=== PATIENT | female | born 1990 | race Caucasian/White ===

== ENCOUNTER 2024-01-31 10:44 | Emergency (ER) | payer MEDICAID, SELFPAY ==
[2024-01-31 10:53] VITALS: BP 141/108; PULSE 96; TEMP 37.1; O2SAT 97; BMI 25.8
[2024-01-31 11:21] LABS: Basophils Absolute Auto 0.1 10^3/uL (0.0-0.1); Basophils Percent Auto 0.5 % (0.2-2.0); Eosinophils Percent Auto 0.2 % (0.9-7.0); Hematocrit 46.1 % (36.0-48.0); Hemoglobin 16.2 g/dL (12.0-16.0); Immature Granulocytes Abs Auto 0.03 10^3/uL (0.00-0.03); Immature Granulocytes Pct Auto 0.3 % (0.0-0.5); Lymphocytes Absolute Auto 2.4 10^3/uL (1.2-3.8); Lymphocytes Percent Auto 23.1 % (20.5-60.0); Mean Corpuscular HGB Conc 35.1 g/dL (29.9-35.2); Mean Corpuscular Hemoglobin 29.9 pg (26.7-34.0); Mean Corpuscular Volume 85.2 fL (81.0-99.0); Mean Platelet Volume 10.2 fL (9.5-13.5); Monocytes Absolute Auto 0.6 10^3/uL (0.3-0.8); Monocytes Percent Auto 6.2 % (1.7-12.0); Neutrophils Absolute Auto 7.1 10^3/uL (1.4-6.5); Neutrophils Percent Auto 69.7 % (43.0-75.0); Platelet Count 297 10^3/uL (150-450); Red Blood Count 5.41 10^6/uL (4.20-5.40); Red Cell Distribution Width 11.9 % (11.0-15.0); White Blood Count 10.2 10^3/uL (4.0-11.0)
[2024-01-31] MEDS: ONDANSETRON PF 4 MG/2 ML VIAL IV (11:27)
[2024-01-31] MEDS: 0.9 % SODIUM CHLORIDE 1,000 ML 1000 ML IV (11:27)
[2024-01-31 11:53] LABS: Alanine Aminotransferase 19 U/L (14-59); Albumin Globulin Ratio 0.9; Alkaline Phosphatase 70 U/L (46-116); Aspartate Amino Transferase 17 U/L (15-37); BUN Creatinine Ratio 9.9; Bilirubin Total 0.8 mg/dL (0.2-1.0); Calcium 9.3 mg/dL (8.5-10.1); Carbon Dioxide 22.7 mmol/L (21.0-32.0); Chloride 102 mmol/L (98-107); Estimated GFR (African America >60 (>=60 mL/min/1.73m^2); Estimated GFR (Non-African Ame >60 (>=60 mL/min/1.73m^2); Globulin 4.3 g/dL; Glucose 98 mg/dL (74-106); Potassium 3.7 mmol/L (3.5-5.1); Sodium 140 mmol/L (136-145); Total Protein 8.3 g/dL (6.4-8.2)
[2024-01-31 12:19] LABS: HCG Quantitative 133465 mIU/mL
[2024-01-31 12:43] LABS: Bilirubin Urine NEGATIVE (NEGATIVE); Blood Urine NEGATIVE (NEGATIVE); Clarity Urine SL CLOUDY (CLEAR); Color Urine YELLOW (YELLOW); Glucose Urine UA NEGATIVE (NEGATIVE); Ketones Urine 15 mg/dL (NEGATIVE); Leukocyte Esterase Urine TRACE (NEGATIVE); Nitrite Urine POSITIVE (NEGATIVE); Protein Urine 30 mg/dL (NEG/TRACE); Urobilinogen Urine 0.2 EU/dL (0.2-1.0)
[2024-01-31 12:52] LABS: Urine Microscopic Indicated YES
[2024-01-31 12:53] LABS: Bacteria Urine MODERATE #/HPF (NONE SEEN); Mucus Urine MODERATE (NONE SEEN); RBC Urine NONE SEEN #/HPF (0-2)
[2024-01-31 12:54] LABS: Cast Seen? SEEN #/LPF (NONE SEEN); Crystals Seen? None Seen #/HPF (None Seen); Hyaline Casts Urine RARE; Squamous Epithelial Cell Urine FEW #/LPF (NONE/RARE); Transitional Epi Cells Urine RARE #/LPF (NONE SEEN)
[2024-01-31 12:55] LABS: Urine Culture Indicated YES
--- NOTE | 2024-01-31 18:11 | ED.NAVMDI1 ---
HPI - Nausea/Vomiting/Diarrhea General Chief complaint: Nausea/Vomiting/Diarrhea Stated complaint: NAUSEA Time Seen by Provider: 01/31/24 11:11 Source: patient Mode of arrival: walk-in History of Present Illness HPI Narrative: Patient has been before 2 times and this is the third time she is 7 weeks coming to us with nausea vomiting, no abdominal pain no spotting Patient have not followed up with her OB doctor yet Related Data Previous Rx's ?Medication ?Instructions ?Recorded amoxicillin 875 mg-potassium 1 tab PO Q12H #10 tabs 01/31/24 clavulanate 125 mg tablet ondansetron 4 mg disintegrating 4 mg PO Q8H PRN nausea and 01/31/24 tablet vomiting 3 days #14 tabs pyridoxine (vitamin B6) 25 mg 25 mg PO TID PRN nausea and 01/31/24 tablet vomiting #20 tabs Allergies Allergy/AdvReac Type Severity Reaction Status Date / Time No Known Drug Allergies Allergy Verified 01/31/24 12:24 Review of Systems ROS Status of ROS 10 or more systems reviewed and unremarkable except as noted in history and below PFSH PFSH Social History Little interest or pleasure in doing things: not at all Feeling down, depressed, or hopeless: not at all Exam Narrative Exam Narrative: Nurses notes and vital signs reviewed and patient is not hypoxic. General: Well-appearing and in no apparent distress. Skin: Warm, dry, no pallor noted. No rash. Head: Normocephalic, atraumatic. Neck: Supple, non-tender. Eye: Pupils are equal, round and EOMI. No scleral icterus. Ears, Nose, Mouth, and Throat: TM are clear, no nasal mucosal hypertrophy. Oral mucosa is moist, no posterior oropharynx erythema, uvula is mid-line Cardiovascular: Regular Rate and Rhythm without murmur, gallop or rub. Respiratory: No accessory muscle use or respiratory distress. Lungs are clear to auscultation, no wheezing, rales or rhonchi Chest Wall: no tenderness Back: No midline thoracic or lumbar vertebral tenderness. No CVA tenderness Musculoskeletal: normal ROM, no calf or popliteal tenderness, no lower extremity edema/swelling GI: Abdomen is soft, non-distended. Normal bowel sounds. No masses appreciated. No tenderness to palpation. No rebound, guarding, or rigidity noted. Neurological: A&O x4. No cranial nerve dysfunction observed. No truncal ataxia. Moves all extremities. Sensation intact. Psychiatric: Cooperative and interactive. Normal mood and affect. Constitutional Vital Signs, click to edit/add: Last Vital Signs Temp 98.8 F 01/31/24 10:53 Pulse 96 H 01/31/24 10:53 Resp 14 01/31/24 10:53 BP 141/108 H 01/31/24 10:53 Pulse Ox 97 01/31/24 10:53 O2 Del Method Room Air 01/31/24 10:53 Course Vital Signs Vital signs: Vital Signs Temperature 98.8 F 01/31/24 10:53 Pulse Rate 96 H 01/31/24 10:53 Respiratory Rate 14 01/31/24 10:53 Blood Pressure 141/108 H 01/31/24 10:53 Pulse Oximetry 97 01/31/24 10:53 Oxygen Delivery Method Room Air 01/31/24 10:53 Temperature 98.8 F 01/31/24 10:53 Pulse Rate 96 H 01/31/24 10:53 Respiratory Rate 14 01/31/24 10:53 Blood Pressure 141/108 H 01/31/24 10:53 Pulse Oximetry 97 01/31/24 10:53 Oxygen Delivery Method Room Air 01/31/24 10:53 MDM - Nausea/Vomiting/Diarrhea MDM Narrative Medical decision making narrative: CBC and chemistry showed no acute pathology and the patient urinalysis shows some bacteria with some ketones The patient was provided with IV fluid and Zofran after which she was feeling much better she was discharged home with supportive care and Augmentin due to the asymptomatic bacteriuria The patient is to follow up with primary care physician in next 2-3 days or to return to the emergency department should any of the signs or symptoms worsen or new symptoms develop. The patient agrees with the following Diagnosis and Treatment plan and the patient will be discharged home. Lab Data Labs: Lab Results 01/31/24 01/31/24 Range/Units 11:09 12:23 WBC 10.2 (4.0-11.0) 10^3/uL RBC 5.41 H (4.20-5.40) 10^6/uL Hgb 16.2 H (12.0-16.0) g/dL Hct 46.1 (36.0-48.0) % MCV 85.2 (81.0-99.0) fL MCH 29.9 (26.7-34.0) pg MCHC 35.1 (29.9-35.2) g/dL RDW 11.9 (11.0-15.0) % Plt Count 297 (150-450) 10^3/uL MPV 10.2 (9.5-13.5) fL Neut % (Auto) 69.7 (43.0-75.0) % Lymph % (Auto) 23.1 (20.5-60.0) % [place] % (Auto) 6.2 (1.7-12.0) % Eos % (Auto) 0.2 L (0.9-7.0) % Baso % (Auto) 0.5 (0.2-2.0) % Neut # (Auto) 7.1 H (1.4-6.5) 10^3/uL Lymph # (Auto) 2.4 (1.2-3.8) 10^3/uL [place] # (Auto) 0.6 (0.3-0.8) 10^3/uL Eos # (Auto) 0.0 (0.0-0.7) 10^3/uL Baso # (Auto) 0.1 (0.0-0.1) 10^3/uL Abs Immat Gran (auto) 0.03 (0.00-0.03) 10^3/uL Imm/Tot Granulo (auto) 0.3 (0.0-0.5) % Sodium 140 (136-145) mmol/L Potassium 3.7 (3.5-5.1) mmol/L Chloride 102 (98-107) mmol/L Carbon Dioxide 22.7 (21.0-32.0) mmol/L Anion Gap 19.0 BUN 8.0 (7.0-18.0) mg/dL Creatinine 0.81 (0.55-1.02) mg/dL Est GFR ( Amer) >60 (>=60 mL/min/1.73m^2) Est GFR (Non-Af Amer) >60 (>=60 mL/min/1.73m^2) BUN/Creatinine Ratio 9.9 Glucose 98 (74-106) mg/dL Calcium 9.3 (8.5-10.1) mg/dL Total Bilirubin 0.8 (0.2-1.0) mg/dL AST 17 (15-37) U/L ALT 19 (14-59) U/L Alkaline Phosphatase 70 (46-116) U/L Total Protein 8.3 H (6.4-8.2) g/dL Albumin 4.0 (3.4-5.0) g/dL Globulin 4.3 g/dL Albumin/Globulin Ratio 0.9 HCG, Quant 380087 mIU/mL Urine Color Yellow (YELLOW) Urine Clarity Sl cloudy (CLEAR) Urine pH 6.0 (5.0-9.0) Ur Specific [place] 1.020 (1.005-1.025) Urine Protein 30 A (NEG/TRACE) mg/dL Urine Glucose (UA) Negative (NEGATIVE) mg/dL Urine Ketones 15 A (NEGATIVE) mg/dL Urine Occult Blood Negative (NEGATIVE) Urine Nitrite Positive A (NEGATIVE) Urine Bilirubin Negative (NEGATIVE) Urine Urobilinogen 0.2 (0.2-1.0) EU/dL Ur Leukocyte Esterase Trace A (NEGATIVE) Urine RBC None seen (0-2) #/HPF Urine WBC 5-10 A (NONE SEEN) #/HPF Ur Squamous Epith Cells Few A (NONE/RARE) #/LPF Ur Transition Epith Cell Rare A (NONE SEEN) #/LPF Urine Crystals None seen (None Seen) #/HPF Urine Bacteria Moderate A (NONE SEEN) #/HPF Urine Casts Seen A (NONE SEEN) #/LPF Hyaline Casts Rare Urine Mucus Moderate A (NONE SEEN) Ur Culture Indicated? Yes Discharge Plan Discharge Chief Complaint: Nausea/Vomiting/Diarrhea Clinical Impression: Nausea and vomiting during Patient Disposition: Home, Self-Care Time of Disposition Decision: 12:48 Condition: Good Prescriptions / Home Meds: New pyridoxine (vitamin B6) 25 mg tablet 25 mg PO TID PRN (Reason: nausea and vomiting) Qty: 20 0RF ondansetron 4 mg tablet,disintegrating 4 mg PO Q8H PRN (Reason: nausea and vomiting) 3 Days Qty: 14 0RF amoxicillin-pot clavulanate 875-125 mg tablet 1 tab PO Q12H Qty: 10 0RF Print Language: Hebrew Instructions: Nausea and Vomiting in (ED) Referrals: Junior Jones DO [Physician] - 1 week Physician,Non-Staff, [Primary Care Provider] - 1 week Discharge Date/Time: 01/31/24 14:14
== END 2024-01-31 14:14 | disposition home or self-care (01) ==
PROVIDERS: Emergency Provider Emergency Medicine
DX: O26.891 Other specified pregnancy related conditions, first trimester (principal); R11.2 Nausea with vomiting, unspecified; Z3A.01 Less than 8 weeks gestation of pregnancy
CPT/HCPCS: 36415; 80053; 81001; 84702; 85025; 87086; 96361; 96374; 99284; J2405

== ENCOUNTER 2024-02-18 12:33 | Outpatient (OUT) | payer MEDICAID, SELFPAY ==
--- NOTE | 2024-02-18 12:34 | US_ITS ---
[address] [address] Patient Name: SANTIAGO SAAVEDRA MRN: [id number] date: 1990 Sex: F Assigned Patient Location: [facility] Current Patient Location: Accession/Order Number: [id number] Exam Date: 02/18/2024 12:35 Report Date: 02/19/2024 04:17 At the request of: BLANCA DENTON Procedure: US OB transvaginal EXAMINATION: US OB transvaginal HISTORY: MISSED MENSES COMPARISON: No relevant comparison available. FINDINGS: GESTATIONAL SAC: Present and normal appearing. YOLK SAC: Present and normal appearing. POLE: Present and normal appearing. CARDIAC: Present. UTERUS: Normal size and appearance. OVARIES: Right: Corpus lutein cyst. Left: Normal. CERVIX: 4.8 cm in length and closed. CUL-DE-SAC: Normal. OTHER: None. AGE BY LMP: 9 weeks 3 days HARITHA BY LMP: 09/19/2024 AGE BY US CRL: 9 weeks 4 days HARITHA BY US CRL: 09/18/2024 US/US OB transvaginal IMPRESSION: 1. Single live intrauterine . Electronically authenticated by: MAXIMINO BASHIR Date: 02/19/2024 04:17
--- OUTSIDE RECORDS SUMMARY | 2024-02-18 12:47 | XMS_ITS | CCD ---
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 caregiver may decide to recommend you to a headache specialist, depending upon your symptoms or other physical conditions. Having diabetes, allergies, etc., may require a more comprehensive and inclusive approach to your headache. The National Headache Foundation will provide, upon request, a list of NHF physician members in your state.Document Released: 06/12/2004 Document Revised: 06/14/2012 Document Reviewed: 11/20/2008ExitCare? Patient Information ?2015 [employer]. This information is not intended to replace advice given to you by your health care provider. Make sure you discuss any questions you have with your health care provider.MusculoskeletalTortico llis, AcuteYou have suddenly (acutely) developed a twisted neck (torticollis). This is usually a self-limited condition.CAUSESAcute torticollis may be caused by malposition, trauma or infection. Most commonly, acute torticollis is caused by sleeping in an awkward position. Torticollis may also be caused by the flexion, extension or twisting of the neck muscles beyond their normal position. Sometimes, the exact cause may not be known.SYMPTOMSUsually, there is pain and limited movement of the neck. Your neck may twist to one side.DIAGNOSISThe diagnosis is often made by physical examination. X-rays, CT scans or MRIs may be done if there is a history of trauma or concern of infection.TREATMENTFor a common, stiff neck that develops during sleep, treatment is focused on relaxing the contracted neck muscle. Medications (including shots) may be used to treat the problem. Most cases resolve in several days. Torticollis usually responds to conservative physical therapy. If left untreated, the shortened and spastic neck muscle can cause deformities in the face and neck. Rarely, surgery is required.HOME CARE INSTRUCTIONS? Use vhvm-usy-mjzrdlo and prescription medications as directed by your caregiver.? Do stretching exercises and massage the neck as directed by your caregiver.? Follow up with physical therapy if needed and as directed by your caregiver.SEEK IMMEDIATE MEDICAL CARE IF:? You develop difficulty breathing or noisy breathing (stridor).? You drool, develop trouble swallowing or have pain with swallowing.? You develop numbness or weakness in the hands or feet.? You have changes in speech or vision.? You have problems with urination or bowel movements.? You have difficulty walking.? You have a fever.? You have increased pain.MAKE SURE YOU:? Understand these instructions.? Will watch your condition.? Will get help right away if you are not doing well or get worse.Document Released: 03/20/2001 Document Revised: 06/14/2012 Document Reviewed: 05/01/2010ExitCare? Patient Information ?2015 [employer]. This information is not intended to replace advice given to you by your health care provider. Make sure you discuss any questions you have with your health care provider. Normal [facility] ED Patient Summaryon 017 ED Patient Summary [address] [address] Patient Discharge Instructions Person Information Name: GILSON MEDINA Age: 26 Years Date: 10/21/2016 5:37 PMDischarge Diagnosis: Headache; Right torticollis Primary Care Physician: Arslan Malin DO, FAAFP Provider InformationPrimary Provider: Sharon Pickett DO Wax Molder:Aquilino Sneed PA-C The exam and treatment you received in the Emergency Department were for an urgent problem and are not intended as complete care. It is important that you follow up with a doctor, nurse practitioner, or physician?s assistant service manager for ongoing care. If your symptoms become worse or you do not improve as expected and you are unable to reach your usual health care provider, you should return to the Emergency Department. We are available 24 hours a day. GILSON MEDINA has been given the following list of patient education materials, prescriptions and follow-up instructions: Follow-up Instructions:With: Address: When: Arslan Malin [address] [place] [address] [address] [place] [phone] Business (1) In 3 days 10/24/2016 In the event that this physician does not participate in your insurance network, please consult with your insurance company to find a nearby participating provider. Patient Education Materials:Headache, FAQs; Torticollis, Acute Medications Given:Medication Dose Route No medications found. Medication Information:New MedicationsPrinted Prescriptionscyclobenzaprine (cyclobenzaprine 10 mg Tab) 1 Tabs By Mouth 3 times a day as needed for spasm. Refills: 0.naproxen (naproxen 500 mg Tab) 1 Tabs By Mouth 2 times a day. with food. Refills: 0.Medications to Continue with No ChangesOther Medicationsaspirin (aspirin 81 mg oral tablet) azithromycin (azithromycin 250 mg Tab 5-day Dose Pack (Z-Filemon)) as directed on package labeling. Refills: 0.cephalexin (cephalexin 500 mg Cap) 1 Capsules By Mouth 3 times a day. Take one capsule by mouth three times a day. Refills: 0.ibuprofen (ibuprofen 400 mg Tab) 1 Tabs By Mouth every 6 hours as needed as needed for pain. with food or milk. Refills: 0.ondansetron (Zofran ODT 4 mg Tab) 4 Milligram By Mouth every 8 hours. Refills: 0.Comment: Pharmacy Information: Thank you for choosing [facility] Patient Education Materials: Headaches, Frequently Asked QuestionsMIGRAINE HEADACHESQ: What is migraine? What causes it? How can I treat it?A: Generally, migraine headaches begin as a dull ache. Then they develop into a constant, throbbing, and pulsating pain. You may experience pain at the temples. You may experience pain at the front or back of one or both sides of the head. The pain is usually accompanied by a combination of:? Nausea.? Vomiting.? Sensitivity to light and noise.Some people (about 15%) experience an aura (see below) before an attack. The cause of migraine is believed to be chemical reactions in the brain. Treatment for migraine may include obpx-lvk-oyxszuj or prescription medications. It may also include self-help techniques. These include relaxation training and biofeedback. Q: What is an aura?A: About 15% of people with migraine get an aura . This is a sign of neurological symptoms that occur before a migraine headache. You may see wavy or jagged lines, dots, or flashing lights. You might experience tunnel vision or blind spots in one or both eyes. The aura can include visual or auditory hallucinations (something imagined). It may include disruptions in smell (such as strange odors), taste or touch. Other symptoms include:? Numbness.? A pins and needles sensation.? Difficulty in recalling or speaking the correct word.These neurological events may last as long as 60 minutes. These symptoms will fade as the headache begins.Q: What is a trigger?A: Certain physical or environmental factors can lead to or trigger a migraine. These include:? Foods. ? Hormonal changes. ? Weather.? Stress.It is important to remember that triggers are different for everyone. To help prevent migraine attacks, you need to figure out which triggers affect you. Keep a headache diary. This is a good way to track triggers. The diary will help you talk to your healthcare professional about your condition.Q: Does weather affect migraines?A: Bright sunshine, hot, humid conditions, and drastic changes in barometric pressure may lead to, or trigger, a migraine attack in some people. But studies have shown that weather does not act as a trigger for everyone with migraines.Q: What is the link between migraine and hormones?A: Hormones start and regulate many of your body's functions. Hormones keep your body in balance within a constantly changing environment. The levels of hormones in your body are unbalanced at times. Examples are during menstruation, , or menopause. That can lead to a migraine attack. In fact, about three quarters of all women with migraine report that their attacks are related to the menstrual cycle. Q: Is there an increased risk of stroke for migraine sufferers?A: The likelihood of a migraine attack causing a stroke is very remote. That is not to say that migraine sufferers cannot have a stroke associated with their migraines. In persons under age 40, the most common associated factor for stroke is migraine headache. But over the course of a person's normal life span, the occurrence of migraine headache may actually be associated with a reduced risk of dying from cerebrovascular disease due to stroke. Q: What are acute medications for migraine?A: Acute medications are used to treat the pain of the headache after it has started. Examples jnqw-pkz-lpvztns medications, NSAIDs, ergots, and triptans. Q: What are the triptans?A: Triptans are the newest class of abortive medications. They are specifically targeted to treat migraine. Triptans are vasoconstrictors. They moderate some chemical reactions in the brain. The triptans work on receptors in your brain. Triptans help to restore the balance of a neurotransmitter called serotonin. Fluctuations in levels of serotonin are thought to be a main cause of migraine. Q: Are dulz-adw-vovdgbg medications for migraine effective?A: Rbcf-qpf-fwiulkl, or OTC, medications may be effective in relieving mild to moderate pain and associated symptoms of migraine. But you should see your caregiver before beginning any treatment regimen for migraine. Q: What are preventive medications for migraine?A: Preventive medications for migraine are sometimes referred to as prophylactic treatments. They are used to reduce the frequency, severity, and length of migraine attacks. Examples of preventive medications include antiepileptic medications, antidepressants, beta-blockers, calcium channel blockers, and NSAIDs (nonsteroidal anti-inflammatory drugs).Q: Why are anticonvulsants used to treat migraine?A: During the past few years, there has been an increased interest in antiepileptic drugs for the prevention of migraine. They are sometimes referred to as anticonvulsants . Both epilepsy and migraine may be caused by similar reactions in the brain. Q: Why are antidepressants used to treat migraine?A: Antidepressants are typically used to treat people with depression. They may reduce migraine frequency by regulating chemical levels, such as serotonin, in the brain. Q: What alternative therapies are used to treat migraine?A: The term alternative therapies is often used to describe treatments considered outside the scope of conventional Western medicine. Examples of alternative therapy include acupuncture, acupressure, and yoga. Another common alternative treatment is herbal therapy. Some herbs are believed to relieve headache pain. Always discuss alternative therapies with your caregiver before proceeding. Some herbal products contain arsenic and other toxins.TENSION HEADACHESQ: What is a tension-type headache? What causes it? How can I treat it?A: Tension-type headaches occur randomly. They are often the result of temporary stress, anxiety, fatigue, or anger. Symptoms include soreness in your temples, a tightening band-like sensation around your head (a vice-like ache). Symptoms can also include a pulling feeling, pressure sensations, and pk head and neck muscles. The headache begins in your forehead, temples, or the back of your head and neck. Treatment for tension-type headache may include plqm-esv-leumwdb or prescription medications. Treatment may also include self-help techniques such as relaxation training and biofeedback.CLUSTER HEADACHESQ: What is a cluster headache? What causes it? How can I treat it?A: Cluster headache gets its name because the attacks come in groups. The pain arrives with little, if any, warning. It is usually on one side of the head. A tearing or bloodshot eye and a runny nose on the same side of the headache may also accompany the pain. Cluster headaches are believed to be caused by chemical reactions in the brain. They have been described as the most severe and intense of any headache type. Treatment for cluster headache includes prescription medication and oxygen.SINUS HEADACHESQ: What is a sinus headache? What causes it? How can I treat it?A: When a cavity in the bones of the face and skull (a sinus) becomes inflamed, the inflammation will cause localized pain. This condition is usually the result of an allergic reaction, a tumor, or an infection. If your headache is caused by a sinus blockage, such as an infection, you will probably have a fever. An x-ray will confirm a sinus blockage. Your caregiver's treatment might include antibiotics for the infection, as well as antihistamines or decongestants. REBOUND HEADACHESQ: What is a rebound headache? What causes it? How can I treat it?A: A pattern of taking acute headache medications too often can lead to a condition known as rebound headache. A pattern of taking too much headache medication includes taking it more than 2 days per week or in excessive amounts. That means more than the label or a caregiver advises. With rebound headaches, your medications not only stop relieving pain, they actually begin to cause headaches. Doctors treat rebound headache by tapering the medication that is being overused. Sometimes your caregiver will gradually substitute a different type of treatment or medication. Stopping may be a challenge. Regularly overusing a medication increases the potential for serious side effects. Consult a caregiver if you regularly use headache medications more than 2 days per week or more than the label advises.ADDITIONAL QUESTIONS AND ANSWERSQ: What is biofeedback?A: Biofeedback is a self-help treatment. Biofeedback uses special equipment to monitor your body's involuntary physical responses. Biofeedback monitors:? Breathing. ? Pulse. ? Heart rate.? Temperature.? Muscle tension.? Brain activity.Biofeedback helps you refine and perfect your relaxation exercises. You learn to control the physical responses that are related to stress. Once the technique has been mastered, you do not need the equipment any more.Q: Are headaches hereditary?A: Four out of five (80%) of people that suffer report a family history of migraine. Scientists are not sure if this is genetic or a family predisposition. Despite the uncertainty, a child has a 50% chance of having migraine if one parent suffers. The child has a 75% chance if both parents suffer. Q: Can children get headaches?A: By the time they reach high school, most young people have experienced some type of headache. Many safe and effective approaches or medications can prevent a headache from occurring or stop it after it has begun. Q: What type of doctor should I see to diagnose and treat my headache?A: Start with your primary caregiver. Discuss his or her experience and approach to headaches. Discuss methods of classification, diagnosis, and treatment. Your caregiver may decide to recommend you to a headache specialist, depending upon your symptoms or other physical conditions. Having diabetes, allergies, etc., may require a more comprehensive and inclusive approach to your headache. The National Headache Foundation will provide, upon request, a list of NHF physician members in your state.Document Released: 06/12/2004 Document Revised: 06/14/2012 Document Reviewed: 11/20/2008ExitCare? Patient Information ?2015 [employer]. This information is not intended to replace advice given to you by your health care provider. Make sure you discuss any questions you have with your health care provider.Torticollis, AcuteYou have suddenly (acutely) developed a twisted neck (torticollis). This is usually a self-limited condition.CAUSESAcute torticollis may be caused by malposition, trauma or infection. Most commonly, acute torticollis is caused by sleeping in an awkward position. Torticollis may also be caused by the flexion, extension or twisting of the neck muscles beyond their normal position. Sometimes, the exact cause may not be known.SYMPTOMSUsually, there is pain and limited movement of the neck. Your neck may twist to one side.DIAGNOSISThe diagnosis is often made by physical examination. X-rays, CT scans or MRIs may be done if there is a history of trauma or concern of infection.TREATMENTFor a common, stiff neck that develops during sleep, treatment is focused on relaxing the contracted neck muscle. Medications (including shots) may be used to treat the problem. Most cases resolve in several days. Torticollis usually responds to conservative physical therapy. If left untreated, the shortened and spastic neck muscle can cause deformities in the face and neck. Rarely, surgery is required.HOME CARE INSTRUCTIONS? Use obra-gky-ddkaggz and prescription medications as directed by your caregiver.? Do stretching exercises and massage the neck as directed by your caregiver.? Follow up with physical therapy if needed and as directed by your caregiver.SEEK IMMEDIATE MEDICAL CARE IF:? You develop difficulty breathing or noisy breathing (stridor).? You drool, develop trouble swallowing or have pain with swallowing.? You develop numbness or weakness in the hands or feet.? You have changes in speech or vision.? You have problems with urination or bowel movements.? You have difficulty walking.? You have a fever.? You have increased pain.MAKE SURE YOU:? Understand these instructions.? Will watch your condition.? Will get help right away if you are not doing well or get worse.Document Released: 03/20/2001 Document Revised: 06/14/2012 Document Reviewed: 05/01/2010ExitCare? Patient Information ?2014 [employer]. This information is not intended to replace advice given to you by your health care provider. Make sure you discuss any questions you have with your health care provider.KERI Echeverria LYNSIE R , have received the following patient education materials/instructions and have verbalized understanding: Patient Education Materials: Headache, FAQs; Torticollis, Acute Follow-up Instructions: With: Address: When: Arslan Malin [address] [place] [address] [place] [address] Business (1) In 3 days 10/24/2016 Prescriptions: [cyclobenzaprine (cyclobenzaprine 10 mg Tab)] [naproxen (naproxen 500 mg Tab)] Patient Signature Date Clinician/Nurse Signature Date 10/21/16 19:20:21 Normal [facility] Vital Signs Date Time Vital Sign Value Performing Clinician Facility 02-08-2023 12:30-0500 Body height 175.26 cm Sangita Penn Other [facility] Other 02-08-2023 12:30-0500 Body mass index (BMI) [Ratio] 25.84 kg/m2 Sangita Penn Other [facility] Other 02-08-2023 12:30-0500 Body temperature 98.2 [degF] Sangita Penn Other [facility] Other 02-08-2023 12:30-0500 Body weight 79.38 kg Sangita Penn Other [facility] Other 02-08-2023 12:30-0500 Respiratory rate 16 /min Sangita Penn Other [facility] Other 02-08-2023 12:30-0500 SaO2% (BldA) [Mass fraction] 98 % Sangita Penn Other [facility] Other Encounters Encounter Date Encounter Type Care Provider Facility Start: 02-08-2023 End: 02-08-2023 ambulatory Sangita Penn Other [facility] Other Start: 02-08-2023 Office outpatient ne w 30 minutes Sangita Penn [facility] Start: 02-20-2022 End: 02-20-2022 Emergency department patient visit MARY OQUENDO Facility:[facility] Start: 10-21-2016 End: 10-21-2016 Emergency department patient visit Sharon [place]ett [place] [place] Payer Category Payer Medicaid [id number] 2016 Unknown [id number] Social History Date Type Detail Facility Unknown if ever smoked [facility] Other Sex Assigned At Sex Assigned At Bir th [facility] Other Evaluation note 02-08-2023 Note Date & Type Note Facility 02-08-2023 Evaluation note Encounter Date Diagnosis Assessment Notes Feb, Cough (ICD-10 - R05.9) Feb, Bronchiolitis (ICD-10 - J21.9) Advised patient that COVID/Influenza A/B/RSV PCR test was negative today in office. Discussed diagnosis with patient in detail. Will treat as viral today based on physical exam and duration of symptoms, antibiotics are not indicated for viral infections. Advised patient that viral syndromes last 7-10 days, cough may linger for 3 weeks. Take medications as prescribed, reviewed side effects of steroid, take with food and plenty of water. Supportive care as directed, push fluids and rest, may use Tylenol as needed for fever/discomfort , cool mist humidifier. May use [place] as needed for cough, do not take any other OTCs while using [place]. Patient to follow up with PCP in 2-3 days. Immediate eval if SOB, difficulty breathing, chest pain, dizziness, or other concerning symptoms. Patient verbalizes understanding and is agreeable to treatment plan [employer] Other Clinical Note 02-20-2022 Note Date & Type Note Facility 02-20-2022 Note COVID 19 RESULT: SARS-CoV-2 (Agent of COVID-19) Not Detected by RT-PCR or equivalent method. This test has been authorized by FDA under an Emergency Use Authorization (EUA). INFLUENZA A PCR: Negative for Influenza A by RT-PCR INFLUENZA B PCR: Negative for Influenza B by RT-PCR RSV PCR: Negative for Respiratory Syncytial Virus (RSV) by PCR [facility] Comment on above: Performed By: #### [id number] #### [facility] CLIA [id number] [address] [place] [address] OF [facility] History general Narrative - Reported Note Date & Type Note Facility History general Narrative - Reported Type Surgical History TONSILS Hospitalization History CHILD [employer] Other Summary Purpose Family History No Family History Records FoundNo Family History Records Found Advance Directives No Advanced Directives Records FoundNo Advanced Directives Records Found Additional Source Comments INFORMATION SOURCE (unrecogn ized section and content) DATE CREATED AUTHOR [facility]30/2017 [facility] DATE CREATED AUTHOR AUTHOR'S ORGANIZ ATION 02/23/2022 [facility] REASON FOR VISIT (unrecogniz ed section and content) COUGH, CONGESTION FOR RECORDS PERTAINING TO PATIENTS WHO ARE OR HAVE BEEN ENROLLED IN A CHEMICAL DEPENDENCY/SUBSTANCEABUSE PROGRAM, SOME INFORMATION MAY BE OMITTED. This clinical summary was aggregated from multiple sources. Caution should be exercised in using it in the provision of clinical care. This summary normalizes information from multiple sources, and as a consequence, information in this document may materially change the coding, format and clinical context of patient data. In addition, data may be omitted in some cases. CLINICAL DECISIONS SHOULD BE BASED ON THE PRIMARY CLINICAL RECORDS. [facility] [employer] [facility]. provides no warranty or guarantee of the accuracy or completeness of information in this document.
== END 2024-02-18 12:34 | disposition home or self-care (01) ==
LOC: NOMS 12:33
PROVIDERS: Visit Provider Obstetrics & Gynecology
DX: Z34.91 Encounter for supervision of normal pregnancy, unspecified, first trimester (principal); Z3A.09 9 weeks gestation of pregnancy; N92.6 Irregular menstruation, unspecified
CPT/HCPCS: 76817

== ENCOUNTER 2024-02-22 12:29 | Outpatient (OUT) | payer MEDICAID, SELFPAY ==
--- OUTSIDE RECORDS SUMMARY | 2024-02-22 12:54 | XMS_ITS | CCD ---
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 available 24 hours a day. GILSON MEDINA has been given the following list of patient education materials, prescriptions and follow-up instructions: Follow-up Instructions:With: Address: When: Arslan Malin [address] [place] [address] [place] [address] Business (1) In 3 days 10/24/2016 In [...] 0.Comment: Pharmacy Information: Thank you for choosing [facility] Patient Education Materials: Headaches, Frequently Asked QuestionsMIGRAINE [...] the brain. Treatment for migraine may include jjpo-jkv-wbczaln or prescription medications. It may also include [...] the headache after it has started. Examples fghp-ziy-iqyfhmk medications, NSAIDs, ergots, and triptans. Q: What [...] a main cause of migraine. Q: Are jmee-veu-cxosrdw medications for migraine effective?A: Moff-xpf-zpkyerm, or OTC, medications may be effective in [...] neck. Treatment for tension-type headache may include rydd-dht-fgzdiys or prescription medications. Treatment may also include [...] will provide, upon request, a list of [employer] physician members in your state.Document Released: 06/12/2004 Document Revised: 06/14/2012 Document Reviewed: 11/20/2008ExitCare? Patient Information ?2014 [employer]. This information is not intended to replace [...] Rarely, surgery is required.HOME CARE INSTRUCTIONS? Use fbqo-ycj-wesikhd and prescription medications as directed by your [...] 06/14/2012 Document Reviewed: 05/01/2010ExitCare? Patient Information ?2014 [employer]. This information is not intended to replace advice given to you by your health care provider. Make sure you discuss any questions you have with your health care provider.KERI Echeverria LYNSIE R , have received the following patient education materials/instructions and have verbalized understanding: Patient Education Materials: Headache, FAQs; Torticollis, Acute Follow-up Instructions: With: Address: When: Arslan You, [place] [address] [facility] (1) In 3 days 10/24/2016 Prescriptions: [cyclobenzaprine (cyclobenzaprine 10 mg Tab)] [naproxen (naproxen 500 mg Tab)] Patient Signature Date Clinician/Nurse Signature Date 10/21/16 19:20:21 Normal [facility] Vital Signs Date Time Vital Sign Value Performing Clinician Facility 02-08-2023 12:30-0500 Body height 175.26 cm Sangita Penn Other [facility] 02-08-2023 12:30-0500 Body mass index (BMI) [Ratio] 25.84 kg/m2 Sangita Penn Other [facility] Other 02-08-2023 12:30-0500 Body temperature 98.2 [degF] Sangita Stovalller Other [facility] Other 02-08-2023 12:30-0500 Body weight 79.38 kg Sangita Penn Other [facility] Other 02-08-2023 12:30-0500 Respiratory rate 16 /min Sangita Penn Other [facility] Other 02-08-2023 12:30-0500 SaO2% (BldA) [Mass fraction] 98 % Sangita Penn Other [facility] Other Encounters Encounter Date Encounter Type Care Provider Facility Start: 02-18-2024 End: 02-18-2024 ambulatory Not Available Start: 02-08-2023 End: 02-08-2023 ambulatory Sangita Penn Other [facility] Start: 02-08-2023 Office outpatient ne w 30 minutes Sangita Penn [facility] Start: 02-20-2022 End: 02-20-2022 Emergency department patient visit MARY OQUENDO Facility:[facility] Start: 10-21-2016 End: 10-21-2016 Emergency department patient visit Sharon Yates Piyush Facility:[facility] Payers Date Payer Category Payer Medicaid [id number] 2016 Unknown [id number] 1990 Unknown [id number] Social History Date Type Detail Facility Unknown if ever smoked [facility] Other Sex Assigned At Sex Assigned At Bir th [facility] Other Evaluation note 02-08-2023 Note Date & [...] fever/discomfort , cool mist humidifier. May use Dover as needed for cough, do not take any other OTCs while using Dover. Patient to follow up with PCP in 2-3 days. Immediate eval if SOB, difficulty breathing, chest pain, dizziness, or other concerning symptoms. Patient verbalizes understanding and is agreeable to treatment plan [facility] Other Clinical Note 02-20-2022 Note Date & [...] for Respiratory Syncytial Virus (RSV) by PCR [facility] Comment on above: Performed By: #### 9 [id number] #### [facility] CLIA [id number] [address] [place] [address] [place] History general Narrative - Reported Note Date & Type Note Facility History general Narrative - Reported Type Surgical History TONSILS Hospitalization History CHILD [facility] Other Summary Purpose Family History No Family History Records FoundNo Family History Records FoundNo Family History Records Found Advance Directives No Advanced Directives Records FoundNo Advanced Directives Records FoundNo Advanced Directives Records Found Additional Source Comments INFORMATION SOURCE (unrecogn ized section and content) DATE CREATED AUTHOR 09/30/2017 Yoni Pierson [facility] DATE CREATED AUTHOR AUTHOR'S ORGANIZ ATION 02/23/2022 [facility] DATE CREATED AUTHOR AUTHOR'S ORGANIZ ATION 02/21/2024 [facility] EPIC REASON FOR VISIT (unrecogniz ed section and [...] BE BASED ON THE PRIMARY CLINICAL RECORDS. [facility] [facility]. provides no warranty or guarantee of the accuracy or completeness of information in this document.
[2024-02-22 13:17] LABS: Amphetamine Screen Urine NEGATIVE (NEGATIVE); Barbiturates Screen Urine NEGATIVE (NEGATIVE); Benzodiazepines Screen Urine NEGATIVE (NEGATIVE); Buprenorphine Screen Urine NEGATIVE (NEGATIVE); Cannabinoid Screen Urine NEGATIVE (NEGATIVE); Cocaine Screen Urine NEGATIVE (NEGATIVE); Methadone Screen Urine NEGATIVE (NEGATIVE); Methamphetamines Screen Urine NEGATIVE (NEGATIVE); Opiate Screen Urine NEGATIVE (NEGATIVE); Oxycodone Screen Urine NEGATIVE (NEGATIVE); Phencyclidine Screen Urine NEGATIVE (NEGATIVE); Tricyclic Antidepressant Urine NEGATIVE (NEGATIVE)
[2024-02-22 13:18] LABS: Basophils Percent Auto 0.3 % (0.2-2.0); Eosinophils Absolute Auto 0.1 10^3/uL (0.0-0.7); Eosinophils Percent Auto 0.5 % (0.9-7.0); Hematocrit 41.8 % (36.0-48.0); Hemoglobin 14.5 g/dL (12.0-16.0); Immature Granulocytes Abs Auto 0.03 10^3/uL (0.00-0.03); Immature Granulocytes Pct Auto 0.3 % (0.0-0.5); Lymphocytes Absolute Auto 1.8 10^3/uL (1.2-3.8); Lymphocytes Percent Auto 18.8 % (20.5-60.0); Mean Corpuscular HGB Conc 34.7 g/dL (29.9-35.2); Mean Corpuscular Hemoglobin 29.8 pg (26.7-34.0); Mean Platelet Volume 10.9 fL (9.5-13.5); Monocytes Absolute Auto 0.5 10^3/uL (0.3-0.8); Monocytes Percent Auto 5.7 % (1.7-12.0); Neutrophils Absolute Auto 6.9 10^3/uL (1.4-6.5); Neutrophils Percent Auto 74.4 % (43.0-75.0); Platelet Count 255 10^3/uL (150-450); Red Blood Count 4.86 10^6/uL (4.20-5.40); Red Cell Distribution Width 11.9 % (11.0-15.0); White Blood Count 9.3 10^3/uL (4.0-11.0)
[2024-02-22 13:59] LABS: Estimated Average Glucose 94 mg/dL; Glycohemoglobin A1C 4.9 % (4.5-6.2)
[2024-02-22 14:30] LABS: BOX Test Reference Lab UNITY; BOX Test Sent Out UNITY
[2024-02-23 06:19] LABS: HBsAg Screen Negative (Negative); HCV Ab Non Reactive (Non Reactive); HIV Ab/p24 Ag Screen Non Reactive (Non Reactive)
[2024-02-23 07:08] LABS: Rubella Antibodies, IgG 1.01 index (Immune >0.99)
[2024-02-23 13:08] LABS: Rapid Plasma Reagin, Quant Non Reactive titer (NonRea<1:1)
== END 2024-02-22 12:30 | disposition home or self-care (01) ==
LOC: LAB 12:32
PROVIDERS: Visit Provider Obstetrics & Gynecology
DX: Z34.01 Encounter for supervision of normal first pregnancy, first trimester (principal); Z36.0 Encounter for antenatal screening for chromosomal anomalies; N92.6 Irregular menstruation, unspecified
CPT/HCPCS: 36415; 80307; 83036; 85025; 86592; 86762; 86803; 86850; 86900; 86901; 87086; 87340; 87389

== ENCOUNTER 2024-04-12 19:59 | Outpatient (REF) | payer MEDICAID, SELFPAY | END 2024-04-12 20:00 | disposition home or self-care (01) | LOC: LAB 19:59 | PROVIDERS: Visit Provider Physician Assistant | DX: Z01.419 Encounter for gynecological examination (general) (routine) without abnormal findings (principal) | CPT/HCPCS: 87624; 88175 ==

== ENCOUNTER 2024-06-06 11:59 | Outpatient (OUT) | payer MEDICAID, SELFPAY ==
--- OUTSIDE RECORDS SUMMARY | 2024-06-06 12:04 | XMS_ITS | CCD ---
[facility] Organization [facility] Care Team Providers Care It Data Architect Name Role Phone Sharon Pickett Unavailable Unavailable Sharon Pickett Unavailable Unavailable Arslan Malin Unavailable Unavailable MARY OQUENDO Attending Unavailable Sangita Penn Unavailable Unavailable Primary Care Provider UnavailBLANCA Nicole Attending Unavailable BLANCA JONES Attending Unavailable DESIREE CADET Attending Unavailable Medications Current Medications Medication Drug Class(es) Dates Sig (Normalized) Sig (Original) [id number] 200 actuat albuterol 0.09 mg/actuat metered dose inhaler (1 source) beta2-Adrenergic Agonist Start: 02-08-2023 take 2 puff(s) by inhalation every four to six hours as needed Albuterol Sulfate HFA 108 (90 Base) MCG/ACT 2 puffs as needed Inhalation every 4-6 hours for 14 days Feb, Active dextromethorphan hydrobromide 1.5 mg/ml / pyrilamine maleate 1.5 mg/ml oral solution (1 source) Uncompetitive P-hvcroe-Y-asparta te Receptor Antagonist, Sigma-1 Agonist Start: 02-08-2023 take 10 mL by mouth every eight hours [place] DM 7.5-7.5 MG/5ML 10 mL Orally every 8 hours for 5 days Feb, Active 12 hr guaiFENesin 600 mg extended release oral tablet (1 source) take 1 tablet by mouth every twelve hours Mucinex 600 MG 1 tablet as needed Orally every 12 hrs Active nitrofurantoin, macrocrystals 25 mg / nitrofurantoin, monohydrate 75 mg oral capsule (2 sources) Nitrofuran Antibacterial Start: 03-09-2024 End: 03-16-2024 take 1 capsule by mouth once in the morning nitrofurantoin, macrocrystal-monohy drate, (Macrobid) 100 MG capsule Indications: Second trimester , 12 weeks gestation of Take 1 capsule (100 mg) by mouth in the morning and 1 capsule (100 mg) before bedtime. Do all this for 7 days. 14 capsule 03/09/2024 03/16/2024 Active ondansetron 4 mg disintegrating oral tablet (2 sources) Serotonin-3 Receptor Antagonist Start: 02-01-2024 End: 03-02-2024 take 1 tablet by mouth every six hours for nausea ondansetron ODT (Zofran-ODT) 4 MG disintegrating tablet Indications: Nausea and vomiting, unspecified vomiting type Take 1 tablet (4 mg) by mouth every 6 (six) hours if needed for nausea or vomiting 30 tablet 2 02/01/2024 03/02/2024 Active predniSONE 20 mg oral tablet (1 source) Start: 02-08-2023 take 1 tablet by mouth every twelve hours prednisone 20 MG 1 tablet Orally BID for 5 Feb, Active pseudoephedrine hydrochloride 30 mg oral tablet (1 source) alpha-Adrenergic Agonist take 2 tablets by mouth every six hours as needed Sudafed 30 MG 2 tablets as needed Orally every 6 hrs Active Completed/Discontinued Medications Medication Drug Class(es) Dates Sig (Normalized) Sig (Original) promethazine hydrochloride 12.5 mg oral tablet (5 sources) Phenothiazine Start: 02-01-2024 End: 03-09-2024 take 1 tablet by mouth every six hours as needed for nausea and nausea, then take 1 tablet by mouth every six hours as needed for nausea and nausea promethazine (Phenergan) 12.5 MG tablet Indications: Nausea and vomiting, unspecified vomiting type Take 1 tablet (12.5 mg) by mouth every 6 (six) hours if needed for nausea or vomiting for up to 30 doses Take 1 tablet by mouth every 6 hours as needed for nausea. 30 tablet 2 02/01/2024 03/09/2024 Discontinued (Other) pyridoxine hydrochloride 25 mg oral tablet (5 sources) Start: 01-31-2024 End: 03-09-2024 take 1 tablet by mouth once daily pyridoxine (Vitamin B-6) 25 MG tablet Take 25 mg by mouth Daily 01/31/2024 03/09/2024 Discontinued (Other) Problems Active Problems Problem Classification Problem Date Documented Date Episodic/Chronic Abdominal pain (2 sources) Unspecified abdominal pain; Translations: [Lower abdominal pain, unspecified] Onset: 02-20-2022 Episodic Acute bronchitis (1 source) Acute bronchiolitis, unspecified Episodic Cardiac dysrhythmias (1 source) Tachycardia, unspecified; Translations: [Tachycardia] Onset: 02-20-2022 Episodic Contraceptive and procreative management (2 sources) Sterilization requested; Translations: [Encounter for sterilization] 03-09-2024 Episodic Immunizations and screening for infectious disease (2 sources) Exposure to sexually transmissible disorder; Translations: [Contact with and (suspected) exposure to infections with a predominantly sexual mode of transmission] 04-12-2024 Episodic Menstrual disorders (1 source) Missed period; Translations: [Irregular menstruation, unspecified] 02-18-2024 Chronic Other complications of (2 sources) History of pre-eclampsia; Translations: [Supervision of with other poor reproductive or obstetric history, unspecified trimester] 03-09-2024 Episodic Other and delivery including normal (8 sources) ; Translations: [Encounter for supervision of normal , unspecified, unspecified trimester] 02-18-2024 Episodic Other screening for suspected conditions (not mental disorders or infectious disease) (4 sources) Alpha-fetoprotein blood test status; Translations: [Encounter for screening for raised alphafetoprotein level] 04-12-2024 Episodic Residual codes; unclassified (2 sources) Gestation period, 12 weeks; Translations: [12 weeks gestation of ] 03-09-2024 Episodic Residual codes; unclassified (2 sources) Gestation period, 17 weeks; Translations: [17 weeks gestation of ] 04-12-2024 Episodic Residual codes; unclassified (2 sources) Gestation period, 21 weeks; Translations: [21 weeks gestation of ] 05-09-2024 Episodic Unclassified (12 sources) OB Reminders Onset: 02-18-2024 02-18-2024 Urinary tract infections (1 source) Tubulo-interstitial nephritis, not specified as acute or chronic; Translations: [Pyelonephritis] Onset: 02-20-2022 Episodic Past or Other Problems Problem Classification Problem Date Documented Da te Episodic/Chronic Unclassified (1 source) Cough R05.9 Results Test Name Value Interpretation Reference Range Facility US OB 14+ WEEKS ANATOMY SCAN on 05-09-2024 US OB 14+ WEEKS ANATOMY SCAN TITLE OF EXAM: OB Ultrasound: REASON FOR EXAM: Anatomy. COMPARISON: None TECHNIQUE: Grayscale and M-mode Doppler imaging is performed. FINDINGS: heart rate: 155 bpm BPD: 4.6 cm HC: 18.2 cm AC: 16.5 cm FL: 3.7 cm GA for sonogram: 20.8 wk (19.4-22.3) Cervix length: 5.0 cm HARITHA: 09/19/2024 Weight Estimate: Weight: 430 gm / 0 lbs, 15 oz (366-493 gm) [place] Normal: 399 gm (331-467 gm) [place] Wt%: 72% for 21.0 wks No LIZETH measured. Presentation: Cephalic Lie: Longitudinal Amniotic Fluid: Subjectively normal Placental Location: Posterior, low lying Distance from Placenta edge to Cervical os: 2.7 cm Cervical Length: 5.0 cm Closed Heart Rate: 155 bpm Anatomy Observed: Lateral Ventricles: Visualized Cerebellum: Visualized Posterior Fossa: Visualized Nose Lips: Visualized Orbits: Visualized 4 Chamber heart: Visualized RVOT/LVOT: Visualized Diaphragm: Visualized Stomach: Visualized Kidneys: Visualized Abd Cord Insert: Visualized Bladder: Visualized Umbilical Arteries: Visualized 3 Vessel Cord: Visualized Spine: Visualized Extremities: Visualized Gender: XX Placenta is low lying and resides within 1.5-2 cm of the internal os. Nose and lips are not well visualized due to lie. IMPRESSION: 1. Single live intrauterine gestation in cephalic position estimated at 20.8 weeks. This is concordant with the provided clinical dates. 2. Low-lying placenta. 3. Suboptimal visualization of nose and lips. 4. Visualized structures are otherwise unremarkable. A repeat ultrasound in 4-6 weeks could be useful to reassess the above structures. *This report is generated using voice recognition reporting (HomeStay). On occasion [employer] erroneously drops words from the report or replaces the spoken word with similar sounding words. Please call with any questions/concerns regarding this report.* Dictated and transcribed 05/10/24/dpd This report has been electronically signed and approved by the interpreting radiologist. Normal Not Available Comment on above: Order Comment: US OB ANATOMY SINGLE W US OB CERVICAL LENGTH Estimated Date of Delivery: 09/19/24 Gestational Age as of 04/12/2024: 17w1d IGP,APTIMA HPV,AGE GDLNon AGE GDLN ACOG TESTING Note . [facility] Comment on above: TESTS RESULT FLAG U NITS REF RANGE LAB Clinician Provided Cytology Information Source.............Cervix No. of containers..01 ThinPrep Vial Age Algo ACOG Maria... FLAG LEGEND: L-Low Normal,H-High Normal,LL-Alert Low,HH-Alert High <-Panic Low,>-Panic High,A-Abnormal,AA-Critical Abnormal Performed at: 01 =G [address] [place] [address] Haydee Kraus MD, HPV APTIMA Negative Negative [facility] Comment on above: This nucleic acid am plification test detects fourteen high- risk HPV types (16,18,31,33,35,39,45,51,52,56,58,59,66,68) without differentiation. Performed at: =[address] [id number] Manager [place]: Haydee Kraus MD, Phone: [phone] Performed at: [address] [id number] Manager [place]: Haydee Kraus MD, Phone: [phone] IGP, APTIMA HPV, RFX 16/18,45 Note . [facility] Comment on above: TESTS RESULT FLAG UN ITS REF RANGE LAB DIAGNOSIS: 02 NEGATIVE FOR INTRAEPITHELIAL LESION OR MALIGNANCY. THIS SPECIMEN WAS RESCREENED PART OF OUR FURNITURE REFINISHER PROGRAM. Specimen adequacy: 02 Satisfactory for evaluation. No endocervical component is identified. Performed by: 02 Sav Cervantes, Diesel Engine Ii Pipe Fitter (ASCP) QC reviewed by: 02 Marlena Colón [employer]el Engine Ii Pipe Fitter . 02 Note: Note 02 The Pap smear is a screening test designed to aid in the detection of premalignant and malignant conditions of the uterine cervix. It is not a diagnostic procedure and should not be used as the sole means of detecting cervical cancer. Both false-positive and false-negative reports do occur. Test Methodology: Note 02 This liquid based ThinPrep(R) pap test was screened with the use of an image guided system. HPV Genotype Reflex Note 02 Criteria not met, HPV Genotype not performed. FLAG LEGEND: L-Low Normal,H-High Normal,LL-Alert Low,HH-Alert High <-Panic Low,>-Panic High,A-Abnormal,AA-Critical Abnormal Performed at: [address] [place] [address] Haydee Kraus MD, SPATULA-ALONE CERVIX [facility] RECURRENT VAGINITIS (HTRX)on 04-13-2024 ATOPOBIUM VAGINAE 16.023 Abnormal [facility] ATOPOBIUM VAGINAE Detected Abnormal [facility] BVAB 2,3 (BACTERIAL VAGINOSIS ASSOCIATED BACTERIA 2, 3); MOBILUNCUS SPP 9.934 Abnormal [facility] BVAB 2,3 (BACTERIAL VAGINOSIS ASSOCIATED BACTERIA 2, 3); MOBILUNCUS SPP Detected Abnormal [facility] RADHA ALBICANS, PARAPSILOSIS, TROPICALIS 0 [facility] RADHA ALBICANS, PARAPSILOSIS, TROPICALIS Not detected [facility] RADHA GLABRATA 0 [facility] RADHA GLABRATA Not detected [facility] RADHA KRUSEI 0 [facility] RADHA KRUSEI Not detected [facility] CHLAMYDIA TRACHOMATIS 0 [facility] CHLAMYDIA TRACHOMATIS Not detected [facility] ERMB, C; MEFA 19.423 Abnormal [facility] ERMB, C; MEFA Detected Abnormal [facility] GARDNERELLA VAGINALIS 19.86 Abnormal [facility] GARDNERELLA VAGINALIS Detected Abnormal [facility] Interpretation and review of laboratory results Abnormal [facility] MEGASPHAERA (TYPES 1, 2) 21.115 Abnormal [facility] MEGASPHAERA (TYPES 1, 2) Detected Abnormal [facility] MYCOPLASMA GENITALIUM 0 [facility] MYCOPLASMA GENITALIUM Not detected [facility] NEISSERIA GONORRHOEAE 0 [facility] NEISSERIA GONORRHOEAE Not detected [facility] TET B, TET M 17.31 Abnormal [facility] TET B, TET M Detected Abnormal [facility] TRICHOMONAS VAGINALIS 0 [facility] TRICHOMONAS VAGINALIS Not detected [facility] Urinalysis macro (dipstick) panel (U)on 04-12-2024 Bilirubin, UA Negative Negative - 4(70) +++ mg/dL [facility] Blood, UA Negative Negative - 50 Jesus/mcL [facility] Clarity, UA Clear [facility] Color, UA Yellow [facility] Glucose, UA Negative Negative - 1999(110) ++++ mg/dL [facility] Interpretation and review of laboratory results Abnormal [facility] Ketones, UA Negative Negative - 160(16) ++++ mg/dL [facility] Leukocytes, UA Trace Negative - 500+++ Juanita/mcL [facility] Nitrite, UA Negative Negative - Positive [facility] pH, UA 5.5 5 - 9 [facility] Protein, UA Trace Negative - 1999(20) ++++ mg/dL [facility] Spec Grav, UA 1.03 1 - 1.03 [facility] Urobilinogen, UA 0.2 0.2 - 12 mg/dL [facility] Urinalysis macro (dipstick) panel (U)on 03-09-2024 Bilirubin, UA Negative Negative - 4(70) +++ mg/dL [facility] Blood, UA Negative Negative - 50 Jesus/mcL [facility] Clarity, UA Clear [facility] Color, UA Yellow [facility] Glucose, UA Negative Negative - 1999(110) ++++ mg/dL [facility] Interpretation and review of laboratory results Abnormal [facility] Ketones, UA Negative Negative - 160(16) ++++ mg/dL [facility] Leukocytes, UA Negative Negative - 500+++ Juanita/mcL [facility] Nitrite, UA Positive Negative - Positive [facility] pH, UA 6 5 - 9 [facility] Protein, UA Negative Negative - 1999(20) ++++ mg/dL [facility] Spec Grav, UA 1.025 1 - 1.03 [facility] Urobilinogen, UA 1.0 0.2 - 12 mg/dL [facility] ALL RUBELLA IGG ABon 024 RUBELLA ANTIBODIES, IGG 1.01 Immune >0.99 index [facility] Comment on above: Non-immune <0.90 Equivocal 0.90 - 0.99 Immune >0.99 Performed at: [facility] [address] [id number] Manager [place]: Celestino Goff PhD, Phone: [phone] HBSAG SCREENon 02-23-2024 HBSAG SCREEN Negative Negative [facility] Comment on above: Performed at: [facility] [address] [id number] Manager [place]: Celestino Goff PhD, Phone: [phone] HCV ANTIBODY RFX TO QUANT PC Kenan 02-23-2024 HCV AB Non-Reactive Non Reactive [facility] INTERPRETATION: Comment . [facility] Comment on above: Not infected with HC V unless early or acute infection is suspected (which may be delayed in an immunocompromised individual), or other evidence exists to indicate HCV infection. HIV AB/P24 AG WITH REFLEXon 02-23-2024 HIV AB/P24 AG SCREEN Non-Reactive Non Reactive [facility] Comment on above: HIV-1/HIV-2 antibodi es and HIV-1 p24 antigen were NOT detected. There is no laboratory evidence of HIV infection. HIV Negative Performed at: [address] [id number] Manager [place]: Celestino Goff PhD, Phone: [phone] No Panel Informationon 02-22 [facility] RAPID PLASMA REAGIN, QUANTon 02-23-2024 RAPID PLASMA REAGIN, QUANT Non-Reactive NonRea<1:1 titer [facility] Comment on above: Please Note: This te st does not meet current guidelines for screening and diagnosis of syphilis. This test is intended for following treatment response in patients being treated for syphilis infection. To screen for syphilis infection, a reflex cascade that includes both RPR and a treponema-specific assay should be utilized, such as Treponema pallidum (Syphilis) Screening Loraine ([id number]) or Rapid Plasma Reagin (RPR) Test With Reflex to Quantitative RPR and Confirmatory Treponema pallidum Antibodies (915074). Performed at: [address] [id number] Manager [place]: Celestino Goff PhD, Phone: [phone] ALL CBC WITH AUTO DIFFon BASOPHILS ABSOLUTE AUTO 0 [facility] Basophils/100 WBC (Bld) 0.3 % 0.2 - 2.0 % [facility] Eosinophils/100 WBC (Bld) 0.5 % Low 0.9 - 7.0 % [facility] Erythrocyte distribution width (RBC) [Ratio] 11.9 % 11.0 - 15.0 % [facility] Hematocrit (Bld) [Volume fraction] 41.8 % 36.0 - 48.0 % [facility] Hemoglobin (Bld) [Mass/Vol] 14.5 g/dL 12.0 - 16.0 g/dL [facility] IMMATURE GRANULOCYTES ABS AUTO 0.03 [facility] Immature granulocytes/100 WBC (Bld) 0.3 % 0.0 - 0.5 % [facility] Interpretation and review of laboratory results Abnormal [facility] LYMPHOCYTES ABSOLUTE AUTO 1.8 [facility] Lymphocytes/100 WBC (Bld) 18.8 % Low 20.5 - 60.0 % [facility] MCH (RBC) [Entitic mass] 29.8 pg 26.7 - 34.0 pg [facility] MCHC (RBC) [Mass/Vol] 34.7 g/dL 29.9 - 35.2 g/dL [facility] MCV (RBC) [Entitic vol] 86 fL 81.0 - 99.0 fL [facility] MONOCYTES ABSOLUTE AUTO 0.5 [facility] Monocytes/100 WBC (Bld) 5.7 % 1.7 - 12.0 % [facility] NEUTROPHILS ABSOLUTE AUTO 6.9 High [facility] Neutrophils/100 WBC (Bld) 74.4 % 43.0 - 75.0 % [facility] Platelet mean volume (Bld) [Entitic vol] 10.9 fL 9.5 - 13.5 fL [facility] EO # 0.1 [facility] PLT 255 [facility] RBC 4.86 [facility] WBC 9.3 [facility] S[facility] 2023 ABO and Rh group Nom (Bld) Blood group O Rh(D) negative [facility] 02-22-2024 BOX TEST SENT OUT [facility] BOX1 [facility] BOX2 02/22/24 [facility] MLR HEMOGLOBIN A1Con 024 Glucose [Mass/Vol] 94 mg/dL [facility] HbA1c (Bld) [Mass fraction] 4.9 % 4.5 - 6.2 % [facility] Comment on above: ADA RECOMMENDED LIMI T 4.0 - 6.0 ADA THERAPEUTIC TARGET < 7.0 ACTION SUGGESTED > 7.0 No [facility] 02-22-2024 AMPHETAMINE SCREEN URINE Negative NEGATIVE [facility] BARBITURATES SCREEN URINE Negative NEGATIVE [facility] BENZODIAZEPINES SCREEN URINE Negative NEGATIVE [facility] BUPRENORPHINE SCREEN URINE Negative NEGATIVE [facility] Comment on above: DRUG CLASS TEST SYST EM CUT-OFF CONCENTRATIONS ARE FOLLOWS: AMP (Amphetamine): 500 ng/mL BAR (Barbiturates): 200 ng/mL BZO (Benzodiazepines): 150 ng/mL BUP (Buprenorphine): 10 ng/mL IVA (Cocaine): 150 ng/mL mAMP (Methamphetamine): 500 ng/mL MTD (Methadone): 200 ng/mL OPI (Opiates): 100 ng/mL OXY (Oxycodone): 100 ng/mL PCP (Phencyclidine): 25 ng/mL THC (Cannabinoids): 50 ng/mL TCA (Trycyclic Antidepressants): 300 ng/mL CANNABINOID SCREEN URINE Negative NEGATIVE [facility] COCAINE SCREEN URINE Negative NEGATIVE [facility] METHADONE SCREEN URINE Negative NEGATIVE [facility] METHAMPHETAMINES SCREEN URINE Negative NEGATIVE [facility] OPIATE SCREEN URINE Negative NEGATIVE [facility] OXYCODONE SCREEN URINE Negative NEGATIVE [facility] PHENCYCLIDINE SCREEN URINE Negative NEGATIVE [facility] TRICYCLIC ANTIDEPRESSANT URINE Negative NEGATIVE [facility] HCG ( test) Ql (U)o n 02-18-2024 Interpretation and review of laboratory results Abnormal [facility] Preg Test, Ur Positive Negative [facility] Urinalysis macro (dipstick) panel (U)on 02-18-2024 Bilirubin, UA Negative Negative - 4(70) +++ mg/dL [facility] Blood, UA Negative Negative - 50 Jesus/mcL [facility] Clarity, UA Clear [facility] Color, UA Yellow [facility] Glucose, UA Negative Negative - 1999(110) ++++ mg/dL [facility] Interpretation and review of laboratory results Normal [facility] Ketones, UA Negative Negative - 160(16) ++++ mg/dL [facility] Leukocytes, UA Negative Negative - 500+++ Juanita/mcL [facility] Nitrite, UA Negative Negative - Positive [facility] pH, UA 5.5 5 - 9 [facility] Protein, UA Negative Negative - 1999(20) ++++ mg/dL [facility] Spec Grav, UA 1.02 1 - 1.03 [facility] Urobilinogen, UA 1.0 0.2 - 12 mg/dL [facility] COVID/FLU/RSV RT-PCRon 02-08 SARS-CoV-2 (COVID-19) RNA IRA+probe Ql (Unsp spec) Negative [facility] Other COVID/FLU/RSV RT-PCR Negative [facility] Other CBC W Auto Differential pane l (Bld)on 02-20-2022 Basophils (Bld) [#/Vol] 0.03 10*3/uL Normal <0.11 [facility] Comment on above: Order Comment: Speci men Type: BLOOD SPECIMEN Ordering Facility: [facility] Address: [address] [address] Performed By: #### 5 7021-8 #### [facility] CLIA [id number] [address] [place] [address] [place] Basophils/100 WBC (Bld) 0.3 % Normal [facility] Comment on above: Order Comment: Speci men Type: BLOOD SPECIMEN Ordering Facility: [facility] Address: [address] [place] [address] Performed By: #### 5 7021-8 #### [facility] CLIA [id number] [address] [place] [address] [place] Differential cell count method Nom (Bld) Auto Normal [facility] Comment on above: Order Comment: Speci men Type: BLOOD SPECIMEN Ordering Facility: [facility] Address: [address] [place] [address] Performed By: #### 5 7021-8 #### [facility] CLIA [id number] [address] [place] [address] [place] Eosinophils (Bld) [#/Vol] 10*3/uL Normal <0.46 [facility] Comment on above: Order Comment: Speci men Type: BLOOD SPECIMEN Ordering Facility: [facility] Address: [address] [place] [address] Performed By: #### 5 7021-8 #### [facility] CLIA [id number] [address] [place] [address] [place] Eosinophils/100 WBC (Bld) 0.2 % Normal [facility] Comment on above: Order Comment: Speci men Type: BLOOD SPECIMEN Ordering Facility: [facility] Address: [address] [place] [address] Performed By: #### 5 7021-8 #### [facility] CLIA [id number] [address] [place] [address] [place] Erythrocyte distribution width (RBC) [Ratio] 12.9 % Normal 11.5-15.0 [facility] Comment on above: Order Comment: Speci men Type: BLOOD SPECIMEN Ordering Facility: [facility] Address: [address] [address] Performed By: #### 5 7021-8 #### [facility] CLIA [id number] [address] [place] [address] [place] Hematocrit (Bld) [Volume fraction] 43.2 % Normal 36.0-46.0 [facility] Comment on above: Order Comment: Speci men Type: BLOOD SPECIMEN Ordering Facility: [facility] Address: [address] [place] [address] Performed By: #### 5 7021-8 #### [facility] CLIA [id number] [address] [place] [address] [place] Hemoglobin (Bld) [Mass/Vol] 14.8 g/dL Normal 11.5-15.5 [facility] Comment on above: Order Comment: Speci men Type: BLOOD SPECIMEN Ordering Facility: [facility] Address: [address] [place] [address] Performed By: #### 5 7021-8 #### [facility] CLIA [id number] [address] [place] [address] [place] Immature granulocytes (Bld) [#/Vol] 0.04 10*3/uL Normal <0.10 [facility] Comment on above: Order Comment: Speci men Type: BLOOD SPECIMEN Ordering Facility: [facility] Address: [address] [place] [address] Performed By: #### 5 7021-8 #### [facility] CLIA [id number] [address] [place] [address] [place] Immature granulocytes/100 WBC (Bld) 0.4 % Normal [facility] Comment on above: Order Comment: Speci men Type: BLOOD SPECIMEN Ordering Facility: [facility] Address: [address] [place] [address] Performed By: #### 5 7021-8 #### [facility] CLIA [id number] [address] [place] [address] [place] Lymphocytes (Bld) [#/Vol] 0.55 10*3/uL Low 1.00-4.00 [facility] Comment on above: Order Comment: Speci men Type: BLOOD SPECIMEN Ordering Facility: [facility] Address: [address] [place] [address] Performed By: #### 5 7021-8 #### [facility] CLIA [id number] [address] [place] [address] Lymphocytes/100 WBC (Bld) 5.3 % Normal [facility] Comment on above: Order Comment: Speci men Type: BLOOD SPECIMEN Ordering Facility: [facility] Address: [address] [address] Performed By: #### 5 7021-8 #### [facility] CLIA [id number] [address] [place] [address] MCH (RBC) [Entitic mass] 29.1 pg Normal 26.0-34.0 [facility] Comment on above: Order Comment: Speci men Type: BLOOD SPECIMEN Ordering Facility: [facility] Address: [address] [place] [address] Performed By: #### 5 7021-8 #### [facility] CLIA [id number] [address] [place] [address] MCHC (RBC) [Mass/Vol] 34.3 g/dL Normal 30.5-36.0 [facility] Comment on above: Order Comment: Speci men Type: BLOOD SPECIMEN Ordering Facility: [facility] Address: [address] [address] Performed By: #### 5 7021-8 #### [facility] CLIA [id number] [address] [place] [address] [place] MCV (RBC) [Entitic vol] 84.9 fL Normal 80.0-100.0 [facility] Comment on above: Order Comment: Speci men Type: BLOOD SPECIMEN Ordering Facility: [facility] Address: [address] [address] Performed By: #### 5 7021-8 #### [facility] CLIA [id number] [address] [place] [address] [place] Monocytes (Bld) [#/Vol] 0.19 10*3/uL Normal <0.87 [facility] Comment on above: Order Comment: Speci men Type: BLOOD SPECIMEN Ordering Facility: [facility] Address: [address] [place] [address] Performed By: #### 5 7021-8 #### [facility] CLIA [id number] [address] [place] [address] [place] Monocytes/100 WBC (Bld) 1.8 % Normal [facility] Comment on above: Order Comment: Speci men Type: BLOOD SPECIMEN Ordering Facility: [facility] Address: [address] [address] Performed By: #### 5 7021-8 #### [facility] CLIA [id number] [address] [place] [address] [place] Neutrophils (Bld) [#/Vol] 9.55 10*3/uL High 1.45-7.50 [facility] Comment on above: Order Comment: Speci men Type: BLOOD SPECIMEN Ordering Facility: [facility] Address: [address] [address] Performed By: #### 5 7021-8 #### [facility] CLIA [id number] [address] [place] [address] [place] Neutrophils/100 WBC (Bld) 92.0 % Normal [facility] Comment on above: Order Comment: Speci men Type: BLOOD SPECIMEN Ordering Facility: [facility] Address: [address] [address] Performed By: #### 5 7021-8 #### [facility] CLIA [id number] [address] [place] [address] [place] Nucleated RBC (Bld) [#/Vol] 10*3/uL Normal <0.01 [facility] Comment on above: Order Comment: Speci men Type: BLOOD SPECIMEN Ordering Facility: [facility] Address: [address] [place] [address] Performed By: #### 5 7021-8 #### [facility] CLIA [id number] [address] [place] [address] [place] Nucleated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 fetoprotein, maternal Alpha fetoprotein, maternal Lab Routine Need for maternal serum alpha-protein (MSAFP) screening Expected: 04/12/2024 (Approximate), Expires: 05/13/2024 [facility] Comment on above: Expected: 04/12/2024 (Approximate), Expires: 05/13/2024 Start: 04-12-2024 End: 04-12-2025 US for US OB 14+ weeks anatomy scan Imaging Routine Screening, , for anatomic survey Expected: 04/12/2024, Expires: 04/12/2025 [facility] Comment on above: Expected: 04/12/2024 , Expires: 04/12/2025 Start: 04-12-2024 End: 04-12-2024 Patient encounter procedure [facility] Comment on above: Arrived Start: 03-09-2024 End: 03-09-2024 Patient encounter procedure [facility] Comment on above: Arrived Start: 02-18-2024 End: 02-17-2025 ABO/Rh ABO/Rh Lab Routine Missed menses , unspecified gestational age Expected: 02/18/2024 (Approximate), Expires: 02/17/2025 [facility] Comment on above: Expected: 02/18/2024 (Approximate), Expires: 02/17/2025 Start: 02-18-2024 End: 02-17-2025 Blood type and Indirect antibody screen panel - Blood Type and screen Lab Routine Missed menses , unspecified gestational age Expected: 02/18/2024 (Approximate), Expires: 02/17/2025 [facility] Work Phone: Comment on above: Expected: 02/18/2024 (Approximate), Expires: 02/17/2025 Start: 02-18-2024 End: 02-17-2025 Drugs of abuse panel - Urine by Screen method Rapid drug screen, urine Lab Routine , unspecified gestational age Encounter for supervision of normal first in first trimester Expected: 02/18/2024 (Approximate), Expires: 02/17/2025 [facility] Comment on above: Expected: 02/18/2024 (Approximate), Expires: 02/17/2025 Start: 02-18-2024 End: 02-17-2025 US Pelvis transvaginal US OB transvaginal Imaging Routine Missed menses Expected: 02/18/2024 (Approximate), Expires: 02/17/2025 [facility] Comment on above: Expected: 02/18/2024 (Approximate), Expires: 02/17/2025 Bacteria identified in Urine by Culture Urine culture Microbiology Routine Missed menses Ordered: 02/18/2024 [facility] Comment on above: Ordered: 02/18/2024 CBC W Auto Different ial panel - Blood CBC and differential Lab Routine Missed menses , unspecified gestational age Ordered: 02/18/2024 [facility] Comment on above: Ordered: 02/18/2024 CHLAMYDIA TRACHOMATI S (GENITO/STI) CHLAMYDIA TRACHOMATIS (GENITO/STI) Lab Routine Exposure to STD Ordered: 04/12/2024 [facility] Comment on above: Ordered: 04/12/2024 Cytology Cervical or vaginal smear or scraping study Pap Smear Pathology and Cytology Routine Well woman exam with routine gynecological exam Ordered: 04/12/2024 [facility] Comment on above: Ordered: 04/12/2024 Hemoglobin A1c/Hemoglobin.total in Blood Hemoglobin A1c Lab Routine Missed menses , unspecified gestational age Ordered: 02/18/2024 [facility] Comment on above: Ordered: 02/18/2024 Hepatitis B virus surface Ag [Presence] in Serum or Plasma by Immunoassay Hepatitis B surface antigen Lab Routine Missed menses , unspecified gestational age Ordered: 02/18/2024 [facility] Comment on above: Ordered: 02/18/2024 Hepatitis C virus Ab [Presence] in Serum or Plasma by Immunoassay Hepatitis C antibody Lab Routine Missed menses , unspecified gestational age Ordered: 02/18/2024 [facility] Comment on above: Ordered: 02/18/2024 HIV-1/HIV-2 antigen/antibody combination immunoassay HIV-1 and HIV-2 antibodies Lab Routine Missed menses , unspecified gestational age Ordered: 02/18/2024 [facility] Comment on above: Ordered: 02/18/2024 Human papilloma viru s DNA [Presence] in Unspecified specimen by Probe with amplification HPV DNA probe, amplified Microbiology Routine Well woman exam with routine gynecological exam Ordered: 04/12/2024 [facility] Comment on above: Ordered: 04/12/2024 Neisseria gonorrhoea e DNA [Presence] in Unspecified specimen by IRA with probe detection Neisseria gonorrhea DNA probe, direct Lab Routine Exposure to STD Ordered: 04/12/2024 [facility] Comment on above: Ordered: 04/12/2024 Reagin Ab [Presence] in Serum by RPR RPR Lab Routine Missed menses , unspecified gestational age Ordered: 02/18/2024 [facility] Comment on above: Ordered: 02/18/2024 Rubella antibody, IgG Rubella an tibody, IgG Lab Routine Missed menses , unspecified gestational age Ordered: 02/18/2024 [facility] Comment on above: Ordered: 02/18/2024 SURESWAB(R) ADVANCED VAGINITIS PLUS, TMA SURESWAB(R) ADVANCED VAGINITIS PLUS, TMA Pathology and Cytology Routine Exposure to STD Ordered: 04/12/2024 [facility] Work Phone: Comment on above: Ordered: 04/12/2024 Payers Date Payer Category Payer Medicaid [id number] 2022 Medicaid [id number] 2016 Unknown [id number] 1992 Unknown [id number] [id number] [id number] 1992 Unknown [id number] [id number] [id number] 1992 Unknown [id number] 2.16.84 [id number] 1992 Unknown [id number] 2.16.84 [id number] 1992 Unknown [id number] [id number] [id number] Social History Date Type Detail Facility Unknown if ever smoked [facility] Other Sex Assigned At [facility] Other Tobacco smoking status NHIS Tobacco smoking consumption unknown [facility] Start: 12-28-2023 [facility] Start: 1990 Sex assigned at Not on file [facility] Goals Date Patient Goal Desired Activity /State Personal health goal Clinical Notes 02-20-2022 to 05-09-2024 Brigid Taylor, PACKAGING ASSOCIATE - 05/09/2024 2:10 PM MADINA Cook - 04/12/2024 1:30 PM Khadra Gamez, PACKAGING ASSOCIATE - 03/09/2024 1:50 PM Derrick Taylor, PACKAGING ASSOCIATE - 02/18/2024 1:00 PM EST Note Date & Type Note Facility 05-09-2024 History of Presen t illness Narrative Reason for Appointment: Patient ID: Gilson [place] is a 34 y.o. female who presents for Routine Visit Patient presents today for Return OB appointment. MEDICATIONS No current outpatient medications ALLERGIES No Known Allergies PROBLEMS Active Ambulatory Problems Diagnosis Date Noted No Active Ambulatory Problems Resolved Ambulatory Problems Diagnosis Date Noted No Resolved Ambulatory Problems No Additional Past Medical History HISTORY PAST MEDICAL HISTORY SOCIAL HISTORY History reviewed. No pertinent past medical history. Social History Tobacco Use Smoking status: Not on file Smokeless tobacco: Not on file Substance Use Topics Alcohol use: Not on file Drug use: Not on file FAMILY HISTORY No family history on file. SURGICAL HISTORY History reviewed. No pertinent surgical history. REVIEW OF SYSTEMS Review of Systems: Review of Systems OBJECTIVE Objective: OBGyn Exam Vitals: There is no height or weight on file to calculate BMI. BP: 120/70 Patient's last menstrual period was 12/14/2023. ASSESSMENT & PLAN ICD-10-CM 1. Second trimester Z34.92 2. 21 weeks gestation of Z3A.21 Return OB: Patient presents today for a routine obstetrics appointment. Patient is currently 21w0d . Patient states she is doing well but has complaints of being tired due to current . Patient has verbalizes frequent movement. No orders of the defined types were placed in this encounter. Follow Up: Patient is to return to office in 2 week for routine OB appointment. Documented by Brigid Taylor LPN on behalf of: Blanca Jones DO documented in this encounter [facility] 04-12-2024 History of Presen t illness Narrative Reason for Appointment: Patient ID: Gilson Medina is a 34 y.o. female who presents for Routine Visit Patient presents today for Annual Exam. and Return OB appointment. MEDICATIONS No current outpatient medications ALLERGIES No Known Allergies PROBLEMS Active Ambulatory Problems Diagnosis Date Noted No Active Ambulatory Problems Resolved Ambulatory Problems Diagnosis Date Noted No Resolved Ambulatory Problems No Additional Past Medical History HISTORY PAST MEDICAL HISTORY SOCIAL HISTORY No past medical history on file. Social History Tobacco Use Smoking status: Not on file Smokeless tobacco: Not on file Substance Use Topics Alcohol use: Not on file Drug use: Not on file FAMILY HISTORY No family history on file. SURGICAL HISTORY No past surgical history on file. REVIEW OF SYSTEMS Review of Systems: Review of Systems Constitutional: Negative. HENT: Negative. Eyes: Negative. Respiratory: Negative. Cardiovascular: Negative. Gastrointestinal: Negative. Genitourinary: Negative. Musculoskeletal: Negative. Skin: Negative. Neurological: Negative. All other systems reviewed and are negative. Hematological: Negative. Endocrine: Negative. Allergic/Immunologic: Negative. OBJECTIVE Objective: Physical Exam Constitutional: Appearance: Normal appearance. She is well-developed. Genitourinary: Vulva normal. Right Adnexa: not tender and no mass present. Left Adnexa: not tender and no mass present. No cervical discharge. Breasts: Breasts are soft. Right: Normal. Left: Normal. HENT: Head: Normocephalic. Nose: Nose normal. Mouth/Throat: Mouth: Mucous membranes are moist. Cardiovascular: Rate and Rhythm: Normal rate and regular rhythm. Pulmonary: Effort: Pulmonary effort is normal. Breath sounds: Normal breath sounds. Abdominal: General: Bowel sounds are normal. There is no distension. Palpations: Abdomen is soft. Tenderness: There is no abdominal tenderness. There is no guarding or rebound. Musculoskeletal: General: No swelling. Normal range of motion. Cervical back: Normal range of motion. Right lower leg: No edema. Left lower leg: No edema. Neurological: General: No focal deficit present. Mental Status: She is alert and oriented to person, place, and time. Skin: General: Skin is warm and dry. Psychiatric: Mood and Affect: Mood normal. Behavior: Behavior normal. Vitals and nursing note reviewed. Exam conducted with a tie mill operator present. Vitals: There is no height or weight on file to calculate BMI. BP: Patient's last menstrual period was 12/14/2023. ASSESSMENT & PLAN ICD-10-CM 1. Well woman exam with routine gynecological exam Z01.419 Pap Smear HPV DNA probe, amplified 2. Second trimester Z34.92 POCT urinalysis dipstick manually resulted 3. 17 weeks gestation of Z3A.17 4. Exposure to STD Z20.2 SURESWAB(R) ADVANCED VAGINITIS PLUS, TMA CHLAMYDIA TRACHOMATIS (GENITO/STI) Neisseria gonorrhea DNA probe, direct 5. Need for maternal serum alpha-protein (MSAFP) screening Z36.1 Alpha fetoprotein, maternal Alpha fetoprotein, maternal 6. Screening, , for anatomic survey Z36.89 US OB 14+ weeks anatomy scan Return OB/Annual Exam: Patient presents today for a annual exam/routine obstetrics appointment. Patient is currently 17w1d . Patient states she is doing well but has complaints of nausea in the morning. Pap and cultures was obtained without difficulty and patient was given orders for anatomy scan and msAFP to be obtained. Orders Placed This Encounter Procedures HPV DNA probe, amplified US OB 14+ weeks anatomy scan CHLAMYDIA TRACHOMATIS (GENITO/STI) Neisseria gonorrhea DNA probe, direct Alpha fetoprotein, maternal POCT urinalysis dipstick manually resulted Follow Up: Patient is to schedule annual exam for next year and return to office in 4 weeks for OB appointment. Documented by Delmy Barger MA on behalf of: MADINA Valdez documented in this encounter [facility] 03-09-2024 History of Presen t illness Narrative Reason for Appointment: Patient ID: Gilson Medina is a 33 y.o. female who presents for Routine Visit Patient presents today for Return OB appointment. MEDICATIONS Current Outpatient Medications Medication Instructions nitrofurantoin (macrocrystal-monohydrate) (MACROBID) 100 mg, Oral, 2 times daily ALLERGIES No Known Allergies PROBLEMS Active Ambulatory Problems Diagnosis Date Noted No Active Ambulatory Problems Resolved Ambulatory Problems Diagnosis Date Noted No Resolved Ambulatory Problems No Additional Past Medical History HISTORY PAST MEDICAL HISTORY SOCIAL HISTORY History reviewed. No pertinent past medical history. Social History Tobacco Use Smoking status: Not on file Smokeless tobacco: Not on file Substance Use Topics Alcohol use: Not on file Drug use: Not on file FAMILY HISTORY No family history on file. SURGICAL HISTORY History reviewed. No pertinent surgical history. REVIEW OF SYSTEMS Review of Systems: Review of Systems Constitutional: Negative. HENT: Negative. Eyes: Negative. Respiratory: Negative. Cardiovascular: Negative. Gastrointestinal: Negative. Genitourinary: Negative. Musculoskeletal: Negative. Skin: Negative. Neurological: Negative. All other systems reviewed and are negative. Hematological: Negative. Endocrine: Negative. Allergic/Immunologic: Negative. OBJECTIVE Objective: Physical Exam Constitutional: Appearance: Normal appearance. She is well-developed. Cardiovascular: Rate and Rhythm: Normal rate and regular rhythm. Pulmonary: Effort: Pulmonary effort is normal. Breath sounds: Normal breath sounds. Abdominal: General: Bowel sounds are normal. There is no distension. Palpations: Abdomen is soft. Tenderness: There is no abdominal tenderness. There is no guarding or rebound. Musculoskeletal: General: No swelling. Normal range of motion. Right lower leg: No edema. Left lower leg: No edema. Neurological: Mental Status: She is alert and oriented to person, place, and time. Skin: General: Skin is warm and dry. Psychiatric: Mood and Affect: Mood normal. Behavior: Behavior normal. Vitals and nursing note reviewed. Exam conducted with a tie mill operator present. Vitals: There is no height or weight on file to calculate BMI. BP: 122/80 Patient's last menstrual period was 12/14/2023. ASSESSMENT & PLAN ICD-10-CM 1. Second trimester Z34.92 nitrofurantoin, macrocrystal-monohydrate, (Macrobid) 100 MG capsule POCT urinalysis dipstick manually resulted 2. 12 weeks gestation of Z3A.12 nitrofurantoin, macrocrystal-monohydrate, (Macrobid) 100 MG capsule POCT urinalysis dipstick manually resulted New OB: Patient presents today for 1st time obstetrics appointment with provider. Patient is currently 12w2d . Patients history has been reviewed in great detail including any potential risks. Patient stated she currently has no complaints. Expectations throughout regarding labs, ultrasounds, and appointments have been discussed with the patient in detail. It was reiterated that the patient is to drink 6-8 glasses of water a day, eat 6 small meals a day, do not consume raw or undercooked meat, and stay away from [facility]. Patient has been consulted regarding any further do's and don'ts of . Patient voiced understanding and all questions and concerns were answered. Pt has UTI- rx for macrobid faxed to pharmacy. Pt to start baby aspirin daily. Orders Placed This Encounter Procedures POCT urinalysis dipstick manually resulted Follow Up: Patient is to return in 4 weeks for routine OB appointment. Documented by Elisa Gamez LPN on behalf of: Blanca Jones DO documented in this encounter [facility] 02-18-2024 History of Presen t illness Narrative Reason for Appointment: Patient ID: Gilson Medina is a 33 y.o. female who presents for Amenorrhea Patient presents today for a Nurse OB Intake appointment. Patient is 9w3d with a Estimated Date of Delivery: 09/19/24 OB History Para Term AB Living 1 SAB IAB Ectopic Multiple Live Births # Outcome Date GA Lbr [place]/2nd Weight Sex Type Anes PTL Lv 1 Current Current Medications: has a current medication list which includes the following prescription(s): pyridoxine, ondansetron odt, and promethazine. Medical History: Active Ambulatory Problems Diagnosis Date Noted No Active Ambulatory Problems Resolved Ambulatory Problems Diagnosis Date Noted No Resolved Ambulatory Problems No Additional Past Medical History No family history on file. Social History Tobacco Use Smoking status: Not on file Smokeless tobacco: Not on file Substance Use Topics Alcohol use: Not on file Drug use: Not on file No past surgical history on file. Not on File Vitals: There is no height or weight on file to calculate BMI. BP: Patient's last menstrual period was 12/14/2023. Assessment/Plan Diagnoses and all orders for this visit: Missed menses - Type and screen; Future - ABO/Rh; Future - CBC and differential - Hemoglobin A1c - RPR - Rubella antibody, IgG - Hepatitis B surface antigen - Hepatitis C antibody - HIV-1 and HIV-2 antibodies - Urine culture - US OB transvaginal; Future - POCT , urine manually resulted - POCT urinalysis dipstick manually resulted , unspecified gestational age - Type and screen; Future - ABO/Rh; Future - CBC and differential - Hemoglobin A1c - RPR - Rubella antibody, IgG - Hepatitis B surface antigen - Hepatitis C antibody - HIV-1 and HIV-2 antibodies - Rapid drug screen, urine; Future Encounter for supervision of normal first in first trimester - Rapid drug screen, urine; Future Nurse Note: OB Intake: Patient presents today for first OB visit. Patients history has been reviewed in great detail including any potential risks. Patient signed consent forms and patient desires testing in both trimesters. Patient currently has no complaints and has been advised to drink 6-8 glasses of water a day, eat no raw or undercooked meat, and stay away from [facility]. Patient has also been advised to not change litter boxes and eat 6 small meals a day. Patient has been consulted regarding the do's and don'ts of . Patient was given labs and all questions and concerns were answered. Follow Up: Patient is to return in 4 weeks for routine OB appointment. Follow Up: Patient is to have labs drawn at directed and return to office for initial OB appointment with provider. Patient may call office as needed with any concerns or questions. Nurse Visit Completed by: Brigid Taylor LPN documented in this encounter [facility] [place] 02-08-[facility] Evaluation note Encounter Date Diagnosis Assessment [...] fever/discomfort , cool mist humidifier. May use [place] as needed for cough, do not take any other OTCs while using [place]. Patient to follow up with PCP in 2-3 days. Immediate eval if SOB, difficulty breathing, chest pain, dizziness, or other concerning symptoms. Patient verbalizes understanding and is agreeable to treatment plan [facility] Other 11-17-2022 NoteCOVID 19 RESULT: SARS-CoV-2 (Agent of COVID-19) Not Detected by RT-PCR or equivalent method. This test has been authorized by FDA under an Emergency Use Authorization (EUA). INFLUENZA A PCR: Negative for Influenza A by RT-PCR INFLUENZA B PCR: Negative for Influenza B by RT-PCR RSV PCR: Negative for Respiratory Syncytial Virus (RSV) by PCRDanvers State HospitalComment on above:Performed By: #### [id number] #### [facility] CLIA [id number] [address] [place] [address] [place] AMER[place]AEvaluation note* Diagnosis Missed menses , unspecified gestational age Encounter for supervision of normal first in first trimester [facility] Diagnosis Second trimester state, incidental 12 weeks gestation of Request for sterilization H/O pre-eclampsia in prior , currently [facility] Diagnosis Well woman exam with routine gynecological exam Routine gynecological examination Second trimester state, incidental 17 weeks gestation of Exposure to STD Need for maternal serum alpha-protein (MSAFP) screening Screening, , for anatomic survey Encounter for anatomic survey [facility] Diagnosis Second trimester state, incidental 21 weeks gestation of [facility] N[facility]ative - Reported* Type Description Date Surgical History TONSILS Hospitalization History CHILD [facility] Other Summary Purpose Family History No Family History Records FoundNo Family History Records FoundNo Family History Records Found Advance Directives No Advanced Directives Records FoundNo Advanced Directives Records FoundNo Advanced Directives Records Found Additional Source Comments INFORMATION SOURCE (unrecogn ized section and content) DATE CREATED AUTHOR 09/30/2017 Yoni Pierson [facility] DATE CREATED AUTHOR AUTHOR'S ORGANIZ ATION 02/23/2022 [facility] DATE CREATED AUTHOR AUTHOR'S ORGANIZ ATION 05/10/[address] [facility] EPIC REASON FOR VISIT (unrecogniz ed section and content) Reason Comments Amenorrhea Reason Comments Routine Visit FOR RECORDS PERTAINING TO PATIENTS WHO ARE [...] BE BASED ON THE PRIMARY CLINICAL RECORDS. [facility]. provides no warranty or guarantee of the accuracy or completeness of information in this document.
[2024-06-06 13:12] LABS: Basophils Percent Auto 0.2 % (0.2-2.0); Eosinophils Absolute Auto 0.1 10^3/uL (0.0-0.7); Eosinophils Percent Auto 0.8 % (0.9-7.0); Hematocrit 37.1 % (36.0-48.0); Hemoglobin 12.7 g/dL (12.0-16.0); Immature Granulocytes Abs Auto 0.03 10^3/uL (0.00-0.03); Immature Granulocytes Pct Auto 0.4 % (0.0-0.5); Lymphocytes Absolute Auto 1.8 10^3/uL (1.2-3.8); Lymphocytes Percent Auto 22.3 % (20.5-60.0); Mean Corpuscular HGB Conc 34.2 g/dL (29.9-35.2); Mean Corpuscular Hemoglobin 29.3 pg (26.7-34.0); Mean Corpuscular Volume 85.5 fL (81.0-99.0); Mean Platelet Volume 10.5 fL (9.5-13.5); Monocytes Absolute Auto 0.6 10^3/uL (0.3-0.8); Monocytes Percent Auto 7.4 % (1.7-12.0); Neutrophils Absolute Auto 5.7 10^3/uL (1.4-6.5); Neutrophils Percent Auto 68.9 % (43.0-75.0); Platelet Count 251 10^3/uL (150-450); Red Blood Count 4.34 10^6/uL (4.20-5.40); Red Cell Distribution Width 12.3 % (11.0-15.0); White Blood Count 8.3 10^3/uL (4.0-11.0)
[2024-06-06 13:32] LABS: Glucose 1 Hour 82 mg/dL (<130)
== END 2024-06-06 12:00 | disposition home or self-care (01) ==
LOC: LAB 12:00
PROVIDERS: Visit Provider Physician Assistant
DX: Z13.1 Encounter for screening for diabetes mellitus (principal)
CPT/HCPCS: 36415; 82950; 85025

== ENCOUNTER 2024-06-06 13:07 | Outpatient (OUT) | payer MEDICAID, SELFPAY ==
--- NOTE | 2024-06-06 13:13 | US_ITS ---
The [address] [address] Patient Name: SANTIAGO SAAVEDRA MRN: [id number] date: 1990 Sex: F Assigned Patient Location: [place] Current Patient Location: Accession/Order Number: [id number] Exam Date: 06/06/2024 22:13 Report Date: 06/06/2024 22:21 At the request of: BLANCA DENTON DO Procedure: US OB cervical length CLINICAL DATA: Incomplete anatomy survey. Low-lying placenta ULTRASOUND OB INCOMPLETE ANATOMY COMPARISON: 02/19/2024 There is a single live intrauterine gestation in cephalic presentation. There are symmetric activity. The heart rate is 154 beats per minutes. The facial features including nose and lips are visualized on the current exam and no abnormalities are noted. The amniotic fluid volume is subjectively within normal limits. US/US OB incomplete anatomy IMPRESSION: VISUALIZATION OF THE FACIAL FEATURES, WITHOUT ABNORMALITY. ULTRASOUND OB CERVICAL LENGTH COMPARISON: 02/18/2024 There is a posterior placenta which is mildly heterogeneous. The placenta extends down close to (1.4 cm), however it does not cover the internal cervical os. The estimated cervical length is 4.5 cm. IMPRESSION: LOW-LYING PLACENTA. Impression dictated by: Elisa Boothe M.D.06/06/2024 10:21 PM Dictation Location: [facility] Electronically authenticated by: [id number] Y Date: 06/06/2024 22:21
--- OUTSIDE RECORDS SUMMARY | 2024-06-06 13:23 | XMS_ITS | CCD ---
Author Organization [facility] Care Team Providers Care Marble Polisher Name Role Phone Sharon Pickett Unavailable Unavailable Sharon Pickett Unavailable Unavailable Arslan Malin Unavailable Unavailable MARY OQUENDO Attending Unavailable Sangita Penn Unavailable Unavailable Primary Care Provider UnavailBLANCA Nicole Attending Unavailable BLANCA JONES Attending Unavailable DESIREE CADET Attending Unavailable Medications Current Medications Medication Drug Class(es) Dates Sig (Normalized) Sig (Original) [id number] 200 actuat albuterol 0.09 mg/actuat metered dose inhaler (1 source) beta2-Adrenergic Agonist Start: 02-08-2023 take 2 puff(s) by inhalation every four to six hours as needed Albuterol Sulfate HFA 108 (90 Base) MCG/ACT 2 puffs as needed Inhalation every 4-6 hours for 14 days Feb, Active dextromethorphan hydrobromide 1.5 mg/ml / pyrilamine maleate 1.5 mg/ml oral solution (1 source) Uncompetitive [place] te Receptor Antagonist, Sigma-1 Agonist Start: 02-08-2023 take 10 mL by mouth every eight hours Starr DM 7.5-7.5 MG/5ML 10 mL Orally every [...] report is generated using voice recognition reporting (Tutor Trove). On occasion [employer] erroneously drops words from the report or [...] GDLNon AGE GDLN ACOG TESTING Note . [facility] Comment on above: TESTS RESULT FLAG U NITS REF RANGE LAB Clinician Provided Cytology Information Source.............Cervix No. of containers..01 ThinPrep Vial Age Algo ACOG Maria... FLAG LEGEND: L-Low Normal,H-High Normal,LL-Alert Low,HH-Alert High <-Panic Low,>-Panic High,A-Abnormal,AA-Critical Abnormal Performed at: 01 =G [address] [place] [address] Haydee Kraus MD, HPV APTIMA Negative Negative [facility] Comment on above: This nucleic acid am plification test detects fourteen high- risk HPV types (16,18,31,33,35,39,45,51,52,56,58,59,66,68) without differentiation. Performed at: =[address] [id number] Licensed Occupational Therapist: Haydee Kraus MD, Phone: [phone] Performed at: [address] [id number] Licensed Occupational Therapist: Haydee Kraus MD, Phone: [phone] IGP, APTIMA HPV, RFX 16/18,45 Note . [facility] Comment on above: TESTS RESULT FLAG UN ITS REF RANGE LAB DIAGNOSIS: 02 NEGATIVE FOR INTRAEPITHELIAL LESION OR MALIGNANCY. THIS SPECIMEN WAS RESCREENED PART OF OUR TANK PROCESSOR PROGRAM. Specimen adequacy: 02 Satisfactory for evaluation. No endocervical component is identified. Performed by: 02 Sav Cervantes, Free Lance Model (ASCP) QC reviewed by: 02 Marlena Colón Free Lance Model . 02 Note: Note 02 The Pap [...] Low,>-Panic High,A-Abnormal,AA-Critical Abnormal Performed at: [address] [place] [address] Hyadee Kraus MD, SPATULA-ALONE CERVIX [facility] RECURRENT VAGINITIS (HTRX)on 04-13-2024 ATOPOBIUM VAGINAE 16.023 Abnormal [facility] ATOPOBIUM VAGINAE Detected Abnormal [facility] BVAB 2,3 (BACTERIAL VAGINOSIS ASSOCIATED BACTERIA 2, 3); MOBILUNCUS SPP 9.934 Abnormal [facility] BVAB 2,3 (BACTERIAL VAGINOSIS ASSOCIATED BACTERIA 2, 3); MOBILUNCUS SPP Detected Abnormal [facility] RADHA ALBICANS, PARAPSILOSIS, TROPICALIS 0 [facility] RADHA ALBICANS, PARAPSILOSIS, TROPICALIS Not detected [facility] RADHA GLABRATA 0 [facility] RADHA GLABRATA Not detected [facility] RADHA KRUSEI 0 [facility] RADHA KRUSEI Not detected [facility] CHLAMYDIA TRACHOMATIS 0 [facility] CHLAMYDIA TRACHOMATIS Not detected [facility] ERMB, C; MEFA 19.423 Abnormal [facility] ERMB, C; MEFA Detected Abnormal [facility] GARDNERELLA VAGINALIS 19.86 Abnormal [facility] GARDNERELLA VAGINALIS Detected Abnormal [facility] Interpretation and review of laboratory results Abnormal [facility] MEGASPHAERA (TYPES 1, 2) 21.115 Abnormal [facility] MEGASPHAERA (TYPES 1, 2) Detected Abnormal [facility] MYCOPLASMA GENITALIUM 0 [facility] MYCOPLASMA GENITALIUM Not detected [facility] NEISSERIA GONORRHOEAE 0 [facility] NEISSERIA GONORRHOEAE Not detected [facility] TET B, TET M 17.31 Abnormal [facility] TET B, TET M Detected Abnormal [facility] TRICHOMONAS VAGINALIS 0 [facility] TRICHOMONAS VAGINALIS Not detected [facility] Urinalysis macro (dipstick) panel (U)on 04-12-2024 Bilirubin, UA Negative Negative - 4(70) +++ mg/dL [facility] Blood, UA Negative Negative - 50 Jesus/mcL [facility] Clarity, UA Clear [facility] Color, UA Yellow [facility] Glucose, UA Negative Negative - 1999(110) ++++ mg/dL [facility] Interpretation and review of laboratory results Abnormal [facility] Ketones, UA Negative Negative - 160(16) ++++ mg/dL [facility] Leukocytes, UA Trace Negative - 500+++ Juanita/mcL [facility] Nitrite, UA Negative Negative - Positive [facility] pH, UA 5.5 5 - 9 [facility] Protein, UA Trace Negative - 1999(20) ++++ mg/dL [facility] Spec Grav, UA 1.03 1 - 1.03 [facility] Urobilinogen, UA 0.2 0.2 - 12 mg/dL [facility] Urinalysis macro (dipstick) panel (U)on 03-09-2024 Bilirubin, UA Negative Negative - 4(70) +++ mg/dL [facility] Blood, UA Negative Negative - 50 Jesus/mcL [facility] Clarity, UA Clear [facility] Color, UA Yellow [facility] Glucose, UA Negative Negative - 1999(110) ++++ mg/dL [facility] Interpretation and review of laboratory results Abnormal [facility] Ketones, UA Negative Negative - 160(16) ++++ mg/dL [facility] Leukocytes, UA Negative Negative - 500+++ Juanita/mcL [facility] Nitrite, UA Positive Negative - Positive [facility] pH, UA 6 5 - 9 [facility] Protein, UA Negative Negative - 1999(20) ++++ mg/dL [facility] Spec Grav, UA 1.025 1 - 1.03 [facility] Urobilinogen, UA 1.0 0.2 - 12 mg/dL [facility] ALL RUBELLA IGG ABon 024 RUBELLA ANTIBODIES, IGG 1.01 Immune >0.99 index [facility] Comment on above: Non-immune <0.90 Equivocal 0.90 - 0.99 Immune >0.99 Performed at: [facility] [address] [id number] Licensed Occupational Therapist: Celestino Goff PhD, Phone: [phone] HBSAG SCREENon 02-23-2024 HBSAG SCREEN Negative Negative [facility] Comment on above: Performed at: [facility] [address] [id number] Licensed Occupational Therapist: Celestino Goff PhD, Phone: [phone] HCV ANTIBODY RFX TO QUANT PC Kenan 02-23-2024 HCV AB Non-Reactive Non Reactive [facility] INTERPRETATION: Comment . [facility] Comment on above: Not infected with HC V unless early or acute infection is suspected (which may be delayed in an immunocompromised individual), or other evidence exists to indicate HCV infection. HIV AB/P24 AG WITH REFLEXon 02-23-2024 HIV AB/P24 AG SCREEN Non-Reactive Non Reactive [facility] Comment on above: HIV-1/HIV-2 antibodi es and HIV-1 p24 antigen were NOT detected. There is no laboratory evidence of HIV infection. HIV Negative Performed at: [address] [id number] Licensed Occupational Therapist: Celestino Goff PhD, Phone: [phone] No Panel Informationon 02-22 [facility] RAPID PLASMA REAGIN, QUANTon 02-23-2024 RAPID PLASMA REAGIN, QUANT Non-Reactive NonRea<1:1 titer [facility] Comment on above: Please Note: This te st does not meet current guidelines for screening and diagnosis of syphilis. This test is intended for following treatment response in patients being treated for syphilis infection. To screen for syphilis infection, a reflex cascade that includes both RPR and a treponema-specific assay should be utilized, such as Treponema pallidum (Syphilis) Screening Matthews (966705) or Rapid Plasma Reagin (RPR) Test With Reflex to Quantitative RPR and Confirmatory Treponema pallidum Antibodies (556800). Performed at: [address] [id number] Licensed Occupational Therapist: Celestino Goff PhD, Phone: [phone] ALL CBC WITH AUTO DIFFon BASOPHILS ABSOLUTE AUTO 0 [facility] Basophils/100 WBC (Bld) 0.3 % 0.2 - 2.0 % [facility] Eosinophils/100 WBC (Bld) 0.5 % Low 0.9 - 7.0 % [facility] Erythrocyte distribution width (RBC) [Ratio] 11.9 % 11.0 - 15.0 % [facility] Hematocrit (Bld) [Volume fraction] 41.8 % 36.0 - 48.0 % [facility] Hemoglobin (Bld) [Mass/Vol] 14.5 g/dL 12.0 - 16.0 g/dL [facility] IMMATURE GRANULOCYTES ABS AUTO 0.03 [facility] Immature granulocytes/100 WBC (Bld) 0.3 % 0.0 - 0.5 % [facility] Interpretation and review of laboratory results Abnormal [facility] LYMPHOCYTES ABSOLUTE AUTO 1.8 [facility] Lymphocytes/100 WBC (Bld) 18.8 % Low 20.5 - 60.0 % [facility] MCH (RBC) [Entitic mass] 29.8 pg 26.7 - 34.0 pg [facility] MCHC (RBC) [Mass/Vol] 34.7 g/dL 29.9 - 35.2 g/dL [facility] MCV (RBC) [Entitic vol] 86 fL 81.0 - 99.0 fL [facility] MONOCYTES ABSOLUTE AUTO 0.5 [facility] Monocytes/100 WBC (Bld) 5.7 % 1.7 - 12.0 % [facility] NEUTROPHILS ABSOLUTE AUTO 6.9 High [facility] Neutrophils/100 WBC (Bld) 74.4 % 43.0 - 75.0 % [facility] Platelet mean volume (Bld) [Entitic vol] 10.9 fL 9.5 - 13.5 fL [facility] EO # 0.1 [facility] PLT [address] [facility] RBC 4.86 [facility] WBC 9.3 [facility] AND SCREENon 2023 ABO and Rh group Nom (Bld) Blood group O Rh(D) negative [facility] B[facility] TESTon 02-22-2024 BOX TEST SENT OUT [facility] BOX1 [facility] BOX2 02/22/24 [facility] MLR HEMOGLOBIN A1Con 024 Glucose [Mass/Vol] 94 mg/dL [facility] HbA1c (Bld) [Mass fraction] 4.9 % 4.5 - 6.2 % [facility] Comment on above: ADA RECOMMENDED LIMI T 4.0 - 6.0 ADA THERAPEUTIC TARGET < 7.0 ACTION SUGGESTED > 7.0 No [facility] 02-22-2024 AMPHETAMINE SCREEN URINE Negative NEGATIVE [facility] BARBITURATES SCREEN URINE Negative NEGATIVE [facility] BENZODIAZEPINES SCREEN URINE Negative NEGATIVE [facility] BUPRENORPHINE SCREEN URINE Negative NEGATIVE [facility] Comment on above: DRUG CLASS TEST SYST [...] 300 ng/mL CANNABINOID SCREEN URINE Negative NEGATIVE [facility] COCAINE SCREEN URINE Negative NEGATIVE [facility] METHADONE SCREEN URINE Negative NEGATIVE [facility] METHAMPHETAMINES SCREEN URINE Negative NEGATIVE [facility] OPIATE SCREEN URINE Negative NEGATIVE [facility] OXYCODONE SCREEN URINE Negative NEGATIVE [facility] PHENCYCLIDINE SCREEN URINE Negative NEGATIVE [facility] TRICYCLIC ANTIDEPRESSANT URINE Negative NEGATIVE [facility] HCG ( test) Ql (U)o n 02-18-2024 Interpretation and review of laboratory results Abnormal [facility] Preg Test, Ur Positive Negative [facility] Urinalysis macro (dipstick) panel (U)on 02-18-2024 Bilirubin, UA Negative Negative - 4(70) +++ mg/dL [facility] Blood, UA Negative Negative - 50 Jesus/mcL [facility] Clarity, UA Clear [facility] Color, UA Yellow [facility] Glucose, UA Negative Negative - 1999(110) ++++ mg/dL [facility] Interpretation and review of laboratory results Normal [facility] Ketones, UA Negative Negative - 160(16) ++++ mg/dL [facility] Leukocytes, UA Negative Negative - 500+++ Juanita/mcL [facility] Nitrite, UA Negative Negative - Positive [facility] pH, UA 5.5 5 - 9 [facility] Protein, UA Negative Negative - 1999(20) ++++ mg/dL [facility] Spec Grav, UA 1.02 1 - 1.03 [facility] Urobilinogen, UA 1.0 0.2 - 12 mg/dL [facility] COVID/FLU/RSV RT-PCRon 02-08 SARS-CoV-2 (COVID-19) RNA IRA+probe Ql (Unsp spec) Negative [facility] Other COVID/FLU/RSV RT-PCR Negative [facility] Other CBC W Auto Differential pane l (Bld)on 02-20-2022 Basophils (Bld) [#/Vol] 0.03 10*3/uL Normal <0.11 [facility] Comment on above: Order Comment: Speci men Type: BLOOD SPECIMEN Ordering Facility: [facility] Address: [address] [address] Performed By: #### 5 7021-8 #### [facility] CLIA [id number] [address] [place] [address] [place] Basophils/100 WBC (Bld) 0.3 % Normal [facility] Comment on above: Order Comment: Speci men Type: BLOOD SPECIMEN Ordering Facility: [facility] Address: [address] [place] [address] Performed By: #### 5 7021-8 #### [facility] CLIA [id number] [address] [place] [address] [place] Differential cell count method Nom (Bld) Auto Normal [facility] Comment on above: Order Comment: Speci men Type: BLOOD SPECIMEN Ordering Facility: [facility] Address: [address] [place] [address] Performed By: #### 5 7021-8 #### [facility] CLIA [id number] [address] [place] [address] [place] Eosinophils (Bld) [#/Vol] 10*3/uL Normal <0.46 [facility] Comment on above: Order Comment: Speci men Type: BLOOD SPECIMEN Ordering Facility: [facility] Address: [address] [place] [address] Performed By: #### 5 7021-8 #### [facility] CLIA [id number] [address] [place] [address] [place] Eosinophils/100 WBC (Bld) 0.2 % Normal [facility] Comment on above: Order Comment: Speci men Type: BLOOD SPECIMEN Ordering Facility: [facility] Address: [address] [place] [address] Performed By: #### 5 7021-8 #### [facility] CLIA [id number] [address] [place] [address] [place] Erythrocyte distribution width (RBC) [Ratio] 12.9 % Normal 11.5-15.0 [facility] Comment on above: Order Comment: Speci men Type: BLOOD SPECIMEN Ordering Facility: [facility] Address: [address] [address] Performed By: #### 5 7021-8 #### [facility] CLIA [id number] [address] [place] [address] [place] Hematocrit (Bld) [Volume fraction] 43.2 % Normal 36.0-46.0 [facility] Comment on above: Order Comment: Speci men Type: BLOOD SPECIMEN Ordering Facility: [facility] Address: [address] [place] [address] Performed By: #### 5 7021-8 #### [facility] CLIA [id number] [address] [place] [address] [place] Hemoglobin (Bld) [Mass/Vol] 14.8 g/dL Normal 11.5-15.5 [facility] Comment on above: Order Comment: Speci men Type: BLOOD SPECIMEN Ordering Facility: [facility] Address: [address] [place] [address] Performed By: #### 5 7021-8 #### [facility] CLIA [id number] [address] [place] [address] [place] Immature granulocytes (Bld) [#/Vol] 0.04 10*3/uL Normal <0.10 [facility] Comment on above: Order Comment: Speci men Type: BLOOD SPECIMEN Ordering Facility: [facility] Address: [address] [place] [address] Performed By: #### 5 7021-8 #### [facility] CLIA [id number] [address] [place] [address] [place] Immature granulocytes/100 WBC (Bld) 0.4 % Normal [facility] Comment on above: Order Comment: Speci men Type: BLOOD SPECIMEN Ordering Facility: [facility] Address: [address] [place] [address] Performed By: #### 5 7021-8 #### [facility] CLIA [id number] [address] [place] [address] [place] Lymphocytes (Bld) [#/Vol] 0.55 10*3/uL Low 1.00-4.00 [facility] Comment on above: Order Comment: Speci men Type: BLOOD SPECIMEN Ordering Facility: [facility] Address: [address] [place] [address] Performed By: #### 5 7021-8 #### [facility] CLIA [id number] [address] [place] [address] Lymphocytes/100 WBC (Bld) 5.3 % Normal [facility] Comment on above: Order Comment: Speci men Type: BLOOD SPECIMEN Ordering Facility: [facility] Address: [address] [address] Performed By: #### 5 7021-8 #### [facility] CLIA [id number] [address] [place] [address] MCH (RBC) [Entitic mass] 29.1 pg Normal 26.0-34.0 [facility] Comment on above: Order Comment: Speci men Type: BLOOD SPECIMEN Ordering Facility: [facility] Address: [address] [place] [address] Performed By: #### 5 7021-8 #### [facility] CLIA [id number] [address] [place] [address] MCHC (RBC) [Mass/Vol] 34.3 g/dL Normal 30.5-36.0 [facility] Comment on above: Order Comment: Speci men Type: BLOOD SPECIMEN Ordering Facility: [facility] Address: [address] [address] Performed By: #### 5 7021-8 #### [facility] CLIA [id number] [address] [place] [address] [place] MCV (RBC) [Entitic vol] 84.9 fL Normal 80.0-100.0 [facility] Comment on above: Order Comment: Speci men Type: BLOOD SPECIMEN Ordering Facility: [facility] Address: [address] [address] Performed By: #### 5 7021-8 #### [facility] CLIA [id number] [address] [place] [address] [place] Monocytes (Bld) [#/Vol] 0.19 10*3/uL Normal <0.87 [facility] Comment on above: Order Comment: Speci men Type: BLOOD SPECIMEN Ordering Facility: [facility] Address: [address] [place] [address] Performed By: #### 5 7021-8 #### [facility] CLIA [id number] [address] [place] [address] [place] Monocytes/100 WBC (Bld) 1.8 % Normal [facility] Comment on above: Order Comment: Speci men Type: BLOOD SPECIMEN Ordering Facility: [facility] Address: [address] [address] Performed By: #### 5 7021-8 #### [facility] CLIA [id number] [address] [place] [address] [place] Neutrophils (Bld) [#/Vol] 9.55 10*3/uL High 1.45-7.50 [facility] Comment on above: Order Comment: Speci men Type: BLOOD SPECIMEN Ordering Facility: [facility] Address: [address] [address] Performed By: #### 5 7021-8 #### [facility] CLIA [id number] [address] [place] [address] [place] Neutrophils/100 WBC (Bld) 92.0 % Normal [facility] Comment on above: Order Comment: Speci men Type: BLOOD SPECIMEN Ordering Facility: [facility] Address: [address] [address] Performed By: #### 5 7021-8 #### [facility] CLIA [id number] [address] [place] [address] [place] Nucleated RBC (Bld) [#/Vol] 10*3/uL Normal <0.01 [facility] Comment on above: Order Comment: Speci men Type: BLOOD SPECIMEN Ordering Facility: [facility] Address: [address] [place] [address] Performed By: #### 5 7021-8 #### [facility] CLIA [id number] [address] [place] [address] [place] Nucleated RBC/100 WBC (Bld) [Ratio] 0.0 /100 WBC Normal [facility] Comment on above: Order Comment: Speci men Type: BLOOD SPECIMEN Ordering Facility: [facility] Address: [address] [place] [address] Performed By: #### 5 7021-8 #### [facility] CLIA [id number] [address] [place] [address] [place] Platelet mean volume (Bld) [Entitic vol] 10.9 fL Normal 9.0-12.7 [facility] Comment on above: Order Comment: Speci men Type: BLOOD SPECIMEN Ordering Facility: [facility] Address: [address] [place] [address] Performed By: #### 5 7021-8 #### [facility] CLIA [id number] [address] [place] [address] [place] Platelets (Bld) [#/Vol] 213 10*3/uL Normal 150-400 [facility] Comment on above: Order Comment: Speci men Type: BLOOD SPECIMEN Ordering Facility: [facility] Address: [address] [place] [address] Performed By: #### 5 7021-8 #### [facility] CLIA [id number] [address] [place] [address] [place] RBC (Bld) [#/Vol] 5.09 10*6/uL Normal 3.90-5.20 [facility] Comment on above: Order Comment: Speci men Type: BLOOD SPECIMEN Ordering Facility: [facility] Address: [address] [address] Performed By: #### 5 7021-8 #### [facility] CLIA [id number] [address] [place] [address] [place] WBC (Bld) [#/Vol] 10.38 10*3/uL Normal 3.70-11.00 [facility] Comment on above: Order Comment: Speci men Type: BLOOD SPECIMEN Ordering Facility: [facility] Address: [address] [place] [address] Performed By: #### 5 7021-8 #### [facility] CLIA [id number] [place] [address] [place] Comprehensive metabolic 2000 panelon 02-20-2022 Albumin [Mass/Vol] 4.6 g/dL Normal 3.9-4.9 [facility] Comment on above: Order Comment: Speci men Type: BLOOD SPECIMEN Ordering Facility: [facility] Address: [address] [address] Performed By: #### 2 4323-8 #### [facility] CLIA [id number] [place] [address] [place] ALP [Catalytic activity/Vol] 78 U/L Normal 34-123 [facility] Comment on above: Order Comment: Speci men Type: BLOOD SPECIMEN Ordering Facility: [facility] Address: [address] [place] [address] Performed By: #### 2 4323-8 #### [facility] CLIA [id number] [address] [place] [address] [place] ALT [Catalytic activity/Vol] 27 U/L Normal 7-38 [facility] Comment on above: Order Comment: Speci men Type: BLOOD SPECIMEN Ordering Facility: [facility] Address: [address] [place] [address] Performed By: #### 2 4323-8 #### [facility] CLIA [id number] [address] [place] [address] [place] Anion gap [Moles/Vol] 12 mmol/L Normal 9-18 [facility] Comment on above: Order Comment: Speci men Type: BLOOD SPECIMEN Ordering Facility: [facility] Address: [address] [address] Performed By: #### 2 4323-8 #### [facility] CLIA [id number] [place] [address] [place] AST [Catalytic activity/Vol] 16 U/L Normal 13-35 [facility] Comment on above: Order Comment: Speci men Type: BLOOD SPECIMEN Ordering Facility: [facility] Address: [address] [address] Performed By: #### 2 4323-8 #### [facility] CLIA [id number] [address] [place] [address] [place] Bilirubin [Mass/Vol] 0.9 mg/dL Normal 0.2-1.3 [facility] Comment on above: Order Comment: Speci men Type: BLOOD SPECIMEN Ordering Facility: [facility] Address: [address] [address] Performed By: #### 2 4323-8 #### [facility] CLIA [id number] [address] [place] [address] [place] Calcium [Mass/Vol] 9.6 mg/dL Normal 8.5-10.2 [facility] Comment on above: Order Comment: Speci men Type: BLOOD SPECIMEN Ordering Facility: [facility] Address: [address] [place] [address] Performed By: #### 2 4323-8 #### [facility] CLIA [id number] [address] [place] [address] [place] Chloride [Moles/Vol] 100 mmol/L Normal 97-105 [facility] Comment on above: Order Comment: Speci men Type: BLOOD SPECIMEN Ordering Facility: [facility] Address: [address] [place] [address] Performed By: #### 2 4323-8 #### [facility] CLIA [id number] [address] [place] [address] [place] CO2 [Moles/Vol] 26 mmol/L Normal 22-30 [facility] Comment on above: Order Comment: Speci men Type: BLOOD SPECIMEN Ordering Facility: [facility] Address: [address] [address] Performed By: #### 2 4323-8 #### [facility] CLIA [id number] [address] [place] [address] [place] Creatinine [Mass/Vol] 0.76 mg/dL Normal 0.58-0.96 [facility] Comment on above: Order Comment: Speci men Type: BLOOD SPECIMEN Ordering Facility: [facility] Address: [address] [address] Performed By: #### 2 4323-8 #### [facility] CLIA [id number] [address] [place] [address] [place] ESTIMATED GLOMERULAR FILTRATION RATE 109 mL/min/1.73m??? Normal >=60 [facility] Comment on above: Order Comment: Norman coelho Type: BLOOD SPECIMEN Ordering Facility: [facility] Address: [address] [address] Result Comment: Marce mated Glomerular Filtration Rate [...] GFR. Performed By: #### 2 4323-8 #### [facility] CLIA [id number] [place] [address] [place] Glucose [Mass/Vol] 98 mg/dL Normal 74-99 [facility] Comment on above: Order Comment: Norman coelho Type: BLOOD SPECIMEN Ordering Facility: [facility] Address: [address] [address] Result Comment: The [place] Diabetes Association (ADA) provides guidance for cutoff [...] Standards of Medical Care in Diabetes 2016, [place] [employer] Association. Diabetes Care. 2016.39(Suppl 1). Performed By: #### 2 4323-8 #### [facility] CLIA [id number] [address] [place] [address] [place] Potassium [Moles/Vol] 3.5 mmol/L Low 3.7-5.1 [facility] Comment on above: Order Comment: Speci men Type: BLOOD SPECIMEN Ordering Facility: [facility] Address: [address] [address] Performed By: #### 2 4323-8 #### [facility] CLIA [id number] [address] [place] [address] [place] Protein [Mass/Vol] 7.4 g/dL Normal 6.3-8.0 [facility] Comment on above: Order Comment: Speci men Type: BLOOD SPECIMEN Ordering Facility: [facility] Address: [address] [place] [address] Performed By: #### 2 432-8 #### [facility] CLIA [id number] [address] [place] [address] [place] Sodium [Moles/Vol] 138 mmol/L Normal 136-144 [facility] Comment on above: Order Comment: Speci men Type: BLOOD SPECIMEN Ordering Facility: [facility] Address: [address] [address] Performed By: #### 2 4323-8 #### [facility] CLIA [id number] [address] [place] [address] [place] Urea nitrogen [Mass/Vol] 5 mg/dL Low 7-21 [facility] Comment on above: Order Comment: Speci men Type: BLOOD SPECIMEN Ordering Facility: [facility] Address: [address] [address] Performed By: #### 2 4323-8 #### [facility] CLIA [id number] [address] [place] [address] [place] ED NOTEon 02-20-2022 ED NOTE HNO ID: [id number] Author: Amelia Henson PA-C Service: ? Author Type: Physician Derrick Man Type: ED Notes Filed: 02/22/2022 9:58 AM [...] reasons to return to the ED. Normal [facility] ED NOTE HNO ID: [id number] Author: Scott Kang RN Service: ? Author Type: Registered Nurse Type: ED Notes Filed: 02/20/2022 4:25 PM Note Text: Pt given discharge, follow up and medication instructions. Pt verbalized understanding, is AANDOx3, stable and ambulates with a steady gait at this time. Normal [facility] ED PROV NOTEon 02-20-2022 ED PROV NOTE HNO ID: [id number] Author: Amelia Henson PA-C Service: Emergency Medicine Author Type: Physician Derrick Man Type: ED Provider Notes Filed: 02/20/2022 4:34 [...] Bilirubin, Urine 1+(!) Ketones, Urine Negative Specific [place], Ur 1.013 Hemoglobin/Blood,Ur 2+(!) pH, Urine 6.5 [...] History provided by: Medical records and patient university partnership rep used: No No past medical history on [...] She is (more content not included)... Normal [facility] HCG QUAL BLDon 02-20-2022 HCG, QUALITATIVE Negative Normal Negative [facility] Comment on above: Order Comment: Speci men Type: BLOOD SPECIMEN Ordering Facility: [facility] Address: [address] [place] [id number] Performed By: #### H #### [facility] CLIA [id number] [place]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
--- NOTE | 2024-06-06 13:49 | US_ITS ---
The [address] [address] Patient Name: SANTIAGO SAAVEDRA MRN: [id number] date: 1990 Sex: F Assigned Patient Location: Current Patient Location: Accession/Order Number: [id number] Exam Date: 06/06/2024 22:13 Report Date: 06/06/2024 22:21 At the request of: BLANCA DENTON DO Procedure: US OB cervical length CLINICAL DATA: Incomplete anatomy survey. Low-lying placenta ULTRASOUND OB INCOMPLETE ANATOMY COMPARISON: 02/19/2024 There is a single live intrauterine gestation in cephalic presentation. There are symmetric activity. The heart rate is 154 beats per minutes. The facial features including nose and lips are visualized on the current exam and no abnormalities are noted. The amniotic fluid volume is subjectively within normal limits. US/US OB cervical length IMPRESSION: VISUALIZATION OF THE FACIAL FEATURES, WITHOUT ABNORMALITY. ULTRASOUND OB CERVICAL LENGTH COMPARISON: 02/18/2024 There is a posterior placenta which is mildly heterogeneous. The placenta extends down close to (1.4 cm), however it does not cover the internal cervical os. The estimated cervical length is 4.5 cm. IMPRESSION: LOW-LYING PLACENTA. Impression dictated by: Elisa Boothe M.D.06/06/2024 10:21 PM Dictation Location: [employer] Electronically authenticated by: [id number] Y Date: 06/06/2024 22:21
== END 2024-06-06 13:08 | disposition home or self-care (01) ==
LOC: US 13:07
PROVIDERS: Visit Provider Obstetrics & Gynecology
DX: O44.42 Low lying placenta NOS or without hemorrhage, second trimester (principal); Z36.2 Encounter for other antenatal screening follow-up; Z13.1 Encounter for screening for diabetes mellitus; Z3A.00 Weeks of gestation of pregnancy not specified
CPT/HCPCS: 36415; 76815; 76817; 82950; 85025

== ENCOUNTER 2024-06-25 08:18 | Outpatient (OUT) | payer MEDICAID, SELFPAY ==
--- OUTSIDE RECORDS SUMMARY | 2024-06-25 08:20 | XMS_ITS | CCD ---
Author Organization [facility] Care Team Providers Care Casino Floor Walker Name Role Phone Sharon Pickett Unavailable Unavailable Sharon Pickett Unavailable Unavailable Arslan Malin Unavailable Unavailable MARY OQUENDO Attending Unavailable Sangita Penn Unavailable Unavailable Primary Care Provider UnavailBLANCA Nicole Attending Unavailable DESIREE CADET Attending Unavailable BLANCA JONES Attending Unavailable DESIREE CADET Attending Unavailable Medications Current Medications Medication Drug Class(es) Dates Sig (Normalized) Sig (Original) [id number] 200 actuat albuterol 0.09 mg/actuat metered dose inhaler (1 source) beta2-Adrenergic Agonist Start: 02-08-2023 take 2 puff(s) by inhalation every four to six hours as needed Albuterol Sulfate HFA 108 (90 Base) MCG/ACT 2 puffs as needed Inhalation every 4-6 hours for 14 days Feb, Active azithromycin 250 mg oral tablet (3 sources) Macrolide Antimicrobial Start: 05-27-2024 End: 06-06-2024 azithromycin (Zithromax Z-Filemon) 250 MG tablet Indications: URI, acute As directed 6 tablet 05/27/2024 06/06/2024 Discontinued (Other) dextromethorphan hydrobromide 1.5 mg/ml / pyrilamine maleate 1.5 mg/ml oral solution (1 source) Uncompetitive X-ksantn-Z-asparta te Receptor Antagonist, Sigma-1 Agonist Start: 02-08-2023 take 10 mL by mouth every eight hours [place] DM 7.5-7.5 MG/5ML 10 mL Orally every [...] 03-09-2024 Episodic Other and delivery including normal (10 sources) ; Translations: [Encounter for supervision of normal , unspecified, unspecified trimester] 02-18-2024 Episodic Other screening for suspected conditions (not mental disorders or infectious disease) (6 sources) Alpha-fetoprotein blood test status; Translations: [Encounter [...] [21 weeks gestation of ] 05-09-2024 Episodic Residual codes; unclassified (2 sources) Gestation period, 25 weeks; Translations: [25 weeks gestation of ] 06-06-2024 Episodic Unclassified (18 sources) OB Reminders Onset: 02-18-2024 02-18-2024 Urinary tract infections (1 source) Tubulo-interstitial nephritis, not specified as acute or chronic; Translations: [Pyelonephritis] Onset: 02-20-2022 Episodic Past or Other Problems Problem Classification Problem Date Documented Da te Episodic/Chronic Unclassified (1 source) Cough R05.9 Results Test Name Value Interpretation Reference Range Facility ALL CBC WITH AUTO DIFFon BASOPHILS ABSOLUTE AUTO 0 [facility] Basophils/100 WBC (Bld) 0.2 % 0.2 - 2.0 % [facility] Eosinophils/100 WBC (Bld) 0.8 % Low 0.9 - 7.0 % [facility] Erythrocyte distribution width (RBC) [Ratio] 12.3 % 11.0 - 15.0 % [facility] Hematocrit (Bld) [Volume fraction] 37.1 % 36.0 - 48.0 % [facility] Hemoglobin (Bld) [Mass/Vol] 12.7 g/dL 12.0 - 16.0 g/dL [facility] IMMATURE GRANULOCYTES ABS AUTO 0.03 [facility] Immature granulocytes/100 WBC (Bld) 0.4 % 0.0 - 0.5 % [facility] Interpretation and review of laboratory results Abnormal [facility] LYMPHOCYTES ABSOLUTE AUTO 1.8 [facility] Lymphocytes/100 WBC (Bld) 22.3 % 20.5 - 60.0 % [facility] MCH (RBC) [Entitic mass] 29.3 pg 26.7 - 34.0 pg [facility] MCHC (RBC) [Mass/Vol] 34.2 g/dL 29.9 - 35.2 g/dL [facility] MCV (RBC) [Entitic vol] 85.5 fL 81.0 - 99.0 fL [facility] MONOCYTES ABSOLUTE AUTO 0.6 [facility] Monocytes/100 WBC (Bld) 7.4 % 1.7 - 12.0 % [facility] NEUTROPHILS ABSOLUTE AUTO 5.7 [facility] Neutrophils/100 WBC (Bld) 68.9 % 43.0 - 75.0 % [facility] Platelet mean volume (Bld) [Entitic vol] 10.5 fL 9.5 - 13.5 fL [facility] TB EO # 0.1 [facility] PLT 251 [facility] RBC 4.34 [facility] WBC 8.3 [facility] No Panel InformationOrdered By: Radiologist Radiology on 06-06-2024 [facility] Work Phone: No Panel Informationon 06-06 Radiology Study observation (narrative) [facility] US [place] [address] Ultrasound Report Signed Patient: GILSON MEDINA MR#: [id number] : 1990 Acct:[id number] Age/Sex: 34 / F ADM Date: 06/06/24 Loc: US Attending Dr: Blanca Jones D.O. Ordering Physician: Blanca Jones D.O. Date of Service: 06/06/24 Procedure(s): US OB cervical length Accession Number(s): [id number] cc: Blanca Jones D.O.; Physician,Non-Staff M.D. [place] [id number] Patient Name: GILSON MEDINA MRN: [facility]:[id number] date: 1990 Sex: F Assigned Patient Location: US Current Patient Location: US Accession/Order Number: [id number] Exam Date: 06/06/2024 22:13 Report Date: 06/06/2024 22:21 At the request of: BLANCA JONES DO Procedure: US OB cervical length CLINICAL DATA: Incomplete anatomy survey. Low-lying placenta ULTRASOUND OB INCOMPLETE ANATOMY COMPARISON: 02/19/2024 There is a single live intrauterine gestation in cephalic presentation. There are symmetric activity. The heart rate is 154 beats per minutes. The facial features including nose and lips are visualized on the current exam and no abnormalities are noted. The amniotic fluid volume is subjectively within normal limits. US/US OB cervical length IMPRESSION: VISUALIZATION OF THE FACIAL FEATURES, WITHOUT ABNORMALITY. ULTRASOUND OB CERVICAL LENGTH COMPARISON: 02/18/2024 There is a posterior placenta which is mildly heterogeneous. The placenta extends down close to (1.4 cm), however it does not cover the internal cervical os. The estimated cervical length is 4.5 cm. IMPRESSION: LOW-LYING PLACENTA. Impression dictated by: Elisa Boothe M.D.06/06/2024 10:21 PM Dictation Location: [place] [address] Electronically authenticated by: [id number] Y Date: 06/06/2024 22:21 Dictated By: Elisa Boothe M.D. Signed By: 06/06/242223 DD/ 20 TD/TT: Footwear Factory Worker: [facility] Radiology, Radiologi MD jessica - 06/06/2024 [place] [address] Ultrasound Report Signed Patient: GILSON MEDINA MR#: [id number] : 1990 Acct:[id number] Age/Sex: 34 / F ADM Date: 06/06/24 Loc: US Attending Dr: Blanca Jones D.O. Ordering Physician: Blanca Jones D.O. Date of Service: 06/06/24 Procedure(s): US OB cervical length Accession Number(s): [id number] cc: Blanca Jones D.O.; Physician,Non-Staff [place] [id number] Patient Name: GILSON MEDINA MRN: [facility]:[id number] date: 1990 Sex: F Assigned Patient Location: US Current Patient Location: US Accession/Order Number: [id number] Exam Date: 06/06/2024 22:13 Report Date: 06/06/2024 22:21 At the request of: BLANCA JONES DO Procedure: US OB cervical length CLINICAL DATA: Incomplete anatomy survey. Low-lying placenta ULTRASOUND OB INCOMPLETE ANATOMY COMPARISON: 02/19/2024 There is a single live intrauterine gestation in cephalic presentation. There are symmetric activity. The heart rate is 154 beats per minutes. The facial features including nose and lips are visualized on the current exam and no abnormalities are noted. The amniotic fluid volume is subjectively within normal limits. US/US OB cervical length IMPRESSION: VISUALIZATION OF THE FACIAL FEATURES, WITHOUT ABNORMALITY. ULTRASOUND OB CERVICAL LENGTH COMPARISON: 02/18/2024 There is a posterior placenta which is mildly heterogeneous. The placenta extends down close to (1.4 cm), however it does not cover the internal cervical os. The estimated cervical length is 4.5 cm. IMPRESSION: LOW-LYING PLACENTA. Impression dictated by: Elisa Boothe M.D.06/06/2024 10:21 PM Dictation Location: [place] [address] Electronically authenticated by: [id number] Y Date: 06/06/2024 22:21 Dictated By: Elisa Boothe M.D. Signed By: 06/06/242223 DD/ 20 TD/TT: Footwear Factory Worker: [facility] OB INCOMPLETE ANATOMYon 0 06-06-2024 [place] [address] Ultrasound Report Signed Patient: GILSON MEDINA MR#: [id number] : 1990 Acct:[id number] Age/Sex: 34 / F ADM Date: 06/06/24 Loc: US Attending Dr: Blanca Jones D.O. Ordering Physician: Blanca Jones D.O. Date of Service: 06/06/24 Procedure(s): US OB incomplete anatomy Accession Number(s): [id number] cc: Blanca Jones D.O.; Physician,Non-Staff [place] [address] [address] Patient Name: GILSON MEDINA MRN: [id number] date: 1990 Sex: F Assigned Patient Location: US Current Patient Location: US Accession/Order Number: [id number] Exam Date: 06/06/2024 22:13 Report Date: 06/06/2024 22:21 At the request of: BLANCA JONES DO Procedure: US OB cervical length CLINICAL DATA: Incomplete anatomy survey. Low-lying placenta ULTRASOUND OB INCOMPLETE ANATOMY COMPARISON: 02/19/2024 There is a single live intrauterine gestation in cephalic presentation. There are symmetric activity. The heart rate is 154 beats per minutes. The facial features including nose and lips are visualized on the current exam and no abnormalities are noted. The amniotic fluid volume is subjectively within normal limits. US/US OB incomplete anatomy IMPRESSION: VISUALIZATION OF THE FACIAL FEATURES, WITHOUT ABNORMALITY. ULTRASOUND OB CERVICAL LENGTH COMPARISON: 02/18/2024 There is a posterior placenta which is mildly heterogeneous. The placenta extends down close to (1.4 cm), however it does not cover the internal cervical os. The estimated cervical length is 4.5 cm. IMPRESSION: LOW-LYING PLACENTA. Impression dictated by: Elisa Boothe M.D.06/06/2024 10:21 PM Dictation Location: [place] [address] Electronically authenticated by: [id number] Y Date: 06/06/2024 22:21 Dictated By: Elisa Boothe M.D. Signed By: 06/06/242223 DD/ 20 TD/TT: Footwear Factory Worker: [facility] Radiology, Radiologi MD jessica - 06/06/2024 [place] [address] Ultrasound Report Signed Patient: GILSON MEDINA MR#: [id number] : 1990 Acct:[id number] Age/Sex: 34 / F ADM Date: 06/06/24 Loc: US Attending Dr: Blanca Jones D.O. Ordering Physician: Blanca Jones D.O. Date of Service: 06/06/24 Procedure(s): US OB incomplete anatomy Accession Number(s): [id number] cc: Blanca Jones D.O.; Physician,Non-Staff [place] [address] Patient Name: GILSON MEDINA MRN: [facility]:[id number] date: 1990 Sex: F Assigned Patient Location: US Current Patient Location: US Accession/Order Number: [id number] Exam Date: 06/06/2024 22:13 Report Date: 06/06/2024 22:21 At the request of: BLANCA JONES DO Procedure: US OB cervical length CLINICAL DATA: Incomplete anatomy survey. Low-lying placenta ULTRASOUND OB INCOMPLETE ANATOMY COMPARISON: 02/19/2024 There is a single live intrauterine gestation in cephalic presentation. There are symmetric activity. The heart rate is 154 beats per minutes. The facial features including nose and lips are visualized on the current exam and no abnormalities are noted. The amniotic fluid volume is subjectively within normal limits. US/US OB incomplete anatomy IMPRESSION: VISUALIZATION OF THE FACIAL FEATURES, WITHOUT ABNORMALITY. ULTRASOUND OB CERVICAL LENGTH COMPARISON: 02/18/2024 There is a posterior placenta which is mildly heterogeneous. The placenta extends down close to (1.4 cm), however it does not cover the internal cervical os. The estimated cervical length is 4.5 cm. IMPRESSION: LOW-LYING PLACENTA. Impression dictated by: Elisa Boothe M.D.06/06/2024 10:21 PM Dictation Location: [place] [address] Electronically authenticated by: [id number] Y Date: 06/06/2024 22:21 Dictated By: Elisa Boothe M.D. Signed By: 06/06/242223 DD/ 20 TD/TT: Footwear Factory Worker: [facility] Urinalysis macro (dipstick) panel (U)on 06-06-2024 Bilirubin, UA Negative Negative - 4(70) +++ mg/dL [facility] Blood, UA Negative Negative - 50 Jesus/mcL [facility] Clarity, UA Clear [facility] Color, UA Yellow [facility] Glucose, UA Negative Negative - 1999(110) ++++ mg/dL [facility] Interpretation and review of laboratory results Abnormal [facility] Ketones, UA Negative Negative - 160(16) ++++ mg/dL [facility] Leukocytes, UA Trace Negative - 500+++ Juanita/mcL [facility] Nitrite, UA Negative Negative - Positive [facility] pH, UA 6 5 - 9 [facility] Protein, UA Negative Negative - 2000(20) ++++ mg/dL [facility] Spec Grav, UA 1.025 1 - 1.03 [facility] Urobilinogen, UA 0.2 0.2 - 12 mg/dL [facility] US OB 14+ WEEKS ANATOMY SCAN on 02-03-2025 US OB 14+ WEEKS ANATOMY SCAN TITLE [...] report is generated using voice recognition reporting (Pops). On occasion [employer] Device Corporationcribe erroneously drops words from the report or [...] AGE GDLN ACOG TESTING Note . [facility] Comment on above: TESTS RESULT FLAG UN ITS REF RANGE LAB Clinician Provided Cytology Information Source.............Cervix No. of containers..01 ThinPrep Vial Age Algo ACOG Maria... FLAG LEGEND: L-Low Normal,H-High Normal,LL-Alert Low,HH-Alert High <-Panic Low,>-Panic High,A-Abnormal,AA-Critical Abnormal Performed at: 01 =G [address] [address] Haydee Kraus MD, HPV APTIMA Negative Negative [facility] Comment on above: This nucleic acid am plification test detects fourteen high- risk HPV types (16,18,31,33,35,39,45,51,52,56,58,59,66,68) without differentiation. Performed at: =[address] [id number] Real Estate Administrator: Haydee Kraus MD, Phone: [phone] Performed at: [address] [id number] Real Estate Administrator: Haydee Kraus MD, Phone: [phone] IGP, APTIMA HPV, RFX 16/18,45 Note . [facility] Comment on above: TESTS RESULT FLAG UN ITS REF RANGE LAB DIAGNOSIS: 02 NEGATIVE FOR INTRAEPITHELIAL LESION OR MALIGNANCY. THIS SPECIMEN WAS RESCREENED PART OF OUR [employer] PROFESSOR PROGRAM. Specimen adequacy: 02 Satisfactory for evaluation. No endocervical component is identified. Performed by: 02 Sav Cervantes, Compliance Review Specialist (ASCP) QC reviewed by: 02 Marlena Colón, Compliance Review Specialist . 02 Note: Note 02 The Pap [...] <-Panic Low,>-Panic High,A-Abnormal,AA-Critical Abnormal Performed at: [address] [address] Haydee Kraus MD, SPATULA-ALONE CERVIX [facility] RECURRENT VAGINITIS (HTRX)on 04-13-2024 ATOPOBIUM VAGINAE 16.023 Abnormal [facility] ATOPOBIUM VAGINAE Detected Abnormal [facility] BVAB 2,3 (BACTERIAL VAGINOSIS ASSOCIATED BACTERIA 2, 3); MOBILUNCUS SPP 9.934 Abnormal [facility] BVAB 2,3 (BACTERIAL VAGINOSIS ASSOCIATED BACTERIA 2, 3); MOBILUNCUS SPP Detected Abnormal [facility] RADHA ALBICANS, PARAPSILOSIS, TROPICALIS 0 [facility] RADHA ALBICANS, PARAPSILOSIS, TROPICALIS Not detected [facility] RADHA GLABRATA 0 [facility] RADHA GLABRATA Not detected [facility] RADHA KRUSEI 0 [facility] RADHA KRUSEI Not detected [facility] CHLAMYDIA TRACHOMATIS 0 [facility] CHLAMYDIA TRACHOMATIS Not detected [facility] ERMB, C; MEFA 19.423 Abnormal [facility] ERMB, C; MEFA Detected Abnormal [facility] GARDNERELLA VAGINALIS 19.86 Abnormal [facility] GARDNERELLA VAGINALIS Detected Abnormal [facility] Interpretation and review of laboratory results Abnormal [facility] MEGASPHAERA (TYPES 1, 2) 21.115 Abnormal [facility] MEGASPHAERA (TYPES 1, 2) Detected Abnormal [facility] MYCOPLASMA GENITALIUM 0 [facility] MYCOPLASMA GENITALIUM Not detected [facility] NEISSERIA GONORRHOEAE 0 [facility] NEISSERIA GONORRHOEAE Not detected [facility] TET B, TET M 17.31 Abnormal [facility] TET B, TET M Detected Abnormal [facility] TRICHOMONAS VAGINALIS 0 [facility] TRICHOMONAS VAGINALIS Not detected [facility] Urinalysis macro (dipstick) panel (U)on 04-12-2024 Bilirubin, UA Negative Negative - 4(70) +++ mg/dL [facility] Blood, UA Negative Negative - 50 Jesus/mcL [facility] Clarity, UA Clear [facility] Color, UA Yellow [facility] Glucose, UA Negative Negative - 1999(110) ++++ mg/dL [facility] Interpretation and review of laboratory results Abnormal [facility] Ketones, UA Negative Negative - 160(16) ++++ mg/dL [facility] Leukocytes, UA Trace Negative - 500+++ Juanita/mcL [facility] Nitrite, UA Negative Negative - Positive [facility] pH, UA 5.5 5 - 9 [facility] Protein, UA Trace Negative - 1999(20) ++++ mg/dL [facility] Spec Grav, UA 1.03 1 - 1.03 [facility] Urobilinogen, UA 0.2 0.2 - 12 mg/dL [facility] Urinalysis macro (dipstick) panel (U)on 03-09-2024 Bilirubin, UA Negative Negative - 4(70) +++ mg/dL [facility] Blood, UA Negative Negative - 50 Jesus/mcL [facility] Clarity, UA Clear [facility] Color, UA Yellow [facility] Glucose, UA Negative Negative - 1999(110) ++++ mg/dL [facility] Interpretation and review of laboratory results Abnormal [facility] Ketones, UA Negative Negative - 160(16) ++++ mg/dL [facility] Leukocytes, UA Negative Negative - 500+++ Juanita/mcL [facility] Nitrite, UA Positive Negative - Positive [facility] pH, UA 6 5 - 9 [facility] Protein, UA Negative Negative - 1999(20) ++++ mg/dL [facility] Spec Grav, UA 1.025 1 - 1.03 [facility] Urobilinogen, UA 1.0 0.2 - 12 mg/dL [facility] ALL RUBELLA IGG ABon 024 RUBELLA ANTIBODIES, IGG 1.01 Immune >0.99 index [facility] Comment on above: Non-immune <0.90 Equivocal 0.90 - 0.99 Immune >0.99 Performed at: [facility] [address] [id number] Real Estate Administrator: Celestino Goff PhD, Phone: [phone] HBSAG SCREENon 02-23-2024 HBSAG SCREEN Negative Negative [facility] Comment on above: Performed at: [employer] [facility] [address] [id number] Real Estate Administrator: Celestino Goff PhD, Phone: [phone] HCV ANTIBODY RFX TO QUANT PC Kenan 02-23-2024 HCV AB Non-Reactive Non Reactive [facility] INTERPRETATION: Comment . [facility] Comment on above: Not infected with HC V unless early or acute infection is suspected (which may be delayed in an immunocompromised individual), or other evidence exists to indicate HCV infection. HIV AB/P24 AG WITH REFLEXon 02-23-2024 HIV AB/P24 AG SCREEN Non-Reactive Non Reactive [facility] Comment on above: HIV-1/HIV-2 antibodi es and HIV-1 p24 antigen were NOT detected. There is no laboratory evidence of HIV infection. HIV Negative Performed at: [address] [id number] Real Estate Administrator: Celestino Goff PhD, Phone: [phone] No Panel Informationon 02-22 [facility] RAPID PLASMA REAGIN, QUANTon 02-23-2024 RAPID PLASMA REAGIN, QUANT Non-Reactive NonRea<1:1 titer [facility] Comment on above: Please Note: This te st does not meet current guidelines for screening and diagnosis of syphilis. This test is intended for following treatment response in patients being treated for syphilis infection. To screen for syphilis infection, a reflex cascade that includes both RPR and a treponema-specific assay should be utilized, such as Treponema pallidum (Syphilis) Screening [place] (907826) or Rapid Plasma Reagin (RPR) Test With Reflex to Quantitative RPR and Confirmatory Treponema pallidum Antibodies ([id number]). Performed at: [address] [id number] Real Estate Administrator: Celestino Goff PhD, Phone: [phone] ALL CBC WITH AUTO DIFFon BASOPHILS ABSOLUTE AUTO 0 [facility] Basophils/100 WBC (Bld) 0.3 % 0.2 - 2.0 % [facility] Eosinophils/100 WBC (Bld) 0.5 % Low 0.9 - 7.0 % [facility] Erythrocyte distribution width (RBC) [Ratio] 11.9 % 11.0 - 15.0 % [facility] Hematocrit (Bld) [Volume fraction] 41.8 % 36.0 - 48.0 % [facility] Hemoglobin (Bld) [Mass/Vol] 14.5 g/dL 12.0 - 16.0 g/dL [facility] IMMATURE GRANULOCYTES ABS AUTO 0.03 [facility] Immature granulocytes/100 WBC (Bld) 0.3 % 0.0 - 0.5 % [facility] Interpretation and review of laboratory results Abnormal [facility] LYMPHOCYTES ABSOLUTE AUTO 1.8 [facility] Lymphocytes/100 WBC (Bld) 18.8 % Low 20.5 - 60.0 % [facility] MCH (RBC) [Entitic mass] 29.8 pg 26.7 - 34.0 pg [facility] MCHC (RBC) [Mass/Vol] 34.7 g/dL 29.9 - 35.2 g/dL [facility] MCV (RBC) [Entitic vol] 86 fL 81.0 - 99.0 fL [facility] MONOCYTES ABSOLUTE AUTO 0.5 [facility] Monocytes/100 WBC (Bld) 5.7 % 1.7 - 12.0 % [facility] NEUTROPHILS ABSOLUTE AUTO 6.9 High [facility] Neutrophils/100 WBC (Bld) 74.4 % 43.0 - 75.0 % [facility] Platelet mean volume (Bld) [Entitic vol] 10.9 fL 9.5 - 13.5 fL [facility] EO # 0.1 [facility] PLT 255 [facility] RBC 4.86 [facility] WBC 9.3 [facility] ALL TYPE AND SCREENon 2023 ABO and Rh group Nom (Bld) Blood group O Rh(D) negative [facility]24 BOX TEST SENT OUT [facility] BOX1 [facility] BOX2 02/22/24 [facility] MLR HEMOGLOBIN A1Con 024 Glucose [Mass/Vol] 94 mg/dL [facility] HbA1c (Bld) [Mass fraction] 4.9 % 4.5 - 6.2 % [facility] Comment on above: ADA RECOMMENDED LIMI T 4.0 - 6.0 ADA THERAPEUTIC TARGET < 7.0 ACTION SUGGESTED > 7.0 No Panel Informationon 02-21 [facility] DRUG SCREEN RAPID (URINE )on 02-22-2024 AMPHETAMINE SCREEN URINE Negative NEGATIVE [facility] BARBITURATES SCREEN URINE Negative NEGATIVE [facility] BENZODIAZEPINES SCREEN URINE Negative NEGATIVE [facility] BUPRENORPHINE SCREEN URINE Negative NEGATIVE [facility] Comment on above: DRUG CLASS TEST [...] ng/mL CANNABINOID SCREEN URINE Negative NEGATIVE [facility] COCAINE SCREEN URINE Negative NEGATIVE [facility] METHADONE SCREEN URINE Negative NEGATIVE [facility] METHAMPHETAMINES SCREEN URINE Negative NEGATIVE [facility] OPIATE SCREEN URINE Negative NEGATIVE [facility] OXYCODONE SCREEN URINE Negative NEGATIVE [facility] PHENCYCLIDINE SCREEN URINE Negative NEGATIVE [facility] TRICYCLIC ANTIDEPRESSANT URINE Negative NEGATIVE [facility] HCG ( test) Ql (U)o n 02-18-2024 Interpretation and review of laboratory results Abnormal [facility] Preg Test, Ur Positive Negative [facility] Urinalysis macro (dipstick) panel (U)on 02-18-2024 Bilirubin, UA Negative Negative - 4(70) +++ mg/dL [facility] Blood, UA Negative Negative - 50 Jesus/mcL [facility] Clarity, UA Clear [facility] Color, UA Yellow [facility] Glucose, UA Negative Negative - 1999(110) ++++ mg/dL [facility] Interpretation and review of laboratory results Normal [facility] Ketones, UA Negative Negative - 160(16) ++++ mg/dL [facility] Leukocytes, UA Negative Negative - 500+++ Juanita/mcL [facility] Nitrite, UA Negative Negative - Positive [facility] pH, UA 5.5 5 - 9 [facility] Protein, UA Negative Negative - 1999(20) ++++ mg/dL [facility] Spec Grav, UA 1.02 1 - 1.03 [facility] Urobilinogen, UA 1.0 0.2 - 12 mg/dL [facility] COVID/FLU/RSV RT-PCRon 02-08 SARS-CoV-2 (COVID-19) RNA IRA+probe Ql (Unsp spec) Negative [facility] Other COVID/FLU/RSV RT-PCR Negative [facility] Other CBC W Auto Differential pane l (Bld)on 02-20-2022 Basophils (Bld) [#/Vol] 0.03 10*3/uL Normal <0.11 [facility] Comment on above: Order Comment: Speci men Type: BLOOD SPECIMEN Ordering Facility: [facility] [facility] Address: [address] [place] [address] Performed By: #### 5 7021-8 #### [facility] CLIA [id number] [address] [place] [address] [place] Basophils/100 WBC (Bld) 0.3 % Normal [facility] Comment on above: Order Comment: Speci men Type: BLOOD SPECIMEN Ordering Facility: [facility] Address: [address] [place] [address] Performed By: #### 5 7021-8 #### [facility] CLIA [id number] [address] [place] [address] [place] Differential cell count method Nom (Bld) Auto Normal [facility] Comment on above: Order Comment: Speci men Type: BLOOD SPECIMEN Ordering Facility: [facility] Address: [address] [place] [address] Performed By: #### 5 7021-8 #### [facility] CLIA [id number] [address] [place] [address] [place] Eosinophils (Bld) [#/Vol] 10*3/uL Normal <0.46 [facility] Comment on above: Order Comment: Speci men Type: BLOOD SPECIMEN Ordering Facility: [facility] Address: [address] [place] [address] Performed By: #### 5 7021-8 #### [facility] CLIA [id number] [address] [place] [address] [place] Eosinophils/100 WBC (Bld) 0.2 % Normal [facility] Comment on above: Order Comment: Speci men Type: BLOOD SPECIMEN Ordering Facility: [facility] Address: [address] [place] [address] Performed By: #### 5 7021-8 #### [facility] CLIA [id number] [address] [place] [address] [place] Erythrocyte distribution width (RBC) [Ratio] 12.9 % Normal 11.5-15.0 [facility] Comment on above: Order Comment: Speci men Type: BLOOD SPECIMEN Ordering Facility: [facility] Address: [address] [address] Performed By: #### 5 7021-8 #### [facility] CLIA [id number] [address] [place] [address] [place] Hematocrit (Bld) [Volume fraction] 43.2 % Normal 36.0-46.0 [facility] Comment on above: Order Comment: Speci men Type: BLOOD SPECIMEN Ordering Facility: [facility] Address: [address] [address] Performed By: #### 5 7021-8 #### [facility] CLIA [id number] [address] [place] [address] [place] Hemoglobin (Bld) [Mass/Vol] 14.8 g/dL Normal 11.5-15.5 [facility] Comment on above: Order Comment: Speci men Type: BLOOD SPECIMEN Ordering Facility: [facility] Address: [address] [place] [address] Performed By: #### 5 7021-8 #### [facility] CLIA [id number] [address] [place] [address] [place] Immature granulocytes (Bld) [#/Vol] 0.04 10*3/uL Normal <0.10 [facility] Comment on above: Order Comment: Speci men Type: BLOOD SPECIMEN Ordering Facility: [facility] Address: [address] [place] [address] Performed By: #### 5 7021-8 #### [facility] CLIA [id number] [address] [place]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 Desiree PAINTER Work Phone: [facility] Unsolicited Start: 04-12-2024 End: 04-12-2024 Patient encounter procedure Desiree PAINTER Work Phone: [facility] Start: 04-12-2024 End: 04-12-2024 Periodic preventive med est patient 18-39 yrs Desiree Cadet PA Work Phone: [facility] Comment on above: Well woman exam with routine gynecological exam; Second trimester ; 17 weeks gestation of ; Exposure to STD; Need for maternal serum alpha-protein (MSAFP) screening; Screening, , for anatomic survey Start: 04-12-2024 End: 04-12-2024 ambulatory DESIREE CADET Not Available Start: 03-09-2024 End: 03-09-2024 Bamboo flowsheet Blanca Karen DO Work Phone: [facility] Start: 03-09-2024 End: 03-09-2024 Bamboo flowsheet Blanca Karen DO Work Phone: [facility] Start: 03-09-2024 End: 03-09-2024 Office outpatient visit 15 minutes Blanca Karen DO Work Phone: [facility] Comment on above: Second trimester pre gnancy; 12 weeks gestation of ; Request for sterilization; H/O pre-eclampsia in prior , currently Start: 03-09-2024 End: 03-09-2024 ambulatory BLANCA KAREN Not Available Start: 02-22-2024 End: 02-22-2024 Clinisync Result Encounter Blanca Karen DO Work Phone: [facility] External Department Unsolicited Start: 02-22-2024 End: 02-22-2024 Clinisync Result Encounter Blanca Karen DO Work Phone: [facility] External Department Unsolicited Start: 02-18-2024 End: 02-18-2024 ambulatory BLANCA KAREN Not Available Start: 02-18-2024 End: 02-18-2024 Office outpatient visit 5 minutes [facility] Karen Nurse [facility] Comment on above: GA: 9w3d Start: 02-08-2023 End: 02-08-2023 ambulatory Sangita Penn Other [facility] Other Start: 02-08-2023 Office outpatient ne w 30 minutes Sangita Penn [facility] Start: 02-20-2022 End: 02-20-2022 Emergency department patient visit MARYTania OQUENDO Facility:[facility] Start: 10-21-2016 End: 10-21-2016 Emergency department patient visit Sharon Pickett Facility:[facility] Procedures Date Procedure Procedure Detail Performing Clinician Start: 06-06-2024 US OB CERVICAL LENGTH C orey Karen DO Work Phone: Start: 06-06-2024 US OB INCOMPLETE ANATOMY Blanca Karen DO Work Phone: Start: 06-06-2024 ALL CBC WITH AUTO DIFF Desiree PAINTER Work Phone: Start: 06-06-2024 Urnls dip stick/tabl et rgnt non-auto w/o micrscp Desiree PAINTER Work Phone: Start: 04-12-2024 RECURRENT VAGINITIS (HTRX) Desiree PAINTER Work Phone: Start: 04-12-2024 Urnls dip stick/tabl et rgnt non-auto w/o micrscp Desiree PAINTER Work Phone: Start: 04-12-2024 IGP,APTIMA HPV,AGE GDLN Desiree PAINTER Work Phone: Start: 04-12-2024 Microscopic observat ion [Identifier] in Cervix by Cyto stain Desiree PAINTER Work Phone: Start: 03-09-2024 Urnls [...] Work Phone: Start: 02-22-2024 HBSAG SCREEN Blanca Fashanita o DO Work Phone: Start: 02-22-2024 HCV ANTIBODY RFX TO QUANT PCR Blanca Rizvio DO Work Phone: Start: 02-22-2024 HIV AB/P24 AG WITH REFLEX Blanca Rizvio DO Work Phone: Start: 02-22-2024 MLR HEMOGLOBIN A1C Janine y Karen DO Work Phone: Start: 02-22-2024 RAPID PLASMA REAGIN, QUANT Blanca Rizvio DO Work Phone: Start: 02-22-2024 [facility] DRUG SCREEN RAPI D (URINE) Blanca Jones DO Work Phone: Start: 02-18-2024 Urnls dip stick/tabl et rgnt non-auto w/o micrscp Blanca Rizvio DO Work Phone: Plan of Treatment Date Care Activity Detail Author Start: 04-12-2027 Screening for malign ant neoplasm of cervix [facility] Start: 06-27-2024 End: 06-27-2024 Patient encounter procedure 06/27/2024 11:10 AM EDT Routine [facility] [address] [address] Blanca Jones, DO [address] [place] [address] [facility] Start: 06-06-2024 End: 06-06-2025 CBC panel - Blood by Automated count CBC Lab Routine Diabetes mellitus screening Expected: 06/06/2024 (Approximate), Expires: 06/06/2025 [facility] Work Phone: Comment on above: Expected: 06/06/2024 (Approximate), Expires: 06/06/2025 Start: 06-06-2024 End: 06-06-2025 Measurement of glucose 1 hour after glucose challenge for glucose tolerance test Glucose tolerance, 1 hour Lab Routine Diabetes mellitus screening Expected: 06/06/2024 (Approximate), Expires: 06/06/2025 [facility] Comment on above: Expected: 06/06/2024 (Approximate), Expires: 06/06/2025 Start: 06-06-2024 End: 06-06-2024 Patient encounter procedure [facility] Comment on above: Arrived Start: 05-09-2024 End: 05-09-2024 Patient encounter procedure 05/09/2024 2:10 PM EST Routine [facility] [address] [place] [id number] Blanca Jones, DO [address] [place] [address] [facility] Start: 05-09-2024 End: 05-09-2024 Professional / ancillary services management 05/09/2024 1:00 PM EST Ancillary Procedure [facility] [address] [place] [id number] [facility] Start: 04-12-2024 End: 05-13-2024 Alpha fetoprotein, maternal Alpha fetoprotein, maternal Lab Routine Need for maternal serum alpha-protein (MSAFP) screening Expected: 04/12/2024 (Approximate), Expires: 05/13/2024 [facility] Comment on above: Expected: 04/12/2024 (Approximate), Expires: 05/13/2024 Start: 04-12-2024 End: 04-12-2025 US for US OB 14+ weeks anatomy scan Imaging Routine Screening, , for anatomic survey Expected: 04/12/2024, Expires: 04/12/2025 [facility] Comment on above: Expected: 04/12/2024 , Expires: 04/12/2025 Start: 04-12-2024 End: 04-12-2024 Patient encounter procedure [facility] Comment on above: Arrived Start: 03-09-2024 End: 03-09-2024 Patient encounter procedure [facility] Comment on above: Arrived Start: 02-18-2024 End: 02-17-2025 ABO/Rh ABO/Rh Lab Routine Missed menses , unspecified gestational age Expected: 02/18/2024 (Approximate), Expires: 02/17/2025 [facility] Comment on above: Expected: 02/18/2024 (Approximate), Expires: 02/17/2025 Start: 02-18-2024 End: 02-17-2025 Blood type and Indirect antibody screen panel - Blood Type and screen Lab Routine Missed menses , unspecified gestational age Expected: 02/18/2024 (Approximate), Expires: 02/17/2025 [facility] Work Phone: Comment on above: Expected: 02/18/2024 (Approximate), Expires: 02/17/2025 Start: 02-18-2024 End: 02-17-2025 Drugs of abuse panel - Urine by Screen method Rapid drug screen, urine Lab Routine , unspecified gestational age Encounter for supervision of normal first in first trimester Expected: 02/18/2024 (Approximate), Expires: 02/17/2025 [facility] Comment on above: Expected: 02/18/2024 (Approximate), Expires: 02/17/2025 Start: 02-18-2024 End: 02-17-2025 US Pelvis transvaginal US OB transvaginal Imaging Routine Missed menses Expected: 02/18/2024 (Approximate), Expires: 02/17/2025 [facility] Comment on above: Expected: 02/18/2024 (Approximate), Expires: 02/17/2025 Start: 12-06-2023 Influenza vaccination Influenza Vacc ine (#1) [facility] Start: 2022 Screening for malign ant neoplasm of cervix [facility] B[facility] identified in Urine by Culture Urine culture Microbiology Routine Missed menses Ordered: 02/18/2024 [facility] Comment on above: Ordered: 02/18/2024 CBC W Auto Different ial panel - Blood CBC and differential Lab Routine Missed menses , unspecified gestational age Ordered: 02/18/2024 [facility] Comment on above: Ordered: 02/18/2024 CHLAMYDIA TRACHOMATI S (GENITO/STI) CHLAMYDIA TRACHOMATIS (GENITO/STI) Lab Routine Exposure to STD Ordered: 04/12/2024 [facility] Comment on above: Ordered: 04/12/2024 Cytology Cervical or vaginal smear or scraping study Pap Smear Pathology and Cytology Routine Well woman exam with routine gynecological exam Ordered: 04/12/2024 [facility] Comment on above: Ordered: 04/12/2024 Hemoglobin A1c/Hemoglobin.total in Blood Hemoglobin A1c Lab Routine Missed menses , unspecified gestational age Ordered: 02/18/2024 [facility] Comment on above: Ordered: 02/18/2024 Hepatitis B virus surface Ag [Presence] in Serum or Plasma by Immunoassay Hepatitis B surface antigen Lab Routine Missed menses , unspecified gestational age Ordered: 02/18/2024 [facility] Comment on above: Ordered: 02/18/2024 Hepatitis C virus Ab [Presence] in Serum or Plasma by Immunoassay Hepatitis C antibody Lab Routine Missed menses , unspecified gestational age Ordered: 02/18/2024 [facility] Comment on above: Ordered: 02/18/2024 HIV-1/HIV-2 antigen/antibody combination immunoassay HIV-1 and HIV-2 antibodies Lab Routine Missed menses , unspecified gestational age Ordered: 02/18/2024 [facility] Comment on above: Ordered: 02/18/2024 Human papilloma viru s DNA [Presence] in Unspecified specimen by Probe with amplification HPV DNA probe, amplified Microbiology Routine Well woman exam with routine gynecological exam Ordered: 04/12/2024 [facility] Comment on above: Ordered: 04/12/2024 Neisseria gonorrhoea e DNA [Presence] in Unspecified specimen by IRA with probe detection Neisseria gonorrhea DNA probe, direct Lab Routine Exposure to STD Ordered: 04/12/2024 [facility] Comment on above: Ordered: 04/12/2024 Reagin Ab [Presence] in Serum by RPR RPR Lab Routine Missed menses , unspecified gestational age Ordered: 02/18/2024 [facility] Comment on above: Ordered: 02/18/2024 Rubella antibody, IgG Rubella an tibody, IgG Lab Routine Missed menses , unspecified gestational age Ordered: 02/18/2024 [facility] Comment on above: Ordered: 02/18/2024 SURESWAB(R) ADVANCED VAGINITIS PLUS, TMA SURESWAB(R) ADVANCED VAGINITIS PLUS, TMA Pathology and Cytology Routine Exposure to STD Ordered: 04/12/2024 [facility] Work Phone: Comment on above: Ordered: 04/12/2024 Payers Date Payer Category Payer Medicaid [id number] 2022 Medicaid [id number] 2016 Unknown [id number] 1990 Unknown [id number] 2.16.84 [id number] 1992 Unknown [id number] 2.16.84 [id number] 1992 Unknown [id number] 2.16.84 [id number] 1992 Unknown [id number] 2.16.84 [id number] 1992 Unknown [id number] 2.16.84 [id number] 1992 Unknown [id number] 2.16.84 [id number] Social History Date Type Detail Facility Unknown if ever smoked [facility] Other Sex Assigned At [facility] Other Tobacco smoking status VAIS Tobacco smoking consumption unknown [facility] Start: 12-28-2023 [facility] Start: 1990 Sex assigned at Not on file [facility] Goals Date Patient Goal Desired Activity /State Personal health goal Clinical Notes 02-20-2022 to 06-06-2024 MADINA Valdez - 06/06/2024 11:00 AM Derrick Taylor LPN - 05/09/2024 2:10 PM MADINA Cook - 04/12/2024 1:30 PM Khadra Gamez LPN - 03/09/2024 1:50 PM EST Note Date & Type Note Facility 06-06-2024 History of Presen t illness Narrative Reason [...] Exam Constitutional: Appearance: Normal appearance. She is normal weight. HENT: Head: Normocephalic. Cardiovascular: Rate and Rhythm: Normal rate. Pulses: Normal pulses. Pulmonary: Effort: Pulmonary effort is normal. Breath sounds: Normal breath sounds. Abdominal: Palpations: Abdomen is soft. Musculoskeletal: General: Normal range of motion. Neurological: General: No focal deficit present. Mental Status: She is alert and oriented to person, place, and time. Psychiatric: Mood and Affect: Mood normal. Behavior: Behavior normal. Thought Content: Thought content normal. Judgment: Judgment normal. Vitals and nursing note reviewed. Vitals: There is no height or weight on file to calculate BMI. BP: 120/84 Patient's last menstrual period was 12/14/2023. ASSESSMENT & PLAN ICD-10-CM 1. Diabetes mellitus screening Z13.1 CBC Glucose tolerance, 1 hour CBC Glucose tolerance, 1 hour 2. Second trimester Z34.92 POCT urinalysis dipstick manually resulted 3. 25 weeks gestation of Z3A.25 Return OB: Patient presents today for a routine obstetrics appointment. Patient is currently 25w0d . Patient states she is doing well but has complaints of being tired due to current . Patient has verbalizes frequent movement. Orders Placed This Encounter Procedures CBC Glucose tolerance, 1 hour POCT urinalysis dipstick manually resulted Follow Up: Patient is to return to office in 3 week for routine OB appointment. Documented by MADINA Valdez on behalf of: MADINA Valdez documented in this encounter [facility] 05-09-2024 History of Presen t illness Narrative [...] Jones DO documented in this encounter [facility] 04-12-2024 History of Presen t illness [...] nursing note reviewed. Exam conducted with a client project coordinator present. Vitals: There is no height or [...] MADINA Valdez documented in this encounter [facility] 03-09-2024 History of Presen t illness [...] nursing note reviewed. Exam conducted with a client project coordinator present. Vitals: There is no height or [...] or undercooked meat, and stay away from [facility]. Patient has been consulted regarding any [...] Jones DO documented in this encounter [facility] 02-18-2024 History of Presen t illness [...] or undercooked meat, and stay away from [facility]. Patient has also been advised to [...] Taylor LPN documented in this encounter [facility] 02-08-2023 Evaluation note Encounter Date Diagnosis [...] fever/discomfort , cool mist humidifier. May use [place] as needed for cough, do not take any other OTCs while using [place]. Patient to follow up with PCP in 2-3 days. Immediate eval if SOB, difficulty breathing, chest pain, dizziness, or other concerning symptoms. Patient verbalizes understanding and is agreeable to treatment plan [facility] Other 11-17-2022 NoteCOVID 19 RESULT: SARS-CoV-2 (Agent of COVID-19) Not Detected by RT-PCR or equivalent method. This test has been authorized by FDA under an Emergency Use Authorization (EUA). INFLUENZA A PCR: Negative for Influenza A by RT-PCR INFLUENZA B PCR: Negative for Influenza B by RT-PCR RSV PCR: Negative for Respiratory Syncytial Virus (RSV) by PCRBoston Hospital For WomenComment on above:Performed By: #### [id number] #### [facility] CLIA [id number] [place] [address] [place] AMERICAEvaluation note* Diagnosis Missed menses , unspecified gestational age Encounter for supervision of normal first in first trimester documented in this encounter [facility] HealthcareEvaluation note* Diagnosis Second trimester state, incidental 12 weeks gestation of Request for sterilization H/O pre-eclampsia in prior , currently documented in this encounter [facility] HealthcareEvaluation note* Diagnosis Well woman exam with routine gynecological exam Routine gynecological examination Second trimester state, incidental 17 weeks gestation of Exposure to STD Need for maternal serum alpha-protein (MSAFP) screening Screening, , for anatomic survey Encounter for anatomic survey documented in this encounter [facility] HealthcareEvaluation note* Diagnosis Second trimester state, incidental 21 weeks gestation of documented in this encounter [facility] note* Diagnosis Diabetes mellitus screening Screening for diabetes mellitus Second trimester state, incidental 25 weeks gestation of documented in this encounter [facility] Narrative - Reported* Type Description Date Surgical History TONSILS Hospitalization History CHILD [facility] Other Summary Purpose Family History No Family History Records FoundNo Family History Records FoundNo Family History Records Found Advance Directives No Advanced Directives Records FoundNo Advanced Directives Records FoundNo Advanced Directives Records Found Additional Source Comments INFORMATION SOURCE (unrecogn ized section and content) DATE CREATED AUTHOR 09/30/2017 [facility] DATE CREATED AUTHOR AUTHOR'S ORGANIZ ATION 02/23/2022 [facility] DATE CREATED AUTHOR AUTHOR'S ORGANIZ ATION 06/07/2024 [facility] EPIC REASON FOR VISIT [...] BE BASED ON THE PRIMARY CLINICAL RECORDS. [facility] [employer] [facility]. provides no warranty or guarantee of the accuracy or completeness of information in this document.
== END 2024-06-25 08:19 | disposition home or self-care (01) ==
LOC: LAB 08:18
PROVIDERS: Visit Provider Obstetrics & Gynecology
DX: Z67.91 Unspecified blood type, Rh negative (principal)
CPT/HCPCS: 36415; 86850; 86900; 86901

== ENCOUNTER 2024-06-27 07:31 | Outpatient (RCR) | payer MEDICAID, SELFPAY ==
[2024-06-27 09:11] VITALS: BP 117/79; PULSE 89; TEMP 37.3; O2SAT 99
[2024-06-27] MEDS: RHO(D) IMMUNE GLOBULIN 1,500 UNIT SYRINGE 1500 UNIT IM (09:18)
== END 2024-06-27 13:37 | disposition home or self-care (01) ==
LOC: INF 07:31
PROVIDERS: Visit Provider Obstetrics & Gynecology
DX: O26.893 Other specified pregnancy related conditions, third trimester (principal); Z67.91 Unspecified blood type, Rh negative; Z3A.00 Weeks of gestation of pregnancy not specified
CPT/HCPCS: 96372; J2791

== ENCOUNTER 2024-07-28 10:37 | Outpatient (OUT) | payer MEDICAID, SELFPAY ==
[2024-07-28 10:57] VITALS: BP 128/86; PULSE 88
--- NOTE | 2024-07-28 11:25 | US_ITS ---
[address] [address] Patient Name: SANTIAGO SAAVEDRA MRN: [facility]:[id number] date: 1990 Sex: F Assigned Patient Location: [facility] Current Patient Location: Accession/Order Number: [id number] Exam Date: 07/28/2024 13:53 Report Date: 07/28/2024 13:55 At the request of: BLANCA DENTON DO Procedure: US OB BPP w non-stress Biophysical profile. Reason for exam: Low amniotic fluid volume. COMPARISON: None. TECHNIQUE: Transabdominal imaging of the gravid uterus was obtained. FINDINGS: Flask Fitter reports the BPP is 8 out of 8. LIZETH measures 8.5 cm. heart rate 1 44 bpm. US/US OB BPP w non-stress IMPRESSION: BPP 8 out of 8. Impression dictated by: David Qureshi Jr., DPatriciaOPatricia07/28/2024 1:55 PM Dictation Location: [facility] Electronically authenticated by: [id number] Y Date: 07/28/2024 13:55
== END 2024-07-28 12:43 | disposition home or self-care (01) ==
LOC: FBCO 10:40 → FBC 10:52
PROVIDERS: Visit Provider Obstetrics & Gynecology
DX: O41.03X0 Oligohydramnios, third trimester, not applicable or unspecified (principal); Z3A.32 32 weeks gestation of pregnancy
CPT/HCPCS: 76818; 76820

== ENCOUNTER 2024-08-01 09:54 | Outpatient (OUT) | payer MEDICAID, SELFPAY ==
[2024-08-01 10:01] VITALS: BP 130/85; PULSE 77
== END 2024-08-01 10:27 | disposition home or self-care (01) ==
LOC: FBCO 09:54 → FBC 09:57
PROVIDERS: Visit Provider Obstetrics & Gynecology
DX: O41.03X0 Oligohydramnios, third trimester, not applicable or unspecified (principal); Z3A.33 33 weeks gestation of pregnancy
CPT/HCPCS: 59025

== ENCOUNTER 2024-08-04 10:57 | Outpatient (OUT) | payer MEDICAID, SELFPAY ==
--- NOTE | 2024-08-04 | US_ITS ---
[address] [address] Patient Name: SANTIAGO SAAVEDRA MRN: [id number] date: 1990 Sex: F Assigned Patient Location: [place] Current Patient Location: Accession/Order Number: [id number] Exam Date: 08/04/2024 13:07 Report Date: 08/04/2024 13:08 At the request of: BLANCA DENTON DO Procedure: US OB BPP w non-stress Biophysical profile. Reason for exam: Low amniotic fluid volume. COMPARISON: 07/28/2024 TECHNIQUE: Transabdominal imaging of the gravid uterus was obtained. FINDINGS: Operations Research Scientist reports the BPP is 8 out of 8. LIZETH measures 9 cm. heart rate 131 bpm. US/US OB BPP w non-stress IMPRESSION: BPP 8 out of 8. Impression dictated by: David Qureshi Jr., DPatriciaOPatricia 08/04/2024 1:08 PM Dictation Location: [employer] Electronically authenticated by: [id number] Y Date: 08/04/2024 13:08
[2024-08-04 11:04] VITALS: BP 123/76; PULSE 85
== END 2024-08-04 11:45 | disposition home or self-care (01) ==
LOC: US 10:57 → FBC 10:59
PROVIDERS: Visit Provider Obstetrics & Gynecology
DX: O41.03X0 Oligohydramnios, third trimester, not applicable or unspecified (principal)
CPT/HCPCS: 76818

== ENCOUNTER 2024-08-08 11:17 | Outpatient (OUT) | payer MEDICAID, SELFPAY ==
[2024-08-08 11:23] VITALS: BP 123/79; PULSE 87
== END 2024-08-08 11:49 | disposition home or self-care (01) ==
LOC: FBCO 11:17 → FBC 11:18
PROVIDERS: Visit Provider Obstetrics & Gynecology
DX: O41.00X0 Oligohydramnios, unspecified trimester, not applicable or unspecified (principal)
CPT/HCPCS: 59025

== ENCOUNTER 2024-08-11 10:58 | Outpatient (OUT) | payer MEDICAID, SELFPAY ==
--- NOTE | 2024-08-11 11:02 | US_ITS ---
[address] [address] Patient Name: SANTIAGO SAAVEDRA MRN: [id number] date: 1990 Sex: F Assigned Patient Location: [facility] Current Patient Location: [facility] Accession/Order Number: [id number] Exam Date: 08/11/2024 11:38 Report Date: 08/11/2024 11:39 At the request of: BLANCA DENTON DO Procedure: US OB BPP w non-stress Biophysical profile. Reason for exam: Low amniotic fluid volume. COMPARISON: 08/04/2024 TECHNIQUE: Transabdominal imaging of the gravid uterus was obtained. FINDINGS: Outpatient Coordinator reports the BPP is 8 out of 8. LIZETH measures 12 cm. heart rate 147 bpm. US/US OB BPP w non-stress IMPRESSION: BPP 8 out of 8. Impression dictated by: David Qureshi Jr., D.O. 08/11/2024 11:39 AM Dictation Location: [email or web address] [employer] Electronically authenticated by: [id number] Y Date: 08/11/2024 11:39
[2024-08-11 11:21] VITALS: BP 120/75; PULSE 95
== END 2024-08-11 11:51 | disposition home or self-care (01) ==
LOC: US 10:58 → FBC 11:01
PROVIDERS: Visit Provider Obstetrics & Gynecology
DX: O26.893 Other specified pregnancy related conditions, third trimester (principal)
CPT/HCPCS: 76818

== ENCOUNTER 2024-08-15 10:56 | Outpatient (OUT) | payer MEDICAID, SELFPAY ==
[2024-08-15 11:02] VITALS: BP 121/75; PULSE 82
== END 2024-08-15 11:35 | disposition home or self-care (01) ==
LOC: FBCO 10:57 → FBC 10:59
PROVIDERS: Visit Provider Obstetrics & Gynecology
DX: O41.00X0 Oligohydramnios, unspecified trimester, not applicable or unspecified (principal); Z3A.35 35 weeks gestation of pregnancy
CPT/HCPCS: 59025

== ENCOUNTER 2024-08-18 11:01 | Outpatient (OUT) | payer MEDICAID, SELFPAY ==
--- NOTE | 2024-08-18 | US_ITS ---
The [address] [address] Patient Name: SANTIAGO SAAVEDRA MRN: [facility]:[id number] date: 1990 Sex: F Assigned Patient Location: [facility] Current Patient Location: [facility] Accession/Order Number: [id number] Exam Date: 08/18/2024 11:59 Report Date: 08/18/2024 12:00 At the request of: BLANCA DENTON DO Procedure: US OB BPP w non-stress BIOPHYSICAL PROFILE: CLINICAL INFORMATION: LOW AMINOTIC FLUID O41.00X0 COMPARISON: 08/11/2024 There is a single live intrauterine gestation in cephalic presentation. The reported gestational age is 35 weeks 3 days. The heart rate beats per minute. FINDINGS: TONE: 1 or more episodes of activity extension and flexion of extremity or opening and closing of the hand [Y] 2/2 GROSS BODY MOVEMENTS: 3 or more discrete body or limb movements [Y] 2/2 BREATHING MOVEMENTS: 1 or more episodes of breathing lasting at least 30 seconds [Y] 2/2 LIZETH: A single deepest vertical pocket of amniotic fluid greater than 2 cm [Y] 2/2 LIZETH: 14.7 cm . This is in normal range. Total score: 11/11 US/US OB BPP w non-stress IMPRESSION: NORMAL BIOPHYSICAL PROFILE. Impression dictated by: Elisa Boothe M.D. 08/18/2024 12:00 PM Dictation Location: [place] [address] Electronically authenticated by: [id number] Y Date: 08/18/2024 12:00
[2024-08-18 11:06] VITALS: BP 122/84; PULSE 90
--- OUTSIDE RECORDS SUMMARY | 2024-08-18 11:19 | XMS_ITS | CCD ---
Author Organization [facility] Care Team Providers Care Pharmaceutical Engineer Name Role Phone Sharon Pickett Unavailable Unavailable Sharon Pickett Unavailable Unavailable Arslan Malin Unavailable Unavailable MARY OQUENDO Attending Unavailable Sangita Penn Unavailable Unavailable Primary Care Provider UnavailBLANCA Nicole Attending Unavailable DESIREE CADET Attending Unavailable BLANCA JONES Attending Unavailable BLANCA JONES Attending Unavailable BLANCA JONES Attending Unavailable DESIREE CADET Attending Unavailable TERESA MORENO Referring Unavailable BLANCA JONES Attending Unavailable DESIREE CADET Attending Unavailable Medications Current Medications Medication Drug Class(es) Dates Sig (Normalized) Sig (Original) [id number] 200 actuat albuterol 0.09 mg/actuat metered dose [...] 1.5 mg/ml oral solution (1 source) Uncompetitive J-bnmuqq-I-asparta te Receptor Antagonist, Sigma-1 Agonist Start: 02-08-2023 take 10 mL by mouth every eight hours [place] DM 7.5-7.5 MG/5ML 10 mL Orally every [...] 7 days. 14 capsule 03/09/2024 03/16/2024 Active omeprazole 20 mg delayed release oral capsule (10 sources) Proton Pump Inhibitor take 1 capsule by mouth before mealtime omeprazole (PriLOSEC) [address] capsule Take 20 mg by mouth in the morning. Take before meals. Do not crush or chew.. Active ondansetron 4 mg disintegrating oral tablet [...] obstetric history, unspecified trimester] 03-09-2024 Episodic Other complications of (2 sources) size does not accord with dates; Translations: [Uterine size-date discrepancy, unspecified trimester] 07-11-2024 Episodic Other and delivery including normal (18 sources) ; Translations: [Encounter for supervision of normal , unspecified, unspecified trimester] 02-18-2024 Episodic Other screening for suspected conditions (not mental disorders or infectious disease) (6 sources) Alpha-fetoprotein blood test status; Translations: [Encounter for screening for raised alphafetoprotein level] 04-12-2024 Episodic Polyhydramnios and other problems of amniotic cavity (2 sources) Oligohydramnios, unspecified trimester, not applicable or unspecified; Translations: [Oligohydramnios, unspecified as to episode of care or not applicable] 07-28-2024 Episodic Residual codes; unclassified (2 sources) Gestation [...] [25 weeks gestation of ] 06-06-2024 Episodic Residual codes; unclassified (2 sources) Gestation period, 30 weeks; Translations: [30 weeks gestation of ] 07-11-2024 Episodic Residual codes; unclassified (2 sources) Gestation period, 32 weeks; Translations: [32 weeks gestation of ] 07-28-2024 Episodic Residual codes; unclassified (2 sources) Gestation period, 34 weeks; Translations: [34 weeks gestation of ] 08-11-2024 Episodic Unclassified (20 sources) OB Reminders Onset: 02-18-2024 02-18-2024 Unclassified (2 sources) Low amniotic fluid volume 07-28-2024 Urinary tract infections (1 source) Tubulo-interstitial nephritis, not specified as acute or chronic; Translations: [Pyelonephritis] Onset: 02-20-2022 Episodic Past or Other Problems Problem Classification Problem Date Documented Da te Episodic/Chronic Unclassified (1 source) Cough R05.9 Results Test Name Value Interpretation Reference Range Facility US OB BPP W NON-STRESS on 08-11-[address] [address] Ultrasound Report Signed Patient: GILSON MEDINA MR#: [id number] : 1990 Acct:[id number] Age/Sex: 34 / F ADM Date: 08/11/24 Loc: [facility] 250-[address]: Blanca Jones D.O. Ordering Physician: Blanca Jones D.O. Date of Service: 08/11/24 Procedure(s): US OB BPP w non-stress Accession Number(s): [id number] cc: Blanca Jones D.O.; Physician,Non-Staff Vasquez The [address] [address] Patient Name: GILSON MEDINA MRN: [facility]:[id number] date: 1990 Sex: F Assigned Patient Location: [facility] Current Patient Location: [facility] Accession/Order Number: [id number] Exam Date: 08/11/2024 11:38 Report Date: 08/11/2024 11:39 At the request of: BLANCA JONES DO Procedure: US OB BPP w non-stress Biophysical profile. Reason for exam: Low amniotic fluid volume. COMPARISON: 08/04/2024 TECHNIQUE: Transabdominal imaging of the gravid uterus was obtained. FINDINGS: Vet Assistant reports the BPP is 8 out of 8. LIZETH measures 12 cm. heart rate 147 bpm. US/US OB BPP w non-stress IMPRESSION: BPP 8 out of 8. Impression dictated by: David Qureshi Jr., D.O. 08/11/2024 11:39 AM Dictation Location: [place] [address] Electronically authenticated by: [id number] Y Date: 08/11/2024 11:39 Dictated By: David Qureshi M.D. Signed By: 08/11/24 1141 DD/ 1139 TD/TT: Teletypesetter: [facility] Radiology, Radiologi MD jessica - 08/11/2024 The [place] [id number] Ultrasound Report Signed Patient: GILSON MEDINA MR#: [id number] : 1990 Acct:[id number] Age/Sex: 34 / F ADM Date: 08/11/24 Loc: [facility] 250-[address]: Blanca Jones D.O. Ordering Physician: Blanca Jones D.O. Date of Service: 08/11/24 Procedure(s): US OB BPP w non-stress Accession Number(s): [id number] cc: Blanca Jones D.O.; Physician,Non-Staff Vasquez [address] [address] Patient Name: GILSON MEDINA MRN: [facility]:[id number] date: 1990 Sex: F Assigned Patient Location: [facility] Current Patient Location: [facility] Accession/Order Number: [id number] Exam Date: 08/11/2024 11:38 Report Date: 08/11/2024 11:39 At the request of: BLANCA JONES DO Procedure: US OB BPP w non-stress Biophysical profile. Reason for exam: Low amniotic fluid volume. COMPARISON: 08/04/2024 TECHNIQUE: Transabdominal imaging of the gravid uterus was obtained. FINDINGS: Vet Assistant reports the BPP is 8 out of 8. LIZETH measures 12 cm. heart rate 147 bpm. US/US OB BPP w non-stress IMPRESSION: BPP 8 out of 8. Impression dictated by: David Qureshi Jr., D.O. 08/11/2024 11:39 AM Dictation Location: [place] [address] Electronically authenticated by: [id number] Y Date: 08/11/2024 11:39 Dictated By: David Qureshi M.D. Signed By: 08/11/24 1141 DD/ 1139 TD/TT: Teletypesetter: [facility] Radiology Study observation (narrative) [facility] US OB BPP W NON-STRESS Ordered By: Radiologist Radiology on 08-11-2024 [facility] Work Phone: Urinalysis macro (dipstick) panel (U)on 08-11-2024 Bilirubin, UA Negative Negative - 4(70) +++ mg/dL [facility] Blood, UA Negative Negative - 50 Jesus/mcL [facility] Clarity, UA Clear [facility] Color, UA Yellow [facility] Glucose, UA Negative Negative - 2000(110) ++++ mg/dL [facility] Interpretation and review of laboratory results Normal [facility] Ketones, UA Negative Negative - 160(16) ++++ mg/dL [facility] Leukocytes, UA Negative Negative - 500+++ Juanita/mcL [facility] Nitrite, UA Negative Negative - Positive [facility] pH, UA 5.5 5 - 9 [facility] Protein, UA Negative Negative - 2000(20) ++++ mg/dL [facility] Spec Grav, UA 1.02 1 - 1.03 [facility] Urobilinogen, UA 1.0 0.2 - 12 mg/dL [facility] US OB BPP W NON-STRESS on 08-04-2024 [place] [address] Ultrasound Report Signed Patient: GILSON MEDINA MR#: [id number] : 1990 Acct:[id number] Age/Sex: 34 / F ADM Date: 08/04/24 Loc: US Attending Dr: Blanca Jones D.O. Ordering Physician: Blanca Jones D.O. Date of Service: 08/04/24 Procedure(s): US OB BPP w non-stress Accession Number(s): [id number] cc: Blanca Jones D.O.; Physician,Non-Staff M[employer] The [address] [address] Patient Name: GILSON MEDINA MRN: [id number]:[id number] date: 1990 Sex: F Assigned Patient Location: US Current Patient Location: Accession/Order Number: [id number] Exam Date: 08/04/2024 13:07 Report Date: 08/04/2024 13:08 At the request of: BLANCA JONES DO Procedure: US OB BPP w non-stress Biophysical profile. Reason for exam: Low amniotic fluid volume. COMPARISON: 07/28/2024 TECHNIQUE: Transabdominal imaging of the gravid uterus was obtained. FINDINGS: Vet Assistant reports the BPP is 8 out of 8. LIZETH measures 9 cm. heart rate 131 bpm. US/US OB BPP w non-stress IMPRESSION: BPP 8 out of 8. Impression dictated by: David Qureshi Jr., D.O. 08/04/2024 1:08 PM Dictation Location: [facility]- Electronically authenticated by: [id number] Y Date: 08/04/2024 13:08 Dictated By: David Qureshi M.D. Signed By: 08/04/24 1311 DD/ 1308 TD/TT: Teletypesetter: [facility] Radiology, Radiologi MD jessica - 08/04/2024 [place] [address] Ultrasound Report Signed Patient: GILSON MEDINA MR#: [id number] : 1990 Acct:[id number] Age/Sex: 34 / F ADM Date: 08/04/24 Loc: US Attending Dr: Blanca Jones D.O. Ordering Physician: Blanca Jones D.O. Date of Service: 08/04/24 Procedure(s): US OB BPP w non-stress Accession Number(s): [id number] cc: Blanca Jones D.O.; Physician,Non-Staff Vasquez The [address] [address] Patient Name: GILSON MEDINA MRN: [facility]:[id number] date: 1990 Sex: F Assigned Patient Location: US Current Patient Location: Accession/Order Number: [id number] Exam Date: 08/04/2024 13:07 Report Date: 08/04/2024 13:08 At the request of: BLANCA JONES DO Procedure: US OB BPP w non-stress Biophysical profile. Reason for exam: Low amniotic fluid volume. COMPARISON: 07/28/2024 TECHNIQUE: Transabdominal imaging of the gravid uterus was obtained. FINDINGS: Vet Assistant reports the BPP is 8 out of 8. LIZETH measures 9 cm. heart rate 131 bpm. US/US OB BPP w non-stress IMPRESSION: BPP 8 out of 8. Impression dictated by: David Qureshi Jr., D.O. 08/04/2024 1:08 PM Dictation Location: [facility] Electronically authenticated by: [id number] Y Date: 08/04/2024 13:08 Dictated By: David Qureshi M.D. Signed By: 08/04/24 1311 DD/ 1308 TD/TT: Teletypesetter: [facility] Radiology Study observation (narrative) [facility] US OB BPP W NON-STRESS Ordered By: Radiologist Radiology on 08-04-2024 [facility] Work Phone: US OB BPP W NON-STRESS on 07-28-2024 [place] [address] Ultrasound Report Signed Patient: GILSON MEDINA MR#: [id number] : 1990 Acct:[id number] Age/Sex: 34 / F ADM Date: 07/28/24 Loc: [facility] Attending Dr: Blanca Jones D.O. Ordering Physician: Blanca Jones D.O. Date of Service: 07/28/24 Procedure(s): US OB BPP w non-stress Accession Number(s): [id number] cc: Blanca Jones D.O.; Physician,Non-Staff MMynor The [address] [address] Patient Name: GILSON MEDINA MRN: [facility]:[id number] date: 1990 Sex: F Assigned Patient Location: [facility] Current Patient Location: Accession/Order Number: [id number] Exam Date: 07/28/2024 13:53 Report Date: 07/28/2024 13:55 At the request of: BLANCA JONES DO Procedure: US OB BPP w non-stress Biophysical profile. Reason for exam: Low amniotic fluid volume. COMPARISON: None. TECHNIQUE: Transabdominal imaging of the gravid uterus was obtained. FINDINGS: Vet Assistant reports the BPP is 8 out of 8. LIZETH measures 8.5 cm. heart rate 1 44 bpm. US/US OB BPP w non-stress IMPRESSION: BPP 8 out of 8. Impression dictated by: David Qureshi Jr., D.O.07/28/2024 1:55 PM Dictation Location: [place] [address] Electronically authenticated by: [id number] Y Date: 07/28/2024 13:55 Dictated By: David Qureshi M.D. Signed By: 07/28/24 1357 DD/ 1355 TD/TT: Teletypesetter: [facility] Radiology, Radiologdomingo lopez MD - 07/28/2024 [place] [address] Ultrasound Report Signed Patient: GILSON MEDINA MR#: [id number] : 1990 Acct:[id number] Age/Sex: 34 / F ADM Date: 07/28/24 [place] [facility] [place] Dr: Blanca Jones D.O. Ordering Physician: Blanca Jones D.O. Date of Service: 07/28/24 Procedure(s): US OB BPP w non-stress Accession Number(s): [id number] cc: Blanca Jones D.O.; Physician,Non-Staff Vasquez The [place] [address] Patient Name: GILSON MEDINA MRN: [facility]:[id number] date: 1990 Sex: F Assigned Patient Location: [facility] Current Patient Location: Accession/Order Number: [id number] Exam Date: 07/28/2024 13:53 Report Date: 07/28/2024 13:55 At the request of: BLANCA JONES DO Procedure: US OB BPP w non-stress Biophysical profile. Reason for exam: Low amniotic fluid volume. COMPARISON: None. TECHNIQUE: Transabdominal imaging of the gravid uterus was obtained. FINDINGS: Vet Assistant reports the BPP is 8 out of 8. LIZETH measures 8.5 cm. heart rate 1 44 bpm. US/US OB BPP w non-stress IMPRESSION: BPP 8 out of 8. Impression dictated by: David Qureshi Jr., D.O.07/28/2024 1:55 PM Dictation Location: [facility] Electronically authenticated by: [id number] Y Date: 07/28/2024 13:55 Dictated By: David Qureshi M.D. Signed By: 07/28/24 1357 DD/ 54 TD/TT: Teletypesetter: [facility] Radiology Study observation (narrative) [facility] US OB BPP W NON-STRESS Ordered By: Radiologist Radiology on 07-28-2024 [facility] [employer] Work Phone: US OB FOLLOW UP TRANSABDOMIN AL APPROACHon 07-28-2024 US OB FOLLOW UP TRANSABDOMINAL APPROACH EXAM: US OB FOLLOW UP TRANSABDOMINAL APPROACH HISTORY: Inconsistent growth. HARITHA 09/19/2024. . COMPARISON: U/S OB 07/11/2024, 05/09/2024 TECHNIQUE: Two-dimensional transabdominal grayscale ultrasound imaging of the pelvis was performed. FINDINGS: Gestation: Single Presentation: Cephalic Cardiac Activity: 149 beats per minute Placental Location: Posterior with no sonographic abnormalities identified. Distance from Placental Tip to Cervix: Not visualized Cervical Length: Obscured by overlying fetus Amniotic Fluid Index: 8.8 cm with the largest pocket measuring 2.9 cm (8.6 cm -24.2cm) MEASUREMENTS: BPD: 8.2 cm EGA: 33 weeks 0 days HC: 29.7 cm EGA: 32 weeks 6 days AC: 29.2 cm EGA: 33 weeks 1 days FL: 6.5 cm EGA: 33 weeks 5 days HC/AC Ratio: 1.02 (0.96-1.11) Gestational age by today's ultrasound is 33 weeks 1 days (+/- 16 days gestation). Estimated Weight: 2160 grams, +/- 324 grams ( 4 lb 12 oz). Weight Percentile for gestational age: 68% IMPRESSION: 1. Single, live intrauterine gestation 32 weeks, 3 days by LMP. Today's ultrasound measurements correlate with a gestational age of 33 weeks 1 days. Interpreted by: Electronically signed by ARTURO MORENO II, MD, PHD at 28-Jul-2024 11:20:55 PM [facility] Normal Not Available Comment on above: Order Comment: US OB SCAN FOR GROWTH Estimated Date of Delivery: 09/19/24 Gestational Age as of 07/11/2024: 30w0d Urinalysis macro (dipstick) panel (U)on 07-28-2024 Bilirubin, UA Negative Negative - 4(70) +++ mg/dL [facility] Blood, UA Negative Negative - 50 Jesus/mcL [facility] Clarity, UA Clear [facility] Color, UA Yellow [facility] Glucose, UA Negative Negative - 1999(110) ++++ mg/dL [facility] Interpretation and review of laboratory results Normal [facility] Ketones, UA Negative Negative - 160(16) ++++ mg/dL [facility] Leukocytes, UA Negative Negative - 500+++ Juanita/mcL [facility] Nitrite, UA Negative Negative - Positive [facility] pH, UA 6 5 - 9 [facility] Protein, UA Negative Negative - 1999(20) ++++ mg/dL [facility] Spec Grav, UA 1.025 1 - 1.03 [facility] Urobilinogen, UA 0.2 0.2 - 12 mg/dL [facility] US OB LIMITED 1+ FETUSESon 0 07-11-2024 US OB LIMITED 1+ FETUSES EXAM: US OB LIMITED 1+ FETUSES HISTORY: Low-lying placenta. COMPARISON: OB ultrasound 05/09/2024. TECHNIQUE: Two-dimensional transabdominal grayscale ultrasound imaging of the pelvis was performed. FINDINGS: Gestation: Single Presentation: Cephalic Cardiac Activity: 162 beats per minute Placental Location: Posterior with no sonographic abnormalities identified. Distance from Placental Tip to Cervix: 3.1 cm Cervical Length: 4 cm Amniotic Fluid: Appears adequate IMPRESSION: 1. Single, live intrauterine gestation 30 weeks, 0 days by LMP. HARITHA is 09/19/2024. 2. Unremarkable placenta tip to cervix. Low-lying placenta has resolved. Interpreted by: Electronically signed by ARTURO MORENO II, MD, PHD at 12-Jul-2024 11:25:12 PM [facility] Normal Not Available Comment on above: Order Comment: US OB PLACENTA W US OB TRANSVAGINAL Estimated Date of Delivery: 09/19/24 Gestational Age as of 06/07/2024: 25w1d Urinalysis macro (dipstick) panel (U)on 07-11-2024 Bilirubin, UA Negative Negative - 4(70) +++ mg/dL [facility] Blood, UA Positive Negative - 50 Jesus/mcL [facility] Comment on above: trace-intact Clarity, UA Clear [facility] Color, UA Yellow [facility] Glucose, UA Negative Negative - 1999(110) ++++ mg/dL [facility] Interpretation and review of laboratory results Abnormal [facility] Ketones, UA Negative Negative - 160(16) ++++ mg/dL [facility] Leukocytes, UA Negative Negative - 500+++ Juanita/mcL [facility] Nitrite, UA Negative Negative - Positive [facility] pH, UA 6.5 5 - 9 [facility] Protein, UA Negative Negative - 2000(20) ++++ mg/dL [facility] Spec Grav, UA 1.02 1 - 1.03 [facility] Urobilinogen, UA 0.2 0.2 - 12 mg/dL [facility] ALL CBC WITH AUTO DIFFon BASOPHILS ABSOLUTE AUTO 0 [facility] Basophils/100 WBC (Bld) 0.2 % 0.2 - 2.0 % [facility] Eosinophils/100 WBC (Bld) 0.8 % Low 0.9 - 7.0 % [facility] Erythrocyte distribution width (RBC) [Ratio] 12.3 % 11.0 - 15.0 % [facility] Hematocrit (Bld) [Volume fraction] 37.1 % 36.0 - 48.0 % [facility] Hemoglobin (Bld) [Mass/Vol] 12.7 g/dL 12.0 - 16.0 g/dL [facility] IMMATURE GRANULOCYTES ABS AUTO 0.03 [facility] Immature granulocytes/100 WBC (Bld) 0.4 % 0.0 - 0.5 % [facility] Interpretation and review of laboratory results Abnormal [facility] LYMPHOCYTES ABSOLUTE AUTO 1.8 [facility] Lymphocytes/100 WBC (Bld) 22.3 % 20.5 - 60.0 % [facility] MCH (RBC) [Entitic mass] 29.3 pg 26.7 - 34.[address] [facility] MCHC (RBC) [Mass/Vol] 34.2 g/dL 29.9 - 35.2 g/dL [facility] MCV (RBC) [Entitic vol] 85.5 fL 81.0 - 99.[address] [facility] MONOCYTES ABSOLUTE AUTO 0.6 [facility] Monocytes/100 WBC (Bld) 7.4 % 1.7 - 12.0 % [facility] NEUTROPHILS ABSOLUTE AUTO 5.7 [facility] Neutrophils/100 WBC (Bld) 68.9 % 43.0 - 75.0 % [facility] Platelet mean volume (Bld) [Entitic vol] 10.5 fL 9.5 - 13.[address] [facility] TBH EO # 0.1 [facility] TBH PLT 251 [facility] RBC 4.34 [facility] WBC 8.3 [facility] CLINISY[facility] No Panel InformationOrdered By: Radiologist Radiology on 06-06-2024 [facility] Work Phone: No Panel Informationon 06-06 Radiology Study observation (narrative) [facility] [place] [address] Ultrasound Report Signed Patient: GILSON MEDINA MR#: [id number] : 1990 Acct:[id number] Age/Sex: 34 / F ADM Date: 06/06/24 Loc: US Attending Dr: Blanca Jones D.O. Ordering Physician: Blanca Jones D.O. Date of Service: 06/06/24 Procedure(s): US OB cervical length Accession Number(s): [id number] cc: Blanca Jones D.O.; Physician,Non-Staff M.D. The [place] [id number] Patient Name: GILSON MEDINA MRN: [id number] date: 1990 Sex: F Assigned Patient Location: US Current Patient Location: US Accession/Order Number: [id number] Exam Date: 06/06/2024 22:13 Report Date: 06/06/2024 [...] Elisa Boothe M.D.06/06/2024 10:21 PM Dictation Location: [place] [address] Electronically authenticated by: [id number] Y Date: 06/06/2024 22:21 Dictated By: Elisa Boothe M.D. Signed By: 06/06/242223 DD/ 20 TD/TT: Teletypesetter: [facility] Radiology, Radiologi MD jessica - 06/06/2024 [place] [address] Ultrasound Report Signed Patient: GILSON MEDINA MR#: [id number] : 1990 Acct:[id number] Age/Sex: 34 / F ADM Date: 06/06/24 Loc: US Attending Dr: Blanca Jones D.O. Ordering Physician: Blanca Jones D.O. Date of Service: 06/06/24 Procedure(s): US OB cervical length Accession Number(s): [id number] cc: Blanca Jones D.O.; Physician,Non-Staff Vas[place] The [address] [address] Patient Name: GILSON MEDINA MRN: [facility]:[id number] date: 1990 Sex: F Assigned Patient Location: US Current Patient Location: US Accession/Order Number: [id number] Exam Date: 06/06/2024 22:13 Report Date: 06/06/2024 [...] Elisa Boothe M.D.06/06/2024 10:21 PM Dictation Location: [facility] Electronically authenticated by: [id number] Y Date: 06/06/2024 22:21 Dictated By: Elisa Boothe M.D. Signed By: 06/06/242223 DD/ 20 TD/TT: Teletypesetter: [facility] OB INCOMPLETE ANATOMYon 0 06-06-2024 [place] [address] Ultrasound Report Signed Patient: GILSON MEDINA MR#: [id number] : 1990 Acct:[id number] Age/Sex: 34 / F ADM Date: 06/06/24 Loc: US Attending Dr: Blanca Jones D.O. Ordering Physician: Blanca Jones D.O. Date of Service: 06/06/24 Procedure(s): US OB incomplete anatomy Accession Number(s): [id number] cc: Blanca Jones D.O.; Physician,Non-Staff Vasquez The [address] [address] Patient Name: GILSON MEDINA MRN: [facility]:[id number] date: 1990 Sex: F Assigned Patient Location: US Current Patient Location: US Accession/Order Number: [id number] Exam Date: 06/06/2024 22:13 Report Date: 06/06/2024 [...] Elisa Boothe M.D.06/06/2024 10:21 PM Dictation Location: [place] [address] Electronically authenticated by: [id number] Y Date: 06/06/2024 22:21 Dictated By: Elisa Boothe M.D. Signed By: 06/06/242223 DD/ 20 TD/TT: Teletypesetter: [facility] Radiology, Radiologi MD jessica - 06/06/2024 [place] [address] Ultrasound Report Signed Patient: GILSON MEDINA MR#: [id number] : 1990 Acct:[id number] Age/Sex: 34 / F ADM Date: 06/06/24 Loc: US Attending Dr: Blanca Jones D.O. Ordering Physician: Blanca Jones D.O. Date of Service: 06/06/24 Procedure(s): US OB incomplete anatomy Accession Number(s): [id number] cc: Blanca Jones D.O.; Physician,Non-Staff Vasquez The [place] [address] Patient Name: GILSON MEDINA MRN: [id number] date: 1990 Sex: F Assigned Patient Location: US Current Patient Location: US Accession/Order Number: [id number] Exam Date: 06/06/2024 22:13 Report Date: 06/06/2024 [...] Elisa Boothe M.D.06/06/2024 10:21 PM Dictation Location: [place] [address] Electronically authenticated by: [id number] Y Date: 06/06/2024 22:21 Dictated By: Elisa Boothe M.D. Signed By: 06/06/242223 DD/ 20 TD/TT: Teletypesetter: [facility] Urinalysis macro (dipstick) panel (U)on 06-06-2024 Bilirubin, UA Negative Negative - 4(70) +++ mg/dL [facility] Blood, UA Negative Negative - 50 Jesus/mcL [facility] Clarity, UA Clear [facility] Color, UA Yellow [facility] Glucose, UA Negative Negative - 2000(110) ++++ mg/dL [facility] Interpretation and review of laboratory results Abnormal [facility] Ketones, UA Negative Negative - 160(16) ++++ mg/dL [facility] Leukocytes, UA Trace Negative - 500+++ Juanita/mcL [facility] Nitrite, UA Negative Negative - Positive [facility] pH, UA 6 5 - 9 [facility] Protein, UA Negative Negative - 2000(20) ++++ mg/dL [facility] Spec Grav, UA 1.025 1 - 1.03 [facility] Urobilinogen, UA 0.2 0.2 - 12 mg/dL [facility] US OB 14+ WEEKS ANATOMY SCAN on [...] report is generated using voice recognition reporting (BriefMe). On occasion [employer] erroneously drops words from the report or [...] GDLNon AGE GDLN ACOG TESTING Note . [facility] Comment on above: TESTS RESULT FLAG UN ITS REF RANGE LAB Clinician Provided Cytology Information Source.............Cervix No. of containers..01 ThinPrep Vial Age Algo ACOG Maria... 30-65 01 FLAG LEGEND: L-Low Normal,H-High Normal,LL-Alert Low,HH-Alert High <-Panic Low,>-Panic High,A-Abnormal,AA-Critical Abnormal Performed at: 01 =G [address] [address] Haydee Kraus MD, HPV APTIMA Negative Negative [facility] Comment on above: This nucleic acid am plification test detects fourteen high- risk HPV types (16,18,31,33,35,39,45,51,52,56,58,59,66,68) without differentiation. Performed at: =G - [facility] [id number] Supervisor Microwave: Haydee Kraus MD, Phone: [phone] Performed at: WB - [facility], [place] [id number] Supervisor Microwave: Haydee Kraus MD, Phone: [phone] IGP, APTIMA HPV, RFX 16/18,[address] [facility] Comment on above: TESTS RESULT FLAG UN ITS REF RANGE LAB DIAGNOSIS: 02 NEGATIVE FOR INTRAEPITHELIAL LESION OR MALIGNANCY. THIS SPECIMEN WAS RESCREENED PART OF OUR ASSISTANT PROFESSOR NURSE EDUCATION PROGRAM. Specimen adequacy: 02 Satisfactory for evaluation. No endocervical component is identified. Performed by: Jose Cervantes, Cop Breaker (ASCP) QC reviewed by: Jose Colón, Cop Breaker . 02 Note: Note 02 The Pap [...] <-Panic Low,>-Panic High,A-Abnormal,AA-Critical Abnormal Performed at: [address] [address] Haydee Kraus MD, SPATULA-ALONE CERVIX CLINISYNC [facility] RECURRENT VAGINITIS (HTRX)on 04-13-2024 ATOPOBIUM VAGINAE 16.[address] [facility] ATOPOBIUM VAGINAE Detected Abnormal [facility] BVAB 2,3 (BACTERIAL VAGINOSIS ASSOCIATED BACTERIA 2, 3); MOBILUNCUS SPP 9.[address] [facility] BVAB 2,3 (BACTERIAL VAGINOSIS ASSOCIATED BACTERIA 2, 3); MOBILUNCUS SPP Detected Abnormal [facility] RADHA ALBICANS, PARAPSILOSIS, TROPICALIS 0 [facility] RADHA ALBICANS, PARAPSILOSIS, TROPICALIS Not detected [facility] RADHA GLABRATA [address] [facility] RADHA GLABRATA Not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 [facility] and return to office for initial OB appointment with provider. Patient may call office as needed with any concerns or questions. Nurse Visit Completed by: Brigid Taylor LPN documented in this encounter [facility] 02-08-2023 Evaluation note Encounter Date Diagnosis [...] fever/discomfort , cool mist humidifier. May use [place] as needed for cough, do not take any other OTCs while using [place]. Patient to follow up with PCP in 2-3 days. Immediate eval if SOB, difficulty breathing, chest pain, dizziness, or other concerning symptoms. Patient verbalizes understanding and is agreeable to treatment plan [facility] Other 11-17-2022 NoteCOVID 19 RESULT: SARS-CoV-2 (Agent of COVID-19) Not Detected by RT-PCR or equivalent method. This test has been authorized by FDA under an Emergency Use Authorization (EUA). INFLUENZA A PCR: Negative for Influenza A by RT-PCR INFLUENZA B PCR: Negative for Influenza B by RT-PCR RSV PCR: Negative for Respiratory Syncytial Virus (RSV) by [facility]Eve[facility] HospitalComment on above:Performed By: #### [id number] #### [facility] CLIA [id number] [place] [address] [place] note* Diagnosis Missed [...] gestation of [facility] Diagnosis Diabetes mellitus screening Screening for diabetes mellitus Second trimester state, incidental 25 weeks gestation of [facility]* Diagnosis size inconsistent with dates- Primary 30 weeks gestation of Third trimester state, incidental [facility] Diagnosis Third trimester state, incidental 32 weeks gestation of Low amniotic fluid volume [facility] Diagnosis Third trimester state, incidental 34 weeks gestation of [facility] Narrative - Reported* Type Description Date Surgical History TONSILS Hospitalization History CHILD [facility] Other Summary Purpose Family History No Family History Records FoundNo Family History Records FoundNo Family History Records Found Advance Directives No Advanced Directives Records FoundNo Advanced Directives Records FoundNo Advanced Directives Records Found Additional Source Comments INFORMATION SOURCE (unrecogn ized section and content) DATE CREATED AUTHOR 09/30/2017 [employer] [facility] DATE CREATED AUTHOR AUTHOR'S ORGANIZ ATION 02/23/2022 [facility] DATE CREATED AUTHOR AUTHOR'S ORGANIZ ATION 08/13/2024 [facility] EPIC REASON FOR VISIT (unrecogniz ed section and content) Reason Comments Amenorrhea Reason Comments Routine Visit Reason Comments Routine Visit FOR RECORDS PERTAINING [...] BE BASED ON THE PRIMARY CLINICAL RECORDS. [facility] [employer] [facility]. provides no warranty or guarantee of the accuracy or completeness of information in this document.
== END 2024-08-18 11:55 | disposition home or self-care (01) ==
LOC: US 11:01 → FBC 11:03
PROVIDERS: Visit Provider Obstetrics & Gynecology
DX: O41.03X0 Oligohydramnios, third trimester, not applicable or unspecified (principal); Z3A.35 35 weeks gestation of pregnancy
CPT/HCPCS: 76818

== ENCOUNTER 2024-08-22 20:29 | Outpatient (REF) | payer MEDICAID, SELFPAY ==
--- OUTSIDE RECORDS SUMMARY | 2024-08-22 20:33 | XMS_ITS | CCD ---
Author Organization [facility] Care Team Providers Care Manager Mining Name Role Phone Sharon Pickett Unavailable Unavailable Sharon Pickett Unavailable Unavailable Arslan Malin Unavailable Unavailable MARY OQUENDO Attending Unavailable Sangita Penn Unavailable Unavailable Primary Care Provider UnavailBLANCA Nicole Attending Unavailable DESIREE CADET Attending Unavailable BLANCA JONES Attending Unavailable BLANCA JONES Attending Unavailable BLANCA JONES Attending Unavailable DESIERE CADET Attending Unavailable TERESA MORENO Referring Unavailable BLANCA JONES Attending Unavailable DESIREE CADET Attending Unavailable TERESA MORENO Attending Unavailable Medications Current Medications Medication Drug Class(es) Dates Sig (Normalized) Sig (Original) [id number] 200 actuat albuterol 0.09 mg/actuat metered dose [...] 1.5 mg/ml oral solution (1 source) Uncompetitive K-jydckf-Z-asparta te Receptor Antagonist, Sigma-1 Agonist Start: 02-08-2023 take 10 mL by mouth every eight hours Heth DM 7.5-7.5 MG/5ML 10 mL Orally every [...] omeprazole 20 mg delayed release oral capsule (14 sources) Proton Pump Inhibitor take 1 capsule [...] 07-11-2024 Episodic Other and delivery including normal (20 sources) ; Translations: [Encounter for supervision of [...] [34 weeks gestation of ] 08-11-2024 Episodic Residual codes; unclassified (2 sources) Gestation period, 36 weeks; Translations: [36 weeks gestation of ] 08-22-2024 Episodic Unclassified (20 sources) OB Reminders Onset: 02-18-2024 02-18-2024 Unclassified (2 sources) Low amniotic fluid volume 07-28-2024 Urinary tract infections (1 source) Tubulo-interstitial nephritis, not specified as acute or chronic; Translations: [Pyelonephritis] Onset: 02-20-2022 Episodic Past or Other Problems Problem Classification Problem Date Documented Da te Episodic/Chronic Unclassified (1 source) Cough R05.9 Results Test Name Value Interpretation Reference Range Facility Urinalysis macro (dipstick) panel (U)on 08-22-2024 Bilirubin, UA Negative Negative - 4(70) +++ mg/dL [facility] Blood, UA Negative Negative - 50 Jesus/mcL [facility] Clarity, UA Clear [facility] Color, UA Yellow [facility] Glucose, UA Negative Negative - 1999(110) ++++ mg/dL [facility] Interpretation and review of laboratory results Normal [facility] Ketones, UA Negative Negative - 160(16) ++++ mg/dL [facility] Leukocytes, UA Negative Negative - 500+++ Juanita/mcL [facility] Nitrite, UA Negative Negative - Positive [facility] pH, UA 7 5 - 9 [facility] Protein, UA Negative Negative - 1999(20) ++++ mg/dL [facility] Spec Grav, UA 1.015 1 - 1.03 [facility] Urobilinogen, UA 0.2 0.2 - 12 mg/dL [facility] US OB BPP W NON-STRESS on 08-18-2024 [place] [address] Ultrasound Report Signed Patient: GILSON MEDINA MR#: [id number] : 1990 Acct:[id number] Age/Sex: 34 / F ADM Date: 08/18/24 Loc: [facility] [address]: Blanca Jones D.O. Ordering Physician: Blanca Jones D.O. Date of Service: 08/18/24 Procedure(s): US OB BPP w non-stress Accession Number(s): [id number] cc: Blanca oJnes D.O.; Physician,Non-Staff M[employer] The [address] [address] Patient Name: GILSON MEDINA MRN: [facility]:[id number] date: 1990 Sex: F Assigned Patient Location: [facility] Current Patient Location: [facility] Accession/Order Number: [id number] Exam Date: 08/18/2024 11:59 Report Date: 08/18/2024 12:00 At the request of: BLANCA JONES DO Procedure: US OB BPP w non-stress BIOPHYSICAL PROFILE: CLINICAL INFORMATION: LOW AMINOTIC FLUID O41.00X0 COMPARISON: 08/11/2024 There is a single live intrauterine gestation in cephalic presentation. The reported gestational age is 35 weeks 3 days. The heart rate isfyglbb055 beats per minute. FINDINGS: TONE: 1 or more episodes of activity extension and flexion of extremity or opening and closing of the hand [Y] 2/2 GROSS BODY MOVEMENTS: 3 or more discrete body or limb movements [Y] 2/2 BREATHING MOVEMENTS: 1 or more episodes of breathing lasting at least 30 seconds [Y] 2/2 LIZETH: A single deepest vertical pocket of amniotic fluid greater than 2 cm [Y] 2/2 LIZETH: 14.7 cm . This is in normal range. Total score: 8/8 US/US OB BPP w non-stress IMPRESSION: NORMAL BIOPHYSICAL PROFILE. Impression dictated by: Elisa Boothe M.D. 08/18/2024 12:00 PM Dictation Location: [place] [address] Electronically authenticated by: [id number] Y Date: 08/18/2024 12:00 Dictated By: Elisa Boothe M.D. Signed By: 08/18/24 1203 DD/ 1200 TD/TT: Reverse Logistics Analyst: [facility] Radiology, Radiologi MD jessica - 08/18/2024 [place] [address] Ultrasound Report Signed Patient: GILSON MEDINA MR#: [id number] : 1990 Acct:[id number] Age/Sex: 34 / F ADM Date: 08/18/24 Loc: [facility] 250-[address]: Blanca Jones D.O. Ordering Physician: Blanca Jones D.O. Date of Service: 08/18/24 Procedure(s): US OB BPP w non-stress Accession Number(s): [id number] cc: Blanca Jones D.O.; Physician,Non-Staff Vas[place] The [address] [address] Patient Name: GILSON MEDINA MRN: [facility]:[id number] date: 1990 Sex: F Assigned Patient Location: [facility] Current Patient Location: [facility] Accession/Order Number: [id number] Exam Date: 08/18/2024 11:59 Report Date: 08/18/2024 12:00 At the request of: BLANCA JONES DO Procedure: US OB BPP w non-stress BIOPHYSICAL PROFILE: CLINICAL INFORMATION: LOW AMINOTIC FLUID O41.00X0 COMPARISON: 08/11/2024 There is a single live intrauterine gestation in cephalic presentation. The reported gestational age is 35 weeks 3 days. The heart rate [id number] beats per minute. FINDINGS: TONE: 1 or more episodes of activity extension and flexion of extremity or opening and closing of the hand [Y] 2/2 GROSS BODY MOVEMENTS: 3 or more discrete body or limb movements [Y] 2/2 BREATHING MOVEMENTS: 1 or more episodes of breathing lasting at least 30 seconds [Y] 2/2 LIZETH: A single deepest vertical pocket of amniotic fluid greater than 2 cm [Y] 2/2 LIZETH: 14.7 cm . This is in normal range. Total score: 11/11 US/US OB BPP w non-stress IMPRESSION: NORMAL BIOPHYSICAL PROFILE. Impression dictated by: Elisa Boothe M.D. 08/18/2024 12:00 PM Dictation Location: [place] [address] Electronically authenticated by: [id number] Y Date: 08/18/2024 12:00 Dictated By: Elisa Boothe M.D. Signed By: 08/18/24 1209 DD/ 1200 TD/TT: Reverse Logistics Analyst: [facility] Radiology Study observation (narrative) [facility] US OB BPP W NON-STRESS Ordered By: Radiologist Radiology on 08-18-2024 [facility] Work Phone: US OB BPP W NON-STRESS on 08-11-2024 [place] [address] Ultrasound Report Signed Patient: GILSON MEDINA MR#: [id number] : 1990 Acct:[id number] Age/Sex: 34 / F ADM Date: 08/11/24 Loc: [facility] 250-[address]: Blanca Jones D.O. Ordering Physician: Karen,Blanca D.O. Date of Service: 08/11/24 Procedure(s): US OB BPP w non-stress Accession Number(s): [id number] cc: Blanca Jones D.O.; Physician,Non-Staff Vas[place] The [address] [address] Patient Name: GILSON MEDINA MRN: [facility]:[id number] date: 1990 Sex: F Assigned Patient Location: [facility] Current Patient Location: [facility] Accession/Order Number: [id number] Exam Date: 08/11/2024 11:38 Report Date: 08/11/2024 11:39 At the request of: BLANCA JONES DO Procedure: US OB BPP w non-stress Biophysical profile. Reason for exam: Low amniotic fluid volume. COMPARISON: 08/04/2024 TECHNIQUE: Transabdominal imaging of the gravid uterus was obtained. FINDINGS: Van Owner Operator reports the BPP is 8 out of 8. LIZETH measures 12 cm. heart rate 147 bpm. US/US OB BPP w non-stress IMPRESSION: BPP 8 out of 8. Impression dictated by: David Qureshi Jr., D.O. 08/11/2024 11:39 AM Dictation Location: [place] [address] Electronically authenticated by: [id number] Y Date: 08/11/2024 11:39 Dictated By: David Qureshi M.D. Signed By: 08/11/24 1141 DD/ 1139 TD/TT: Reverse Logistics Analyst: [facility] Radiology Radiologdomingo lopez MD - 08/11/[address] [address] Ultrasound Report Signed Patient: GILSON MEDINA MR#: [id number] : 1990 Acct:[id number] Age/Sex: 34 / F ADM Date: 08/11/24 Loc: [facility] 250-[address]: Blanca Jones D.O. Ordering Physician: Blanca Jones D.O. Date of Service: 08/11/24 Procedure(s): US OB BPP w non-stress Accession Number(s): [id number] cc: Blanca Jones D.O.; Physician,Non-Staff [place] [id number] Patient Name: GILSON MEDINA MRN: [facility]:[id number] date: 1990 Sex: F Assigned Patient Location: [facility] Current Patient Location: [facility] Accession/Order Number: [id number] Exam Date: 08/11/2024 11:38 Report Date: 08/11/2024 11:39 At the request of: BLANCA JONES DO Procedure: US OB BPP w non-stress Biophysical profile. Reason for exam: Low amniotic fluid volume. COMPARISON: 08/04/2024 TECHNIQUE: Transabdominal imaging of the gravid uterus was obtained. FINDINGS: Van Owner Operator reports the BPP is 8 out of 8. LIZETH measures 12 cm. heart rate 147 bpm. US/US OB BPP w non-stress IMPRESSION: BPP 8 out of 8. Impression dictated by: David Qureshi Jr., D.O. 08/11/2024 11:39 AM Dictation Location: [place] [address] Electronically authenticated by: [id number] Y Date: 08/11/2024 11:39 Dictated By: David Qureshi M.D. Signed By: 08/11/24 1141 DD/ 1139 TD/TT: Reverse Logistics Analyst: [facility] Radiology Study observation (narrative) [facility] US OB BPP W NON-STRESS Ordered By: Radiologist Radiology on 08-11-2024 [facility] Work Phone: Urinalysis macro (dipstick) panel (U)on 08-11-2024 Bilirubin, UA Negative Negative - 4(70) +++ mg/dL [facility] Blood, UA Negative Negative - 50 Jesus/mcL [facility] Clarity, UA Clear [facility] Color, UA Yellow [facility] Glucose, UA Negative Negative - 2000(110) ++++ mg/dL [facility] Interpretation and review of laboratory results Normal [facility] Ketones, UA Negative Negative - 160(16) ++++ mg/dL [facility] Leukocytes, UA Negative Negative - 500+++ Juanita/mcL [facility] Nitrite, UA Negative Negative - Positive [facility] pH, UA 5.5 5 - 9 [facility] Protein, UA Negative Negative - 2000(20) ++++ mg/dL [facility] Spec Grav, UA 1.02 1 - 1.03 [facility] Urobilinogen, UA 1.0 0.2 - 12 mg/dL [facility] US OB BPP W NON-STRESS on 08-04-2024 [place] [address] Ultrasound Report Signed Patient: GILSON MEDINA MR#: [id number] : 1990 Acct:[id number] Age/Sex: 34 / F ADM Date: 08/04/24 Loc: US Attending Dr: Blanca Jones D.O. Ordering Physician: Blanca Jones D.O. Date of Service: 08/04/24 Procedure(s): US OB BPP w non-stress Accession Number(s): [id number] cc: Blanca Jones D.O.; Physician,Non-Staff MMynor [place] [id number] Patient Name: GILSON MEDINA MRN: [facility]:[id number] date: 1990 Sex: F Assigned Patient Location: Current Patient Location: Accession/Order Number: [id number] Exam Date: 08/04/2024 13:07 Report Date: 08/04/2024 13:08 At the request of: BLANCA JONES DO Procedure: US OB BPP w non-stress Biophysical profile. Reason for exam: Low amniotic fluid volume. COMPARISON: 07/28/2024 TECHNIQUE: Transabdominal imaging of the gravid uterus was obtained. FINDINGS: Van Owner Operator reports the BPP is 8 out of 8. LIZETH measures 9 cm. heart rate 131 bpm. US/US OB BPP w non-stress IMPRESSION: BPP 8 out of 8. Impression dictated by: David Qursehi Jr., D.O. 08/04/2024 1:08 PM Dictation Location: [facility]- Electronically authenticated by: [id number] Y Date: 08/04/2024 13:08 Dictated By: David Qureshi M.D. Signed By: 08/04/24 1311 DD/ 1308 TD/TT: Reverse Logistics Analyst: [facility] Radiology, Radiologdomingo lopez MD - 08/04/2024 [place] [address] Ultrasound Report Signed Patient: GILSON MEDINA MR#: [id number] : 1990 Acct:[id number] Age/Sex: 34 / F ADM Date: 08/04/24 Loc: US Attending Dr: Blanca Jones D.O. Ordering Physician: Blanca Jones D.O. Date of Service: 08/04/24 Procedure(s): US OB BPP w non-stress Accession Number(s): [id number] cc: Blanca Jones D.O.; Physician,Non-Staff Vas[place] [facility] [place] [id number] Patient Name: GILSON MEDINA MRN: [facility]:[id number] date: 1990 Sex: F Assigned Patient Location: Current Patient Location: Accession/Order Number: [id number] Exam Date: 08/04/2024 13:07 Report Date: 08/04/2024 13:08 At the request of: BLANCA JONES DO Procedure: US OB BPP w non-stress Biophysical profile. Reason for exam: Low amniotic fluid volume. COMPARISON: 07/28/2024 TECHNIQUE: Transabdominal imaging of the gravid uterus was obtained. FINDINGS: Van Owner Operator reports the BPP is 8 out of 8. LIZETH measures 9 cm. heart rate 131 bpm. US/US OB BPP w non-stress IMPRESSION: BPP 8 out of 8. Impression dictated by: David Qureshi Jr., D.O. 08/04/2024 1:08 PM Dictation Location: [place] [address] Electronically authenticated by: [id number] Y Date: 08/04/2024 13:08 Dictated By: David Qureshi M.D. Signed By: 08/04/24 1311 DD/ 1308 TD/TT: Reverse Logistics Analyst: [facility] Radiology Study observation (narrative) [facility] US OB BPP W NON-STRESS Ordered By: Radiologist Radiology on 08-04-2024 [facility] Work Phone: US OB BPP W NON-STRESS on 07-28-2024 [place] [address] Ultrasound Report Signed Patient: GILSON MEDINA MR#: [id number] : 1990 Acct:[id number] Age/Sex: 34 / F ADM Date: 07/28/24 Loc: [facility] Attending Dr: Blanca Jones D.O. Ordering Physician: Blanca Jones D.O. Date of Service: 07/28/24 Procedure(s): US OB BPP w non-stress Accession Number(s): [id number] cc: Blanca Jones D.O.; Physician,Non-Staff Vas[place] [address] Patient Name: GILSON MEDINA MRN: [facility]:[id number] date: 1990 Sex: F Assigned Patient Location: [facility] Current Patient Location: Accession/Order Number: [id number] Exam Date: 07/28/2024 13:53 Report Date: 07/28/2024 13:55 At the request of: BLANCA JONES DO Procedure: US OB BPP w non-stress Biophysical profile. Reason for exam: Low amniotic fluid volume. COMPARISON: None. TECHNIQUE: Transabdominal imaging of the gravid uterus was obtained. FINDINGS: Van Owner Operator reports the BPP is 8 out of 8. LIZETH measures 8.5 cm. heart rate 1 44 bpm. US/US OB BPP w non-stress IMPRESSION: BPP 8 out of 8. Impression dictated by: David Qureshi Jr., D.O.07/28/2024 1:55 PM Dictation Location: [place] [address] Electronically authenticated by: [id number] Y Date: 07/28/2024 13:55 Dictated By: David Qureshi M.D. Signed By: 07/28/24 1357 DD/ 1355 TD/TT: Reverse Logistics Analyst: [facility] Radiology, Radiologi MD jessica - 07/28/2024 [place] [address] Ultrasound Report Signed Patient: GILSON MEDINA MR#: [id number] : 1990 Acct:[id number] Age/Sex: 34 / F ADM Date: 07/28/24 Loc: [facility] Attending Dr: Blanca Jones D.O. Ordering Physician: Blanca Jones D.O. Date of Service: 07/28/24 Procedure(s): US OB BPP w non-stress Accession Number(s): [id number] cc: Blanca Jones D.O.; Physician,Non-Staff Vas[place] [facility] [place] [id number] Patient Name: GILSON MEDINA MRN: [facility]:[id number] date: 1990 Sex: F Assigned Patient Location: [facility] Current Patient Location: Accession/Order Number: [id number] Exam Date: 07/28/2024 13:53 Report Date: 07/28/2024 13:55 At the request of: BLANCA JONES DO Procedure: US OB BPP w non-stress Biophysical profile. Reason for exam: Low amniotic fluid volume. COMPARISON: None. TECHNIQUE: Transabdominal imaging of the gravid uterus was obtained. FINDINGS: Van Owner Operator reports the BPP is 8 out of 8. LIZETH measures 8.5 cm. heart rate 1 44 bpm. US/US OB BPP w non-stress IMPRESSION: BPP 8 out of 8. Impression dictated by: David Qureshi Jr., D.O.07/28/2024 1:55 PM Dictation Location: [place] [address] Electronically authenticated by: [id number] Y Date: 07/28/2024 13:55 Dictated By: David Qureshi M.D. Signed By: 07/28/24 1357 DD/ 54 TD/TT: Reverse Logistics Analyst: [facility] Radiology Study observation (narrative) [facility] US OB BPP W NON-STRESS Ordered By: Radiologist Radiology on 07-28-2024 [facility] Work Phone: US OB FOLLOW UP TRANSABDOMIN [...] II, MD, PHD at 28-Jul-2024 11:20:55 PM [facility] Normal Not Available Comment on above: Order Comment: US OB SCAN FOR GROWTH Estimated Date of Delivery: 09/19/24 Gestational Age as of 07/11/2024: 30w0d Urinalysis macro (dipstick) panel (U)on 07-28-2024 Bilirubin, UA Negative Negative - 4(70) +++ mg/dL [facility] Blood, UA Negative Negative - 50 Jesus/mcL [facility] Clarity, UA Clear [facility] Color, UA Yellow [facility] Glucose, UA Negative Negative - 2000(110) ++++ mg/dL [facility] Interpretation and review of laboratory results Normal [facility] Ketones, UA Negative Negative - 160(16) ++++ mg/dL [facility] Leukocytes, UA Negative Negative - 500+++ Juanita/mcL [facility] Nitrite, UA Negative Negative - Positive [facility] pH, UA 6 5 - 9 [facility] Protein, UA Negative Negative - 2000(20) ++++ mg/dL [facility] Spec Grav, UA 1.025 1 - 1.03 [facility] Urobilinogen, UA 0.2 0.2 - 12 mg/dL [facility] US OB LIMITED 1+ FETUSESon 0 07-11-2024 [...] II, MD, PHD at 12-Jul-2024 11:25:12 PM [facility] Normal Not Available Comment on above: Order Comment: US OB PLACENTA W US OB TRANSVAGINAL Estimated Date of Delivery: 09/19/24 Gestational Age as of 06/07/2024: 25w1d Urinalysis macro (dipstick) panel (U)on 07-11-2024 Bilirubin, UA Negative Negative - 4(70) +++ mg/dL [facility] Blood, UA Positive Negative - 50 Jesus/mcL [facility] Comment on above: trace-intact Clarity, UA Clear [facility] Color, UA Yellow [facility] Glucose, UA Negative Negative - 1999(110) ++++ mg/dL [facility] Interpretation and review of laboratory results Abnormal [facility] Ketones, UA Negative Negative - 160(16) ++++ mg/dL [facility] Leukocytes, UA Negative Negative - 500+++ Juanita/mcL [facility] Nitrite, UA Negative Negative - Positive [facility] pH, UA 6.5 5 - 9 [facility] Protein, UA Negative Negative - 1999(20) ++++ mg/dL [facility] Spec Grav, UA 1.02 1 - 1.03 [facility] Urobilinogen, UA 0.2 0.2 - 12 mg/dL [facility] ALL CBC WITH AUTO DIFFon BASOPHILS ABSOLUTE AUTO 0 [facility] Basophils/100 WBC (Bld) 0.2 % 0.2 - 2.0 % [facility] Eosinophils/100 WBC (Bld) 0.8 % Low 0.9 - 7.0 % [facility] Erythrocyte distribution width (RBC) [Ratio] 12.3 % 11.0 - 15.0 % [facility] Hematocrit (Bld) [Volume fraction] 37.1 % 36.0 - 48.0 % [facility] Hemoglobin (Bld) [Mass/Vol] 12.7 g/dL 12.0 - 16.0 g/dL [facility] IMMATURE GRANULOCYTES ABS AUTO 0.03 [facility] Immature granulocytes/100 WBC (Bld) 0.4 % 0.0 - 0.5 % [facility] Interpretation and review of laboratory results Abnormal [facility] LYMPHOCYTES ABSOLUTE AUTO 1.8 [facility] Lymphocytes/100 WBC (Bld) 22.3 % 20.5 - 60.0 % [facility] MCH (RBC) [Entitic mass] 29.3 pg 26.7 - 34.0 pg [facility] MCHC (RBC) [Mass/Vol] 34.2 g/dL 29.9 - 35.2 g/dL [facility] MCV (RBC) [Entitic vol] 85.5 fL 81.0 - 99.0 fL [facility] MONOCYTES ABSOLUTE AUTO 0.6 [facility] Monocytes/100 WBC (Bld) 7.4 % 1.7 - 12.0 % [facility] NEUTROPHILS ABSOLUTE AUTO 5.7 [facility] Neutrophils/100 WBC (Bld) 68.9 % 43.0 - 75.0 % [facility] Platelet mean volume (Bld) [Entitic vol] 10.5 fL 9.5 - 13.5 fL [facility] TBH EO # 0.1 [facility] TB PLT 251 [facility] TB RBC 4.34 [facility] WBC 8.3 [facility] No Panel InformationOrdered By: Radiologist Radiology on 06-06-2024 [facility] Work Phone: No Panel Informationon 06-06 Radiology Study observation (narrative) [facility] [place] [address] Ultrasound Report Signed Patient: GILSON MEDINA MR#: [id number] : 1990 Acct:[id number] Age/Sex: 34 / F ADM Date: 06/06/24 Loc: US Attending Dr: Blanca Jones D.O. Ordering Physician: Blanca Jones D.O. Date of Service: 06/06/24 Procedure(s): US OB cervical length Accession Number(s): [id number] cc: Blanca Jones D.O.; Physician,Non-Staff M.D. The [place] [id number] Patient Name: GILSON MEDINA MRN: [facility]:[id number] date: 1990 Sex: F Assigned Patient Location: US Current Patient Location: US Accession/Order Number: [id number] Exam Date: 06/06/2024 22:13 Report Date: 06/06/2024 [...] Elisa Boothe M.D.06/06/2024 10:21 PM Dictation Location: [place] [address] Electronically authenticated by: [id number] Y Date: 06/06/2024 22:21 Dictated By: Elisa Boothe M.D. Signed By: 06/06/242223 DD/ 20 TD/TT: Reverse Logistics Analyst: [facility] Radiology, Radiologi MD jessica - 06/06/2024 [place] [address] Ultrasound Report Signed Patient: GILSON MEDINA MR#: [id number] : 1990 Acct:[id number] Age/Sex: 34 / F ADM Date: 06/06/24 Loc: US Attending Dr: Blanca Jones D.O. Ordering Physician: Blanca Jones D.O. Date of Service: 06/06/24 Procedure(s): US OB cervical length Accession Number(s): [id number] cc: Blanca Jones D.O.; Physician,Non-Staff [place] The [address] [address] Patient Name: GILSON MEDINA MRN: [facility]:[id number] date: 1990 Sex: F Assigned Patient Location: US Current Patient Location: US Accession/Order Number: [id number] Exam Date: 06/06/2024 22:13 Report Date: 06/06/2024 [...] Elisa Boothe M.D.06/06/2024 10:21 PM Dictation Location: [facility] Electronically authenticated by: [id number] Y Date: 06/06/2024 22:21 Dictated By: Elisa Boothe M.D. Signed By: 06/06/242223 DD/ 20 TD/TT: Reverse Logistics Analyst: [facility] OB INCOMPLETE ANATOMYon 0 06-06-2024 [place] [address] Ultrasound Report Signed Patient: GILSON MEDINA MR#: [id number] : 1990 Acct:[id number] Age/Sex: 34 / F ADM Date: 06/06/24 Loc: US Attending Dr: Blanca Jones D.O. Ordering Physician: Blanca Jones D.O. Date of Service: 06/06/24 Procedure(s): US OB incomplete anatomy Accession Number(s): [id number] cc: Blanca Jones D.O.; Physician,Non-Staff Vas[place] The [address] [address] Patient Name: GILSON EMDINA MRN: [id number]:[id number] date: 1990 Sex: F Assigned Patient Location: US Current Patient Location: US Accession/Order Number: [id number] Exam Date: 06/06/2024 22:13 Report Date: 06/06/2024 [...] Elisa Boothe M.D.06/06/2024 10:21 PM Dictation Location: [place] [address] Electronically authenticated by: [id number] Y Date: 06/06/2024 22:21 Dictated By: Elisa Boothe M.D. Signed By: 06/06/242223 DD/ 20 TD/TT: Reverse Logistics Analyst: [facility] Radiology, Radiologi MD jessica - 06/06/2024 [place] [address] Ultrasound Report Signed Patient: GILSON MEDINA MR#: [id number] : 1990 Acct:[id number] Age/Sex: 34 / F ADM Date: 06/06/24 Loc: US Attending Dr: Blanca Jones D.O. Ordering Physician: Blanca Jones D.O. Date of Service: 06/06/24 Procedure(s): US OB incomplete anatomy Accession Number(s): [id number] cc: Blanca Jones D.O.; Physician,Non-Staff [facility] [id number] Patient Name: GILSON MEDINA MRN: [id number] date: 1990 Sex: F Assigned Patient Location: [place] Current Patient Location: [place] Accession/Order Number: [id number] Exam Date: 06/06/2024 22:13 Report Date: 06/06/2024 [...] Elisa Boothe M.D.06/06/2024 10:21 PM Dictation Location: [place] [address] Electronically authenticated by: [id number] Y Date: 06/06/2024 22:21 Dictated By: Elisa Boothe M.D. Signed By: 06/06/242223 DD/ 20 TD/TT: Reverse Logistics Analyst: [facility] Urinalysis macro (dipstick) panel (U)on 06-06-2024 Bilirubin, UA Negative Negative - 4(70) +++ mg/dL [facility] Blood, UA Negative Negative - 50 Jesus/mcL [facility] Clarity, UA Clear [facility] Color, UA Yellow [facility] Glucose, UA Negative Negative - 2000(110) ++++ mg/dL [facility] Interpretation and review of laboratory results Abnormal [facility] Ketones, UA Negative Negative - 160(16) ++++ mg/dL [facility] Leukocytes, UA Trace Negative - 500+++ Juanita/mcL [facility] Nitrite, UA Negative Negative - Positive [facility] pH, UA 6 5 - 9 [facility] Protein, UA Negative Negative - 2000(20) ++++ mg/dL [facility] Spec Grav, UA 1.025 1 - 1.03 [facility] Urobilinogen, UA 0.2 0.2 - 12 mg/dL [facility] US OB 14+ WEEKS ANATOMY SCAN on [...] report is generated using voice recognition reporting ([employer]). On occasion [employer] [place] erroneously drops words from the report or [...] GDLNon AGE GDLN ACOG TESTING Note . [facility] Comment on above: TESTS RESULT FLAG UN ITS REF RANGE LAB Clinician Provided Cytology Information Source.............Cervix No. of containers..01 ThinPrep Vial Age Algo ACOG Maria... 30-65 01 FLAG LEGEND: L-Low Normal,H-High Normal,LL-Alert Low,HH-Alert High <-Panic Low,>-Panic High,A-Abnormal,AA-Critical Abnormal Performed at: 01 =[facility] [place] [address] Haydee Kraus MD, HPV APTIMA Negative Negative [facility] Comment on above: This nucleic acid am plification test detects fourteen high- risk HPV types (16,18,31,33,35,39,45,51,52,56,58,59,66,68) without differentiation. Performed at: =[facility] [address], [place] [id number] Salon Supervisor: Haydee Kraus MD, Phone: [phone] Performed at: - [facility] [address], [place] [id number] Salon Supervisor: Haydee Kraus MD, Phone: [phone] IGP, APTIMA HPV, RFX 16/18,45 Note . [facility] Comment on above: TESTS RESULT FLAG UN ITS REF RANGE LAB DIAGNOSIS: 02 NEGATIVE FOR INTRAEPITHELIAL LESION OR MALIGNANCY. 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 Specimen adequacy: 02 Satisfactory for evaluation. No endocervical component is identified. Performed by: Jose Cervantes, Cena ([facility]) QC reviewed by: Jose Colón, Cena . 02 Note: Note 02 The Pap [...] <-Panic Low,>-Panic High,A-Abnormal,AA-Critical Abnormal Performed at: 02 [facility] [address] [place] [address] Haydee Kraus MD, SPATULA-ALONE CERVIX [facility] RECURRENT VAGINITIS (HTRX)on 04-13-2024 ATOPOBIUM VAGINAE 16.023 Abnormal [facility] ATOPOBIUM VAGINAE Detected Abnormal [facility] BVAB 2,3 (BACTERIAL VAGINOSIS ASSOCIATED BACTERIA 2, 3); MOBILUNCUS SPP 9.934 Abnormal [facility] BVAB 2,3 (BACTERIAL VAGINOSIS ASSOCIATED BACTERIA 2, 3); MOBILUNCUS SPP Detected Abnormal [facility] RADHA ALBICANS, PARAPSILOSIS, TROPICALIS 0 [facility] RADHA ALBICANS, PARAPSILOSIS, TROPICALIS Not detected [facility] RADHA GLABRATA 0 [facility] RADHA GLABRATA Not detected [facility] RADHA KRUSEI 0 [facility] RADHA KRUSEI Not detected [facility] CHLAMYDIA TRACHOMATIS 0 [facility] CHLAMYDIA TRACHOMATIS Not detected [facility] ERMB, C; MEFA 19.423 Abnormal [facility] ERMB, C; MEFA Detected Abnormal [facility] GARDNERELLA VAGINALIS 19.86 Abnormal [facility] GARDNERELLA VAGINALIS Detected Abnormal [facility] Interpretation and review of laboratory results Abnormal [facility] MEGASPHAERA (TYPES 1, 2) 21.115 Abnormal [facility] MEGASPHAERA (TYPES 1, 2) Detected Abnormal [facility] MYCOPLASMA GENITALIUM 0 [facility] MYCOPLASMA GENITALIUM Not detected [facility] NEISSERIA GONORRHOEAE 0 [facility] NEISSERIA GONORRHOEAE Not detected [facility] TET B, TET M 17.31 Abnormal [facility] TET B, TET M Detected Abnormal [facility] TRICHOMONAS VAGINALIS 0 [facility] TRICHOMONAS VAGINALIS Not detected [facility] Urinalysis macro (dipstick) panel (U)on 04-12-2024 Bilirubin, UA Negative Negative - 4(70) +++ mg/dL [facility] Blood, UA Negative Negative - 50 Jesus/mcL [facility] Clarity, UA Clear [facility] Color, UA Yellow [facility] Glucose, UA Negative Negative - 2000(110) ++++ mg/dL [facility] Interpretation and review of laboratory results Abnormal [facility] Ketones, UA Negative Negative - 160(16) ++++ mg/dL [facility] Leukocytes, UA Trace Negative - 500+++ Juanita/mcL [facility] Nitrite, UA Negative Negative - Positive [facility] pH, UA 5.5 5 - 9 [facility] Protein, UA Trace Negative - 1999(20) ++++ mg/dL [facility] Spec Grav, UA 1.03 1 - 1.03 [facility] Urobilinogen, UA 0.2 0.2 - 12 mg/dL [facility] Urinalysis macro (dipstick) panel (U)on 03-09-2024 Bilirubin, UA Negative Negative - 4(70) +++ mg/dL [facility] Blood, UA Negative Negative - 50 Jesus/mcL [facility] Clarity, UA Clear [facility] Color, UA Yellow [facility] Glucose, UA Negative Negative - 1999(110) ++++ mg/dL [facility] Interpretation and review of laboratory results Abnormal [facility] Ketones, UA Negative Negative - 160(16) ++++ mg/dL [facility] Leukocytes, UA Negative Negative - 500+++ Juanita/mcL [facility] Nitrite, UA Positive Negative - Positive [facility] pH, UA 6 5 - 9 [facility] Protein, UA Negative Negative - 1999(20) ++++ mg/dL [facility] Spec Grav, UA 1.025 1 - 1.03 [facility] Urobilinogen, UA 1.0 0.2 - 12 mg/dL [facility] ALL RUBELLA IGG ABon 024 RUBELLA ANTIBODIES, IGG 1.01 Immune >0.99 index [facility] Comment on above: Non-immune <0.90 Equivocal 0.90 - 0.99 Immune >0.99 Performed at: - [facility] [address] [id number] Salon Supervisor: Celestino Goff PhD, Phone: [phone] HBSAG SCREENon 02-23-2024 HBSAG SCREEN Negative Negative [facility] Comment on above: Performed at: CB [facility] [place] [id number] Salon Supervisor: Celestino Goff PhD, Phone: [phone] HCV ANTIBODY RFX TO QUANT PC Ken[place] 02-23-2024 HCV AB Non-Reactive Non Reactive [facility] INTERPRETATION: Comment . [facility] Comment on above: Not infected with HC V unless early or acute infection is suspected (which may be delayed in an immunocompromised individual), or other evidence exists to indicate HCV infection. HIV AB/P24 AG WITH REFLEXon 02-23-2024 HIV AB/P24 AG SCREEN Non-Reactive Non Reactive [facility] Comment on above: HIV-1/HIV-2 antibodi es and HIV-1 p24 antigen were NOT detected. There is no laboratory evidence of HIV infection. HIV Negative Performed at: [address] [id number] Salon Supervisor: Celestino Goff PhD, Phone: [phone] No Panel Informationon 02-22 [facility] RAPID PLASMA REAGIN, QUANTon 02-23-2024 RAPID PLASMA REAGIN, QUANT Non-Reactive NonRea<1:1 titer [facility] Comment on above: Please Note: This te st does not meet current guidelines for screening and diagnosis of syphilis. This test is intended for following treatment response in patients being treated for syphilis infection. To screen for syphilis infection, a reflex cascade that includes both RPR and a treponema-specific assay should be utilized, such as Treponema pallidum (Syphilis) Screening [place] (649939) or Rapid Plasma Reagin (RPR) Test With Reflex to Quantitative RPR and Confirmatory Treponema pallidum Antibodies (600661). Performed at: [address] [id number] Salon Supervisor: Celestino Goff PhD, Phone: [phone] ALL CBC WITH AUTO DIFFon BASOPHILS ABSOLUTE AUTO 0 [facility] Basophils/100 WBC (Bld) 0.3 % 0.2 - 2.0 % [facility] Eosinophils/100 WBC (Bld) 0.5 % Low 0.9 - 7.0 % [facility] Erythrocyte distribution width (RBC) [Ratio] 11.9 % 11.0 - 15.0 % [facility] Hematocrit (Bld) [Volume fraction] 41.8 % 36.0 - 48.0 % [facility] Hemoglobin (Bld) [Mass/Vol] 14.5 g/dL 12.0 - 16.0 g/dL [facility] IMMATURE GRANULOCYTES ABS AUTO 0.03 [facility] Immature granulocytes/100 WBC (Bld) 0.3 % 0.0 - 0.5 % [facility] Interpretation and review of laboratory results Abnormal [facility] LYMPHOCYTES ABSOLUTE AUTO 1.8 [facility] Lymphocytes/100 WBC (Bld) 18.8 % Low 20.5 - 60.0 % [facility] MCH (RBC) [Entitic mass] 29.8 pg 26.7 - 34.0 pg [facility] MCHC (RBC) [Mass/Vol] 34.7 g/dL 29.9 - 35.2 g/dL [facility] MCV (RBC) [Entitic vol] 86 fL 81.0 - 99.0 fL [facility] MONOCYTES ABSOLUTE AUTO 0.5 [facility] Monocytes/100 WBC (Bld) 5.7 % 1.7 - 12.0 % [facility] NEUTROPHILS ABSOLUTE AUTO 6.9 High [facility] Neutrophils/100 WBC (Bld) 74.4 % 43.0 - 75.0 % [facility] Platelet mean volume (Bld) [Entitic vol] 10.9 fL 9.5 - 13.5 fL [facility] EO # 0.1 [facility] PLT 255 [facility] RBC 4.86 [facility] WBC 9.3 [facility] TYPE AND SCREENon 2023 ABO and Rh group Nom (Bld) Blood group O Rh(D) negative [facility] BOX TESTon 02-22-2024 BOX TEST SENT OUT [facility] BOX1 [facility] BOX2 02/22/24 [facility] MLR HEMOGLOBIN A1Con 024 Glucose [Mass/Vol] 94 mg/dL [facility] HbA1c (Bld) [Mass fraction] 4.9 % 4.5 - 6.2 % [facility] Comment on above: ADA RECOMMENDED LIMI T 4.0 - 6.0 ADA THERAPEUTIC TARGET < 7.0 ACTION SUGGESTED > 7.0 No [facility]INE )[facility] 02-22-2024 AMPHETAMINE SCREEN URINE Negative NEGATIVE [facility] BARBITURATES SCREEN URINE Negative NEGATIVE [facility] BENZODIAZEPINES SCREEN URINE Negative NEGATIVE [facility] BUPRENORPHINE SCREEN URINE Negative NEGATIVE [facility] Comment on above: DRUG CLASS TEST SYST [...] 300 ng/mL CANNABINOID SCREEN URINE Negative NEGATIVE [facility] COCAINE SCREEN URINE Negative NEGATIVE [facility] METHADONE SCREEN URINE Negative NEGATIVE [facility] METHAMPHETAMINES SCREEN URINE Negative NEGATIVE [facility] OPIATE SCREEN URINE Negative NEGATIVE [facility] OXYCODONE SCREEN URINE Negative NEGATIVE [facility] PHENCYCLIDINE SCREEN URINE Negative NEGATIVE [facility] TRICYCLIC ANTIDEPRESSANT URINE Negative NEGATIVE [facility] HCG ( test) Ql (U)o n 02-18-2024 Interpretation and review of laboratory results Abnormal [facility] Preg Test, Ur Positive Negative [facility] Urinalysis macro (dipstick) panel (U)on 02-18-2024 Bilirubin, UA Negative Negative - 4(70) +++ mg/dL [facility] Blood, UA Negative Negative - 50 Jesus/mcL [facility] Clarity, UA Clear [facility] Color, UA Yellow [facility] Glucose, UA Negative Negative - 2000(110) ++++ mg/dL [facility] Interpretation and review of laboratory results Normal [facility] Ketones, UA Negative Negative - 160(16) ++++ mg/dL [facility] Leukocytes, UA Negative Negative - 500+++ Juanita/mcL [facility] Nitrite, UA Negative Negative - Positive [facility] pH, UA 5.5 5 - 9 [facility] Protein, UA Negative Negative - 1999(20) ++++ mg/dL [facility] Spec Grav, UA 1.02 1 - 1.03 [facility] Urobilinogen, UA 1.0 0.2 - 12 mg/dL [facility] COVID/FLU/RSV RT-PCRon 02-08 SARS-CoV-2 (COVID-19) RNA IRA+probe Ql (Unsp spec) Negative [facility] [employer] Other COVID/FLU/RSV RT-PCR Negative [facility] [facility] [employer] Other CBC W Auto Differential pane l (Bld)on 02-20-2022 Basophils (Bld) [#/Vol] 0.03 10*3/uL Normal <0.11 [facility] Comment on above: Order Comment: Speci men Type: BLOOD SPECIMEN Ordering Facility: [facility] Address: [address] [place] [place] [address] Performed By: #### 5 7021-8 #### [facility] CLIA [id number] [address] [place] [address] [place] Basophils/100 WBC (Bld) 0.3 % Normal [facility] Comment on above: Order Comment: Speci men Type: BLOOD SPECIMEN Ordering Facility: [facility] Address: [address] [place] [place] [address] Performed By: #### 5 7021-8 #### [facility] CLIA [id number] [address] [place] [address] [place] Differential cell count method Nom (Bld) Auto Normal [facility] Comment on above: Order Comment: Speci men Type: BLOOD SPECIMEN Ordering Facility: [facility] Address: [address] [place] [place] [address] Performed By: #### 5 7021-8 #### [facility] CLIA [id number] [address] [place] [address] [place] Eosinophils (Bld) [#/Vol] 10*3/uL Normal <0.46 [facility] Comment on above: Order Comment: Speci men Type: BLOOD SPECIMEN Ordering Facility: [facility] Address: [address] [place] [place] [address] Performed By: #### 5 7021-8 #### [facility] CLIA [id number] [address] [place] [address] [place] Eosinophils/100 WBC (Bld) 0.2 % Normal [facility] Comment on above: Order Comment: Speci men Type: BLOOD SPECIMEN Ordering Facility: [facility] Address: [address] [place] [address] Performed By: #### 5 7021-8 #### [facility] CLIA [id number] [address] [place] [address] [place] Erythrocyte distribution width (RBC) [Ratio] 12.9 % Normal 11.5-15.0 [facility] Comment on above: Order Comment: Speci men Type: BLOOD SPECIMEN Ordering Facility: [facility] Address: [address] [place] [address] Performed By: #### 5 7021-8 #### [facility] CLIA [id number] [address] [place] [address] [place] Hematocrit (Bld) [Volume fraction] 43.2 % Normal 36.0-46.0 [facility] Comment on above: Order Comment: Speci men Type: BLOOD SPECIMEN Ordering Facility: [facility] Address: [address] [place] [address] Performed By: #### 5 7021-8 #### [facility] CLIA [id number] [address] [place] [address] [place] Hemoglobin (Bld) [Mass/Vol] 14.8 g/dL Normal 11.5-15.5 [facility] Comment on above: Order Comment: Speci men Type: BLOOD SPECIMEN Ordering Facility: [facility] Address: [address] [place] [address] Performed By: #### 5 7021-8 #### [facility] CLIA [id number] [address] [place] [address] [place] Immature granulocytes (Bld) [#/Vol] 0.04 10*3/uL Normal <0.10 [facility] Comment on above: Order Comment: Speci men Type: BLOOD SPECIMEN Ordering Facility: [facility] Address: [address] [place] [address] Performed By: #### 5 7021-8 #### [facility] CLIA [id number] [address] [place] [address] [place] Immature granulocytes/100 WBC (Bld) 0.4 % Normal [facility] Comment on above: Order Comment: Speci men Type: BLOOD SPECIMEN Ordering Facility: [facility] Address: [address] [place] [address] Performed By: #### 5 7021-8 #### [facility] CLIA [id number] [address] [place] [address] [place] Lymphocytes (Bld) [#/Vol] 0.55 10*3/uL Low 1.00-4.00 [facility] Comment on above: Order Comment: Speci men Type: BLOOD SPECIMEN Ordering Facility: [facility] Address: [address] [address] Performed By: #### 5 7021-8 #### [facility] CLIA [id number] [address] [place] [address] Lymphocytes/100 WBC (Bld) 5.3 % Normal [facility] Comment on above: Order Comment: Speci men Type: BLOOD SPECIMEN Ordering Facility: [facility] Address: [address] [address] Performed By: #### 5 7021-8 #### [facility] CLIA [id number] [address] [place] [address] [place] MCH (RBC) [Entitic mass] 29.1 pg Normal 26.0-34.0 [facility] Comment on above: Order Comment: Speci men Type: BLOOD SPECIMEN Ordering Facility: [facility] Address: [address] [place] [address] Performed By: #### 5 7021-8 #### [facility] CLIA [id number] [address] [place] [address] [place] MCHC (RBC) [Mass/Vol] 34.3 g/dL Normal 30.5-36.0 [facility] Comment on above: Order Comment: Speci men Type: BLOOD SPECIMEN Ordering Facility: [facility] Address: [address] [place] [address] Performed By: #### 5 7021-8 #### [facility] CLIA [id number] [address] [place] [address] [place] MCV (RBC) [Entitic vol] 84.9 fL Normal 80.0-100.0 [facility] Comment on above: Order Comment: Speci men Type: BLOOD SPECIMEN Ordering Facility: [facility] Address: [address] [place] [address] Performed By: #### 5 7021-8 #### [facility] CLIA [id number] [address] [place] [address] [place] Monocytes (Bld) [#/Vol] 0.19 10*3/uL Normal <0.87 [facility] Comment on above: Order Comment: Speci men Type: BLOOD SPECIMEN Ordering Facility: [facility] Address: [address] [place] [address] Performed By: #### 5 7021-8 #### [facility] CLIA [id number] [address] [place] [address] [place] Monocytes/100 WBC (Bld) 1.8 % Normal [facility] Comment on above: Order Comment: Speci men Type: BLOOD SPECIMEN Ordering Facility: [facility] Address: [address] [address] Performed By: #### 5 7021-8 #### [facility] CLIA [id number] [address] [place] [address] [place] Neutrophils (Bld) [#/Vol] 9.55 10*3/uL High 1.45-7.50 [facility] Comment on above: Order Comment: Speci men Type: BLOOD SPECIMEN Ordering Facility: [facility] Address: [address] [address] Performed By: #### 5 7021-8 #### [facility] CLIA [id number] [address] [place] [address] [place] Neutrophils/100 WBC (Bld) 92.0 % Normal [facility] Comment on above: Order Comment: Speci men Type: BLOOD SPECIMEN Ordering Facility: [facility] Address: [address] [place] [place] [address] Performed By: #### 5 7021-8 #### [facility] CLIA [id number] [address] [place] [address] [place] Nucleated RBC (Bld) [#/Vol] 10*3/uL Normal <0.01 [facility] Comment on above: Order Comment: Speci men Type: BLOOD SPECIMEN Ordering Facility: [facility] Address: [address] [address] Performed By: #### 5 7021-8 #### [facility] CLIA [id number] [address] [place] [address] [place] Nucleated RBC/100 WBC (Bld) [Ratio] 0.0 /100 WBC Normal [facility] Comment on above: Order Comment: Speci men Type: BLOOD SPECIMEN Ordering Facility: [facility] Address: [address] [address] Performed By: #### 5 7021-8 #### [facility] CLIA [id number] [address] [place] [address] [place] Platelet mean volume (Bld) [Entitic vol] 10.9 fL Normal 9.0-12.7 [facility] Comment on above: Order Comment: Speci men Type: BLOOD SPECIMEN Ordering Facility: [facility] Address: [address] [address] Performed By: #### 5 7021-8 #### [facility] CLIA [id number] [address] [place] [address] [place] Platelets (Bld) [#/Vol] 213 10*3/uL Normal 150-400 [facility] Comment on above: Order Comment: Speci men Type: BLOOD SPECIMEN Ordering Facility: [facility] Address: [address] [address] Performed By: #### 5 7021-8 #### [facility] CLIA [id number] [address] [place] [address] [place] RBC (Bld) [#/Vol] 5.09 10*6/uL Normal 3.90-5.20 [facility] Comment on above: Order Comment: Speci men Type: BLOOD SPECIMEN Ordering Facility: [facility] Address: [address] [address] Performed By: #### 5 7021-8 #### [facility] CLIA [id number] [address] [place] [address] [place] WBC (Bld) [#/Vol] 10.38 10*3/uL Normal 3.70-11.00 [facility] Comment on above: Order Comment: Speci men Type: BLOOD SPECIMEN Ordering Facility: [facility] Address: [address] [address] Performed By: #### 5 7021-8 #### [facility] CLIA [id number] [address] [place] [address] [place] Comprehensive metabolic 2000 panelon 02-20-2022 Albumin [Mass/Vol] 4.6 g/dL Normal 3.9-4.9 [facility] Comment on above: Order Comment: Speci men Type: BLOOD SPECIMEN Ordering Facility: [facility] Address: [address] [place] [address] Performed By: #### 2 4323-8 #### [facility] CLIA [id number] [address] [place] [address] [place] ALP [Catalytic activity/Vol] 78 U/L Normal 34-123 [facility] Comment on above: Order Comment: Speci men Type: BLOOD SPECIMEN Ordering Facility: [facility] Address: [address] [place] [place] [address] Performed By: #### 2 4323-8 #### [facility] CLIA [id number] [address] [place] [address] OF NATE ALT [Catalytic activity/Vol] 27 U/L Normal 7-38 [facility] Comment on above: Order Comment: Speci men Type: BLOOD SPECIMEN Ordering Facility: [facility] Address: [address] [address] Performed By: #### 2 4323-8 #### [facility] CLIA [id number] [address] [place] [address] [place] Anion gap [Moles/Vol] 12 mmol/L Normal 9-18 [facility] Comment on above: Order Comment: Speci men Type: BLOOD SPECIMEN Ordering Facility: [facility] Address: [address] [address] Performed By: #### 2 4323-8 #### [facility] CLIA [id number] [address] [place] [address] [place] AST [Catalytic activity/Vol] 16 U/L Normal 13-35 [facility] Comment on above: Order Comment: Speci men Type: BLOOD SPECIMEN Ordering Facility: [facility] Address: [address] [address] Performed By: #### 2 4323-8 #### [facility] CLIA [id number] [address] [place] [address] [place] Bilirubin [Mass/Vol] 0.9 mg/dL Normal 0.2-1.3 [facility] Comment on above: Order Comment: Speci men Type: BLOOD SPECIMEN Ordering Facility: [facility] Address: [address] [address] Performed By: #### 2 4323-8 #### [facility] CLIA [id number] [address] [place] [address] [place] Calcium [Mass/Vol] 9.6 mg/dL Normal 8.5-10.2 [facility] Comment on above: Order Comment: Speci men Type: BLOOD SPECIMEN Ordering Facility: [facility] Address: [address] [place] [place] [address] Performed By: #### 2 4323-8 #### [facility] CLIA [id number] [address] [place] [address] [place] Chloride [Moles/Vol] 100 mmol/L Normal 97-105 [facility] Comment on above: Order Comment: Speci men Type: BLOOD SPECIMEN Ordering Facility: [facility] Address: [address] [address] Performed By: #### 2 4323-8 #### [facility] CLIA [id number] [address] [place] [address] [place] CO2 [Moles/Vol] 26 mmol/L Normal 22-30 [facility] Comment on above: Order Comment: Speci men Type: BLOOD SPECIMEN Ordering Facility: [facility] Address: [address] [address] Performed By: #### 2 4323-8 #### [facility] CLIA [id number] [address] [place] [address] [place] Creatinine [Mass/Vol] 0.76 mg/dL Normal 0.58-0.96 [facility] Comment on above: Order Comment: Norman coelho Type: BLOOD SPECIMEN Ordering Facility: [facility] Address: [address] [address] Performed By: #### 2 4323-8 #### [facility] CLIA [id number] [address] [place] [address] [place] ESTIMATED GLOMERULAR FILTRATION RATE 109 mL/min/1.73m??? Normal >=60 [facility] Comment on above: Order Comment: Norman coelho Type: BLOOD SPECIMEN Ordering Facility: [facility] Address: [address] [place] [address] Result Comment: Marce mated Glomerular Filtration Rate [...] GFR. Performed By: #### 2 4323-8 #### [facility] CLIA [id number] [place] [address] [place] Glucose [Mass/Vol] 98 mg/dL Normal 74-99 [facility] Comment on above: Order Comment: Norman coelho Type: BLOOD SPECIMEN Ordering Facility: [facility] Address: [address] [address] Result Comment: The [place] Diabetes Association (ADA) provides guidance for cutoff [...] Standards of Medical Care in Diabetes 2016, [place] Diabetes Association. Diabetes Care. 2016.39(Suppl 1). Performed By: #### 2 4323-8 #### [facility] CLIA [id number] [place] [address] [place] Potassium [Moles/Vol] 3.5 mmol/L Low 3.7-5.1 [facility] Comment on above: Order Comment: Speci men Type: BLOOD SPECIMEN Ordering Facility: [facility] Address: [address] [place] [place] [address] Performed By: #### 2 4323-8 #### [facility] CLIA [id number] [address] [place] [address] [place] Protein [Mass/Vol] 7.4 g/dL Normal 6.3-8.0 [facility] Comment on above: Order Comment: Speci men Type: BLOOD SPECIMEN Ordering Facility: [facility] Address: [address] [address] Performed By: #### 2 4323-8 #### [facility] CLIA [id number] [address] [place] [address] [place] Sodium [Moles/Vol] 138 mmol/L Normal 136-144 [facility] Comment on above: Order Comment: Speci men Type: BLOOD SPECIMEN Ordering Facility: [facility] Address: [address] [address] Performed By: #### 2 4323-8 #### [facility] CLIA [id number] [address] [place] [address] [place] Urea nitrogen [Mass/Vol] 5 mg/dL Low 7-21 [facility] Comment on above: Order Comment: Speci men Type: BLOOD SPECIMEN Ordering Facility: [facility] Address: [address] [address] Performed By: #### 2 4323-8 #### [facility] CLIA [id number] [address] [place] [address] [place] ED NOTEon 11-17-2022 ED NOTE HNO ID: [id number] Author: Amelia Henson PA-C Service: ? Author Type: Physician Death Clearance Coordinator Type: ED Notes Filed: 02/22/2022 9:58 AM [...] reasons to return to the ED. Normal [facility] ED NOTE HNO ID: [id number] Author: Scott Kang RN Service: ? Author Type: Registered Nurse Type: ED Notes Filed: 02/20/2022 4:25 PM Note Text: Pt given discharge, follow up and medication instructions. Pt verbalized understanding, is AANDOx3, stable and ambulates with a steady gait at this time. Normal [facility] ED PROV NOTEon 02-20-2022 ED PROV NOTE HNO ID: [id number] Author: Amelia Henson PA-C Service: Emergency Medicine Author Type: Physician Death Clearance Coordinator Type: ED Provider Notes Filed: 02/20/2022 4:34 [...] Bilirubin, Urine 1+(!) Ketones, Urine Negative Specific [place], Ur 1.013 Hemoglobin/Blood,Ur 2+(!) pH, Urine 6.5 [...] History provided by: Medical records and patient asl interpreter used: No No past medical history [...] She is (more content not included)... Normal [facility] HCG QUAL BLDon 02-20-2022 HCG, QUALITATIVE Negative Normal Negative [facility] Comment on above: Order Comment: Speci men Type: BLOOD SPECIMEN Ordering Facility: [facility] Address: [address] [address] Performed By: #### H CG #### [facility] CLIA [id number] [address] [place] [address] [place] SEPSIS LACTATEon 02-20-2022 Lactate [Moles/Vol] 1.1 mmol/L Normal 0.0-2.0 [facility] Comment on above: Order Comment: Speci men Type: BLOOD SPECIMEN Ordering Facility: [facility] Address: [address] [address] Performed By: #### S LACT #### [facility] CLIA [id number] [address] [place] [address] [place] Urinalysis complete pnl Uron [...] CULTURE, URINE: No growth (<1,000 CFU/ml) Abnormal [facility] Comment on above: Order Comment: Speci men Type: URINE SPECIMEN Ordering Facility: [facility] Address: [address] [address] Performed By: #### 2 4356-8 #### [facility] CLIA [id number] [address] [place] [address] [place] [facility] CLIA [id number] [address] [facility] [id number] [place] ED Note-Physicianon 10-24-19 [...] q8hr, # 12 tab(s), Refills(s) 0, Pharmacy: [facility] [address]romycin 250 mg Tab 5-day Dose [...] Medical/ Family/ Social History Medical history: ResolvedPregnancy ([id number]): Onset on 10/04/2014 at 24 years. Resolved on 09/04/2015 at 25 years. ([id number]): Resolved in 2013 at 22 years.. Surgical history: Extraction of wisdom tooth ([id number]) in 2016 at 25 Years.Tonsillectomy and adenoidectomy ([id number]).. Family history: Primary malignant neoplasm of skinFatherHypertensionMother , Reviewed as documented in chart. Social history: Social & Psychosocial SdtekrMwsuvbr39/06/2015 Risk Assessment: Denies Alcohol UseEmployment/Whnnns42/16/20 Status: Unemployed Highest education: High school Hazardous equipment operation: No06/20/2015 Risk Assessment: Not employed or in souvoxBflalwcf85/16/2016 Risk Assessment: Does not exerciseHome/Rgcvbujjrxi64/1 6/2016 Lives with: Children Living situation: Home/Independent Alcohol abuse in household: No Substance abuse in household: No Smoker in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 driller and threader present. Vitals: There is no height or [...] of: MADINA Valdez documented in this encounter [facility] 03-09-2024 History of Presen t illness Narrative [...] nursing note reviewed. Exam conducted with a smoking pipe driller and threader present. Vitals: There is no height or [...] or undercooked meat, and stay away from [facility]. Patient has been consulted regarding any [...] Blanca Jones DO documented in this encounter [facility] 02-18-2024 History of Presen t illness Narrative [...] or undercooked meat, and stay away from [facility]. Patient has also been advised to [...] Brigid Taylor LPN documented in this encounter [facility] 02-08-2023 Evaluation note Encounter Date Diagnosis Assessment [...] fever/discomfort , cool mist humidifier. May use Heth as needed for cough, do not take any other OTCs while using Heth. Patient to follow up with PCP in 2-3 days. Immediate eval if SOB, difficulty breathing, chest pain, dizziness, or other concerning symptoms. Patient verbalizes understanding and is agreeable to treatment plan SCREEMO Other 11-17-2022 NoteCOVID 19 RESULT: SARS-CoV-2 (Agent of COVID-19) Not Detected by RT-PCR or equivalent method. This test has been authorized by FDA under an Emergency Use Authorization (EUA). INFLUENZA A PCR: Negative for Influenza A by RT-PCR INFLUENZA B PCR: Negative for Influenza B by RT-PCR RSV PCR: Negative for Respiratory Syncytial Virus (RSV) by PCRClover Hill HospitalComment on above:Performed By: #### [id number] #### [facility] CLIA [id number] [place] [address] [place] AMERICAEvaluation note* Diagnosis Missed menses , unspecified gestational age Encounter for supervision of normal first in first trimester [facility] Diagnosis Second trimester state, incidental 12 [...] HealthcareEvaluation note* Diagnosis Third trimester state, incidental 36 weeks gestation of documented in this encounter [facility] N[facility]ative - Reported* Type Description Date Surgical History TONSILS Hospitalization History CHILD SCREEMO Other Summary Purpose Family History No Family History Records FoundNo Family History Records FoundNo Family History Records Found Advance Directives No Advanced Directives Records FoundNo Advanced Directives Records FoundNo Advanced Directives Records Found Additional Source Comments INFORMATION SOURCE (unrecogn ized section and content) DATE CREATED AUTHOR 09/30/2017 [facility] DATE CREATED AUTHOR AUTHOR'S ORGANIZ ATION 02/23/2022 [facility] DATE CREATED AUTHOR AUTHOR'S ORGANIZ ATION 08/22/2024 [facility] EPIC REASON FOR VISIT [...] BE BASED ON THE PRIMARY CLINICAL RECORDS. [employer] [facility]. provides no warranty or guarantee of the accuracy or completeness of information in this document.
== END 2024-08-22 20:30 | disposition home or self-care (01) ==
LOC: LAB 20:29
PROVIDERS: Visit Provider Nurse Practitioner Family
DX: Z34.93 Encounter for supervision of normal pregnancy, unspecified, third trimester (principal); Z3A.36 36 weeks gestation of pregnancy
CPT/HCPCS: 87081

== ENCOUNTER 2024-08-25 11:04 | Outpatient (OUT) | payer MEDICAID, SELFPAY ==
--- OUTSIDE RECORDS SUMMARY | 2024-08-11 09:30 | XMS_ITS | Encounter Summary ---
Author Organization [facility] Address [address] [place] [address] Care Team Providers Care Welt Trimming Machine Operator Name Role Phone Unavailable Primary Care Provider Unavailabl e Reason for Visit * Reason Comments Routine Visit Encounter Details Date Type Department Care Team (Late st Contact Info) Description 08/11/2024 9:30 AM EDT Routine [facility] [address] [place] [id number] Desiree Verma PA [address] [place], [facility]11 Third trimester ; 34 weeks gestation of Social History Tobacco Use Types Packs/Day Years Used Date Smoking Tobacco: Never Assessed Estimated Date of Delivery Comme nts Yes 09/19/2024 Based on last me nstrual period of 12/14/2023 Sex and Gender Information Value Date Recorded Sex Assigned at Not on file Legal Sex Female 9:19 AM EDT Gender Identity Not on file Sexual Orientation Not on file documented as of this encounter Last Filed Vital Signs Vital Sign Reading Time Taken Comments Blood Pressure 120/80 08/11/2024 9:58 AM EDT Pulse - - Temperature - - Respiratory Rate - - Oxygen Saturation - - Inhaled Oxygen Concentration - - Weight 100 kg (221 lb) 08/11/2024 9:58 AM EDT Height - - Body Mass Index - - documented in this encounter Progress Notes * MADINA Valdez - 08/11/2024 9:30 AM EDT Reason for Appointment: Patient ID: Gilson [place] is a 34 y.o. female who presents for Routine Visit Patient presents today for Return OB appointment. MEDICATIONS Current Outpatient Medications Medication Instructions omeprazole (PRILOSEC) 20 mg, Oral, Daily before breakfast, Do not crush or chew. ALLERGIES No Known Allergies PROBLEMS Active Ambulatory [...] SYSTEMS Review of Systems: Review of Systems All other systems reviewed and are negative. OBJECTIVE Objective: Physical Exam Constitutional: Appearance: Normal [...] nursing note reviewed. Exam conducted with a ophthalmic pathologist present. Vitals: There is no height or weight on file to calculate BMI. BP: 120/80 Patient's last menstrual period was 12/14/2023. ASSESSMENT & PLAN ICD-10-CM 1. Third trimester Z34.93 Urine dip 2. 34 weeks gestation of Z3A.34 Urine dip Patient presents today for a routine obstetrics appointment. Patient is currently 34w3d with a Estimated Date of Delivery: 09/19/24. Patient to return to clinic in 2 week for routine OB appointment. Documented by Anna Carrasco LPN on behalf of: MADINA Valdez documented in this encounter Plan of Treatment Upcoming Encounters Date Type Department Care Team (Late st Contact Info) Description 08/30/2024 1:00 PM EDT Routine [facility] [address] [place] [address] Junior Jones, [address] [place] [address] documented as of this encounter Goals Goal Patient Goal Type Associated Problems Recent Progress Patient-Stated? Author Reminders Care Plan OB Reminders No Open Scheduling, Background documented as of this encounter Procedures Procedure Name Priority Date/Time Associated Diagnosis Comments POCT URINALYSIS DIPSTICK Routine 08/11/2024 10:03 AM EDT Third trimester 34 weeks gestation of documented in this encounter Results * Urine dip (08/11/2024 10:03 AM EDT) Color, UA Yellow Clarity, UA Clear Glucose, UA Negative Negative - 2000(110) ++++ mg/dL Bilirubin, UA Negative Negative - 4(70) +++ mg/dL Ketones, UA Negative Negative - 160(16) ++++ mg/dL Spec Grav, UA 1.020 1 - 1.03 Blood, UA Negative Negative - 50 Jesus/mcL pH, UA 5.5 5 - 9 Protein, UA Negative Negative - 2000(20) ++++ mg/dL Urobilinogen, UA 1.0 0.2 - 12 mg/dL Leukocytes, UA Negative Negative - 500+++ Juanita/mcL Nitrite, UA Negative Negative - Positive Urine 08/11/2024 10:0 3 AM EDT Junior Jones DO POINT OF CARE TEST ENTER/EDIT OR DERABLES Final Result documented in this encounter Visit Diagnoses Diagnosis Third trimester state, incidental 34 weeks gestation of documented in this encounter Additional Health Concerns Active Problems Noted Date Diagnosed Date OB Reminders 02/18/2024 documented as of this encounter
--- OUTSIDE RECORDS SUMMARY | 2024-08-22 09:30 | XMS_ITS | Encounter Summary ---
Author Organization [facility] Address [address] [place] [address] Care Team Providers Care Ski Technician Name Role Phone Unavailable Primary Care Provider Unavailabl e Reason for Visit * Reason Comments Routine Visit Encounter Details Date Type Department Care Team (Late st Contact Info) Description 08/22/2024 9:30 AM EDT Routine [facility] [address] [place] [address] Teresa Moreno NP [address] [facility] [place] [address] Third trimester ; 36 weeks gestation [...] nursing note reviewed. Exam conducted with a portal developer present. Vitals: There is no height or [...] PM EDT Routine [facility] [address] [place] [id number] Junior Jones, DO [address] [facility] [place] [address] Scheduled Orders Name Type Priority Associated Diagnoses [...]
--- OUTSIDE RECORDS SUMMARY | 2024-08-22 09:46 | XMS_ITS ---
Author Name Auto Generated Organization OHIP Care Team Providers [facility] Tour Guide Name Role Phone BLANCA DENTON Attending Unavailable CHICHI, SIMA Attending Unavailable CORRIE, BLANCA Attending Unavailable CORRIE, BLANCA Attending Unavailable CORRIE, BLANCA Attending Unavailable CHICHI, SIMA Attending Unavailable MARILN GREENE Referring Unavailable CORRIE, BLANCA Attending Unavailable CHICHI, SIMA Attending Unavailable MARLIN GREENE Attending Unavailable PROBLEMS No Problem Records Found PROCEDURES No Procedure Records Found RESULTS US OB FOLLOW UP TRANSABDOMINAL APPROACH Observed: 07/28/2024 8:57 AM Status: F Source: [facility] EPIC Order Comment: US OB SCAN FO R GROWTH Estimated Date of Delivery: 09/19/24 Gestational Age as of 07/11/2024: 30w0d EXAM: US OB FOLLOW UP TRANSA BDOMINAL APPROACH HISTORY: Inconsistent growth. HARITHA 09/19/2024. . [...] II, MD, PHD at 28-Jul-2024 11:20:55 PM [facility] US OB LIMITED 1+ FETUSES Observed: 07/11 10:56 AM Status: F Source: [facility] EPIC Order Comment: US OB PLACENT A W US OB TRANSVAGINAL Estimated Date of Delivery: 09/19/24 Gestational Age as of 06/07/2024: 25w1d EXAM: US OB LIMITED 1+ FETUS ES HISTORY: Low-lying placenta. COMPARISON: OB ultrasound 05/09/2024. [...] II, MD, PHD at 12-Jul-2024 11:25:12 PM [facility] US OB 14+ WEEKS ANATOMY SCAN Observed: 0 05/09/2024 12:54 PM Status: F Source: [facility] EPIC Order Comment: US OB ANATOMY SINGLE W US OB CERVICAL LENGTH Estimated Date of Delivery: 09/19/24 Gestational Age as of 04/12/2024: 17w1d TITLE OF EXAM: OB Ultrasound : REASON FOR EXAM: Anatomy. COMPARISON: None TECHNIQUE: [...] report is generated using voice recognition reporting ([employer]). On occasion [employer] erroneously drops words from the report or replaces the spoken word with similar sounding words. Please call with any questions/concerns regarding this report.* Dictated and transcribed 05/10/24/dpd This report has been electronically signed and approved by the interpreting radiologist. ALLERGIES No Allergies Records Found ENCOUNTERS ADMIT/DISCHARGE ACCOUNT NUMBER ADMITTING ENCOUNTER CLASS LOCATION SOURCE 08/22/2024/ 5 [id number] Ambulatory Building:[facility] 08/11/2024/ 5 [id number] Ambulatory Building:[facility] 07/28/2024/ 5 [id number] Ambulatory Building:[facility] 07/28/2024/ 5 [id number] Ambulatory Building:[facility] 07/11/2024/ 5 [id number] Ambulatory Building:[facility] 07/11/2024/ 5 [id number] Ambulatory Building:[facility] 06/27/2024/ 5 [id number] Ambulatory Building:[facility] 06/06/2024/ 5 [id number] Ambulatory Building:[facility] 05/09/2024/ 5 [id number] Ambulatory Building:[facility] EPIC 05/09/2024/ 5 [id number] Ambulatory Building:[facility] EPIC 04/12/2024/ 5 [id number] Ambulatory Building:[facility] EPIC 03/09/2024/ 4 [id number] Ambulatory Building:[facility] EPIC 02/18/2024/ 4 [id number] Ambulatory Building:[facility] EPIC PAYERS ENCOUNTER GUARANTOR PAYER SUBSCRIBER SOURCE 08/22/2024 SANTIAGO KEVINJIMB: [place], [place] [address]Prm: (HP) Primary Insurance:[employer] [facility]: [id number] ve Date:2023-02-04 SANTIAGO BROWNESSENCEB: [id number] [place] [address] [facility] EPIC 08/11/2024 SANTIAGO DAWITB: [place], [place] [address]Znk: (HP) Primary Insurance:[employer] [facility] Number: [id number] ve Date:2023-02-04 SANTIAGO SAAVEDRAB: [id number] MIHAI [address] [facility] EPIC 07/28/2024 JACQUEJimena PASTORB: [place], [place] [address]Llc: (HP) Primary Insurance:[employer] [facility] [id number] ve Date:2023-02-04 SANTIAGO DAWITB: [id number] MIHAI [address] [facility] EPIC 07/28/2024 SANTIAGO DAWITB: [place], [place] [address]Xsp: (HP) Primary Insurance:[employer] [facility] Number: [id number] ve Date:2023-02-04 SANTIAGO PASTORB: [id number] [place] [address] [facility] EPIC 07/11/2024 SANTIAGO PASTORB: [place], [place] [address]Cyh: (HP) Primary Insurance:[employer] MEDICAID [facility] Number: [id number] ve Date:2023-02-04 SANTIAGO PASTORB: [id number] [place] [address] [facility] EPIC 07/11/2024 SANTIAGO PASTORB: [place], [place] [address]Ucy: (HP) Primary Insurance:[employer] MEDICAID [facility] Number: [id number] ve Date:2023-02-04 SANTIAGO PASTORB: [id number] [facility] EPIC 06/27/2024 SANTIAGO PASTORB: [place], [place] [address]Ujb: (HP) Primary Insurance:[employer] MEDICAID [facility] Number: [id number] ve Date:2023-02-04 SANTIAGO PASTORB: [id number] [place] [place] [address] [facility] EPIC 06/06/2024 SANTIAGO PASTORB: [place], [place] [address]Ftf: (HP) Primary Insurance:[employer] MEDICAID [facility] Number: [id number] ve Date:2023-02-04 SANTIAGO PASTORB: [id number] [place] [address] [facility] EPIC 05/09/2024 SANTIAGO SAAVEDRAB: [place], [place] [address]Qgq: (HP) Primary Insurance:[employer] [facility] Number: [id number] ve Date:2023-02-04 SANTIAGO PASTORB: [id number] [place] [address] [facility] EPIC 05/09/2024 SANTIAGO PASTORB: [place] [address]Mil: (HP) Primary Insurance:[employer] [facility] Number: [id number] ve Date:2023-02-04 SANTIAGO PASTORB: [id number] [place] [address] [facility] EPIC 04/12/2024 SANTIAGO SAAVEDRAB: [place] [address]Pvs: (HP) Primary Insurance:[employer] [facility] Number: [id number] ve Date:2023-02-04 SANTIAGO PASTORB: [id number] [place] [address] [facility] EPIC 03/09/2024 SANTIAGO SAAVEDRAB: [place] [address]Xam: (HP) Primary Insurance:[employer] [facility] Number: [id number] ve Date:2023-02-04 SANTIAGO PASTORB: [id number] [place] [address] [facility] EPIC 02/18/2024 SANTIAGO SAAVEDRAB: [place] [address]Jvd: (HP) Primary Insurance:[employer] [facility] Number: [id number] ve Date:2023-02-04 SANTIAGO SAAVEDRAB: [id number] [place] [address] [facility] EPIC
--- NOTE | 2024-08-25 | US_ITS ---
[address] [address] Patient Name: SANTIAGO SAAVEDRA MRN: [facility]:[id number] date: 1990 Sex: F Assigned Patient Location: [facility] Current Patient Location: [facility] Accession/Order Number: [id number] Exam Date: 08/25/2024 11:38 Report Date: 08/25/2024 11:41 At the request of: BLANCA DENTON DO Procedure: US OB BPP w non-stress BIOPHYSICAL PROFILE: CLINICAL INFORMATION: Low amniotic fluid O41.00x0 COMPARISON: 08/18/2024 There is a single live intrauterine gestation in cephalic presentation. The reported gestational age is 36 weeks 3 days. The heart rate [id number] beats per minute. FINDINGS: TONE: 1 or more episodes of activity extension and flexion of extremity or opening and closing of the hand [Y] 2/2 GROSS BODY MOVEMENTS: 3 or more discrete body or limb movements [Y] 2/2 BREATHING MOVEMENTS: 1 or more episodes of breathing lasting at least 30 seconds [Y] 2/2 LIZETH: A single deepest vertical pocket of amniotic fluid greater than 2 cm [Y] 2/2 LIZETH: 10.7 cm. This is in low-normal range (5th percentile 7.7 cm). Total score: 8/8 US/ OB BPP w non-stress IMPRESSION: NORMAL BIOPHYSICAL PROFILE Impression dictated by: Elisa Boothe M.D. 08/25/2024 11:41 AM Dictation Location: [place] [address] Electronically authenticated by: [id number] Y Date: 08/25/2024 11:41
--- OUTSIDE RECORDS SUMMARY | 2024-08-25 11:06 | XMS_ITS | Clinical Summary ---
Author Organization [facility] Address [address] [place] [address] Care Team Providers Care Dishwashing Machine Repairer Name Role Phone Unavailable Primary Care Provider Unavailabl e Allergies No known active allergies Medications keTORolac (TORADOL) 10 mg tablet Take 1 tablet by mouth every 6 hours as needed for pain. TAKE FOR NO MORE THAN 5 DAYS 20 tablet 02/20/2022 Active ondansetron (ZOFRAN) 4 mg tablet Take 1 tablet by mouth every 6 hours as needed. 8 tablet 02/20/2022 Active Social History Tobacco Use Types Packs/Day Years Used Date Smoking Tobacco: Never Assessed Area Deprivation Index Answer Date Nriaj rded National Score (1-100), lower number is lower ri sk 79 05/03/2022 State Score (1-10), lower number is lower risk N ot on file 05/03/2022 Data from: https://www.neighborhoodatlas.medicine.[facility].edu/. Last address used for calculation [address] [place] [address] 05/03/2022 Comments Unknown Sex and Gender Information Value Date Recorded Sex Assigned at Not on file Legal Sex Female 2:34 PM EDT Gender Identity Not on file Sexual Orientation Not on file Last Filed Vital Signs Vital Sign Reading Time Taken Comments Blood Pressure 144/98 02/20/2022 3:23 PM EST Pulse 111 02/20/2022 3:23 PM EST Temperature 37.1 C (98.7 F) 02/20/2022 3:23 PM EST Respiratory Rate 16 02/20/2022 3:23 PM EST Oxygen Saturation 100% 02/20/2022 3:30 PM EST Inhaled Oxygen Concentration - - Weight 81.6 kg (180 lb) 02/20/2022 1:10 PM EST Height 175.3 cm (5' 9 ) 02/20/2022 1:10 PM EST Body Mass Index 26.58 02/20/2022 1:10 PM EST Plan of Treatment Not on file Insurance [place]ICA[place]
--- OUTSIDE RECORDS SUMMARY | 2024-08-25 11:06 | XMS_ITS | Encounter Summary ---
Author Organization [facility] Address [address] [place] [address] Care Team Providers Care Fire Investigator Name Role Phone Unavailable Primary Care Provider Unavailabl e Encounter Details Date Type Department Care Team (Latest Contact Info) Description 08/23/2024 Travel Social History Tobacco Use Types Packs/Day Years Used Date Smoking Tobacco: Never Assessed Estimated Date of Delivery Comme nts Yes 09/19/2024 Based on last me nstrual period of 12/14/2023 Sex and Gender Information Value Date Recorded Sex Assigned at Not on file Legal Sex Female 9:19 AM EDT Gender Identity Not on file Sexual Orientation Not on file documented as of this encounter Plan of Treatment Upcoming Encounters Date Type Department Care Team (Late st Contact Info) Description 08/30/2024 1:00 PM EDT Routine [facility] [address] [place] [address] Junior Jones, DO [address] [facility] [place] [address] documented as of this encounter Goals Goal Patient Goal Type Associated Problems Recent Progress Patient-Stated? Author Reminders Care Plan OB Reminders No Open Scheduling, Background documented as of this encounter Visit Diagnoses Not on filedocumented in this encounter Additional Health Concerns Active Problems Noted Date Diagnosed Date OB Reminders 02/18/2024 documented as of this encounter
--- OUTSIDE RECORDS SUMMARY | 2024-08-25 11:06 | XMS_ITS | Encounter Summary ---
Author Organization [facility] Address [address] [place] [address] Care Team Providers Care Picking Machine Operator Name Role Phone Unavailable Primary Care Provider Unavailabl e Encounter Details Date Type Department Care Team (Latest Contact Info) Description 08/21/2024 Travel Social History Tobacco Use Types Packs/Day [...] PM EDT Routine [facility] [address] [facility] [place] [address] Junior Jones, DO [address] [facility] [place] [address] documented as of this encounter Goals Goal Patient Goal Type Associated Problems Recent Progress Patient-Stated? Author Reminders Care Plan OB Reminders No Open Scheduling, Background documented as of this encounter Visit Diagnoses Not on filedocumented in this encounter Additional Health Concerns Active Problems Noted Date Diagnosed Date OB Reminders 02/18/2024 documented as of this encounter
--- OUTSIDE RECORDS SUMMARY | 2024-08-25 11:06 | XMS_ITS | Encounter Summary ---
Author Organization [facility] Address [address] [place] [address] Care Team Providers Care Workers Compensation Attorney Name Role Phone Unavailable Primary Care Provider Unavailabl e Encounter Details Date Type Department Care Team (Late st Contact Info) Description 08/11/2024 Clinisync Result Encounter [facility] External Department Unsolicited Blacna Jones, DO [address] [place], [place] [id number] Social History Tobacco Use Types Packs/Day Years [...] PM EDT Routine [facility] [address] [place] [phone] Blanca Jones, DO [address] [place], [place] [id number] documented as of this encounter Goals Goal Patient Goal Type Associated Problems Recent Progress Patient-Stated? Author Reminders Care Plan OB Reminders No Open Scheduling, Background documented as of this encounter Procedures Procedure Name Priority Date/Time Associated Diagnosis Comments US OB BPP W NON-STRESS 08/11/2024 11:39 AM EDT documented in this encounter Results * US OB BPP W NON-STRESS (08/11/2024 11:39 AM EDT) Anatomical Region Laterality Modality Other 08/11/2024 11:3 9 AM EDT Narrative 08/11/2024 11:41 [place] [address] Ultrasound Report Signed Patient: GILSON [place] MR#: [id number] : 1990 Acct:[id number] Age/Sex: 34 / F ADM Date: 08/11/24 Loc: [facility] 250-[address]: Blanca Jones D.O. Ordering Physician: Blanca Jones D.O. Date of Service: 08/11/24 Procedure(s): US OB BPP w non-stress Accession Number(s): [id number] cc: Blanca Jones D.O.; Physician,Non-Staff M.DPatricia The [place] [address] Patient Name: GILSON [place] MRN: [facility]:[id number] date: 1990 Sex: F Assigned Patient Location: [facility] Current Patient Location: [facility] Accession/Order Number: [id number] Exam Date: 08/11/2024 11:38 Report Date: 08/11/2024 11:39 At the request of: BLANCA JONES DO Procedure: US OB BPP w non-stress Biophysical profile. Reason for exam: Low amniotic fluid volume. COMPARISON: 08/04/2024 TECHNIQUE: Transabdominal imaging of the gravid uterus was obtained. FINDINGS: Medical Technologist reports the BPP is 8 out of 8. LIZETH measures 12 cm. heart rate 147 bpm. US/US OB BPP w non-stress IMPRESSION: BPP 8 out of 8. Impression dictated by: David Qureshi Jr., D.O. 08/11/2024 11:39 AM Dictation Location: [place] [address] Electronically authenticated by: [id number] Y Date: 08/11/2024 11:39 Dictated By: David Qureshi M.D. Signed By: 08/11/24 1141 DD/ 1139 TD/TT: Leather Belt Loop Cutter: Procedure Note Radiology, Radiologist, - 08/11/2024 [place] [address] Ultrasound Report Signed Patient: GILSON [place] RMR#: [id number] : 1990Acct:[id number] Age/Sex: 34 / FADM Date: 08/11/24 Loc: [facility] 250-[address]: Blanca Jones D.O. Ordering Physician: Blanca Jones D.O. Date of Service: 08/11/24 Procedure(s): US OB BPP w non-stress Accession Number(s): [id number] cc: Blanca Jones D.O.; Physician,Non-Staff Vas[place] [address] [place] [address] Patient Name: GILSON MEDINA MRN: [facility]:[id number] date: 1990 Sex: F Assigned Patient Location: [facility] Current Patient Location: [facility] Accession/Order Number: [id number] Exam Date: 08/11/2024 11:38 Report Date: 08/11/2024 11:39 At the request of: BLANCA JONES DO Procedure: US OB BPP w non-stress Biophysical profile. Reason for exam: Low amniotic fluid volume. COMPARISON: 08/04/2024 TECHNIQUE: Transabdominal imaging of the gravid uterus was obtained. FINDINGS: Medical Technologist reports the BPP is 8 out of 8. LIZETH measures 12 cm. heart rate 147 bpm. US/US OB BPP w non-stress IMPRESSION: BPP 8 out of 8. Impression dictated by: David Qureshi Jr., D.O. 08/11/2024 11:39 AM Dictation [facility] Electronically authenticated by: [id number] Y Date: 1:39 Dictated By: David Qureshi M.D. Signed By:08/11/24 1141 DD/ 1139 TD/TT: Leather Belt Loop Cutter: us Blanca Jones DO [facility] Final Result documented in this encounter Visit Diagnoses Not on filedocumented in this encounter Additional Health Concerns Active Problems Noted Date Diagnosed Date OB Reminders 02/18/2024 documented as of this encounter
--- OUTSIDE RECORDS SUMMARY | 2024-08-25 11:06 | XMS_ITS | Encounter Summary ---
Author Organization [facility] Address [address] [place] [address] Care Team Providers Care Statistics Intern Name Role Phone Unavailable Primary Care Provider Unavailabl e Encounter Details Date Type Department Care Team (Late Contact Info) Description 04/12/2024 Abstract [facility] [address] [place] [address] Junior Jones, [facility] [place], [facility] Social History Tobacco Use Types Packs/Day Years [...] Encounters Date Type Department Care Team (Late Contact Info) Description 08/30/2024 1:00 PM EDT Routine [facility] [address] [place] [address] Junior Jones DO [facility] [address] [place], [place] [id number] documented as of this encounter Goals Goal Patient Goal Type Associated Problems Recent Progress Patient-Stated? Author Reminders Care Plan OB Reminders No Open Scheduling, Background documented as of this encounter Visit Diagnoses Not on filedocumented in this encounter Additional Health Concerns Active Problems Noted Date Diagnosed Date OB Reminders 02/18/2024 documented as of this encounter
--- OUTSIDE RECORDS SUMMARY | 2024-08-25 11:06 | XMS_ITS | Encounter Summary ---
Author Organization [facility] Address [address] [place] [address] Care Team Providers Care Circus Roustabout Name Role Phone Unavailable Primary Care Provider Unavailabl e Encounter Details Date Type Department Care Team (Late Contact Info) Description 05/19/2024 Abstract [facility] OB [address] [place] [address] Junior Jones, [facility] [place], [facility]11 Social History Tobacco Use Types Packs/Day Years [...] Routine [facility] B[facility] OB [address] [place] [address] Junior Jones DO [facility] [place], [place] [id number] documented as of this encounter Goals Goal Patient Goal Type Associated Problems Recent Progress Patient-Stated? Author Reminders Care Plan OB Reminders No Open Scheduling, Background documented as of this encounter Visit Diagnoses Not on filedocumented in this encounter Additional Health Concerns Active Problems Noted Date Diagnosed Date OB Reminders 02/18/2024 documented as of this encounter
--- OUTSIDE RECORDS SUMMARY | 2024-08-25 11:06 | XMS_ITS | Encounter Summary ---
Author Organization [facility] Address [address] [place] [address] Care Team Providers Care Junior Web Designer Name Role Phone Unavailable Primary Care Provider Unavailabl e Encounter Details Date Type Department Care Team (Late st Contact Info) Description 06/23/[address] [facility] OB [address] [id number] Anna Carrasco LPN Social History Tobacco Use Types Packs/Day Years [...] Description 08/30/2024 1:00 PM EDT Routine [facility] OB [address] [phone] Junior Jones DO [address] [facility] [place] [address] documented as of this encounter Goals Goal Patient Goal Type Associated Problems Recent Progress Patient-Stated? Author Reminders Care Plan OB Reminders No Open Scheduling, Background documented as of this encounter Visit Diagnoses Not on filedocumented in this encounter Additional Health Concerns Active Problems Noted Date Diagnosed Date OB Reminders 02/18/2024 documented as of this encounter
--- OUTSIDE RECORDS SUMMARY | 2024-08-25 11:06 | XMS_ITS | Encounter Summary ---
Author Organization [facility] Address [address] [place] [address] Care Team Providers Care Blankbook Forwarder Name Role Phone Unavailable Primary Care Provider Unavailabl e Encounter Details Date Type Department Care Team (Late st Contact Info) Description 08/18/2024 Clinisync Result Encounter [facility] External Department Unsolicited Blanca Jones, DO [address] [place], [place] [id number] Social History Tobacco Use Types Packs/Day Years [...] PM EDT Routine [facility] [address] [facility] [place] [phone] Blanca Jones, DO [address] [place], [place] [phone] documented as of this encounter Goals Goal Patient Goal Type Associated Problems Recent Progress Patient-Stated? Author Reminders Care Plan OB Reminders No Open Scheduling, Background documented as of this encounter Procedures Procedure Name Priority Date/Time Associated Diagnosis Comments US OB BPP W NON-STRESS 08/18/2024 12:00 PM EDT documented in this encounter Results * US OB BPP W NON-STRESS (08/18/2024 12:00 PM EDT) Anatomical Region Laterality Modality Other 08/18/2024 12:0 0 PM EDT Narrative 08/18/2024 12:03 [place] [address] Ultrasound Report Signed Patient: GILSON MEDINA MR#: [id number] : 1990 Acct:[id number] Age/Sex: 34 / F ADM Date: 08/18/24 Loc: [facility] 250-[address]: Blanca Jones D.O. Ordering Physician: Blanca Jones D.O. Date of Service: 08/18/24 Procedure(s): US OB BPP w non-stress Accession Number(s): [id number] cc: Blanca Jones D.O.; Physician,Non-Staff M.DPatricia The [place] [address] Patient Name: GILSON MEDINA MRN: [facility]:[id number] date: 1990 Sex: F Assigned [place] [facility] [facility] Accession/Order Number: [id number] Exam Date: 08/18/2024 11:59 Report Date: 08/18/2024 12:00 At the request of: BLANCA JONES DO Procedure: US OB BPP w non-stress BIOPHYSICAL PROFILE: CLINICAL INFORMATION: LOW AMINOTIC FLUID O41.00X0 COMPARISON: 08/11/2024 There is a single live intrauterine gestation in cephalic presentation. The reported gestational age is 35 weeks 3 days. The heart rate [id number] beats per minute. FINDINGS: TONE: 1 or [...] Boothe M.D. 08/18/2024 12:00 PM Dictation Location: [place] [address] Electronically authenticated by: [id number] Y Date: 08/18/2024 12:00 Dictated By: Elisa Boothe M.D. Signed By: 08/18/24 1203 DD/ 1200 TD/TT: Credit Department Manager: Procedure Note Radiology, Radiologist, - 08/18/2024 [place] [address] Ultrasound Report Signed Patient: GILSON MEDINA RMR#: [id number] : 1990Acct:[id number] Age/Sex: 34 / FADM Date: 08/18/24 Loc: [facility] 250-[address]: Blanca Jones D.O. Ordering Physician: Blanca Jones D.O. Date of Service: 08/18/24 Procedure(s): US OB BPP w non-stress Accession Number(s): [id number] cc: Blanca Jones D.O.; Physician,Non-Staff Vasquez The [address] [address] Patient Name: GILSON MEDINA MRN: [id number] date: 1990 Sex: F Assigned Patient [place]: [facility] [place] Patient Location: [facility] Accession/Order Number: [id number] Exam Date: 08/18/2024 11:59 Report Date: 08/18/2024 12:00 At the request of: BLANCA JONES DO Procedure: US OB BPP w non-stress BIOPHYSICAL PROFILE: CLINICAL INFORMATION: LOW AMINOTIC FLUID O41.00X0 COMPARISON: 08/11/2024 There is a single live intrauterine gestation in cephalic presentation.The reported gestational age is 35 weeks 3 days. The heart [id number] beats per minute. FINDINGS: TONE: 1 or more episodes of activity extension and flexion of extremity or opening and closing of the hand [Y] 2/2 GROSS BODY MOVEMENTS: 3 or more discrete body or limb movements [Y] 2/2 BREATHING MOVEMENTS: 1 or more episodes of breathing lastingat least 30 seconds [Y] 2/2 LIZETH: A single deepest vertical pocket of amniotic fluid greater than 2 cm [Y] 2/2 LIZETH: 14.7 cm . This is in normal range. Total score: 8/8 US/US OB BPP w non-stress IMPRESSION: NORMAL BIOPHYSICAL PROFILE. Impression dictated by: Elisa Boothe M.D. 08/18/2024 12:00 PM Dictation Location: [place] [address] Electronically authenticated by: [id number] Y Date: 2:00 Dictated By: Elisa Boothe M.D. Signed By:08/18/24 1203 DD/ 1200 TD/TT: Credit Department Manager: us Blanca Karen DO [facility] Final Result documented in this encounter Visit Diagnoses Not on filedocumented in this encounter Additional Health Concerns Active Problems Noted Date Diagnosed Date OB Reminders 02/18/2024 documented as of this encounter
--- OUTSIDE RECORDS SUMMARY | 2024-08-25 11:06 | XMS_ITS | Encounter Summary ---
Author Organization [facility] Address [address] [place] [address] Care Team Providers Care Mixing House Operator Name Role Phone Unavailable Primary Care Provider Unavailabl e Encounter Details Date Type Department Care Team (Late st Contact Info) Description 02/19/2024 Clinisync Result Encounter [facility] External Department Unsolicited Blanca Jones, DO [address] [place], [place] [phone] Social History Tobacco Use Types Packs/Day Years [...] PM EDT Routine [facility] [address] [facility] [place] [place] [phone] Blanca Jones, DO [address] [place], [place] [phone] documented as of this encounter Goals Goal Patient Goal Type Associated Problems Recent Progress Patient-Stated? Author Reminders Care Plan OB Reminders No Open Scheduling, Background documented as of this encounter Procedures Procedure Name Priority Date/Time Associated Diagnosis Comments US OB TRANSVAGINAL 02/19/2024 4: 17 AM EST documented in this encounter Results * US OB TRANSVAGINAL (02/19/2024 4:17 AM EST) Anatomical Region Laterality Modality Other 02/19/2024 4:17 AM EST Narrative 02/19/2024 4:20 AM EST [address] [address] Ultrasound Report Signed Patient: GILSON MEDINA MR#: [id number] : 1990 Acct:[id number] Age/Sex: 33 / F ADM Date: 02/18/24 Loc: [facility] Attending Dr: Blanca Jones D.O. Ordering Physician: Blanca Jones D.O. Date of Service: 02/18/24 Procedure(s): US OB transvaginal Accession Number(s): [id number] cc: Blanca Jones D.O.; Physician,Non-Staff M.DPatricia [place] [id number] Patient Name: GILSON MEDINA MRN: [id number] date: 1990 Sex: F Assigned Patient Location: [facility] Current Patient Location: Accession/Order Number: [id number] Exam Date: 02/18/2024 12:35 Report Date: 02/19/2024 04:17 At the request of: BLANCA JONES Procedure: US OB transvaginal EXAMINATION: US OB transvaginal HISTORY: MISSED MENSES COMPARISON: No relevant comparison available. FINDINGS: GESTATIONAL SAC: Present and normal appearing. YOLK SAC: Present and normal appearing. POLE: Present and normal appearing. CARDIAC: Present. UTERUS: Normal size and appearance. OVARIES: Right: Corpus lutein cyst. Left: Normal. CERVIX: 4.8 cm in length and closed. CUL-DE-SAC: Normal. OTHER: None. AGE BY LMP: 9 weeks 3 days HARITHA BY LMP: 09/19/2024 AGE BY US CRL: 9 weeks 4 days HARITHA BY US CRL: 09/18/2024 US/US OB transvaginal IMPRESSION: 1. Single live intrauterine . Electronically authenticated by: ARCHIE BEATTY Date: 02/19/2024 04:17 Dictated By: Archie Beatty M.D. Signed By: 02/19/240 DD/ 6 TD/TT: Undercollar Maker: Procedure Note Radiology, Radiologist, - 02/19/2024 [place] [address] Ultrasound Report Signed Patient: ANITA MEDINA#: [id number] : 1990Acct:[id number] Age/Sex: 33 / FADM Date: 02/18/24 Loc: [facility] Attending Dr: Blanca Jones D.O. Ordering Physician: Blanca Jones D.O. Date of Service: 02/18/24 Procedure(s): US OB transvaginal Accession Number(s): [id number] cc: Blanca Jones D.O.; Physician,Non-Staff Vasquez The [place] [id number] Patient Name: GILSON MEDINA MRN: [id number] date: 1990 Sex: F Assigned Patient Location: [facility] Current Patient Location: Accession/Order Number: [id number] Exam Date: 02/18/2024 12:35 Report Date: 02/19/2024 04:17 At the request of: BLANCA JONES Procedure: US OB transvaginal EXAMINATION: US OB transvaginal HISTORY: MISSED MENSES COMPARISON: No relevant comparison available. FINDINGS: GESTATIONAL SAC: Present and normal appearing. YOLK SAC: Present and normal appearing. POLE: Present and normal appearing. CARDIAC: Present. UTERUS: Normal size and appearance. OVARIES: Right: Corpus lutein cyst. Left: Normal. CERVIX: 4.8 cm in length and closed. CUL-DE-SAC: Normal. OTHER: None. AGE BY LMP: 9 weeks 3 days HARITHA BY LMP: 09/19/2024 AGE BY US CRL: 9 weeks 4 days HARITHA BY US CRL: 09/18/2024 US/US OB transvaginal IMPRESSION: 1. Single live intrauterine . Electronically authenticated by: ARCHIE BEATTY Date: 02/19/2024 04:17 Dictated By: Archie Beatty M.D. Signed By:02/19/24 0420 DD/ 0417 TD/TT: Undercollar Maker: us Blanca Karen DO [facility] Final Result documented in this encounter Visit Diagnoses Not on filedocumented in this encounter Additional Health Concerns Active Problems Noted Date Diagnosed Date OB Reminders 02/18/2024 documented as of this encounter
--- OUTSIDE RECORDS SUMMARY | 2024-08-25 11:06 | XMS_ITS | Encounter Summary ---
Author Organization [facility] Address [address] [place] [address] Care Team Providers Care Welder Pipe Making Name Role Phone Unavailable Primary Care Provider Unavailabl e Encounter Details Date Type Department Care Team (Late Contact Info) Description 02/29/2024 Abstract [facility] BCP OB [address] [place] [address] Junior Jones, [facility] [place], [facility]11 Social History Tobacco Use Types Packs/Day [...] Routine [facility] BCP OB [address] [place] [address] Junior Jones DO [facility] [place], [place] [phone] documented as of this encounter Goals Goal Patient Goal Type Associated Problems Recent Progress Patient-Stated? Author Reminders Care Plan OB Reminders No Open Scheduling, Background documented as of this encounter Visit Diagnoses Not on filedocumented in this encounter Additional Health Concerns Active Problems Noted Date Diagnosed Date OB Reminders 02/18/2024 documented as of this encounter
--- OUTSIDE RECORDS SUMMARY | 2024-08-25 11:06 | XMS_ITS | Encounter Summary ---
Author Organization [facility] Address [address] [place] [address] Care Team Providers Care General Supervisor Name Role Phone Unavailable Primary Care Provider Unavailabl e Encounter Details Date Type Department Care Team (Late st Contact Info) Description 02/01/2024 Abstract [facility] OB [address] [place] [address] Junior Jones, DO [address] [place], [facility]11 Social History Tobacco Use Types Packs/Day Years Used Date Smoking Tobacco: Never Assessed Comments Unknown Sex and Gender Information Value Date Recorded Sex Assigned at Not on file Legal Sex Female 9:19 AM EDT Gender Identity Not on file Sexual Orientation Not on file documented as of this encounter Plan of Treatment Upcoming Encounters Date Type Department Care Team (Late st Contact Info) Description 08/30/2024 1:00 PM EDT Routine [facility] OB [address] [place] [phone] Junior Jones, DO [address] [place], [facility]11 documented as of this encounter Visit Diagnoses Not on filedocumented in this encounter
--- OUTSIDE RECORDS SUMMARY | 2024-08-25 11:06 | XMS_ITS | Encounter Summary ---
Author Organization [facility] Address [address] [place] [address] Care Team Providers Care News Director Name Role Phone Unavailable Primary Care Provider Unavailabl e Encounter Details Date Type Department Care Team (Late Contact Info) Description 02/19/2024 Abstract [facility] BCP OB [address] [place] [address] Junior Jones, [facility] [place], [facility]11 Social History Tobacco Use Types Packs/Day Years [...] Routine [facility] BCP OB [address] [place] [address] Junior Jones DO [facility] [place], [place] [phone] documented as of this encounter Goals Goal Patient Goal Type Associated Problems Recent Progress Patient-Stated? Author Reminders Care Plan OB Reminders No Open Scheduling, Background documented as of this encounter Visit Diagnoses Not on filedocumented in this encounter Additional Health Concerns Active Problems Noted Date Diagnosed Date OB Reminders 02/18/2024 documented as of this encounter
--- OUTSIDE RECORDS SUMMARY | 2024-08-25 11:06 | XMS_ITS | Encounter Summary ---
Author Organization [facility] Address [address] [place] [address] Care Team Providers Care Hearing Aid Repairer Name Role Phone Unavailable Primary Care Provider Unavailabl e Encounter Details Date Type Department Care Team (Late st Contact Info) Description 04/25/2024 Orders Only [facility] [address] [facility] [place] [phone] Della Ly LPN [address] [facility] [place], [place] [phone] Social History Tobacco Use Types Packs/Day Years [...] PM EDT Routine [facility] BCP OB [address] [place] [phone] Junior Jones DO [address] [facility] [address] [place], [place] [phone] documented as of this encounter Goals Goal Patient Goal Type Associated Problems Recent Progress Patient-Stated? Author Reminders Care Plan OB Reminders No Open Scheduling, Background documented as of this encounter Procedures Procedure Name Priority Date/Time Associated Diagnosis Comments PAP SMEAR Routine 04/12/2024 12:00 AM EST documented in this encounter Results * Pap Smear (04/12/2024 12:00 AM EST) Swab Cervical swab / Unknown us [facility] B[facility] Ob Karen Nurse LAB CYTOLOGY ORDERABLES Final Result EXTERNAL LAB documented in this encounter Visit Diagnoses Not on filedocumented in this encounter Additional Health Concerns Active Problems Noted Date Diagnosed Date OB Reminders 02/18/2024 documented as of this encounter
--- OUTSIDE RECORDS SUMMARY | 2024-08-25 11:06 | XMS_ITS | Encounter Summary ---
Author Organization [facility] Address [address] [place] [address] Care Team Providers Care Bait Maker Name Role Phone Unavailable Primary Care Provider Unavailabl e Encounter Details Date Type Department Care Team (Late Contact Info) Description 08/22/2024 Bamboo flowsheet [facility] OB [address] [facility] [place] [address] Teresa Moreno, HEARING STENOGRAPHER [address] [facility] [place] [address] Social History Tobacco Use Types Packs/Day Years [...] PM EDT Routine [facility] OB [address] [facility] [place] [address] Junior Jones DO [address] [place] [address] documented as of this encounter Goals Goal Patient Goal Type Associated Problems Recent Progress Patient-Stated? Author Reminders Care Plan OB Reminders No Open Scheduling, Background documented as of this encounter Visit Diagnoses Not on filedocumented in this encounter Additional Health Concerns Active Problems Noted Date Diagnosed Date OB Reminders 02/18/2024 documented as of this encounter
--- OUTSIDE RECORDS SUMMARY | 2024-08-25 11:06 | XMS_ITS | Encounter Summary ---
Author Organization [facility] Address [address] [place] [address] Care Team Providers Care Biodiesel Division Manager Name Role Phone Unavailable Primary Care Provider Unavailabl e Encounter Details Date Type Department Care Team (Late st Contact Info) Description 08/11/2024 Bamboo flowsheet [facility] B[facility] OB [address] [place] [address] Desiree Verma PA [address] [facility] [address] [place], [facility] Social History Tobacco Use Types Packs/Day Years [...] PM EDT Routine [facility] BCP OB [address] [place] [address] Junior Jones, [address] [facility] [place] [address] documented as of this encounter Goals Goal Patient Goal Type Associated Problems Recent Progress Patient-Stated? Author Reminders Care Plan OB Reminders No Open Scheduling, Background documented as of this encounter Visit Diagnoses Not on filedocumented in this encounter Additional Health Concerns Active Problems Noted Date Diagnosed Date OB Reminders 02/18/2024 documented as of this encounter
--- OUTSIDE RECORDS SUMMARY | 2024-08-25 11:07 | XMS_ITS | Encounter Summary ---
Author Organization [facility] Address [address] [place] [address] Care Team Providers Care Linseed Oil Boiler Name Role Phone Unavailable Primary Care Provider Unavailabl e Encounter Details Date Type Department Care Team (Late Contact Info) Description 07/29/2024 Abstract [facility] BCP OB [address] [place] [address] Junior Jones, [facility] [place], [facility]11 Social History Tobacco Use Types Packs/Day Years [...] Routine [facility] BCP OB [address] [place] [address] Junior Jones DO [facility] [place], [place] [id number] documented as of this encounter Goals Goal Patient Goal Type Associated Problems Recent Progress Patient-Stated? Author Reminders Care Plan OB Reminders No Open Scheduling, Background documented as of this encounter Visit Diagnoses Not on filedocumented in this encounter Additional Health Concerns Active Problems Noted Date Diagnosed Date OB Reminders 02/18/2024 documented as of this encounter
--- OUTSIDE RECORDS SUMMARY | 2024-08-25 11:07 | XMS_ITS | Encounter Summary ---
Author Organization [facility] Address [address] [place] [address] Care Team Providers Care Bakery Helper Name Role Phone Unavailable Primary Care Provider Unavailabl e Encounter Details Date Type Department Care Team (Late Contact Info) Description 04/08/2024 Abstract [facility] BCP OB [address] [place] [address] Junior Jones, [facility] [place], [facility]11 Social History Tobacco Use Types Packs/Day Years [...] Routine [facility] BCP OB [address] [place] [address] Junior Jones DO [facility] [place], [place] [phone] documented as of this encounter Goals Goal Patient Goal Type Associated Problems Recent Progress Patient-Stated? Author Reminders Care Plan OB Reminders No Open Scheduling, Background documented as of this encounter Visit Diagnoses Not on filedocumented in this encounter Additional Health Concerns Active Problems Noted Date Diagnosed Date OB Reminders 02/18/2024 documented as of this encounter
--- OUTSIDE RECORDS SUMMARY | 2024-08-25 11:07 | XMS_ITS | Encounter Summary ---
Author Organization [facility] Address [address] [place] [address] Care Team Providers Care Blind Teacher Name Role Phone Unavailable Primary Care Provider Unavailabl e Encounter Details Date Type Department Care Team (Late Contact Info) Description 04/01/2024 Abstract [facility] BCP OB [address] [place] [address] Junior Jones, [facility] [place], [facility]11 Social History Tobacco Use Types Packs/Day Years [...] Routine [facility] BCP OB [address] [place] [address] Junior Jones DO [facility] [place], [place] [id number] documented as of this encounter Goals Goal Patient Goal Type Associated Problems Recent Progress Patient-Stated? Author Reminders Care Plan OB Reminders No Open Scheduling, Background documented as of this encounter Visit Diagnoses Not on filedocumented in this encounter Additional Health Concerns Active Problems Noted Date Diagnosed Date OB Reminders 02/18/2024 documented as of this encounter
--- OUTSIDE RECORDS SUMMARY | 2024-08-25 11:07 | XMS_ITS | Encounter Summary ---
Author Organization [facility] Address [address] [place] [address] Care Team Providers Care Welding Foreman Name Role Phone Unavailable Primary Care Provider Unavailabl e Encounter Details Date Type Department Care Team (Late Contact Info) Description 08/17/2024 Abstract [facility] BCP OB [address] [place] [address] Junior Jones, [facility] [place], [facility]11 Social History Tobacco Use Types Packs/Day [...] Routine [facility] BCP OB [address] [place] [address] Junior Jones DO [facility] [place], [place] [phone] documented as of this encounter Goals Goal Patient Goal Type Associated Problems Recent Progress Patient-Stated? Author Reminders Care Plan OB Reminders No Open Scheduling, Background documented as of this encounter Visit Diagnoses Not on filedocumented in this encounter Additional Health Concerns Active Problems Noted Date Diagnosed Date OB Reminders 02/18/2024 documented as of this encounter
[2024-08-25 11:26] VITALS: BP 129/88; PULSE 91
[2024-08-25 11:29] VITALS: BP 126/83; PULSE 92
== END 2024-08-25 12:37 | disposition home or self-care (01) ==
LOC: US 11:04 → FBC 11:05
PROVIDERS: Visit Provider Obstetrics & Gynecology
DX: O41.00X0 Oligohydramnios, unspecified trimester, not applicable or unspecified (principal)
CPT/HCPCS: 76818

== ENCOUNTER 2024-08-30 16:10 | Inpatient (IN) | payer MEDICAID, SELFPAY ==
--- OUTSIDE RECORDS SUMMARY | 2024-08-22 09:30 | XMS_ITS | Encounter Summary ---
Author Organization [facility] Address [address] [place] [address] Care Team Providers Care Correctional Therapy Teacher Name Role Phone Unavailable Primary Care Provider Unavailabl e Reason for Visit * Reason Comments Routine Visit Encounter Details Date Type Department Care Team (Late st Contact Info) Description 08/22/2024 9:30 AM EDT Routine [facility] [address] [facility] [place] [address] Teresa Moreno NP [address] [facility] [place] [address] Third trimester ; 36 weeks gestation of Social History Tobacco Use [...] Sign Reading Time Taken Comments Blood Pressure 124/80 08/22/2024 10:02 AM EDT Pulse - - Temperature - - Respiratory Rate - - Oxygen Saturation - - Inhaled Oxygen Concentration - - Weight 101 kg (223 lb) 08/22/2024 10:02 AM EDT Height - - Body Mass Index - - documented in this encounter Progress Notes * Teresa Moreno NP - 08/22/2024 9:30 AM EDT Reason for Appointment: Patient [...] Objective: Physical Exam Constitutional: Appearance: Normal appearance. Genitourinary: Right Adnexa: not tender and no mass present. Left Adnexa: not tender and no mass present. No cervical discharge. Breasts: Breasts are soft. Right: Normal. Left: Normal. HENT: Head: Normocephalic. Nose: Nose normal. Mouth/Throat: Mouth: Mucous membranes are moist. Cardiovascular: Rate and Rhythm: Normal rate. Pulmonary: Effort: Pulmonary effort is normal. Abdominal: General: Bowel sounds are normal. Palpations: Abdomen is soft. Musculoskeletal: General: Normal range of motion. Cervical back: Normal range of motion. Neurological: General: No focal deficit present. Mental Status: She is alert. Skin: General: Skin is warm and dry. Psychiatric: Mood and Affect: Mood normal. Vitals and nursing note reviewed. Exam conducted with a manager cable present. Vitals: There is no height or weight on file to calculate BMI. BP: Patient's last menstrual period was 12/14/2023. ASSESSMENT & PLAN ICD-10-CM 1. Third trimester Z34.93 POCT urinalysis dipstick manually resulted CULTURE, GROUP B STREP WITH SUSCEPTIBLITY CULTURE, GROUP B STREP WITH SUSCEPTIBLITY CANCELED: CULTURE, GROUP B STREP WITH SUSCEPTIBLITY 2. 36 weeks gestation of Z3A.36 Patient is doing well but has complaints of being tired and having maternal discomfort due to . Patient verbalized frequent movement and was instructed to perform kick counts three times per day. labor precautions were given, LARC consent was signed/declined, and GBS was obtained. Cervical check was performed and patient is 1cm dilated. Orders Placed This Encounter Procedures CULTURE, GROUP B STREP WITH SUSCEPTIBLITY POCT urinalysis dipstick manually resulted Follow Up: Patient is to return to office in 1 week for routine OB appointment Documented by Delmy Barger MA on behalf of: Teresa Moreno NP documented in this encounter Plan of Treatment Scheduled Orders Name Type Priority Associated Diagnoses Orde r Schedule CULTURE, GROUP B STREP WITH SUSCEPTIBLITY Lab Routine Third trimester Expected: 08/22/2024, Expires: 08/22/2025 documented as of this encounter Goals Goal Patient Goal Type Associated Problems Recent Progress Patient-Stated? Author Reminders Care Plan OB Reminders No Open Scheduling, Background documented as of this encounter Procedures Procedure Name Priority Date/Time Associated Diagnosis Comments POCT URINALYSIS DIPSTICK Routine 08/22/2024 10:05 AM EDT Third trimester documented in this encounter Results * POCT urinalysis dipstick manually resulted (08/22/2024 10:05 AM EDT) Color, UA Yellow Clarity, UA Clear Glucose, UA Negative Negative - 1999(110) ++++ mg/dL Bilirubin, UA Negative Negative - 4(70) +++ mg/dL Ketones, UA Negative Negative - 160(16) ++++ mg/dL Spec Grav, UA 1.015 1 - 1.03 Blood, UA Negative Negative - 50 Jesus/mcL pH, UA 7.0 5 - 9 Protein, UA Negative Negative - 2000(20) ++++ mg/dL Urobilinogen, UA 0.2 0.2 - 12 mg/dL Leukocytes, UA Negative Negative - 500+++ Juanita/mcL Nitrite, UA Negative Negative - Positive Urine 08/22/2024 10:0 5 AM EDT Teresa Moreno NP POINT OF CARE TEST ENTER/EDIT ORDERABLES Final Result documented in this encounter Visit Diagnoses Diagnosis Third trimester state, incidental 36 weeks gestation of documented in this encounter Additional Health Concerns Active Problems Noted Date Diagnosed Date OB Reminders 02/18/2024 documented as of this encounter
--- OUTSIDE RECORDS SUMMARY | 2024-08-30 13:00 | XMS_ITS | Encounter Summary ---
Author Organization [facility] Address [address] [place] [address] Care Team Providers Care Pneumatic Tool Operator Name Role Phone Unavailable Primary Care Provider Unavailabl e Reason for Visit * Reason Comments Routine Visit Encounter Details Date Type Department Care Team (Late st Contact Info) Description 08/30/2024 1:00 PM EDT Routine [facility] OB [address] [place] [phone] Junior Jones, DO [address] [facility] [place] [address] 37 weeks gestation of ; Third trimester ; H/O pre-eclampsia in prior , currently ; Gestational hypertension, antepartum Social History Tobacco Use Types Packs/Day Years [...] Sign Reading Time Taken Comments Blood Pressure 120/70 08/30/2024 1:09 PM EDT Pulse - - Temperature - - Respiratory Rate - - Oxygen Saturation - - Inhaled Oxygen Concentration - - Weight 101 kg (223 lb) 08/30/2024 1:09 PM EDT Height - - Body Mass Index - - documented in this encounter Plan of Treatment Not on file documented as of this encounter Goals Goal Patient Goal Type Associated Problems Recent Progress Patient-Stated? Author Reminders Care Plan OB Reminders No Open Scheduling, Background documented as of this encounter Procedures Procedure Name Priority Date/Time Associated Diagnosis Comments POCT URINALYSIS DIPSTICK Routine 08/30/2024 1:13 PM EDT 37 weeks gestation of Third trimester documented in this encounter Results * (ABNORMAL) POCT urinalysis dipstick manually resulted (08/30/2024 1:13 PM EDT) Color, UA Straw Clarity, UA Clear Glucose, UA Negative Negative - 2000(110) ++++ mg/dL Bilirubin, UA Positive Negative - 4(70) +++ mg/dL Comment:small Ketones, UA Positive Negative - 160(16) ++++ mg/dL Comment:trace Spec Grav, UA 1.030 1 - 1.03 Blood, UA Negative Negative - 50 Jesus/mcL pH, UA 6.0 5 - 9 Protein, UA Positive Negative - 2000(20) ++++ mg/dL Comment:100 Urobilinogen, UA 1.0 0.2 - 12 mg/dL Leukocytes, UA Trace Negative - 500+++ Juanita/mcL Nitrite, UA Negative Negative - Positive Urine 08/30/2024 1:13 PM EDT Junior Jones DO POINT OF CARE TEST ENTER/EDIT OR DERABLES Final Result documented in this encounter Visit Diagnoses Diagnosis 37 weeks gestation of Third trimester state, incidental H/O pre-eclampsia in prior , currently Gestational hypertension, antepartum documented in this encounter Additional Health Concerns Active Problems Noted Date Diagnosed Date OB Reminders 02/18/2024 documented as of this encounter
[2024-08-30 16:30] VITALS: BP 121/86
[2024-08-30 16:36] LABS: Bilirubin Urine NEGATIVE (NEGATIVE); Blood Urine LARGE (NEGATIVE); Clarity Urine CLEAR (CLEAR); Color Urine YELLOW (YELLOW); Glucose Urine UA NEGATIVE (NEGATIVE); Ketones Urine TRACE mg/dL (NEGATIVE); Leukocyte Esterase Urine NEGATIVE (NEGATIVE); Nitrite Urine NEGATIVE (NEGATIVE); Protein Urine TRACE mg/dL (NEG/TRACE); Specific Gravity Urine 1.025 (1.005-1.025); Urobilinogen Urine 0.2 EU/dL (0.2-1.0)
[2024-08-30 16:39] LABS: Urine Microscopic Indicated YES
[2024-08-30 16:46] LABS: Bacteria Urine MODERATE #/HPF (NONE SEEN); Cast Seen? NONE SEEN #/LPF (NONE SEEN); Crystals Seen? None Seen #/HPF (None Seen); Mucus Urine MODERATE (NONE SEEN); RBC Urine 20-50 #/HPF (0-2); Squamous Epithelial Cell Urine FEW #/LPF (NONE/RARE); Urine Culture Indicated YES-LC; WBC Urine 0-2 #/HPF (NONE SEEN)
--- OUTSIDE RECORDS SUMMARY | 2024-08-30 17:21 | XMS_ITS | Encounter Summary ---
Author Organization [facility] Address [address] [place] [address] Care Team Providers Care Employment Services Director Name Role Phone Unavailable Primary Care Provider Unavailabl e Encounter Details Date Type Department Care Team (Late st Contact Info) Description 08/22/2024 Bamboo flowsheet [facility] BCP OB [address] [facility] [place] [address] Teresa Moreno, MOBILE PHLEBOTOMIST [address] [facility] [place] [address] Social History Tobacco Use Types Packs/Day [...] as of this encounter Plan of Treatment Not on [...]
--- OUTSIDE RECORDS SUMMARY | 2024-08-30 17:21 | XMS_ITS | Encounter Summary ---
Author Organization [facility] Address [address] [place] [address] Care Team Providers Care Gaming Dealer Name Role Phone Unavailable Primary Care Provider Unavailabl e Encounter Details Date Type Department Care Team (Late st Contact Info) Description 08/18/2024 Clinisync Result Encounter [facility] External Department Unsolicited Blanca Jones, DO [address] [facility] [place] [address] Social History Tobacco Use Types Packs/Day Years [...] PM EDT Narrative 08/18/2024 12:03 PM EDT The [facility] [address] [address] Ultrasound Report Signed Patient: GILSON MEDINA MR#: [id number] : 1990 Acct:[id number] Age/Sex: 34 / F ADM Date: 08/18/24 Loc: [facility] 250-[address]: Blanca Jones D.O. Ordering Physician: Blanca Jones D.O. Date of Service: 08/18/24 Procedure(s): US OB BPP w non-stress Accession Number(s): [id number] cc: Blanca Jones D.O.; Physician,Non-Staff Vasquez The [address] [address] Patient Name: GILSON MEDINA MRN: [id number] date: 1990 Sex: F Assigned Patient Location: [facility] Current Patient Location: [facility] Accession/Order Number: [id number] Exam Date: 08/18/2024 11:59 Report Date: 08/18/2024 12:00 At the request of: BLANCA JONES DO Procedure: US OB BPP w non-stress BIOPHYSICAL PROFILE: CLINICAL INFORMATION: LOW AMINOTIC FLUID O41.00X0 COMPARISON: 08/11/2024 There is a single live intrauterine gestation in cephalic presentation. The reported gestational age is 35 weeks 3 days. The heart rate dgwootfo040 beats per minute. FINDINGS: TONE: 1 or [...] This is in normal range. Total score: 8 US/US OB BPP w non-stress IMPRESSION: NORMAL BIOPHYSICAL PROFILE. Impression dictated by: Elisa Boothe M.D. 08/18/2024 12:00 PM Dictation Location: [place] [address] Electronically authenticated by: [id number] Y Date: 08/18/2024 12:00 Dictated By: Elisa Boothe M.D. Signed By: 08/18/24 1203 DD/ 1200 TD/TT: In Flight Crew Member: Procedure Note Radiology, Radiologist, - 08/18/2024 [place] [address] Ultrasound Report Signed Patient: GILSON MEDINA RMR#: [id number] : 1990Acct:[id number] Age/Sex: 34 / FADM Date: 08/18/24 Loc: [facility] 250-[address]: Blanca Jones D.O. Ordering Physician: Blanca Jones D.O. Date of Service: 08/18/24 Procedure(s): US OB BPP w non-stress Accession Number(s): [id number] cc: Blanca Jones D.O.; Physician,Non-Staff Vasquez The [place] [address] Patient Name: GILSON MEDINA MRN: [facility]:[id number] date: 1990 Sex: F Assigned Patient Location: [facility] Current Patient Location: [facility] Accession/Order Number: [id number] Exam Date: 08/18/2024 11:59 Report Date: 08/18/2024 12:00 At the request of: BLANCA JONES DO Procedure: US OB BPP w non-stress BIOPHYSICAL PROFILE: CLINICAL INFORMATION: LOW AMINOTIC FLUID O41.00X0 COMPARISON: 08/11/2024 There is a single live intrauterine gestation in cephalic presentation.The reported gestational age is 35 weeks 3 days. The heart acmbxcymqitr315 beats per minute. FINDINGS: TONE: 1 or [...] Boothe M.D. 08/18/2024 12:00 PM Dictation Location: [place] [address] Electronically authenticated by: [id number] Y Date: 2:00 Dictated By: Elisa Boothe M.D. Signed By:08/18/24 1203 DD/ 1200 TD/TT: In Flight Crew Member: us Blanca Jones DO [facility] Final Result documented in this encounter Visit Diagnoses Not on filedocumented in this encounter Additional Health Concerns Active Problems Noted Date Diagnosed Date OB Reminders 02/18/2024 documented as of this encounter
--- OUTSIDE RECORDS SUMMARY | 2024-08-30 17:21 | XMS_ITS | Encounter Summary ---
Author Organization [facility] Address [address] [place] [address] Care Team Providers Care Athletic Monitor Name Role Phone Unavailable Primary Care Provider Unavailabl e Encounter Details Date Type Department Care Team (Late st Contact Info) Description 07/29/2024 Abstract [facility] BCP OB [address] [facility] [place] [phone] Junior Jones, DO [address] [place], [facility] Social History Tobacco Use Types Packs/Day Years [...]
--- OUTSIDE RECORDS SUMMARY | 2024-08-30 17:21 | XMS_ITS | Encounter Summary ---
Author Organization [facility] Address [address] [place] [address] Care Team Providers Care Teletypesetter Monitor Name Role Phone Unavailable Primary Care Provider Unavailabl e Encounter Details Date Type Department Care Team (Late st Contact Info) Description 08/25/2024 Clinisync Result Encounter [facility] External Department Unsolicited Blanca Jones, DO [address] [facility] [place] [address] Social History Tobacco Use Types Packs/Day Years [...] Diagnosis Comments US OB BPP W NON-STRESS 08/25/2024 11:41 AM EDT documented in this encounter Results * US OB BPP W NON-STRESS (08/25/2024 11:41 AM EDT) Anatomical Region Laterality Modality Other 08/25/2024 11:4 1 AM EDT Narrative 08/25/2024 11:44 AM EDT The [facility] [address] [address] Ultrasound Report Signed Patient: GILSON MEDINA MR#: [id number] : 1990 Acct:[id number] Age/Sex: 34 / F ADM Date: 08/25/24 Loc: [facility] 250-[address]: Blanca Jones D.O. Ordering Physician: Blanca Jones D.O. Date of Service: 08/25/24 Procedure(s): US OB BPP w non-stress Accession Number(s): [id number] cc: Blanca Jones D.O.; Physician,Non-Staff Vasquez The [address] [address] Patient Name: GILSON MEDINA MRN: [id number] date: 1990 Sex: F Assigned Patient Location: [facility] Current Patient Location: [facility] Accession/Order Number: [id number] Exam Date: 08/25/2024 11:38 Report Date: 08/25/2024 11:41 At the request of: BLANCA JONES DO Procedure: US OB BPP w non-stress BIOPHYSICAL PROFILE: CLINICAL INFORMATION: Low amniotic fluid O41.00x0 COMPARISON: 08/18/2024 There is a single live intrauterine gestation in cephalic presentation. The reported gestational age is 36 weeks 3 days. The heart rate chnypqfo087 beats per minute. FINDINGS: TONE: 1 or [...] greater than 2 cm [Y] 2/2 LIZETH: 10.7 cm. This is in low-normal range (5th percentile 7.7 cm). Total score: 8/8 US/US OB BPP w non-stress IMPRESSION: NORMAL BIOPHYSICAL PROFILE Impression dictated by: Elisa Boothe M.D. 08/25/2024 11:41 AM Dictation Location: [place] [address] Electronically authenticated by: [id number] Y Date: 08/25/2024 11:41 Dictated By: Elisa Boothe M.D. Signed By: 08/25/24 1144 DD/ 1141 TD/TT: Drill Operator Automatic: Procedure Note Radiology, Radiologist, - 08/25/2024 [place] [address] Ultrasound Report Signed Patient: GILSON MEDINA RMR#: [id number] : 1990Acct:[id number] Age/Sex: 34 / FADM Date: 08/25/24 Loc: [facility] 250-[address]: Blanca Jones D.O. Ordering Physician: Blanca Jones D.O. Date of Service: 08/25/24 Procedure(s): US OB BPP w non-stress Accession Number(s): [id number] cc: Blanca Jones D.O.; Physician,Non-Staff Vasquez The [place] [address] Patient Name: GILSON MEDINA [facility]: [facility]:[id number] date: 1990 Sex: F Assigned Patient Location: [facility] Current Patient Location: [facility] Accession/Order Number: [id number] Exam Date: 08/25/2024 11:38 Report Date: 08/25/2024 11:41 At the request of: BLANCA JONES DO Procedure: US OB BPP w non-stress BIOPHYSICAL PROFILE: CLINICAL INFORMATION: Low amniotic fluid O41.00x0 COMPARISON: 08/18/2024 There is a single live intrauterine gestation in cephalic presentation.The reported gestational age is 36 weeks 3 days. The heart rkfkjghkderb271 beats per minute. FINDINGS: TONE: 1 or [...] greater than 2 cm [Y] 2/2 LIZETH: 10.7 cm. This is in low-normal range (5th percentile 7.7cm). Total score: 8/8 US/US OB BPP w non-stress IMPRESSION: NORMAL BIOPHYSICAL PROFILE Impression dictated by: Elisa Boothe M.D. 08/25/2024 11:41 AM Dictation Location: [place] [address] Electronically authenticated by: [id number] Y Date: 1:41 Dictated By: Elisa Boothe M.D. Signed By:08/25/24 1144 DD/ 1141 TD/TT: Drill Operator Automatic: us Blanca Karen DO [facility] Final Result documented in this encounter Visit Diagnoses Not on filedocumented in this encounter Additional Health Concerns Active Problems Noted Date Diagnosed Date OB Reminders 02/18/2024 documented as of this encounter
--- OUTSIDE RECORDS SUMMARY | 2024-08-30 17:21 | XMS_ITS | Encounter Summary ---
Author Organization [facility] Address [address] [place] [address] Care Team Providers Care Rotary Shear Worker Helper Name Role Phone Unavailable Primary Care Provider Unavailabl e Encounter Details Date Type Department Care Team (Late st Contact Info) Description 08/17/2024 Abstract [facility] OB [address] [facility] [place] [address] Junior Jones, DO [address] [place] [place], [facility] [...]
--- OUTSIDE RECORDS SUMMARY | 2024-08-30 17:21 | XMS_ITS | Encounter Summary ---
Author Organization [facility] Address [address] [place] [address] Care Team Providers Care Vp Ad Products And Planning Name Role Phone Unavailable Primary Care Provider Unavailabl e Encounter Details Date Type Department Care Team (Late st Contact Info) Description 04/12/2024 Abstract [facility] BCP OB [address] [facility] [place] [address] Junior Jones, DO [address] [place], [facility]11 Social History Tobacco Use Types Packs/Day [...]
--- OUTSIDE RECORDS SUMMARY | 2024-08-30 17:21 | XMS_ITS | Clinical Summary ---
Author Organization [facility] Address [address] [place] [address] Care Team Providers Care Search Engine Optimization Analyst Name Role Phone Unavailable Primary Care Provider [...] Never Assessed Area Deprivation Index Answer Date Niraj rded National Score (1-100), lower number is lower ri sk 79 05/03/2022 State Score (1-10), lower number is lower risk N ot on file 05/03/2022 Data from: https://www.neighborhoodatlas.medicine.[facility].edu/. Last address used for calculation [address] [place] [address] 05/03/2022 Comments Unknown Sex and Gender Information [...]
--- OUTSIDE RECORDS SUMMARY | 2024-08-30 17:21 | XMS_ITS | Encounter Summary ---
Author Organization [facility] Address [address] [place] [address] Care Team Providers Care Advisory Services Associate Name Role Phone Unavailable Primary Care Provider Unavailabl e Encounter Details Date Type Department Care Team (Late st Contact Info) Description 04/08/2024 Abstract [facility] B[facility] OB 102 [facility] [address] Junior Jones, DO [address] [address], [facility]11 Social History Tobacco Use Types [...]
--- OUTSIDE RECORDS SUMMARY | 2024-08-30 17:21 | XMS_ITS | Encounter Summary ---
Author Organization [facility] Address [address] [place] [address] Care Team Providers Care Cell Liner Name Role Phone Unavailable Primary Care Provider Unavailabl e Encounter Details Date Type Department Care Team (Late st Contact Info) Description 05/19/2024 Abstract [facility]CP OB [address] [facility] [place] [place] [address] Junior Jones, DO [address] [place], [facility]11 Social History Tobacco Use Types Packs/Day [...]
--- OUTSIDE RECORDS SUMMARY | 2024-08-30 17:21 | XMS_ITS | Encounter Summary ---
Author Organization [facility] Address [address] [place] [address] Care Team Providers Care Bellman Captain Name Role Phone Unavailable Primary Care Provider [...]
--- OUTSIDE RECORDS SUMMARY | 2024-08-30 17:21 | XMS_ITS | Encounter Summary ---
Author Organization [facility] Address [address] [place] [address] Care Team Providers Care Air Defence Officer Name Role Phone Unavailable Primary Care Provider Unavailabl e Encounter Details Date Type Department Care Team (Late st Contact Info) Description 04/01/2024 Abstract [facility] BCP OB [address] [facility] [place] [address] Junior Jones, DO [address] [place], [facility]11 Social History Tobacco Use Types Packs/Day Years [...]
--- OUTSIDE RECORDS SUMMARY | 2024-08-30 17:21 | XMS_ITS | Encounter Summary ---
Author Organization [facility] Address [address] [place] [address] Care Team Providers Care Manual Winder Name Role Phone Unavailable Primary Care Provider Unavailabl e Encounter Details Date Type Department Care Team (Late st Contact Info) Description 06/23/2024 Abstract [facility] BCP OB [address] [facility] [place] [address] Anna Carrasco LPN Social History Tobacco Use [...]
--- OUTSIDE RECORDS SUMMARY | 2024-08-30 17:21 | XMS_ITS | Encounter Summary ---
Author Organization [facility] Address [address] [place] [address] Care Team Providers Care Fisher Reef Net Name Role Phone Unavailable Primary Care Provider Unavailabl e Encounter Details Date Type Department Care Team (Late st Contact Info) Description 08/30/2024 Bamboo flowsheet [facility] BCP OB [address] [place] [address] Junior Jones, DO [address] [facility] [place] [address] Social History Tobacco Use Types Packs/Day Years [...]
--- OUTSIDE RECORDS SUMMARY | 2024-08-30 17:21 | XMS_ITS | Encounter Summary ---
Author Organization [facility] Address [address] [place] [address] Care Team Providers Care Prepress Technician Name Role Phone Unavailable Primary Care Provider Unavailabl e Encounter Details Date Type Department Care Team (Late st Contact Info) Description 02/19/2024 Clinisync Result Encounter NOMS External Department Unsolicited Blanca Jones, DO [address] [facility] [address] [place], [place] [phone] Social History Tobacco Use Types Packs/Day Years [...] AM EST Narrative 02/19/2024 4:20 AM EST The [facility] [address] [place] [address] Ultrasound Report Signed Patient: GILSON MEDINA MR#: [id number] : 1990 Acct:[id number] Age/Sex: 33 / F ADM Date: 02/18/24 Loc: [facility] Attending Dr: Blanca Jones D.O. Ordering Physician: Blanca Jones D.O. Date of Service: 02/18/24 Procedure(s): US OB transvaginal Accession Number(s): [id number] cc: Blanca Jones D.O.; Physician,Non-Staff Vasquez The [place] [address] Patient Name: GILSON MEDINA MRN: [id number] date: 1990 Sex: F Assigned Patient Location: [facility] Current Patient Location: Accession/Order Number: [id number] Exam Date: 02/18/2024 12:35 Report Date: 02/19/2024 [...] Single live intrauterine . Electronically authenticated by: MAXIMINO BEATTY Date: 02/19/2024 04:17 Dictated By: Maximino Beatty M.D. Signed By: 02/19/24 0420 DD/ 0417 TD/TT: Assessment Expert: Procedure Note Radiology, Radiologist, MD - 02/19/2024 [place] [address] Ultrasound Report Signed Patient: ROYCE MEDINAR#: [id number] : 1990Acct:[id number] Age/Sex: 33 / FADM Date: 02/18/24 Loc: [facility] Attending Dr: Blanca Jones D.O. Ordering Physician: Blanca Jones D.O. Date of Service: 02/18/24 Procedure(s): US OB transvaginal Accession Number(s): [id number] cc: Blanca Jones D.O.; Physician,Non-Staff Vasquez [place] [address] Patient Name: GILSON MEDINA MRN: [facility]:[id number] date: 1990 Sex: F Assigned Patient Location: [facility] Current Patient Location: Accession/Order Number: [id number] Exam Date: 02/18/2024 12:35 Report Date: 02/19/2024 [...] Single live intrauterine . Electronically authenticated by: MAXIMINO BEATTY Date: 02/19/2024 04:17 Dictated By: Maximino Beatty M.D. Signed By:02/19/24 0420 DD/ 0417 TD/TT: Assessment Expert: us Blanca Jonse DO [facility] Final Result documented in this encounter Visit Diagnoses Not on filedocumented in this encounter Additional Health Concerns Active Problems Noted Date Diagnosed Date OB Reminders 02/18/2024 documented as of this encounter
--- OUTSIDE RECORDS SUMMARY | 2024-08-30 17:21 | XMS_ITS | Encounter Summary ---
Author Organization [facility] Address [address] [place] [address] Care Team Providers Care Alkylation Operator Name Role Phone Unavailable Primary Care Provider Unavailabl e Encounter Details Date Type Department Care Team (Late st Contact Info) Description 04/25/2024 Orders Only [facility] BCP OB [address] [place] [phone] Della Ly LPN [address] [place] [id number] Social History Tobacco Use Types Packs/Day Years [...]
--- OUTSIDE RECORDS SUMMARY | 2024-08-30 17:21 | XMS_ITS | Encounter Summary ---
Author Organization [facility] Address [address] [place] [address] Care Team Providers Care Senior Software Architect Name Role Phone Unavailable Primary Care Provider Unavailabl e Encounter Details Date Type Department Care Team (Late st Contact Info) Description 02/01/2024 Abstract [facility] BCP OB [address] [place] [phone] Junior Jones, DO 102 [place] [place], [facility]11 Social History Tobacco Use Types Packs/Day Years Used Date Smoking Tobacco: Never Assessed Comments Unknown Sex and Gender Information Value Date Recorded Sex Assigned at Not on file Legal Sex Female 9:19 AM EDT Gender Identity Not on file Sexual Orientation Not on file documented as of this encounter Plan of Treatment Not on file documented as of this encounter Visit Diagnoses Not on filedocumented in this encounter
--- OUTSIDE RECORDS SUMMARY | 2024-08-30 17:21 | XMS_ITS | Encounter Summary ---
Author Organization [facility] Address [address] [place] [address] Care Team Providers Care Exotic Dancer Name Role Phone Unavailable Primary Care Provider [...]
--- OUTSIDE RECORDS SUMMARY | 2024-08-30 17:21 | XMS_ITS | Encounter Summary ---
Author Organization [facility] Address [address] [place] [place] [address] Care Team Providers Care Raisin Separator Operator Name Role Phone Unavailable Primary Care Provider Unavailabl e Encounter Details Date Type Department Care Team (Late st Contact Info) Description 02/19/2024 Abstract [facility] BCP OB 102 [facility] [place] [address] Junior Jones, DO [address] [place], [facility]11 Social History Tobacco Use Types Packs/Day Years [...]
--- OUTSIDE RECORDS SUMMARY | 2024-08-30 17:21 | XMS_ITS | Encounter Summary ---
Author Organization [facility] Address [address] [place] [address] Care Team Providers Care Import/Export Analyst Name Role Phone Unavailable Primary Care Provider Unavailabl e Encounter Details Date Type Department Care Team (Late st Contact Info) Description 08/30/2024 Clinisync Result Encounter [facility] External Department Unsolicited Junior Jones, DO [address] [place], [place] [id number] Social History Tobacco Use Types Packs/Day Years [...] Procedure Name Priority Date/Time Associated Diagnosis Comments [facility] URINE MICROSCOPIC ONLY Routine 08/30/2024 4:20 PM EDT [facility] UA (CLEAN/CATCH) PAPER PATTERN INSPECTOR/MICRO IF IND. Routine 08/30/2024 4:20 PM EDT documented in this encounter Results * (ABNORMAL) [facility] URINE MICROSCOPIC ONLY (08/30/2024 4:20 PM EDT) TB WBC 0-2(A) NONE SEEN #/HPF TBH TBH RBC 20-50(A) 0 - 2 #/HPF TBH BACTERIA URINE MODERATE(A ) NONE SEEN #/HPF [facility] MUCUS URINE MODERATE(A ) NONE SEEN TBH SQUAMOUS EPITHELIAL CELL URINE FEW(A) NONE/RARE #/LPF TBH CRYSTALS SEEN? None Seen None Seen #/HPF TBH CAST SEEN? NONE SEEN NONE SEEN #/LPF [facility]H URINE CULTURE INDICATED YES-LC [facility] 08/30/2024 4:20 PM EDT 08/30/2024 4:34 PM EDT Narrative [facility] - 08/30/2024 4:46 PM EDT us Junior Karen DO CLIN[facility] Final Result Performing Organization Address [facility] Phone Number [facility] * (ABNORMAL) [facility]H UA (CLEAN/CATCH) PAPER PATTERN INSPECTOR/MICRO IF IND. (08/30/2024 4:20 PM EDT) COLOR URINE YELLOW YELLOW TBH CLARITY URINE CLEAR CLEAR TBH SPECIFIC GRAVITY URINE 1.025 1.005 - 1.025 TBH PH URINE 6.0 5.0 - 9.0 TBH PROTEIN URINE TRACE NEG/TRACE mg/dL TBH GLUCOSE URINE UA NEGATIVE NEGATIVE mg/dL TBH BILIRUBIN URINE NEGATIVE NEGATIVE TBH KETONES URINE TRACE(A) NEGATIVE mg/dL TBH BLOOD URINE LARGE(A) NEGATIVE TBH NITRITE URINE NEGATIVE NEGATIVE TBH UROBILINOGEN URINE 0.2 0.2 - 1.0 EU/dL TBH LEUKOCYTE ESTERASE URINE NEGATIVE NEGATIVE TBH URINE MICROSCOPIC INDICATED YES TBH 08/30/2024 4:20 PM EDT 08/30/2024 4:34 PM EDT Narrative [facility] - 08/30/2024 4:46 PM EDT Junior Karen DO CLIN[facility] Final Result Performing Organization Address [facility] de Phone Number [facility] documented in this encounter Visit Diagnoses Not on filedocumented in this encounter Additional Health Concerns Active Problems Noted Date Diagnosed Date OB Reminders 02/18/2024 documented as of this encounter
--- OUTSIDE RECORDS SUMMARY | 2024-08-30 17:21 | XMS_ITS | Encounter Summary ---
Author Organization [facility] Address [address] [place] [address] Care Team Providers Care Equine Breeder Name Role Phone Unavailable Primary Care Provider Unavailabl e Encounter Details Date Type Department Care Team (Late st Contact Info) Description 02/29/2024 Abstract [facility] [address] [place] [id number] Junior Jones, DO [address], [facility] Social History Tobacco Use Types Packs/Day [...]
[2024-08-30 17:28] LABS: Amphetamine Screen Urine NEGATIVE (NEGATIVE); Barbiturates Screen Urine NEGATIVE (NEGATIVE); Benzodiazepines Screen Urine NEGATIVE (NEGATIVE); Buprenorphine Screen Urine NEGATIVE (NEGATIVE); Cannabinoid Screen Urine POSITIVE (NEGATIVE); Cocaine Screen Urine NEGATIVE (NEGATIVE); Methadone Screen Urine NEGATIVE (NEGATIVE); Methamphetamines Screen Urine NEGATIVE (NEGATIVE); Opiate Screen Urine NEGATIVE (NEGATIVE); Oxycodone Screen Urine NEGATIVE (NEGATIVE); Phencyclidine Screen Urine NEGATIVE (NEGATIVE); Tricyclic Antidepressant Urine NEGATIVE (NEGATIVE)
[2024-08-30] MEDS: CALCIUM CARBONATE 500 MG (200MG ELEMENTAL) TAB CHEW 1000 MG PO (18:02)
--- OUTSIDE RECORDS SUMMARY | 2024-08-30 18:49 | XMS_ITS | CCD ---
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 Interpretation and review of laboratory results Normal [facility] Ketones, UA Negative Negative - 160(16) ++++ mg/dL [facility] Leukocytes, UA Negative Negative - 500+++ Juanita/mcL [facility] Nitrite, UA Negative Negative - Positive [facility] pH, UA 7 5 - 9 [facility] Protein, UA Negative Negative - 1999(20) ++++ mg/dL [facility] Spec Grav, UA 1.015 1 - 1.03 [facility] Urobilinogen, UA 0.2 0.2 - 12 mg/dL [facility] US OB BPP W NON-STRESS on 08-18-2024 [place] [address] Ultrasound Report Signed Patient: GILSON MEDINA MR#: [id number] : 1990 Acct:[id number] Age/Sex: 34 / F ADM Date: 08/18/24 Loc: [facility] [address]: Blanca Jones D.O. Ordering Physician: Blanca Jones D.O. Date of Service: 08/18/24 Procedure(s): US OB BPP w non-stress Accession Number(s): [id number] cc: Blanca Jones D.O.; Physician,Non-Staff [employer] The [address] [address] Patient Name: GILSON MEDINA MRN: [facility]:[id number] date: 1990 Sex: F [place] [facility] [facility] Accession/Order Number: [id number] Exam Date: 08/18/2024 11:59 Report Date: 08/18/2024 12:00 At the request of: BLANCA JONES DO Procedure: US OB BPP w non-stress BIOPHYSICAL PROFILE: CLINICAL INFORMATION: LOW AMINOTIC FLUID O41.00X0 COMPARISON: 08/11/2024 There is a single live intrauterine gestation in cephalic presentation. The reported gestational age is 35 weeks 3 days. The heart rate beats per minute. FINDINGS: TONE: 1 or [...] Boothe M.D. 08/18/2024 12:00 PM Dictation Location: [place] [address] Electronically authenticated by: [id number] Y Date: 08/18/2024 12:00 Dictated By: Elisa Boothe M.D. Signed By: 08/18/24 1203 DD/ 1200 TD/TT: Audograph Operator: [facility] Radiology, Radiologi MD jessica - 08/18/2024 [place] [address] Ultrasound Report Signed Patient: GILSON MEDINA MR#: [id number] : 1990 Acct:[id number] Age/Sex: 34 / F ADM Date: 08/18/24 Loc: [facility] 250-[address]: Blanca Jones D.O. Ordering Physician: Blanca Jones D.O. Date of Service: 08/18/24 Procedure(s): US OB BPP w non-stress Accession Number(s): [id number] cc: Blanca Jones D.O.; Physician,Non-Staff Vasquez The [address] [address] Patient Name: GILSON MEDINA MRN: [facility]:[id number] date: 1990 Sex: F [place]igned [place] [facility] [place] [facility] Accession/Order Number: [id number] Exam Date: 08/18/2024 11:59 Report Date: 08/18/2024 12:00 At the request of: BLANCA JONES DO Procedure: US OB BPP w non-stress BIOPHYSICAL PROFILE: CLINICAL INFORMATION: LOW AMINOTIC FLUID O41.00X0 COMPARISON: 08/11/2024 There is a single live intrauterine gestation in cephalic presentation. The reported gestational age is 35 weeks 3 days. The heart rate [id number] beats per minute. FINDINGS: TONE: 1 or [...] Boothe M.D. 08/18/2024 12:00 PM Dictation Location: [place] [address] Electronically authenticated by: [id number] Y Date: 08/18/2024 12:00 Dictated By: Elisa Boothe M.D. Signed By: 08/18/24 1204 DD/ 1200 TD/TT: Audograph Operator: [facility] Radiology Study observation (narrative) [facility] US OB BPP W NON-STRESS Ordered By: Radiologist Radiology on 08-18-2024 [facility] Work Phone: US OB BPP W NON-STRESS on 08-11-2024 [place] [address] Ultrasound Report Signed Patient: GILSON MEDINA MR#: [id number] : 1990 Acct:[id number] Age/Sex: 34 / F ADM Date: 08/11/24 Loc: [facility] 250-[address]: Blanca Jones D.O. Ordering Physician: Karen,Blanca D.O. Date of Service: 08/11/24 Procedure(s): US OB BPP w non-stress Accession Number(s): [id number] cc: Blanca Jones D.O.; Physician,Non-Staff Vasquez The [address] [address] Patient Name: GILSON MEDINA MRN: [facility]:[id number] date: 1990 Sex: F Assigned Patient Location: [facility] Current Patient Location: [facility] Accession/Order Number: [id number] Exam Date: 08/11/2024 11:38 Report Date: 08/11/2024 11:39 At the request of: BLANCA JONES DO Procedure: US OB BPP w non-stress Biophysical profile. Reason for exam: Low amniotic fluid volume. COMPARISON: 08/04/2024 TECHNIQUE: Transabdominal imaging of the gravid uterus was obtained. FINDINGS: Supervisor Grinding reports the BPP is 8 out of 8. LIZETH measures 12 cm. heart rate 147 bpm. US/US OB BPP w non-stress IMPRESSION: BPP 8 out of 8. Impression dictated by: David Qureshi Jr., D.O. 08/11/2024 11:39 AM Dictation Location: [place] [address] Electronically authenticated by: [id number] Y Date: 08/11/2024 11:39 Dictated By: David Qureshi M.D. Signed By: 08/11/24 1141 DD/ 1139 TD/TT: Audograph Operator: [facility] Radiology Radiologdomingo lopez MD - 08/11/[address] [address] Ultrasound Report Signed Patient: GILSON MEDINA MR#: [id number] : 1990 Acct:[id number] Age/Sex: 34 / F ADM Date: 08/11/24 Loc: [facility] 250-[address]: Blanca Jones D.O. Ordering Physician: Blanca Jones D.O. Date of Service: 08/11/24 Procedure(s): US OB BPP w non-stress Accession Number(s): [id number] cc: Blanca Jones D.O.; Physician,Non-Staff aVsquez [place] [id number] Patient Name: GILSON MEDINA MRN: [facility]:[id number] date: 1990 Sex: F Assigned Patient Location: [facility] Current Patient Location: [facility] Accession/Order Number: [id number] Exam Date: 08/11/2024 11:38 Report Date: 08/11/2024 11:39 At the request of: BLANCA JONES DO Procedure: US OB BPP w non-stress Biophysical profile. Reason for exam: Low amniotic fluid volume. COMPARISON: 08/04/2024 TECHNIQUE: Transabdominal imaging of the gravid uterus was obtained. FINDINGS: Supervisor Grinding reports the BPP is 8 out of 8. LIZETH measures 12 cm. heart rate 147 bpm. US/US OB BPP w non-stress IMPRESSION: BPP 8 out of 8. Impression dictated by: David Qureshi Jr., D.O. 08/11/2024 11:39 AM Dictation Location: [place] [address] Electronically authenticated by: [id number] Y Date: 08/11/2024 11:39 Dictated By: David Qureshi M.D. Signed By: 08/11/24 1141 DD/ 1139 TD/TT: Audograph Operator: [facility] Radiology Study observation (narrative) [facility] US OB BPP W NON-STRESS Ordered By: Radiologist Radiology on 08-11-2024 [facility] Work Phone: Urinalysis macro (dipstick) panel (U)on 08-11-2024 Bilirubin, UA Negative Negative - 4(70) +++ mg/dL [facility] Blood, UA Negative Negative - 50 Jesus/mcL [facility] Clarity, UA Clear [facility] Color, UA Yellow [facility] Glucose, UA Negative Negative - 2000(110) ++++ mg/dL [facility] Interpretation and review of laboratory results Normal [facility] Ketones, UA Negative Negative - 160(16) ++++ mg/dL [facility] Leukocytes, UA Negative Negative - 500+++ Juanita/mcL [facility] Nitrite, UA Negative Negative - Positive [facility] pH, UA 5.5 5 - 9 [facility] Protein, UA Negative Negative - 2000(20) ++++ mg/dL [facility] Spec Grav, UA 1.02 1 - 1.03 [facility] Urobilinogen, UA 1.0 0.2 - 12 mg/dL [facility] US OB BPP W NON-STRESS on 08-04-2024 [place] [address] Ultrasound Report Signed Patient: GILSON MEDINA MR#: [id number] : 1990 Acct:[id number] Age/Sex: 34 / F ADM Date: 08/04/24 Loc: US Attending Dr: Blanca Jones D.O. Ordering Physician: Blanca Jones D.O. Date of Service: 08/04/24 Procedure(s): US OB BPP w non-stress Accession Number(s): [id number] cc: Blanca Jones D.O.; Physician,Non-Staff MMynor [place] [id number] Patient Name: GILSON MEDINA MRN: [facility]:[id number] date: 1990 Sex: F Assigned Patient Location: Current Patient Location: Accession/Order Number: [id number] Exam Date: 08/04/2024 13:07 Report Date: 08/04/2024 13:08 At the request of: BLANCA JONES DO Procedure: US OB BPP w non-stress Biophysical profile. Reason for exam: Low amniotic fluid volume. COMPARISON: 07/28/2024 TECHNIQUE: Transabdominal imaging of the gravid uterus was obtained. FINDINGS: Supervisor Grinding reports the BPP is 8 out of 8. LIZETH measures 9 cm. heart rate 131 bpm. US/US OB BPP w non-stress IMPRESSION: BPP 8 out of 8. Impression dictated by: David Qureshi Jr., D.O. 08/04/2024 1:08 PM Dictation Location: [facility]- Electronically authenticated by: [id number] Y Date: 08/04/2024 13:08 Dictated By: David Qureshi M.D. Signed By: 08/04/24 1311 DD/ 1308 TD/TT: Audograph Operator: [facility] Radiology, Radiologdomingo lopez MD - 08/04/2024 [place] [address] Ultrasound Report Signed Patient: GILSON MEDINA MR#: [id number] : 1990 Acct:[id number] Age/Sex: 34 / F ADM Date: 08/04/24 Loc: US Attending Dr: Blanca Jones D.O. Ordering Physician: Blanca Jones D.O. Date of Service: 08/04/24 Procedure(s): US OB BPP w non-stress Accession Number(s): [id number] cc: Blanca Jones D.O.; Physician,Non-Staff Vasquez The [place] [id number] Patient Name: GILSON EMDINA MRN: [facility]:[id number] date: 1990 Sex: F Assigned Patient Location: Current Patient Location: Accession/Order Number: [id number] Exam Date: 08/04/2024 13:07 Report Date: 08/04/2024 13:08 At the request of: BLANCA JONES DO Procedure: US OB BPP w non-stress Biophysical profile. Reason for exam: Low amniotic fluid volume. COMPARISON: 07/28/2024 TECHNIQUE: Transabdominal imaging of the gravid uterus was obtained. FINDINGS: Supervisor Grinding reports the BPP is 8 out of 8. LIZETH measures 9 cm. heart rate 131 bpm. US/US OB BPP w non-stress IMPRESSION: BPP 8 out of 8. Impression dictated by: David Qureshi Jr., D.O. 08/04/2024 1:08 PM Dictation Location: [place] [address] Electronically authenticated by: [id number] Y Date: 08/04/2024 13:08 Dictated By: David Qureshi M.D. Signed By: 08/04/24 1311 DD/ 1308 TD/TT: Audograph Operator: [facility] Radiology Study observation (narrative) [facility] US OB BPP W NON-STRESS Ordered By: Radiologist Radiology on 08-04-2024 [facility] [employer] Work Phone: US OB BPP W NON-STRESS on 07-28-2024 [place] [address] Ultrasound Report Signed Patient: GILSON MEDINA MR#: [id number] : 1990 Acct:[id number] Age/Sex: 34 / F ADM Date: 07/28/24 Loc: [facility] Attending Dr: Blanca Jones D.O. Ordering Physician: Blanca Jones D.O. Date of Service: 07/28/24 Procedure(s): US OB BPP w non-stress Accession Number(s): [id number] cc: Blanca Jones D.O.; Physician,Non-Staff Vasquez The [place] [address] Patient Name: GILSON MEDINA MRN: [facility]:[id number] date: 1990 Sex: F Assigned Patient Location: [facility] Current Patient Location: Accession/Order Number: [id number] Exam Date: 07/28/2024 13:53 Report Date: 07/28/2024 13:55 At the request of: BLANCA JONES DO Procedure: US OB BPP w non-stress Biophysical profile. Reason for exam: Low amniotic fluid volume. COMPARISON: None. TECHNIQUE: Transabdominal imaging of the gravid uterus was obtained. FINDINGS: Supervisor Grinding reports the BPP is 8 out of 8. LIZETH measures 8.5 cm. heart rate 1 44 bpm. US/US OB BPP w non-stress IMPRESSION: BPP 8 out of 8. Impression dictated by: David Qureshi Jr., D.O.07/28/2024 1:55 PM Dictation Location: [place] [address] Electronically authenticated by: [id number] Y Date: 07/28/2024 13:55 Dictated By: David Qureshi M.D. Signed By: 07/28/24 1357 DD/ 1355 TD/TT: Audograph Operator: [facility] Radiology, Radiologi MD jessica - 07/28/2024 [place] [address] Ultrasound Report Signed Patient: GILSON MEDINA MR#: [id number] : 1990 Acct:[id number] Age/Sex: 34 / F ADM Date: 07/28/24 [place] [facility] [place]: Blanca Jones D.O. Ordering Physician: Blanca Jones D.O. Date of Service: 07/28/24 Procedure(s): US OB BPP w non-stress Accession Number(s): [id number] cc: Blanca Jones D.O.; Physician,Non-Staff Vasquez The [place] [id number] Patient Name: GILSON MEDINA MRN: [facility]:[id number] date: 1990 Sex: F Assigned Patient Location: [facility] Current Patient Location: Accession/Order Number: [id number] Exam Date: 07/28/2024 13:53 Report Date: 07/28/2024 13:55 At the request of: BLANCA JONES DO Procedure: US OB BPP w non-stress Biophysical profile. Reason for exam: Low amniotic fluid volume. COMPARISON: None. TECHNIQUE: Transabdominal imaging of the gravid uterus was obtained. FINDINGS: Supervisor Grinding reports the BPP is 8 out of 8. LIZEHT measures 8.5 cm. heart rate 1 44 bpm. US/US OB BPP w non-stress IMPRESSION: BPP 8 out of 8. Impression dictated by: David Qureshi Jr., D.O.07/28/2024 1:55 PM Dictation Location: [place] [address] Electronically authenticated by: [id number] Y Date: 07/28/2024 13:55 Dictated By: David Qureshi M.D. Signed By: 07/28/24 1357 DD/ 54 TD/TT: Audograph Operator: [facility] Radiology Study observation (narrative) [facility] US OB BPP W NON-STRESS Ordered By: Radiologist Radiology on 07-28-2024 [facility] Work Phone: US OB FOLLOW UP [...] II, MD, PHD at 28-Jul-2024 11:20:55 PM [facility] Normal Not Available Comment on above: Order Comment: US OB SCAN FOR GROWTH Estimated Date of Delivery: 09/19/24 Gestational Age as of 07/11/2024: 30w0d Urinalysis macro (dipstick) panel (U)on 07-28-2024 Bilirubin, UA Negative Negative - 4(70) +++ mg/dL [facility] Blood, UA Negative Negative - 50 Jesus/mcL [facility] Clarity, UA Clear [facility] Color, UA Yellow [facility] Glucose, UA Negative Negative - 2000(110) ++++ mg/dL [facility] Interpretation and review of laboratory results Normal [facility] Ketones, UA Negative Negative - 160(16) ++++ mg/dL [facility] Leukocytes, UA Negative Negative - 500+++ Juanita/mcL [facility] Nitrite, UA Negative Negative - Positive [facility] pH, UA 6 5 - 9 [facility] Protein, UA Negative Negative - 2000(20) ++++ mg/dL [facility] Spec Grav, UA 1.025 1 - 1.03 [facility] Urobilinogen, UA 0.2 0.2 - 12 mg/dL [facility] US OB LIMITED 1+ FETUSESon 0 [...] II, MD, PHD at 12-Jul-2024 11:25:12 PM [facility] Normal Not Available Comment on above: Order Comment: US OB PLACENTA W US OB TRANSVAGINAL Estimated Date of Delivery: 09/19/24 Gestational Age as of 06/07/2024: 25w1d Urinalysis macro (dipstick) panel (U)on 07-11-2024 Bilirubin, UA Negative Negative - 4(70) +++ mg/dL [facility] Blood, UA Positive Negative - 50 Jesus/mcL [facility] Comment on above: trace-intact Clarity, UA Clear [facility] Color, UA Yellow [facility] Glucose, UA Negative Negative - 1999(110) ++++ mg/dL [facility] Interpretation and review of laboratory results Abnormal [facility] Ketones, UA Negative Negative - 160(16) ++++ mg/dL [facility] Leukocytes, UA Negative Negative - 500+++ Juanita/mcL [facility] Nitrite, UA Negative Negative - Positive [facility] pH, UA 6.5 5 - 9 [facility] Protein, UA Negative Negative - 1999(20) ++++ mg/dL [facility] Spec Grav, UA 1.02 1 - 1.03 [facility] Urobilinogen, UA 0.2 0.2 - 12 mg/dL [facility] ALL CBC WITH AUTO DIFFon BASOPHILS ABSOLUTE AUTO 0 [facility] Basophils/100 WBC (Bld) 0.2 % 0.2 - 2.0 % [facility] Eosinophils/100 WBC (Bld) 0.8 % Low 0.9 - 7.0 % [facility] Erythrocyte distribution width (RBC) [Ratio] 12.3 % 11.0 - 15.0 % [facility] Hematocrit (Bld) [Volume fraction] 37.1 % 36.0 - 48.0 % [facility] Hemoglobin (Bld) [Mass/Vol] 12.7 g/dL 12.0 - 16.0 g/dL [facility] IMMATURE GRANULOCYTES ABS AUTO 0.03 [facility] Immature granulocytes/100 WBC (Bld) 0.4 % 0.0 - 0.5 % [facility] Interpretation and review of laboratory results Abnormal [facility] LYMPHOCYTES ABSOLUTE AUTO 1.8 [facility] Lymphocytes/100 WBC (Bld) 22.3 % 20.5 - 60.0 % [facility] MCH (RBC) [Entitic mass] 29.3 pg 26.7 - 34.0 pg [facility] MCHC (RBC) [Mass/Vol] 34.2 g/dL 29.9 - 35.2 g/dL [facility] MCV (RBC) [Entitic vol] 85.5 fL 81.0 - 99.0 fL [facility] MONOCYTES ABSOLUTE AUTO 0.6 [facility] Monocytes/100 WBC (Bld) 7.4 % 1.7 - 12.0 % [facility] NEUTROPHILS ABSOLUTE AUTO 5.7 [facility] Neutrophils/100 WBC (Bld) 68.9 % 43.0 - 75.0 % [facility] Platelet mean volume (Bld) [Entitic vol] 10.5 fL 9.5 - 13.5 fL [facility] TBH EO # 0.1 [facility] TB PLT 251 [facility] TB RBC 4.34 [facility] WBC 8.3 [facility] No Panel InformationOrdered By: Radiologist Radiology on 06-06-2024 [facility] Work Phone: No Panel Informationon 06-06 Radiology Study observation (narrative) [facility] [place] [address] Ultrasound Report Signed Patient: GILSON MEDINA MR#: [id number] : 1990 Acct:[id number] Age/Sex: 34 / F ADM Date: 06/06/24 Loc: US Attending Dr: Blanca Jones D.O. Ordering Physician: Blanca Jones D.O. Date of Service: 06/06/24 Procedure(s): US OB cervical length Accession Number(s): [id number] cc: Blanca Jones D.O.; Physician,Non-Staff M.D. The [place] [id number] Patient Name: GILSON MEDINA MRN: [id number]:[id number] date: 1990 Sex: F Assigned Patient Location: US Current Patient Location: US Accession/Order Number: [id number] Exam Date: 06/06/2024 22:13 Report Date: 06/06/2024 [...] Elisa Boothe M.D.06/06/2024 10:21 PM Dictation Location: [place] [address] Electronically authenticated by: [id number] Y Date: 06/06/2024 22:21 Dictated By: Elisa Boothe M.D. Signed By: 06/06/242223 DD/ 20 TD/TT: Audograph Operator: [facility] Radiology, Radiologi MD jessica - 06/06/2024 [place] [address] Ultrasound Report Signed Patient: GILSON MEDINA MR#: [id number] : 1990 Acct:[id number] Age/Sex: 34 / F ADM Date: 06/06/24 Loc: US Attending Dr: Blanca Jones D.O. Ordering Physician: Blanca Jones D.O. Date of Service: 06/06/24 Procedure(s): US OB cervical length Accession Number(s): [id number] cc: Blanca Jones D.O.; Physician,Non-Staff Vasquez The [address] [address] Patient Name: GILSON MEDINA MRN: [facility]:[id number] date: 1990 Sex: F Assigned Patient Location: US Current Patient Location: US Accession/Order Number: [id number] Exam Date: 06/06/2024 22:13 Report Date: 06/06/2024 [...] Elisa Boothe M.D.06/06/2024 10:21 PM Dictation Location: [facility] Electronically authenticated by: [id number] Y Date: 06/06/2024 22:21 Dictated By: Elisa Boothe M.D. Signed By: 06/06/242223 DD/ 20 TD/TT: Audograph Operator: [facility] OB INCOMPLETE ANATOMYon 0 06-06-2024 [place] [address] Ultrasound Report Signed Patient: GILSON MEDINA MR#: [id number] : 1990 Acct:[id number] Age/Sex: 34 / F ADM Date: 06/06/24 Loc: US Attending Dr: Blanca Jones D.O. Ordering Physician: Blanca Jones D.O. Date of Service: 06/06/24 Procedure(s): US OB incomplete anatomy Accession Number(s): [id number] cc: Blanca Jones D.O.; Physician,Non-Staff Vasquez The [address] [address] Patient Name: GILSON MEDINA MRN: [id number]:[id number] date: 1990 Sex: F Assigned Patient Location: US Current Patient Location: US Accession/Order Number: [id number] Exam Date: 06/06/2024 22:13 Report Date: 06/06/2024 [...] Elisa Boothe M.D.06/06/2024 10:21 PM Dictation Location: [place] [address] Electronically authenticated by: [id number] Y Date: 06/06/2024 22:21 Dictated By: Elisa Boothe M.D. Signed By: 06/06/242223 DD/ 20 TD/TT: Audograph Operator: [facility] Radiology, Radiologi MD jessica - 06/06/2024 [place] [address] Ultrasound Report Signed Patient: GILSON MEDINA MR#: [id number] : 1990 Acct:[id number] Age/Sex: 34 / F ADM Date: 06/06/24 Loc: US Attending Dr: Blanca Jones D.O. Ordering Physician: Blanca Jones D.O. Date of Service: 06/06/24 Procedure(s): US OB incomplete anatomy Accession Number(s): [id number] cc: Blanca Jones D.O.; Physician,Non-Staff MMynor [place] [id number] Patient Name: GILSON MEDINA MRN: [id number]:[id number] date: 1990 Sex: F Assigned Patient Location: US Current Patient Location: US Accession/Order Number: [id number] Exam Date: 06/06/2024 22:13 Report Date: 06/06/2024 [...] Elisa Boothe M.D.06/06/2024 10:21 PM Dictation Location: [place] [address] Electronically authenticated by: [id number] Y Date: 06/06/2024 22:21 Dictated By: Elisa Boothe M.D. Signed By: 06/06/242223 DD/ 20 TD/TT: Audograph Operator: [facility] Urinalysis macro (dipstick) panel (U)on 06-06-2024 Bilirubin, UA Negative Negative - 4(70) +++ mg/dL [facility] Blood, UA Negative Negative - 50 Jesus/mcL [facility] Clarity, UA Clear [facility] Color, UA Yellow [facility] Glucose, UA Negative Negative - 2000(110) ++++ mg/dL [facility] Interpretation and review of laboratory results Abnormal [facility] Ketones, UA Negative Negative - 160(16) ++++ mg/dL [facility] Leukocytes, UA Trace Negative - 500+++ Juanita/mcL [facility] Nitrite, UA Negative Negative - Positive [facility] pH, UA 6 5 - 9 [facility] Protein, UA Negative Negative - 2000(20) ++++ mg/dL [facility] Spec Grav, UA 1.025 1 - 1.03 [facility] Urobilinogen, UA 0.2 0.2 - 12 mg/dL [facility] US OB 14+ WEEKS ANATOMY SCAN [...] report is generated using voice recognition reporting (BlackJet). On occasion Rebel Monkeye erroneously drops words from the report or [...] GDLNon AGE GDLN ACOG TESTING Note . [facility] Comment on above: TESTS RESULT FLAG UN ITS REF RANGE LAB Clinician Provided Cytology Information Source.............Cervix No. of containers..01 ThinPrep Vial Age Algo ACOG Maria... 30-65 01 FLAG LEGEND: L-Low Normal,H-High Normal,LL-Alert Low,HH-Alert High <-Panic Low,>-Panic High,A-Abnormal,AA-Critical Abnormal Performed at: 01 =[facility] [place] [address] Haydee Kraus MD, HPV APTIMA Negative Negative [facility] Comment on above: This nucleic acid am plification test detects fourteen high- risk HPV types (16,18,31,33,35,39,45,51,52,56,58,59,66,68) without differentiation. Performed at: =[facility] [address], [place] [id number] Rug Dry Room Attendant: Haydee Kraus MD, Phone: [phone] Performed at: - [facility] [address], [place] [id number] Rug Dry Room Attendant: Haydee Kraus MD, Phone: [phone] IGP, APTIMA HPV, RFX 16/18,45 Note . [facility] Comment on above: TESTS RESULT FLAG UN ITS REF RANGE LAB DIAGNOSIS: 02 NEGATIVE FOR INTRAEPITHELIAL LESION OR MALIGNANCY. THIS SPECIMEN WAS RESCREENED PART OF OUR PACKAGING ASSEMBLER PROGRAM. Specimen adequacy: 02 Satisfactory for evaluation. No endocervical component is identified. Performed by: Jose Cervantes, General Repair Mechanic ([facility]) QC reviewed by: Jose Colón, General Repair Mechanic . 02 Note: Note 02 The Pap [...] <-Panic Low,>-Panic High,A-Abnormal,AA-Critical Abnormal Performed at: 02 [facility] [address] [place] [address] Haydee Kraus MD, SPATULA-ALONE CERVIX [facility] RECURRENT VAGINITIS (HTRX)on 04-13-2024 ATOPOBIUM VAGINAE 16.023 Abnormal [facility] ATOPOBIUM VAGINAE Detected Abnormal [facility] BVAB 2,3 (BACTERIAL VAGINOSIS ASSOCIATED BACTERIA 2, 3); MOBILUNCUS SPP 9.934 Abnormal [facility] BVAB 2,3 (BACTERIAL VAGINOSIS ASSOCIATED BACTERIA 2, 3); MOBILUNCUS SPP Detected Abnormal [facility] RADHA ALBICANS, PARAPSILOSIS, TROPICALIS 0 [facility] RADHA ALBICANS, PARAPSILOSIS, TROPICALIS Not detected [facility] RADHA GLABRATA 0 [facility] RADHA GLABRATA Not detected [facility] RADHA KRUSEI 0 [facility] RADHA KRUSEI Not detected [facility] CHLAMYDIA TRACHOMATIS 0 [facility] CHLAMYDIA TRACHOMATIS Not detected [facility] ERMB, C; MEFA 19.423 Abnormal [facility] ERMB, C; MEFA Detected Abnormal [facility] GARDNERELLA VAGINALIS 19.86 Abnormal [facility] GARDNERELLA VAGINALIS Detected Abnormal [facility] Interpretation and review of laboratory results Abnormal [facility] MEGASPHAERA (TYPES 1, 2) 21.115 Abnormal [facility] MEGASPHAERA (TYPES 1, 2) Detected Abnormal [facility] MYCOPLASMA GENITALIUM 0 [facility] MYCOPLASMA GENITALIUM Not detected [facility] NEISSERIA GONORRHOEAE 0 [facility] NEISSERIA GONORRHOEAE Not detected [facility] TET B, TET M 17.31 Abnormal [facility] TET B, TET M Detected Abnormal [facility] TRICHOMONAS VAGINALIS 0 [facility] TRICHOMONAS VAGINALIS Not detected [facility] Urinalysis macro (dipstick) panel (U)on 04-12-2024 Bilirubin, UA Negative Negative - 4(70) +++ mg/dL [facility] Blood, UA Negative Negative - 50 Jesus/mcL [facility] Clarity, UA Clear [facility] Color, UA Yellow [facility] Glucose, UA Negative Negative - 2000(110) ++++ mg/dL [facility] Interpretation and review of laboratory results Abnormal [facility] Ketones, UA Negative Negative - 160(16) ++++ mg/dL [facility] Leukocytes, UA Trace Negative - 500+++ Juanita/mcL [facility] Nitrite, UA Negative Negative - Positive [facility] pH, UA 5.5 5 - 9 [facility] Protein, UA Trace Negative - 1999(20) ++++ mg/dL [facility]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 DO, FAAFP Marital Status:Single [...] 10/21/2016 7:20 PM 10/21/2016 7:20 PM ADDRESS:[address] [place] [address] [address] [facility] [phone] PHYS DOC NOTES: MEDICAL INFORMATION: Prescriptions Given:Prescription Display cyclobenzaprine (cyclobenzaprine 10 mg Tab) 10 mg = 1 tab(s), Oral, TID, PRN for spasm, # 30 tab(s), Refills(s) 0 naproxen (naproxen 500 mg Tab) 500 mg = 1 tab(s), Oral, BID, with food, # 14 tab(s), Refills(s) 0 PATIENT EDUCATION INFORMATION: Instructions:Headache, FAQs; Torticollis, Acute Follow up:With: Address: When: Arslan Malin [address] [place] [address], [place] [address] Business (1) In 3 days 10/24/2016 DIAGNOSIS:Headache; Right torticollis Normal [facility] ED Patient Education Noteon 10-21-2016 ED [...] the brain. Treatment for migraine may include dbeu-ysv-yyfrply or prescription medications. It may also include [...] the headache after it has started. Examples axci-ljm-qgorcuu medications, NSAIDs, ergots, and triptans. Q: What [...] a main cause of migraine. Q: Are rsip-jlz-ywexzae medications for migraine effective?A: Prhl-bjz-izpqpfm, or OTC, medications may be effective in [...] neck. Treatment for tension-type headache may include dmml-oay-qoooers or prescription medications. Treatment may also include [...] 06/14/2012 Document Reviewed: 11/20/2008ExitCare? Patient Information ?2015 [employer]. This information is not intended to replace [...] Rarely, surgery is required.HOME CARE INSTRUCTIONS? Use vtlm-gel-uuceaki and prescription medications as directed by your [...] 06/14/2012 Document Reviewed: 05/01/2010ExitCare? Patient Information ?2014 [employer]. This information is not intended to replace advice given to you by your health care provider. Make sure you discuss any questions you have with your health care provider. Normal [facility] ED Patient Summaryon 017 ED Patient Summary (Inserted Image. Victoria ble to display) [address] [address] Patient Discharge Instructions Person Information Name: GILSON MEDINA Age: 26 Years Date: 10/21/2016 5:37 PMDischarge Diagnosis: Headache; Right torticollis Primary Care Physician: Arslan Malin DO, FAAFP Provider InformationPrimary Provider: Sharon Pickett DO Instructor Bridge:Aquilino Sneed PA-C The exam and treatment you received in the Emergency Department were for an urgent problem and are not intended as complete care. It is important that you follow up with a doctor, nurse practitioner, or physician?s medical receptionist medical assistant for ongoing care. If your symptoms [...] instructions: Follow-up Instructions:With: Address: When: Arslan Malin [address] [place] [address], [place] [address] Business (1) In 3 days 10/24/2016 In [...] 0.Comment: Pharmacy Information: Thank you for choosing [facility] Patient Education Materials: Headaches, Frequently [...] the brain. Treatment for migraine may include vhnq-nss-leorwsr or prescription medications. It may also include [...] the headache after it has started. Examples ipjs-nfo-iwkhbiv medications, NSAIDs, ergots, and triptans. Q: What [...] a main cause of migraine. Q: Are jrsm-kwu-oaizdax medications for migraine effective?A: Fiuy-tfi-jssdvxs, or OTC, medications may be effective in [...] neck. Treatment for tension-type headache may include pxwz-pvo-lfqdtaf or prescription medications. Treatment may also include [...] 06/14/2012 Document Reviewed: 11/20/2008ExitCare? Patient Information ?2014 [employer]. This information is not intended to replace [...] Rarely, surgery is required.HOME CARE INSTRUCTIONS? Use syvw-jkl-rlgzzyl and prescription medications as directed by your [...] 06/14/2012 Document Reviewed: 05/01/2010ExitCare? Patient Information ?2014 [employer]. This information is not intended to replace advice given to you by your health care provider. Make sure you discuss any questions you have with your health care provider.KERI Echeverria LYNSIE R , have received the following patient education materials/instructions and have verbalized understanding: Patient Education Materials: Headache, FAQs; Torticollis, Acute Follow-up Instructions: With: Address: When: Arslan Malin [address] [place], [place] [address]dict [place], [facility] [place] [address] [facility] (1) In 3 days 10/24/2016 Prescriptions: [cyclobenzaprine (cyclobenzaprine 10 mg Tab)] [naproxen (naproxen 500 mg Tab)] Patient Signature Date Clinician/Nurse Signature Date 10/21/16 19:20:21 [facility] Vital Signs Date Time Vital Sign Value Performing Clinician Facility 08-22-2024 10:02-0400 Body weight 101.15 kg Teresa Moreno NP Work Phone: [facility] 08-22-2024 10:02-0400 Diastolic blood pressure 80 mm[Hg] Teresa Moreno CONCRETE POURING SUPERVISOR Work Phone: [facility] 08-22-2024 10:02-0400 Systolic blood pressure 124 mm[Hg] Teresa Moreno NP Work Phone: [facility] 08-11-2024 09:58-0400 Body weight 100.25 kg Desiree PAINTER Work Phone: [facility] 08-11-2024 09:58-0400 Diastolic blood pressure 80 mm[Hg] Desiree PAINTER Work Phone: [facility] 08-11-2024 09:58-0400 Systolic blood pressure 120 mm[Hg] Desiree PAINTER Work Phone: [facility] 07-28-2024 09:50-0400 Body weight 99.11 kg Blanca Karen DO Work Phone: [facility] 07-28-2024 09:50-0400 Diastolic blood pressure 82 mm[Hg] Blanca Karen DO Work Phone: [facility] 07-28-2024 09:50-0400 Systolic blood pressure 124 mm[Hg] Blanca Karen DO Work Phone: [facility] 07-11-2024 11:44-0400 Body weight 97.7 kg Blanca Karen DO Work Phone: [facility] 07-11-2024 11:44-0400 Diastolic blood pressure 78 mm[Hg] Blanca Karen DO Work Phone: [facility] 07-11-2024 11:44-0400 Systolic blood pressure 128 mm[Hg] Blanca Karen DO Work Phone: [facility] 06-06-2024 11:37-0500 Body weight 95.71 kg Desiree PAINTER Work Phone: [facility] 06-06-2024 11:37-0500 Diastolic blood pressure 84 mm[Hg] Desiree PAINTER Work Phone: [facility] 06-06-2024 11:37-0500 Systolic blood pressure 120 mm[Hg] Desiree PAINTER Work Phone: [facility] 05-09-2024 14:36-0500 Body weight 94.26 kg Blanca Karen DO Work Phone: [facility] 05-09-2024 14:36-0500 Diastolic blood pressure 70 mm[Hg] Blanca Karen DO Work Phone: [facility] 05-09-2024 14:36-0500 Systolic blood pressure 120 mm[Hg] Blanca Karen DO Work Phone: [facility] 04-12-2024 14:19-0500 Body weight 93.44 kg Desiree PAINTER Work Phone: [facility] 04-12-2024 14:19-0500 Diastolic blood pressure 76 mm[Hg] Desiree PAINTER Work Phone: [facility] 04-12-2024 14:19-0500 Systolic blood pressure 122 mm[Hg] Desiree Cadet PA Work Phone: [facility] 03-09-2024 14:20-0500 Body weight 90.9 kg Blanca Karen DO Work Phone: [facility] 03-09-2024 14:20-0500 Diastolic blood pressure 80 mm[Hg] Blanca Karen DO Work Phone: [facility] 03-09-2024 14:20-0500 Systolic blood pressure 122 mm[Hg] Blanca Karen DO Work Phone: [facility] 02-18-2024 13:33-0500 Body weight 87.27 kg [facility] Nurse [facility] 02-08-2023 12:30-0500 Body height 175.26 cm Sangita Penn Other [facility] 02-08-2023 12:30-0500 Body mass index (BMI) [Ratio] 25.84 kg/m2 Sangita Penn Other [facility] 02-08-2023 12:30-0500 Body temperature 98.2 [degF] Sangita Penn Other [facility] Other 02-08-2023 12:30-0500 Body weight 79.38 kg Sangita Penn Other [facility] Other 02-08-2023 12:30-0500 Respiratory rate 16 /min Sangita Penn Other [facility] Other 02-08-2023 12:30-0500 SaO2% (BldA) [Mass fraction] 98 % Sangita Penn Other [facility] Other Encounters Encounter Date Encounter Type Care Provider Facility Start: 08-22-2024 End: 08-22-2024 Bamboo flowsheet Teresa Moreno CONCRETE POURING SUPERVISOR Work Phone: [facility] Start: 08-22-2024 End: 08-22-2024 Bamboo flowsheet Teresa Moreno CONCRETE POURING SUPERVISOR Work Phone: [facility] Start: 08-22-2024 End: 08-22-2024 ambulatory TERESA MORENO Not Available Start: 08-22-2024 End: 08-22-2024 Office outpatient visit 15 minutes Teresa Moreno CONCRETE POURING SUPERVISOR Work Phone: [facility] Comment on [...] Patient encounter procedure Desiree PAINTER Work Phone: [facility] Start: 04-12-2024 End: 04-12-2024 Periodic [...] 02-08-2023 End: 02-08-2023 ambulatory Sangita Penn Other [facility] Other Start: 02-08-2023 Office outpatient ne w 30 minutes Sangita Penn [facility] Start: 02-20-2022 End: 02-20-2022 Emergency department patient visit MARY OQUENDO Facility:[facility] Start: 10-21-2016 End: 10-21-2016 Emergency department patient visit Sharon Pickett Facility:[facility] Procedures Date Procedure Procedure Detail [...] Screening for malign ant neoplasm of cervix [facility] Start: 12-05-2024 Influenza vaccination Influenz a Vaccine (Season Ended) [facility] Start: 08-30-2024 End: 08-30-2024 Patient encounter procedure 08/30/2024 1:00 PM EDT Routine [facility] [address] [place] [address] Blanca Jones DO [address] [place] [address] [facility] Start: 08-22-2024 End: 08-22-2025 CULTURE, GROUP B STREP WITH SUSCEPTIBLITY CULTURE, GROUP B STREP WITH SUSCEPTIBLITY Lab Routine Third trimester Expected: 08/22/2024, Expires: 08/22/2025 [facility] Work Phone: Comment on above: Expected: 08/22/2024 , Expires: 08/22/2025 Start: 08-22-2024 End: 08-22-2024 Patient encounter procedure 08/22/2024 9:30 AM EDT Routine [facility] [address] [place] [address] Teresa Moreno, CONCRETE POURING SUPERVISOR [address] [place] [address] [facility] Start: 08-11-2024 End: 08-11-[address] [facility] Comment on above: Arrived Start: 07-28-2024 End: 01-27-2025 US biophysical profile w non stress test US biophysical profile w non stress test Imaging Routine Third trimester Low amniotic fluid volume Expected: 07/28/2024 (Approximate), Expires: 01/27/2025 [facility] Work Phone: Comment on above: Expected: 07/28/2024 (Approximate), Expires: 01/27/2025 Start: 07-28-2024 End: 10-27-2024 US.doppler Umbilical artery US umbilical artery doppler Imaging Routine Third trimester Low amniotic fluid volume Expected: 07/28/2024, Expires: 10/27/2024 [facility] Comment on above: Expected: 07/28/2024 , Expires: 10/27/2024 Start: 07-28-2024 End: 07-28-2024 Patient encounter procedure 07/28/2024 9:40 AM EDT Routine [facility] [address] [place] [address] Blanca Jones, DO [address] [place] [address] [facility] Start: 07-28-2024 End: 07-28-2024 Professional / ancillary services management 07/28/2024 9:00 AM EDT Ancillary Procedure [facility] [address] [place] [address] [facility] Start: 07-25-2024 End: 11-10-2024 US for US OB follow up transabdominal approach Imaging Routine size inconsistent with dates Expected: 07/25/2024, Expires: 11/10/2024 [facility] Work Phone: Comment on above: Expected: 07/25/2024 , Expires: 11/10/2024 Start: 06-27-2024 End: 06-27-2024 Patient encounter procedure 06/27/2024 11:10 AM EDT Routine [facility] [address] [place] [phone] Blanca Jones, DO [address] [place] [address] [facility] Start: 06-06-2024 End: 06-06-2025 [...] encounter procedure 05/09/2024 2:10 PM EST Routine [facility] [address] [place] [id number] Blanca Jones, DO [address] [place] [address] [facility] Start: 05-09-2024 End: 05-09-2024 Professional / ancillary services management 05/09/2024 1:00 PM EST Ancillary Procedure [facility] [address] [facility] [place] [id number] [facility] Start: 04-12-2024 End: 05-13-2024 Alpha fetoprotein, maternal Alpha fetoprotein, maternal Lab Routine Need for maternal serum alpha-protein (MSAFP) screening Expected: 04/12/2024 (Approximate), Expires: 05/13/2024 [facility] Comment on above: Expected: 04/12/2024 (Approximate), Expires: 05/13/2024 Start: 04-12-2024 End: 04-12-2025 US for US OB 14+ weeks anatomy scan Imaging Routine Screening, , for anatomic survey Expected: 04/12/2024, Expires: 04/12/2025 [facility] Comment on above: Expected: 04/12/2024 , Expires: 04/12/2025 Start: 04-12-2024 End: 04-12-2024 Patient encounter procedure [facility] Comment on above: Arrived Start: 03-09-2024 End: 03-09-2024 Patient encounter procedure [facility] Comment on above: Arrived Start: 02-18-2024 End: 02-17-2025 ABO/Rh ABO/Rh Lab Routine Missed menses , unspecified gestational age Expected: 02/18/2024 (Approximate), Expires: 02/17/2025 [facility] Comment on above: Expected: 02/18/2024 (Approximate), Expires: 02/17/2025 Start: 02-18-2024 End: 02-17-2025 Blood type and Indirect antibody screen panel - Blood Type and screen Lab Routine Missed menses , unspecified gestational age Expected: 02/18/2024 (Approximate), Expires: 02/17/2025 [facility] Work Phone: Comment on above: Expected: 02/18/2024 (Approximate), Expires: 02/17/2025 Start: 02-18-2024 End: 02-17-2025 Drugs of abuse panel - Urine by Screen method Rapid drug screen, urine Lab Routine , unspecified gestational age Encounter for supervision of normal first in first trimester Expected: 02/18/2024 (Approximate), Expires: 02/17/2025 [facility] Comment on above: Expected: 02/18/2024 (Approximate), Expires: 02/17/2025 Start: 02-18-2024 End: 02-17-2025 US Pelvis transvaginal US OB transvaginal Imaging Routine Missed menses Expected: 02/18/2024 (Approximate), Expires: 02/17/2025 [facility] Comment on above: Expected: 02/18/2024 (Approximate), Expires: 02/17/2025 Start: 12-06-2023 Influenza vaccination Influenza Vacc ine (#1) [facility] Start: 2022 Screening for malign ant neoplasm of cervix HPV/Cotest [facility] Bacteria identified in Urine by Culture Urine culture Microbiology Routine Missed menses Ordered: 02/18/2024 [facility] Comment on above: Ordered: 02/18/2024 CBC W Auto Different ial panel - Blood CBC and differential Lab Routine Missed menses , unspecified gestational age Ordered: 02/18/2024 [facility] Comment on above: Ordered: 02/18/2024 CHLAMYDIA TRACHOMATI S (GENITO/STI) CHLAMYDIA TRACHOMATIS (GENITO/STI) Lab Routine Exposure to STD Ordered: 04/12/2024 [facility] Comment on above: Ordered: 04/12/2024 Cytology Cervical or vaginal smear or scraping study Pap Smear Pathology and Cytology Routine Well woman exam with routine gynecological exam Ordered: 04/12/2024 [facility] Comment on above: Ordered: 04/12/2024 Hemoglobin A1c/Hemoglobin.total in Blood Hemoglobin A1c Lab Routine Missed menses , unspecified gestational age Ordered: 02/18/2024 [facility] Comment on above: Ordered: 02/18/2024 Hepatitis B virus surface Ag [Presence] in Serum or Plasma by Immunoassay Hepatitis B surface antigen Lab Routine Missed menses , unspecified gestational age Ordered: 02/18/2024 [facility] Comment on above: Ordered: 02/18/2024 Hepatitis C virus Ab [Presence] in Serum or Plasma by Immunoassay Hepatitis C antibody Lab Routine Missed menses , unspecified gestational age Ordered: 02/18/2024 [facility] Comment on above: Ordered: 02/18/2024 HIV-1/HIV-2 antigen/antibody combination immunoassay HIV-1 and HIV-2 antibodies Lab Routine Missed menses , unspecified gestational age Ordered: 02/18/2024 [facility] Comment on above: Ordered: 02/18/2024 Human papilloma viru s DNA [Presence] in Unspecified specimen by Probe with amplification HPV DNA probe, amplified Microbiology Routine Well woman exam with routine gynecological exam Ordered: 04/12/2024 [facility] Comment on above: Ordered: 04/12/2024 Neisseria gonorrhoea e DNA [Presence] in Unspecified specimen by IRA with probe detection Neisseria gonorrhea DNA probe, direct Lab Routine Exposure to STD Ordered: 04/12/2024 [facility] Comment on above: Ordered: 04/12/2024 Reagin Ab [Presence] in Serum by RPR RPR Lab Routine Missed menses , unspecified gestational age Ordered: 02/18/2024 [facility] Comment on above: Ordered: 02/18/2024 Rubella antibody, IgG Rubella an tibody, IgG Lab Routine Missed menses , unspecified gestational age Ordered: 02/18/2024 [facility] [employer] [facility] Comment on above: Ordered: 02/18/2024 SURESWAB(R) ADVANCED VAGINITIS PLUS, TMA SURESWAB(R) ADVANCED VAGINITIS PLUS, TMA Pathology and Cytology Routine Exposure to STD Ordered: 04/12/2024 [facility] [employer] Work Phone: Comment on above: Ordered: 04/12/2024 Payers Date Payer Category Payer Medicaid [id number] 2022 Medicaid [id number] 2016 Unknown [id number] 1992 Unknown [id number] 2.16.84 0.1.881475.3.579.2.9 1992 Unknown [id number] 2.16.84 0.1.625381.3.579.2.1258 1992 Unknown [id number] 2.16.84 0.1.103723.3.579.2.9 1992 Unknown [id number] 2.16.84 0.1.495815.3.579.2.1258 1992 Unknown [id number] 2.16.84 0.1.684205.3.579.2.9 1992 Unknown [id number] 2.16.84 0.1.680066.3.579.2.1258 1992 Unknown [id number] 2.16.84 0.1.520193.3.579.2.1258 1992 Unknown [id number] 2.16.84 0.1.596180.3.579.2.1258 1992 Unknown [id number] 2.16.84 0.1.215578.3.579.2.1258 1992 Unknown [id number] 2.16.84 0.1.025742.3.579.2.1258 1992 Unknown [id number] 2.16.84 0.1.978880.3.579.2.1259 1992 Unknown [id number] 2.16.84 0.1.801507.3.579.2.1259 1992 Unknown [id number] 2.16.84 0.1.240013.3.579.2.1259 Social History Date Type Detail Facility Unknown if ever smoked [facility] Other Sex Assigned At [facility] Other Tobacco smoking status MNIS Tobacco smoking consumption unknown [facility] Start: [...] nursing note reviewed. Exam conducted with a accounting tutor present. Vitals: There is no height or [...] Teresa Moreno NP documented in this encounter [facility] 08-11-2024 History of Presen t illness [...] nursing note reviewed. Exam conducted with a accounting tutor present. Vitals: There is no height or [...] of: MADINA Valdez documented in this encounter [facility] 07-28-2024 History of Presen t illness [...] nursing note reviewed. Exam conducted with a accounting tutor present. Vitals: There is no height or [...] Blanca Jones DO documented in this encounter [facility] 07-11-2024 History of Presen t illness [...] nursing note reviewed. Exam conducted with a accounting tutor present. Vitals: There is no height or [...] Blanca Jones DO documented in this encounter [facility] 06-06-2024 History of Presen t illness [...] of: MADINA Valdez documented in this encounter [facility] 05-09-2024 History of Presen t illness [...] Blanca Jones DO documented in this encounter [facility] 04-12-2024 History of Presen t illness [...] nursing note reviewed. Exam conducted with a accounting tutor present. Vitals: There is no height or [...] weeks for OB appointment. Documented by Delmy Brager MA on behalf of: AMDINA Valdez documented in this encounter [facility] 03-09-2024 History of Presen t illness [...] nursing note reviewed. Exam conducted with a accounting tutor present. Vitals: There is no height or [...] or undercooked meat, and stay away from [facility]. Patient has been consulted regarding any [...] Blanca Jones DO documented in this encounter [facility] 02-18-2024 History of Presen t illness [...] or undercooked meat, and stay away from [facility]. Patient has also been advised to [...] Brigid Taylor LPN documented in this encounter [facility] 02-08-2023 Evaluation note Encounter Date Diagnosis [...] fever/discomfort , cool mist humidifier. May use Belcher as needed for cough, do not take any other OTCs while using Belcher. Patient to follow up with PCP in 2-3 days. Immediate eval if SOB, difficulty breathing, chest pain, dizziness, or other concerning symptoms. Patient verbalizes understanding and is agreeable to treatment plan [facility] Other 11-17-2022 NoteCOVID 19 RESULT: SARS-CoV-2 (Agent of COVID-19) Not Detected by RT-PCR or equivalent method. This test has been authorized by FDA under an Emergency Use Authorization (EUA). INFLUENZA A PCR: Negative for Influenza A by RT-PCR INFLUENZA B PCR: Negative for Influenza B by RT-PCR RSV PCR: Negative for Respiratory Syncytial Virus (RSV) by PCRKindred Hospital NortheastComment on above:Performed By: #### [id number] #### [facility] CLIA [id number] [place] [address] [place] AMERICAEvaluation note* Diagnosis Missed menses , unspecified gestational age Encounter for supervision of normal first in first trimester [facility] Second trimester state, incidental [...] Date Surgical History TONSILS Hospitalization History CHILD [facility] Other Summary Purpose Family History No Family History Records FoundNo Family History Records FoundNo Family History Records Found Advance Directives No Advanced Directives Records FoundNo Advanced Directives Records FoundNo Advanced Directives Records Found Additional Source Comments INFORMATION SOURCE (unrecogn ized section and content) DATE CREATED AUTHOR 09/30/2017 [facility] DATE CREATED AUTHOR AUTHOR'S ORGANIZ ATION 02/23/2022 [facility] DATE CREATED AUTHOR AUTHOR'S ORGANIZ ATION 08/22/2024 [facility] EPIC REASON FOR VISIT [...] BE BASED ON THE PRIMARY CLINICAL RECORDS. [facility]. provides no warranty or guarantee of the accuracy or completeness of information in this document.
[2024-08-30] MEDS: 0.9 % SODIUM CHLORIDE 1,000 ML 125 ML IV (23:50)
[2024-08-31] VITALS (133 sets, daily range): BP systolic 76–223; BP diastolic 42–98; PULSE 72–155; TEMP 36.6–38
[2024-08-31] MEDS: OXYTOCIN/0.9 % SODIUM CHLORIDE 10 UNITS/500 ML PLAST..BAG 6 UNIT IV (00:15)
[2024-08-31 01:00] LABS: Hematocrit 34.5 % (36.0-48.0); Hemoglobin 11.4 g/dL (12.0-16.0); Mean Corpuscular Hemoglobin 26.1 pg (26.7-34.0); Mean Corpuscular Volume 78.9 fL (81.0-99.0); Mean Platelet Volume 11.9 fL (9.5-13.5); Platelet Count 234 10^3/uL (150-450); Red Blood Count 4.37 10^6/uL (4.20-5.40); Red Cell Distribution Width 13.3 % (11.0-15.0); White Blood Count 7.8 10^3/uL (4.0-11.0)
--- OUTSIDE RECORDS SUMMARY | 2024-08-31 07:10 | XMS_ITS | CCD ---
Author Organization [facility] Care Team Providers Care Health And Social Care Teacher Name Role Phone Sharon Pickett Unavailable Unavailable Sharon Pickett Unavailable Unavailable Arslan Malin Unavailable Unavailable MARY OQUENDO Attending Unavailable Sangita Penn Unavailable Unavailable Primary Care Provider UnavailJUNIOR Nicole Attending Unavailable DESIREE CADET Attending Unavailable JUNIOR JONES Attending Unavailable JUNIOR JONES Attending Unavailable JUNIOR JONES Attending Unavailable DESIREE CADET Attending Unavailable MARLIN MORENO Referring Unavailable JUNIOR JONES Attending Unavailable DESIREE CADET Attending Unavailable MARLIN MORENO Attending Unavailable Medications Current Medications Medication Drug Class(es) Dates Sig (Normalized) Sig (Original) [id number] 200 actuat albuterol 0.09 mg/actuat metered dose [...] 1.5 mg/ml oral solution (1 source) Uncompetitive N-pxftsh-H-asparta te Receptor Antagonist, Sigma-1 Agonist Start: 02-08-2023 take 10 mL by mouth every eight hours [place] DM 7.5-7.5 MG/5ML 10 mL Orally every [...] omeprazole 20 mg delayed release oral capsule (16 sources) Proton Pump Inhibitor take 1 capsule [...] Test Name Value Interpretation Reference Range Facility [facility] UA (CLEAN/CATCH) INDUCTION MACHINE SETTER/DAVID RO IF IND.on 08-30-2024 BILIRUBIN URINE Negative NEGATIVE [facility] BLOOD URINE LARGE Abnormal NEGATIVE [facility] Clarity (U) CLEAR CLEAR [facility] Color (U) YELLOW YELLOW [facility] GLUCOSE URINE UA Negative NEGATIVE mg/dL [facility] Interpretation and review of laboratory results Abnormal [facility] Ketones Ql (U) TRACE Abnormal NEGATIVE mg/dL [facility] Leukocyte esterase Test strip Ql (U) Negative NEGATIVE [facility] NITRITE URINE Negative NEGATIVE [facility] pH (U) 6.0 [pH] 5.0 - 9.0 [facility] PROTEIN URINE TRACE NEG/TRACE mg/dL [facility] SPECIFIC GRAVITY URINE 1.025 1.005 - 1.025 [facility] URINE MICROSCOPIC INDICATED YES [facility] UROBILINOGEN URINE 0.2 EU/dL 0.2 - 1.0 EU/dL [facility] Urinalysis macro (dipstick) panel (U)on 08-22-2024 Bilirubin, UA Negative Negative - 4(70) +++ mg/dL [facility] Blood, UA Negative Negative - 50 Jesus/mcL [facility] Clarity, UA Clear [facility] Color, UA Yellow [facility] Glucose, UA Negative Negative - 1999(110) ++++ mg/dL [facility] Interpretation and review of laboratory results Normal [facility] Ketones, UA Negative Negative - 160(16) ++++ mg/dL [facility] Leukocytes, UA Negative Negative - 500+++ Juanita/mcL [facility] Nitrite, UA Negative Negative - Positive [facility] pH, UA 7 5 - 9 [facility] Protein, UA Negative Negative - 2000(20) ++++ mg/dL [facility] Spec Grav, UA 1.015 1 - 1.03 [facility] Urobilinogen, UA 0.2 0.2 - 12 mg/dL formerly [facility] US OB BPP W NON-STRESS on 08-18-2024 [place] [address] Ultrasound Report Signed Patient: SANTIAGO MEDINA MR#: [id number] : 1990 Acct:[id number] Age/Sex: 34 / F ADM Date: 08/18/24 Loc: [facility] 250-[address]: Junior Jones D.O. Ordering Physician: Junior Jones D.O. Date of Service: 08/18/24 Procedure(s): US OB BPP w non-stress Accession Number(s): [id number] cc: Junior Jones D.O.; Physician,Non-Staff [place] The [address] [id number] Patient Name: SANTIAGO MEDINA MRN: [facility]:[id number] date: 1990 Sex: F Assigned Patient Location: [facility] Current Patient Location: [facility] Accession/Order Number: [id number] Exam Date: 08/18/2024 11:59 Report Date: 08/18/2024 12:00 At the request of: JUNIOR JONES DO Procedure: US OB BPP w non-stress BIOPHYSICAL PROFILE: CLINICAL INFORMATION: LOW AMINOTIC FLUID O41.00X0 COMPARISON: 08/11/2024 There is a single live intrauterine gestation in cephalic presentation. The reported gestational age is 35 weeks 3 days. The heart rate [id number] beats per minute. FINDINGS: TONE: 1 or [...] Boothe M.D. 08/18/2024 12:00 PM Dictation Location: [place] [address] Electronically authenticated by: [id number] Y Date: 08/18/2024 12:00 Dictated By: Elisa Boothe M.D. Signed By: 08/18/24 1203 DD/ 1200 TD/TT: Parachute Marker: [facility] Radiology Radiologdomingo lopez MD - 08/18/2024 [place] [address] Ultrasound Report Signed Patient: SANTIAGO MEDINA MR#: [id number] : 1990 Acct:[id number] Age/Sex: 34 / F ADM Date: 08/18/24 Loc: [facility] 250-[address]: Junior Jones D.O. Ordering Physician: Junior Jones D.O. Date of Service: 08/18/24 Procedure(s): US OB BPP w non-stress Accession Number(s): [id number] cc: Junior Jones D.O.; Physician,Non-Staff [place] [address] Patient Name: SANTIAGO MEDINA MRN: [facility]:[id number] date: 1990 Sex: F Assigned Patient Location: [facility] Current Patient Location: [facility] Accession/Order Number: [id number] Exam Date: 08/18/2024 11:59 Report Date: 08/18/2024 12:00 At the request of: JUNIOR JONES DO Procedure: US OB BPP w non-stress BIOPHYSICAL PROFILE: CLINICAL INFORMATION: LOW AMINOTIC FLUID O41.00X0 COMPARISON: 08/11/2024 There is a single live intrauterine gestation in cephalic presentation. The reported gestational age is 35 weeks 3 days. The heart rate [id number] beats per minute. FINDINGS: TONE: 1 or [...] Boothe M.D. 08/18/2024 12:00 PM Dictation Location: [place] [address] Electronically authenticated by: [id number] Y Date: 08/18/2024 12:00 Dictated By: Elisa Boothe M.D. Signed By: 08/18/24 1203 DD/ 1200 TD/TT: Parachute Marker: [facility] Radiology Study observation (narrative) [facility] US OB BPP W NON-STRESS Ordered By: Radiologist Radiology on 08-18-2024 [facility] Work Phone: US OB BPP W NON-STRESS on 08-11-2024 [place] [address] Ultrasound Report Signed Patient: SANTIAGO MEDINA MR#: [id number] : 1990 Acct:[id number] Age/Sex: 34 / F ADM Date: 08/11/24 Loc: [place] [address]: Junior Jones D.O. Ordering Physician: Junior Jones D.O. Date of Service: 08/11/24 Procedure(s): US OB BPP w non-stress Accession Number(s): [id number] cc: Junior Jones D.O.; Physician,Non-Staff [place] [address] Patient Name: SANTIAGO MEDINA MRN: [facility]:[id number] date: 1990 Sex: F Assigned Patient Location: [facility] Current Patient Location: [facility] Accession/Order Number: [id number] Exam Date: 08/11/2024 11:38 Report Date: 08/11/2024 11:39 At the request of: JUNIOR JONES DO Procedure: US OB BPP w non-stress Biophysical profile. Reason for exam: Low amniotic fluid volume. COMPARISON: 08/04/2024 TECHNIQUE: Transabdominal imaging of the gravid uterus was obtained. FINDINGS: Ginseng Farmer reports the BPP is 8 out of 8. LIZETH measures 12 cm. heart rate 147 bpm. US/US OB BPP w non-stress IMPRESSION: BPP 8 out of 8. Impression dictated by: David Qureshi Jr., D.O. 08/11/2024 11:39 AM Dictation [facility] Electronically authenticated by: [id number] Y Date: 08/11/2024 11:39 Dictated By: David Qureshi M.D. Signed By: 08/11/24 1141 DD/ 1139 TD/TT: Parachute Marker: [facility] Sanjay Newsome MD - 08/11/2024 [place] [address] Ultrasound Report Signed Patient: SANTIAGO MEDINA MR#: [id number] : 1990 Acct:[id number] Age/Sex: 34 / F ADM Date: 08/11/24 Loc: [facility] 250-[address]: Junior Jones D.O. Ordering Physician: Junior Jones D.O. Date of Service: 08/11/24 Procedure(s): US OB BPP w non-stress Accession Number(s): [id number] cc: Junior Jones D.O.; Physician,Non-Staff Vasquez The [place] [address] Patient Name: SANTIAGO MEDINA MRN: [facility]:[id number] date: 1990 Sex: F Assigned Patient Location: [facility] Current Patient Location: [facility] Accession/Order Number: [id number] Exam Date: 08/11/2024 11:38 Report Date: 08/11/2024 11:39 At the request of: JUNIOR JONES DO Procedure: US OB BPP w non-stress Biophysical profile. Reason for exam: Low amniotic fluid volume. COMPARISON: 08/04/2024 TECHNIQUE: Transabdominal imaging of the gravid uterus was obtained. FINDINGS: Ginseng Farmer reports the BPP is 8 out of 8. LIZETH measures 12 cm. heart rate 147 bpm. US/US OB BPP w non-stress IMPRESSION: BPP 8 out of 8. Impression dictated by: David Qureshi Jr., D.O. 08/11/2024 11:39 AM Dictation Location: [place] [address] Electronically authenticated by: [id number] Y Date: 08/11/2024 11:39 Dictated By: David Qureshi M.D. Signed By: 08/11/24 1141 DD/ 1139 TD/TT: Parachute Marker: [facility] Radiology Study observation (narrative) [facility] US OB BPP W NON-STRESS Ordered By: Radiologist Radiology on 08-11-2024 [facility] Work Phone: Urinalysis macro (dipstick) panel (U)on 08-11-2024 Bilirubin, UA Negative Negative - 4(70) +++ mg/dL [facility] Blood, UA Negative Negative - 50 Jesus/mcL [facility] Clarity, UA Clear [facility] Color, UA Yellow [facility] Glucose, UA Negative Negative - 2000(110) ++++ mg/dL [facility] Interpretation and review of laboratory results Normal [facility] Ketones, UA Negative Negative - 160(16) ++++ mg/dL [facility] Leukocytes, UA Negative Negative - 500+++ Juanita/mcL [facility] Nitrite, UA Negative Negative - Positive [facility] pH, UA 5.5 5 - 9 [facility] Protein, UA Negative Negative - 2000(20) ++++ mg/dL [facility] Spec Grav, UA 1.02 1 - 1.03 [facility] Urobilinogen, UA 1.0 0.2 - 12 mg/dL formerly [facility] US OB BPP W NON-STRESS on 08-04-2024 [place] [address] Ultrasound Report Signed Patient: SANTIAGO MEDINA MR#: [id number] : 1990 Acct:[id number] Age/Sex: 34 / F ADM Date: 08/04/24 Loc: US Attending Dr: Junior Jones D.O. Ordering Physician: Junior Jones D.O. Date of Service: 08/04/24 Procedure(s): US OB BPP w non-stress Accession Number(s): [id number] cc: Junior Jones D.O.; Physician,Non-Staff Vas[place] The [place] [id number] Patient Name: SANTIAGO MEDINA MRN: [facility]:[id number] date: 1990 Sex: F Assigned Patient Location: US Current Patient Location: Accession/Order Number: [id number] Exam Date: 08/04/2024 13:07 Report Date: 08/04/2024 13:08 At the request of: JUNIOR JONES DO Procedure: US OB BPP w non-stress Biophysical profile. Reason for exam: Low amniotic fluid volume. COMPARISON: 07/28/2024 TECHNIQUE: Transabdominal imaging of the gravid uterus was obtained. FINDINGS: Ginseng Farmer reports the BPP is 8 out of 8. LIZETH measures 9 cm. heart rate 131 bpm. US/US OB BPP w non-stress IMPRESSION: BPP 8 out of 8. Impression dictated by: David Qureshi Jr., D.O. 08/04/2024 1:08 PM Dictation Location: [place] [address] Electronically authenticated by: [id number] Y Date: 08/04/2024 13:08 Dictated By: David Qureshi M.D. Signed By: 08/04/24 1311 DD/ 1308 TD/TT: Parachute Marker: [facility] Radiology, Radiologdomingo lopez MD - 08/04/[address] [address] Ultrasound Report Signed Patient: SANTIAGO MEDINA MR#: [id number] : 1990 Acct:[id number] Age/Sex: 34 / F ADM Date: 08/04/24 Loc: US Attending Dr: Junior Jones D.O. Ordering Physician: Junior Jones D.O. Date of Service: 08/04/24 Procedure(s): US OB BPP w non-stress Accession Number(s): [id number] cc: Junior Jones D.O.; Physician,Non-Staff Vasquez The [address] [id number] Patient Name: SANTIAGO MEDINA MRN: [facility]:[id number] date: 1990 Sex: F Assigned Patient Location: US Current Patient Location: Accession/Order Number: [id number] Exam Date: 08/04/2024 13:07 Report Date: 08/04/2024 13:08 At the request of: JUNIOR JONES DO Procedure: US OB BPP w non-stress Biophysical profile. Reason for exam: Low amniotic fluid volume. COMPARISON: 07/28/2024 TECHNIQUE: Transabdominal imaging of the gravid uterus was obtained. FINDINGS: Ginseng Farmer reports the BPP is 8 out of 8. LIZETH measures 9 cm. heart rate 131 bpm. US/US OB BPP w non-stress IMPRESSION: BPP 8 out of 8. Impression dictated by: David Qureshi Jr., D.O. 08/04/2024 1:08 PM Dictation Location: [place] [address] Electronically authenticated by: [id number] Y Date: 08/04/2024 13:08 Dictated By: David Qureshi M.D. Signed By: 08/04/24 1311 DD/ 1308 TD/TT: Parachute Marker: [facility] Radiology Study observation (narrative) [facility] US OB BPP W NON-STRESS Ordered By: Radiologist Radiology on 08-04-2024 [facility] Work Phone: US OB BPP W NON-STRESS on 07-28-2024 [place] [address] Ultrasound Report Signed Patient: SANTIAGO MEDINA MR#: [id number] : 1990 Acct:[id number] Age/Sex: 34 / F ADM Date: 07/28/24 Loc: [facility] Attending Dr: Junior Jones D.O. Ordering Physician: Junior Jones D.O. Date of Service: 07/28/24 Procedure(s): US OB BPP w non-stress Accession Number(s): [id number] cc: Junior Jones D.O.; Physician,Non-Staff [employer] The [address] [id number] Patient Name: SANTIAGO MEDINA MRN: [facility]:[id number] date: 1990 Sex: F Assigned Patient Location: [facility] Current Patient Location: Accession/Order Number: [id number] Exam Date: 07/28/2024 13:53 Report Date: 07/28/2024 13:55 At the request of: JUNIOR JONES DO Procedure: US OB BPP w non-stress Biophysical profile. Reason for exam: Low amniotic fluid volume. COMPARISON: None. TECHNIQUE: Transabdominal imaging of the gravid uterus was obtained. FINDINGS: Ginseng Farmer reports the BPP is 8 out of 8. LIZETH measures 8.5 cm. heart rate 1 44 bpm. US/US OB BPP w non-stress IMPRESSION: BPP 8 out of 8. Impression dictated by: David Qureshi Jr., D.O.07/28/2024 1:55 PM Dictation Location: [place] [address] Electronically authenticated by: [id number] Y Date: 07/28/2024 13:55 Dictated By: David Qureshi M.D. Signed By: 07/28/24 1357 DD/ 1355 TD/TT: Parachute Marker: [facility] RadiologyNoelogdomingo lopez MD - 07/28/2024 [place] [address] Ultrasound Report Signed Patient: SANTIAGO MEDINA MR#: [id number] : 1990 Acct:[id number] Age/Sex: 34 / F ADM Date: 07/28/24 Loc: [facility] Attending Dr: Junior Jones D.O. Ordering Physician: Junior Jones D.O. Date of Service: 07/28/24 Procedure(s): US OB BPP w non-stress Accession Number(s): [id number] cc: Junior Jones D.O.; Physician,Non-Staff Vas[place] The [place] [id number] Patient Name: SANTIAGO MEDINA MRN: [facility]:[id number] date: 1990 Sex: F Assigned Patient Location: [facility] Current Patient Location: Accession/Order Number: [id number] Exam Date: 07/28/2024 13:53 Report Date: 07/28/2024 13:55 At the request of: JUNIOR JONES DO Procedure: US OB BPP w non-stress Biophysical profile. Reason for exam: Low amniotic fluid volume. COMPARISON: None. TECHNIQUE: Transabdominal imaging of the gravid uterus was obtained. FINDINGS: Ginseng Farmer reports the BPP is 8 out of 8. LIZETH measures 8.5 cm. heart rate 1 44 bpm. US/US OB BPP w non-stress IMPRESSION: BPP 8 out of 8. Impression dictated by: David Qureshi Jr., D.O.07/28/2024 1:55 PM Dictation Location: [place] [address] Electronically authenticated by: [id number] Y Date: 07/28/2024 13:55 Dictated By: David Qureshi M.D. Signed By: 07/28/24 1357 DD/ 1355 TD/TT: Parachute Marker: [facility] Radiology Study observation (narrative) [facility] US OB BPP W NON-STRESS Ordered By: Radiologist Radiology on 07-28-2024 [facility] Work Phone: US OB FOLLOW UP TRANSABDOMIN [...] II, MD, PHD at 28-Jul-2024 11:20:55 PM [facility] Normal Not Available Comment on above: Order Comment: US OB SCAN FOR GROWTH Estimated Date of Delivery: 09/19/24 Gestational Age as of 07/11/2024: 30w0d Urinalysis macro (dipstick) panel (U)on 07-28-2024 Bilirubin, UA Negative Negative - 4(70) +++ mg/dL [facility] Blood, UA Negative Negative - 50 Jesus/mcL [facility] Clarity, UA Clear [facility] Color, UA Yellow [facility] Glucose, UA Negative Negative - 2000(110) ++++ mg/dL [facility] Interpretation and review of laboratory results Normal [facility] Ketones, UA Negative Negative - 160(16) ++++ mg/dL [facility] Leukocytes, UA Negative Negative - 500+++ Juanita/mcL [facility] Nitrite, UA Negative Negative - Positive [facility] pH, UA 6 5 - 9 [facility] Protein, UA Negative Negative - 2000(20) ++++ mg/dL [facility] Spec Grav, UA 1.025 1 - 1.03 [facility] Urobilinogen, UA 0.2 0.2 - 12 mg/dL [facility] US OB LIMITED 1+ FETUSESon 0 07-11-2024 [...] II, MD, PHD at 12-Jul-2024 11:25:12 PM [facility] Normal Not Available Comment on above: Order Comment: US OB PLACENTA W US OB TRANSVAGINAL Estimated Date of Delivery: 09/19/24 Gestational Age as of 06/07/2024: 25w1d Urinalysis macro (dipstick) panel (U)on 07-11-2024 Bilirubin, UA Negative Negative - 4(70) +++ mg/dL [facility] Blood, UA Positive Negative - 50 Jesus/mcL [facility] Comment on above: trace-intact Clarity, UA Clear [facility] Color, UA Yellow [facility] Glucose, UA Negative Negative - 2000(110) ++++ mg/dL [facility] Interpretation and review of laboratory results Abnormal [facility] Ketones, UA Negative Negative - 160(16) ++++ mg/dL [facility] Leukocytes, UA Negative Negative - 500+++ Juanita/mcL [facility] Nitrite, UA Negative Negative - Positive [facility] pH, UA 6.5 5 - 9 [facility] Protein, UA Negative Negative - 2000(20) ++++ mg/dL [facility] Spec Grav, UA 1.02 1 - 1.03 [facility] Urobilinogen, UA 0.2 0.2 - 12 mg/dL formerly [facility] ALL CBC WITH AUTO DIFFon BASOPHILS ABSOLUTE AUTO 0 [facility] Basophils/100 WBC (Bld) 0.2 % 0.2 - 2.0 % [facility] Eosinophils/100 WBC (Bld) 0.8 % Low 0.9 - 7.0 % [facility] Erythrocyte distribution width (RBC) [Ratio] 12.3 % 11.0 - 15.0 % [facility] Hematocrit (Bld) [Volume fraction] 37.1 % 36.0 - 48.0 % [facility] Hemoglobin (Bld) [Mass/Vol] 12.7 g/dL 12.0 - 16.0 g/dL [facility] IMMATURE GRANULOCYTES ABS AUTO 0.03 [facility] Immature granulocytes/100 WBC (Bld) 0.4 % 0.0 - 0.5 % [facility] Interpretation and review of laboratory results Abnormal [facility] LYMPHOCYTES ABSOLUTE AUTO 1.8 [facility] Lymphocytes/100 WBC (Bld) 22.3 % 20.5 - 60.0 % [facility] MCH (RBC) [Entitic mass] 29.3 pg 26.7 - 34.0 pg [facility] MCHC (RBC) [Mass/Vol] 34.2 g/dL 29.9 - 35.2 g/dL [facility] MCV (RBC) [Entitic vol] 85.5 fL 81.0 - 99.0 fL [facility] MONOCYTES ABSOLUTE AUTO 0.6 [facility] Monocytes/100 WBC (Bld) 7.4 % 1.7 - 12.0 % [facility] NEUTROPHILS ABSOLUTE AUTO 5.7 [facility] Neutrophils/100 WBC (Bld) 68.9 % 43.0 - 75.0 % [facility] Platelet mean volume (Bld) [Entitic vol] 10.5 fL 9.5 - 13.5 fL [facility] EO # 0.1 [facility] PLT [address] [facility] RBC 4.[address] [facility] WBC 8.3 [facility] No Panel InformationOrdered By: Radiologist Radiology on 06-06-2024 [facility] Work Phone: No Panel Informationon 06-06 Radiology Study observation (narrative) [facility] US [place] [address] Ultrasound Report Signed Patient: SANTIAGO MEDINA MR#: [id number] : 1990 Acct:[id number] Age/Sex: 34 / F ADM Date: 06/06/24 Loc: US Attending Dr: Junior Jones D.O. Ordering Physician: Junior Jones D.O. Date of Service: 06/06/24 Procedure(s): US OB cervical length Accession Number(s): [id number] cc: Junior Jones D.O.; Physician,Non-Staff [place] The [place] [id number] Patient Name: SANTIAGO MEDINA MRN: [facility]:[id number] date: 1990 Sex: F Assigned Patient Location: US Current Patient Location: US Accession/Order Number: [id number] Exam Date: 06/06/2024 22:13 Report Date: 06/06/2024 22:21 At the request of: JUNIOR JONES DO Procedure: US OB cervical length [...] Elisa Boothe M.D.06/06/2024 10:21 PM Dictation Location: [place] [address] Electronically authenticated by: [id number] Y Date: 06/06/2024 22:21 Dictated By: Elisa Boothe M.D. Signed By: 06/06/242223 DD/ 20 TD/TT: Parachute Marker: [facility] Radiology, Radiologi MD jessica - 06/06/[address] [address] Ultrasound Report Signed Patient: SANTIAGO MEDINA MR#: [id number] : 1990 Acct:[id number] Age/Sex: 34 / F ADM Date: 06/06/24 Loc: US Attending Dr: Junior Jones D.O. Ordering Physician: Junior Jones D.O. Date of Service: 06/06/24 Procedure(s): US OB cervical length Accession Number(s): [id number] cc: Junior Jones D.O.; Physician,Non-Staff [place] [address] Patient Name: SANTIAGO MEDINA MRN: [id number]:[id number] date: 1990 Sex: F Assigned Patient Location: US Current Patient Location: US Accession/Order Number: [id number] Exam Date: 06/06/2024 22:13 Report Date: 06/06/2024 22:21 At the request of: JUNIOR JONES DO Procedure: US OB cervical length [...] Elisa Boothe M.D.06/06/2024 10:21 PM Dictation Location: [place] [address] Electronically authenticated by: [id number] Y Date: 06/06/2024 22:21 Dictated By: Elisa Boothe M.D. Signed By: 06/06/242223 DD/ 20 TD/TT: Parachute Marker: [facility] OB INCOMPLETE ANATOMYon 0 06-06-2024 [place] [address] Ultrasound Report Signed Patient: SANTIAGO MEDINA MR#: [id number] : 1990 Acct:[id number] Age/Sex: 34 / F ADM Date: 06/06/24 Loc: US Attending Dr: Junior Jones D.O. Ordering Physician: Junior Jones D.O. Date of Service: 06/06/24 Procedure(s): US OB incomplete anatomy Accession Number(s): [id number] cc: Junior Jones D.O.; Physician,Non-Staff [place] [address] Patient Name: SANTIAGO MEDINA MRN: [facility]:[id number] date: 1990 Sex: F Assigned Patient Location: US Current Patient Location: US Accession/Order Number: [id number] Exam Date: 06/06/2024 22:13 Report Date: 06/06/2024 22:21 At the request of: JUNIOR JONES DO Procedure: US OB cervical length [...] Elisa Boothe M.D.06/06/2024 10:21 PM Dictation Location: [employer] [facility] Electronically authenticated by: [id number] Y Date: 06/06/2024 22:21 Dictated By: Elisa Boothe M.D. Signed By: 06/06/242223 DD/ 20 TD/TT: Parachute Marker: [facility] Radiology, Noelogdomingo lopez MD - 06/06/[address] [address] Ultrasound Report Signed Patient: SANTIAGO MEDINA MR#: [id number] : 1990 Acct:[id number] Age/Sex: 34 / F ADM Date: 06/06/24 Loc: US Attending Dr: Junior Jones D.O. Ordering Physician: Junior Jones D.O. Date of Service: 06/06/24 Procedure(s): US OB incomplete anatomy Accession Number(s): [id number] cc: Junior Jones D.O.; Physician,Non-Staff [place] [address] [address] Patient Name: SANTIAGO MEDINA MRN: [facility]:[id number] date: 1990 Sex: F Assigned Patient Location: US Current Patient Location: US Accession/Order Number: [id number] Exam Date: 06/06/2024 22:13 Report Date: 06/06/2024 22:21 At the request of: JUNIOR JONES DO Procedure: US OB cervical length [...] Elisa Boothe M.D.06/06/2024 10:21 PM Dictation Location: [facility] Electronically authenticated by: [id number] Y Date: 06/06/2024 22:21 Dictated By: Elisa Boothe M.D. Signed By: 06/06/242223 DD/ 20 TD/TT: Parachute Marker: [facility] Urinalysis macro (dipstick) panel (U)on 06-06-2024 Bilirubin, UA Negative Negative - 4(70) +++ mg/dL [facility] Blood, UA Negative Negative - 50 Jesus/mcL [facility] Clarity, UA Clear [facility] Color, UA Yellow [facility] Glucose, UA Negative Negative - 2000(110) ++++ mg/dL [facility] Interpretation and review of laboratory results Abnormal [facility] Ketones, UA Negative Negative - 160(16) ++++ mg/dL [facility] Leukocytes, UA Trace Negative - 500+++ Juanita/mcL [facility] Nitrite, UA Negative Negative - Positive [facility] pH, UA 6 5 - 9 [facility] Protein, UA Negative Negative - 2000(20) ++++ mg/dL [facility] Spec Grav, UA 1.025 1 - 1.03 [facility] Urobilinogen, UA 0.2 0.2 - 12 mg/dL [facility] US OB 14+ WEEKS ANATOMY [...] report is generated using voice recognition reporting ([employer]). On occasion [employer] erroneously drops words from the report or [...] GDLNon AGE GDLN ACOG TESTING Note . [facility] Comment on above: TESTS RESULT FLAG UN ITS REF RANGE LAB Clinician Provided Cytology Information Source.............Cervix No. of containers..01 ThinPrep Vial Age Algo ACOG Maria... FLAG LEGEND: L-Low Normal,H-High Normal,LL-Alert Low,HH-Alert High <-Panic Low,>-Panic High,A-Abnormal,AA-Critical Abnormal Performed at: 01 =[address] [address] Haydee Kraus MD, HPV APTIMA Negative Negative [facility] Comment on above: This nucleic acid am plification test detects fourteen high- risk HPV types (16,18,31,33,35,39,45,51,52,56,58,59,66,68) without differentiation. Performed at: =[address] [id number] Label Press Operator: Haydee Kraus MD, Phone: [phone] Performed at: [address] [id number] Label Press Operator: Haydee Kraus MD, Phone: [phone] IGP, APTIMA HPV, RFX 16/18,45 Note . [facility] Comment on above: TESTS RESULT FLAG U NITS REF RANGE LAB DIAGNOSIS: 02 NEGATIVE FOR INTRAEPITHELIAL LESION OR MALIGNANCY. THIS SPECIMEN WAS RESCREENED PART OF OUR GEOTECHNICAL ENGINEERING TECHNICIAN PROGRAM. Specimen adequacy: 02 Satisfactory for evaluation. No endocervical component is identified. Performed by: Jose Cervantes Logistics Solution Manager ([facility]) QC reviewed by: Jose Colón Logistics Solution Manager . 02 Note: Note 02 The Pap [...] <-Panic Low,>-Panic High,A-Abnormal,AA-Critical Abnormal Performed at: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 detection Neisseria gonorrhea DNA probe, direct Lab Routine Exposure to STD Ordered: 04/12/2024 [facility] Comment on above: Ordered: 04/12/2024 Reagin Ab [Presence] in Serum by RPR RPR Lab Routine Missed menses , unspecified gestational age Ordered: 02/18/2024 [facility] Comment on above: Ordered: 02/18/2024 Rubella antibody, IgG Rubella an tibody, IgG Lab Routine Missed menses , unspecified gestational age Ordered: 02/18/2024 [facility] Comment on above: Ordered: 02/18/2024 SURESWAB(R) ADVANCED VAGINITIS PLUS, TMA SURESWAB(R) ADVANCED VAGINITIS PLUS, TMA Pathology and Cytology Routine Exposure to STD Ordered: 04/12/2024 [facility] Work Phone: Comment on above: Ordered: 04/12/2024 Payers Date Payer Category Payer Medicaid [id number] 2022 Medicaid [id number] 2016 Unknown [id number] 1992 Unknown [id number] 2.16.84 [id number] 1992 Unknown [id number] 2.16.84 0.1.283830.3.579.2.9 1992 Unknown [id number] 2.16.84 0.1.001038.3.579.2.9 1992 Unknown [id number] 2.16.84 0.1.340019.3.579.2.9 1992 Unknown [id number] 2.16.84 0.1.116656.3.579.2.9 1992 Unknown [id number] 2.16.84 0.1.885161.3.579.2.9 1992 Unknown [id number] 2.16.84 0.1.305497.3.579.2.9 1992 Unknown [id number] 2.16.84 0.1.993652.3.579.2.9 1992 Unknown [id number] 2.16.84 0.1.948198.3.579.2.9 1992 Unknown [id number] 2.16.84 0.1.644219.3.579.2.9 1992 Unknown [id number] 2.16.84 0.1.517612.3.579.2.9 1992 Unknown [id number] 2.16.84 0.1.890145.3.579.2.9 1992 Unknown [id number] 2.16.84 0.1.801959.3.579.2.1259 Social History Date Type Detail Facility Unknown if ever smoked [facility] Other Sex Assigned At [facility] Other Tobacco smoking status TNIS Tobacco smoking consumption unknown [facility] Start: 12-28-2023 [facility] Start: 1990 Sex assigned at Not on file [facility] Goals Date Patient Goal Desired Activity /State Personal health goal Clinical Notes 02-20-2022 to 08-22-2024 Marlin Moreno NP - 08/22/2024 9:30 AM MADINA Baltazar - 08/11/2024 9:30 AM Celestine Carrasco LPN - 07/28/2024 9:40 AM EDTMarlin Moreno NP - 07/11/2024 11:30 AM EDT Note Date & Type Note Facility 08-22-2024 History of Presen t illness Narrative Reason for Appointment: Patient ID: Santiago [place] is a 34 y.o. female who [...] nursing note reviewed. Exam conducted with a demurrage man present. Vitals: There is no height or [...] by Delmy Barger MA on behalf of: Marlin Moreno NP documented in this encounter [facility] 08-11-2024 History of Presen t illness Narrative Reason for Appointment: Patient ID: Santiago [place] is a 34 y.o. female who [...] nursing note reviewed. Exam conducted with a demurrage man present. Vitals: There is no height or [...] of: MADINA Valdez documented in this encounter [facility] 07-28-2024 History of Presen t illness Narrative Reason for Appointment: Patient ID: Santiago [place] is a 34 y.o. female who [...] nursing note reviewed. Exam conducted with a demurrage man present. Vitals: There is no height or [...] by Anna Carrasco LPN on behalf of: Junior Jones DO documented in this encounter [facility] 07-11-2024 History of Presen t illness Narrative Reason for Appointment: Patient ID: Santiago [place] is a 34 y.o. female who [...] nursing note reviewed. Exam conducted with a demurrage man present. Vitals: There is no height or [...] week for routine OB appointment. Documented by Marlin Moreno NP on behalf of: Junior Jones DO documented in this encounter [facility] 06-06-2024 History of Presen t illness Narrative Reason for Appointment: Patient ID: Santiago [place] is a 34 y.o. female who [...] of: MADINA Valdez documented in this encounter [facility] 05-09-2024 History of Presen t illness Narrative Reason for Appointment: Patient ID: Santiago [place] is a 34 y.o. female who [...] by Brigid Taylor LPN on behalf of: Junior Jones DO documented in this encounter [facility] 04-12-2024 History of Presen t illness Narrative Reason for Appointment: Patient ID: Santiago [place] is a 34 y.o. female who [...] nursing note reviewed. Exam conducted with a demurrage man present. Vitals: There is no height or [...] of: MADINA Valdez documented in this encounter [facility] 03-09-2024 History of Presen t illness Narrative Reason for Appointment: Patient ID: Santiago [place] is a 33 y.o. female who [...] nursing note reviewed. Exam conducted with a demurrage man present. Vitals: There is no height or [...] or undercooked meat, and stay away from [facility]. Patient has been consulted regarding any further [...] by Elisa Gamez LPN on behalf of: Junior Jones DO documented in this encounter [facility] 02-18-2024 History of Presen t illness Narrative Reason for Appointment: Patient ID: Santiago [place] is a 33 y.o. female who [...] or undercooked meat, and stay away from [facility]. Patient has also been advised to not [...] Brigid Taylor LPN documented in this encounter [facility] 02-08-2023 Evaluation note Encounter Date Diagnosis Assessment [...] fever/discomfort , cool mist humidifier. May use [place] as needed for cough, do not take any other OTCs while using [place]. Patient to follow up with PCP in 2-3 days. Immediate eval if SOB, difficulty breathing, chest pain, dizziness, or other concerning symptoms. Patient verbalizes understanding and is agreeable to treatment plan [facility] Other 11-17-2022 NoteCOVID 19 RESULT: SARS-CoV-2 (Agent of COVID-19) Not Detected by RT-PCR or equivalent method. This test has been authorized by FDA under an Emergency Use Authorization (EUA). INFLUENZA A PCR: Negative for Influenza A by RT-PCR INFLUENZA B PCR: Negative for Influenza B by RT-PCR RSV PCR: Negative for Respiratory Syncytial Virus (RSV) by PCRChildren'S Island SanitariumComment on above:Performed By: #### [id number] #### [facility] CLIA [id number] [address] [place] [address] [place] AMERICAEvaluation note* Diagnosis Missed [...] Date Surgical History TONSILS Hospitalization History CHILD [facility] Other Summary Purpose Family History No Family History Records FoundNo Family History Records FoundNo Family History Records Found Advance Directives No Advanced Directives Records FoundNo Advanced Directives Records FoundNo Advanced Directives Records Found Additional Source Comments INFORMATION SOURCE (unrecogn ized section and content) DATE CREATED AUTHOR 09/30/2017 [facility] DATE CREATED AUTHOR AUTHOR'S ORGANIZ ATION 02/23/2022 [facility] DATE CREATED AUTHOR AUTHOR'S ORGANIZ ATION 08/22/2024 [facility] EPIC REASON FOR VISIT [...] BE BASED ON THE PRIMARY CLINICAL RECORDS. [employer] provides no warranty or guarantee of the accuracy or completeness of information in this document.
[2024-08-31] MEDS: 0.9 % SODIUM CHLORIDE 1,000 ML 125 ML IV ×2 (07:30→16:35)
[2024-08-31] MEDS: ROPIVACAINE HCL/PF 400 MG/200 ML PREMIX 6 MG EPIDURAL ×2 (08:26→21:54)
[2024-08-31] MEDS: EPHEDRINE SULFATE 50 MG/ML VIAL IV (08:30)
[2024-08-31] MEDS: OXYTOCIN/0.9 % SODIUM CHLORIDE 10 UNITS/500 ML PLAST..BAG 60 UNIT IV ×2 (12:28→20:27)
[2024-09-01] VITALS (52 sets, daily range): BP systolic 110–214; BP diastolic 56–126; PULSE 85–139; TEMP 36–37.1
[2024-09-01] MEDS: 0.9 % SODIUM CHLORIDE 1,000 ML 125 ML IV (00:30)
[2024-09-01] MEDS: AMPICILLIN SODIUM 2,000 MG in 0.9 % SODIUM CHLORIDE 100 ML 200 MG IV (01:47)
[2024-09-01] MEDS: OXYTOCIN/0.9 % SODIUM CHLORIDE 10 UNITS/500 ML PLAST..BAG 60 UNIT IV (04:33)
[2024-09-01] MEDS: AMPICILLIN SODIUM 1,000 MG in 0.9 % SODIUM CHLORIDE 50 ML 100 MG IV (05:17)
[2024-09-01] MEDS: OXYTOCIN/0.9 % SODIUM CHLORIDE 20 UNITS/1,000 ML PLAST..BAG 125 UNIT IV (07:55)
--- NOTE | 2024-09-01 08:04 | PM.OBPRCVD ---
Procedure Intrapartal events: None Induction method: per pitocin protocol Delivery augmentation: rupture of membranes and pitocin Delivery monitor: external FHT and external uterine Route of delivery: Episiotomy Description: none L&D Laceration Description: none Anesthesia type: Epidural Disposition: floor Delivery date: 09/01/24 Gender: female presentation: vertex Placental delivery description: Spontaneous cord description: 3 Vessels and Nuchal Cord (times 2)
[2024-09-01] MEDS: IBUPROFEN 600 MG TABLET PO ×3 (08:33→20:32)
[2024-09-01] MEDS: BENZOCAINE/MENTHOL 85 GRAM SPRAY BOTTLE 1 APPLIC TOPICAL (10:06)
--- NOTE | 2024-09-01 13:01 | PC.NURSE ---
Given handout for exclusive pump schedule, including benefit for power pumping, and breast massage. Pt has not breastfed successfully or been an exclusive pumping mom. Verbalized understanding. Family shown to slow pace feed as well.
[2024-09-01] MEDS: ACETAMINOPHEN 325 MG TABLET 650 MG PO (23:36)
[2024-09-02] MEDS: IBUPROFEN 600 MG TABLET PO (04:42)
[2024-09-02 06:23] LABS: Basophils Percent Auto 0.4 % (0.2-2.0); Eosinophils Absolute Auto 0.2 10^3/uL (0.0-0.7); Eosinophils Percent Auto 1.7 % (0.9-7.0); Hematocrit 27.8 % (36.0-48.0); Hemoglobin 9.1 g/dL (12.0-16.0); Immature Granulocytes Abs Auto 0.05 10^3/uL (0.00-0.03); Immature Granulocytes Pct Auto 0.5 % (0.0-0.5); Lymphocytes Absolute Auto 2.3 10^3/uL (1.2-3.8); Lymphocytes Percent Auto 22.3 % (20.5-60.0); Mean Corpuscular HGB Conc 32.7 g/dL (29.9-35.2); Mean Corpuscular Hemoglobin 26.3 pg (26.7-34.0); Mean Corpuscular Volume 80.3 fL (81.0-99.0); Mean Platelet Volume 10.9 fL (9.5-13.5); Monocytes Absolute Auto 0.7 10^3/uL (0.3-0.8); Monocytes Percent Auto 6.5 % (1.7-12.0); Neutrophils Absolute Auto 7.1 10^3/uL (1.4-6.5); Neutrophils Percent Auto 68.6 % (43.0-75.0); Platelet Count 206 10^3/uL (150-450); Red Blood Count 3.46 10^6/uL (4.20-5.40); Red Cell Distribution Width 13.6 % (11.0-15.0); White Blood Count 10.3 10^3/uL (4.0-11.0)
[2024-09-02] MEDS: ACETAMINOPHEN 325 MG TABLET 650 MG PO (06:38)
--- NOTE | 2024-09-02 07:45 | PM.OBPN ---
OB - PN: Subj Subjective Patient comments: no complaints and pain well controlled status: doing well Exam Constitutional Vital Signs, click to edit/add: Last Vital Signs Temp 98.2 F 09/01/24 23:31 Pulse 85 09/01/24 23:31 Resp 16 09/01/24 23:31 BP 136/84 09/01/24 23:31 O2 Del Method Room Air 09/01/24 23:30 Documenting provider has reviewed patient's vital signs: yes Common normals: no apparent distress Respiratory Common normals: normal respiratory effort and clear to auscultation bilaterally Cardio Common normals: regular rate and regular rhythm GI Common normals: Normal to inspection, nondistended, normoactive bowel sounds present Extremity Common normals: no clubbing, cyanosis or edema and no calf tenderness Results Labs Labs: Short CBC 09/02/24 Range/Units 06:10 WBC 10.3 (4.0-11.0) 10^3/uL Hgb 9.1 L (12.0-16.0) g/dL Hct 27.8 L (36.0-48.0) % Plt Count 206 (150-450) 10^3/uL OB - PN: A/P Plan - Vaginal Delivery day: 1 Plan: routine care, discharge home and follow up 6 weeks Time Spent with Patient Time: Total time spent is greater than 50% in coordination of care (as documented) at patient's floor/unit and/or counseling patient: Total time spent with greater than 50% in coordination of care (as documented) at patient's floor/unit and/or counseling patient: less than 15 minutes
[2024-09-02 07:55] VITALS: BP 128/84; PULSE 86
[2024-09-02 08:00] VITALS: BP 128/84; PULSE 86; TEMP 36.6
[2024-09-02] MEDS: DOCUSATE SODIUM 100 MG CAPSULE PO (09:01)
[2024-09-02] MEDS: RHO(D) IMMUNE GLOBULIN 1,500 UNIT SYRINGE 1500 UNIT IM (09:14)
[2024-09-02 20:08] LABS: Cannabinoid Positive (.); Carboxy THC Conf, MS, UR 19 ng/mL (Cutoff=10)
== END 2024-09-02 14:45 | disposition home or self-care (01) | DRG 560 ==
PROVIDERS: Admitting Provider Obstetrics & Gynecology; Visit Provider Obstetrics & Gynecology
DX: O13.4 Gestational [pregnancy-induced] hypertension without significant proteinuria, complicating childbirth (principal); O69.81X0 Labor and delivery complicated by cord around neck, without compression, not applicable or unspecified; O26.893 Other specified pregnancy related conditions, third trimester; Z67.41 Type O blood, Rh negative; O99.324 Drug use complicating childbirth; F12.90 Cannabis use, unspecified, uncomplicated; Z3A.37 37 weeks gestation of pregnancy; Z37.0 Single live birth; Z87.440 Personal history of urinary (tract) infections
CPT/HCPCS: 36415; 51702; 59025; 59050; 59410; 80307; 80349; 81001; 85025; 85027; 85461; 86850; 86900; 86901; 87077; 87086; 87186; G0378; J0290; J2791; J2795

== ENCOUNTER 2024-11-23 12:39 | Outpatient (OUT) | payer MEDICAID, SELFPAY ==
--- OUTSIDE RECORDS SUMMARY | 2024-11-17 08:40 | XMS_ITS | Encounter Summary ---
Author Organization [facility] Address [address] [place] [address] Care Team Providers Care Proposal Rep Name Role Phone Junior Jones DO Unavailable Reason for Visit * Reason Comments Pre-op Visit Encounter Details Date Type Department Care Team (Late Contact Info) Description 11/17/2024 8:40 AM EDT Consult [facility] [place] [facility] [address] [address] Junior Jones DO [address] [facility] [facility] [address] [place], [place] [id number] Pre-op examination; Request for sterilization Social History Tobacco Use Types Packs/Day Years Used Date Smoking Tobacco: Never Assessed PHQ-2 Answer Date Recorded Patient Health Questionnaire-2 Score 0 09/05/2024 Comments No Sex and Gender Information Value Date Recorded Sex Assigned at Not on file Legal Sex Female 9:19 AM EDT Gender Identity Not on file Sexual Orientation Not on file documented as of this encounter Last Filed Vital Signs Vital Sign Reading Time Taken Comments Blood Pressure 120/80 11/17/2024 8:54 AM EDT Pulse - - Temperature - - Respiratory Rate - - Oxygen Saturation - - Inhaled Oxygen Concentration - - Weight 92 kg (202 lb 12.8 oz) 11/17/2024 8:54 AM EDT Height 177.8 cm (5' 10 ) 11/17/2024 8:54 AM EDT Body Mass Index 29.1 11/17/2024 8:54 AM EDT documented in this encounter Progress Notes * Chichi Garsia - 11/17/2024 8:40 AM EDT Reason for Appointment: Patient ID: Gilson [place] is a 34 y.o. female who presents for Pre-op Visit Patient presents today for Pre Op appointment. Patient is scheduled to undergo Da Wes assisted Bilateral Laparoscopic Salpingectomy on 12-16-[address] Jones at [facility]. MEDICATIONS Current Outpatient Medications Medication Instructions desogestrel-ethinyl estradiol (Apri) 0.15-30 MG-MCG tablet 1 tablet, Oral, Daily ibuprofen 100 MG chewable tablet Chew ALLERGIES No Known Allergies PROBLEMS Active Ambulatory [...] nursing note reviewed. Exam conducted with a truck bracer present. Vitals: There is no height or weight on file to calculate BMI. BP: Patient's last menstrual period was 12/14/2023. ASSESSMENT & PLAN ICD-10-CM 1. Pre-op examination Z01.818 2. Request for sterilization Z30.2 Pre Op: Patient is doing well but has complaints of requesting sterilization. I have discussed conservativemanagement vs. surgical management with the patient in detail and patient desires surgical management at this time. Patient will undergo Da Wes assisted Bilateral Laparoscopic Salpingectomy on 12-16-24. Surgical consents were signed, mmc was reviewed, and patient is to proceed to [facility] OR. Follow Up: Patient is to follow up between 1-2 weeks post operative to assess proper healing and recovery fromprocedure. Documented by Anna Carrasco LPN on behalf of: Junior Jones DO documented in this encounter Plan of Treatment Upcoming Encounters Date Type Department Care Team (Late st Contact Info) Description 12/12/2024 11:00 AM EDT Ancillary Procedure [facility] [address] [place] [address] 12/29/2024 9:30 AM EDT Office Visit [facility] [address] [place] [phone] Teresa Moreno, MOTION PICTURE CAMERA OPERATOR [address] [place] [address] documented as of this encounter Goals Goal Patient Goal Type Associated Problems Recent Progress Patient-Stated? Author Reminders Care Plan OB Reminders No Open Scheduling, Background documented as of this encounter Visit Diagnoses Diagnosis Pre-op examination Request for sterilization documented in this encounter Additional Health Concerns Active Problems Noted Date Diagnosed Date OB Reminders 02/18/2024 documented as of this encounter Care Teams Proposal Rep Relationship Specialty Start Date End Date Junior Jones DO [address] [place] [address] PCP - FFS State [facility] 07/05/24 documented as of this encounter
--- OUTSIDE RECORDS SUMMARY | 2024-11-23 11:20 | XMS_ITS | Encounter Summary ---
Author Organization [facility] Address [address] [place] [address] Care Team Providers Care Review Scheduling Coordinator Name Role Phone Junior Jones DO Unavailable Reason for Visit * Reason Comments Irregular bleeding Encounter Details Date Type Department Care Team (Late Contact Info) Description 11/23/2024 11:20 AM EDT Office Visit [facility] [place] [facility] [address] [facility] [place] [phone] Junior Jones DO [address] [facility] [place] [address] Abnormal uterine bleeding (AUB); PCOS (polycystic ovarian [...] 8:54 AM EDT documented in this encounter Plan of Treatment Upcoming Encounters Date Type Department Care Team (Late Contact Info) Description 12/12/2024 11:00 AM EDT Ancillary Procedure [facility] PISANO [address] [facility] [place] [address] 12/29/2024 9:30 AM EDT Office Visit [facility] PISANO [address] [facility] [phone] Teresa Moreno, CORN GROWER [address] [facility] [place] [address] Scheduled Orders Name Type Priority Associated Diagnoses [...] documented as of this encounter Care Teams Review Scheduling Coordinator Relationship Specialty Start Date End Date Junior Jones DO [address] [place] [address] [place] [address] PCP - FFS [facility] 07/05/24 documented as of this encounter
--- OUTSIDE RECORDS SUMMARY | 2024-11-23 12:43 | XMS_ITS | Encounter Summary ---
Author Organization [facility] Address [address] [place] [address] Care Team Providers Care Community Health Promoter Name Role Phone Junior Jones DO Unavailable Encounter Details Date Type Department Care Team (Late Contact Info) Description 08/17/2024 Abstract [facility] [address] [facility] [place] [address] Junior Jones DO [address] [place], [facility] Social History Tobacco Use Types Packs/Day Years Used Date Smoking Tobacco: Never Assessed Comments Yes Sex and Gender Information Value Date Recorded Sex Assigned at Not on file Legal Sex Female 9:19 AM EDT Gender Identity Not on file Sexual Orientation Not on file documented as of this encounter Plan of Treatment Upcoming Encounters Date Type Department Care Team (Late st Contact Info) Description 12/12/2024 11:00 AM EDT Ancillary Procedure [facility]NE PISANO [address] [place] [address] [place] [address] 12/29/2024 9:30 AM EDT Office Visit D[facility]NE PISANO [address] [place] [address] Teresa Moreno, SIDNEY [address] [facility] [place] [phone] documented as of this encounter Goals Goal Patient Goal Type Associated Problems Recent Progress Patient-Stated? Author Reminders Care Plan OB Reminders No Open Scheduling, Background documented as of this encounter Visit Diagnoses Not on filedocumented in this encounter Additional Health Concerns Active Problems Noted Date Diagnosed Date OB Reminders 02/18/2024 documented as of this encounter Care Teams Community Health Promoter Relationship Specialty Start Date End Date Junior Jones DO [address] [place] [address] PCP - FFS State [facility] 07/05/24 documented as of this encounter
--- OUTSIDE RECORDS SUMMARY | 2024-11-23 12:43 | XMS_ITS | Encounter Summary ---
Author Organization [facility] Address [address] [place] [address] Care Team Providers Care Rn Clinician Name Role Phone Junior Jones DO Unavailable Encounter Details Date Type Department Care Team (Latest Contact Info) Description 11/16/2024 Travel Social History Tobacco Use Types Packs/Day [...] AM EDT Ancillary Procedure DAFNE PISANO [address] [place] [address] 12/29/2024 9:30 AM EDT Office Visit DAFNE PISANO [address] [place] [address] Teresa Moreno, SIDNEY [address] [facility] [place] [address] documented as of this encounter Goals Goal Patient Goal Type Associated Problems Recent Progress Patient-Stated? Author Reminders Care Plan OB Reminders No Open Scheduling, Background documented as of this encounter Visit Diagnoses Not on filedocumented in this encounter Additional Health Concerns Active Problems Noted Date Diagnosed Date OB Reminders 02/18/2024 documented as of this encounter Care Teams Rn Clinician Relationship Specialty Start Date End Date Junior Jones DO [address] [place] [place] [address] PCP - FFS [facility] 07/05/24 documented as of this encounter
--- OUTSIDE RECORDS SUMMARY | 2024-11-23 12:43 | XMS_ITS | Clinical Summary ---
Author Organization [facility] Address [address] [place] [address] Care Team Providers Care Chef French Name Role Phone Blanca Jones DO Unavailable Allergies No known active allergies Medications ibuprofen 100 MG chewable tablet Chew Acti ve desogestrel-ethi nyl estradiol (Apri) 0.15-30 MG-MCG tabletIndication s:6 weeks follow-up ([facility]), control counseling Take 1 tablet by mouth Daily 28 tablet 12 10/18/2024 Active Encounters Date Type Department Care Team Description 11/23/2024 11:20 [place] [address] Blanca Jones DO Abnormal uterine bleeding (AUB); PCOS (polycystic ovarian syndrome) 11/23/2024 [place] [address] Blanca Jones DO 11/17/2024 8:40 [place] [address] Blanca Jones DO Pre-op examination; Request for sterilization 11/16/2024 Travel 10/18/2024 10:50 [place] [address] Blanca Jones, 6 weeks follow-up ([facility]); Request for sterilization; control counseling 10/12/2024 Travel 09/05/2024 Patient Outreach [facility] [place] [address] [place] [address] Desiree Durant LPN 09/05/2024 Patient Outreach [facility] [place] [address] [place] [address] Desiree Durant, KEY ACCOUNT REPRESENTATIVE 09/02/2024 Clinisync Result Encounter NOMS External Department Unsolicited Blanca Jones, DO 08/31/2024 Abstract [facility] [address] [place] [address] Blanca Jones, DO 08/30/2024 1:00 [place] [address] Blanca Jones, DO 37 weeks gestation of ([facility]); Third trimester ([facility]); H/O pre-eclampsia in prior , currently ([facility]); Gestational hypertension, antepartum ([facility]) 08/30/2024 Clinisync Result Encounter NOMS External Department Unsolicited Blanca Jones, DO 08/30/2024 Bamboo flowsheet [facility] [address] [place] [address] Blanca Jones, DO 08/25/2024 Clinisync Result Encounter NOMS External Department Unsolicited Blanca Jones, DO 08/23/2024 Travel from Last 3 Months Social History Tobacco Use Types Packs/Day Years [...] 12.8 oz) 025 11:49 AM EDT Height 177.8 cm (5' 10 ) 11/17/2024 8:54 AM EDT Body Mass Index 29.24 11/17/2024 8:54 AM EDT Plan of Treatment Upcoming Encounters Date Type Department Care Team (Late st Contact Info) Description 12/12/2024 11:00 AM EDT Ancillary Procedure [facility] Adam [facility]O [address] [place] [address] 12/29/2024 9:30 AM EDT Office Visit [facility] [address] [place] [address] Teresa Moreno, INSIDE FINISHER [address] [facility] [place] [address] Health Maintenance Due Date Last Done Comments HPV/Cotest 2022 Influenza Vaccine (#1) 2024 Cervical Cancer Screening 04/12/2027 Pap Smear 04/12/2027 04/12/2024 Goals Goal Patient Goal Type Associated Problems Recent Progress Patient-Stated? Author Reminders Care Plan OB Reminders No Open Scheduling, Background Procedures Procedure Name Priority Date/Time Associated Diagnosis Comments ALL CBC WITH AUTO DIFF Routine 6:10 AM EDT CULTURE, GROUP B STREP WITH SUSCEPTIBLITY Routine 08/31/2024 7:59 AM EDT Third trimester ([facility]) HP CBC WITH PLATELET NO DIFFERENTIAL Routine 08/30/2024 11:55 PM EDT CANNABINOID CONF, MS, UR Routine 08/30/2024 4:20 PM EDT TBH DRUG SCREEN RAPID (URINE) Routine 08/30/2024 4:20 PM EDT [facility] URINE MICROSCOPIC ONLY Routine 08/30/2024 4:20 PM EDT TBH UA (CLEAN/CATCH) INNER DIAMETER GRINDER TOOL/MICRO IF IND. Routine 08/30/2024 4:20 PM EDT POCT URINALYSIS DIPSTICK Routine 08/30/2024 1:13 PM EDT 37 weeks gestation of ([facility]) Third trimester ([facility]) US OB BPP W NON-STRESS 08/25/2024 11:41 AM EDT PAP SMEAR Routine 04/12/2024 12:00 AM EST from Last 3 Months or Most Recently Relevant to Health Maintenance Results * (ABNORMAL) ALL CBC WITH AUTO DIFF (09/02/2024 6:10 AM EDT) TBH WBC 10.3 4.0 - 11.0 10 3/uL TBH TBH RBC 3.46(L) 4.20 - 5.40 10 6/uL TBH TBH HGB 9.1(L) 12.0 - 16.0 g/dL TBH TBH HCT 27.8(L) 36.0 - 48.0 % TBH TBH MCV 80.3(L) 81.0 - 99.0 fL TBH TBH MCH 26.3(L) 26.7 - 34.0 pg TBH TBH MCHC 32.7 29.9 - 35.2 g/dL TBH TBH RDW 13.6 11.0 - 15.0 % TBH TBH PLT 206 150 - 450 10 3/uL TBH TBH MPV 10.9 9.5 - 13.5 fL TBH NEUTROPHILS PERCENT AUTO 68.6 43.0 - 75.0 % TBH LYMPHOCYTES PERCENT AUTO 22.3 20.5 - 60.0 % TBH MONOCYTES PERCENT AUTO 6.5 1.7 - 12.0 % TBH TBH EO % 1.7 0.9 - 7.0 % TBH BASOPHILS PERCENT AUTO 0.4 0.2 - 2.0 % TBH IMMATURE GRANULOCYTES PCT AUTO 0.5 0.0 - 0.5 % TBH NEUTROPHILS ABSOLUTE AUTO 7.1(H) 1.4 - 6.5 10 3/uL TBH LYMPHOCYTES ABSOLUTE AUTO 2.3 1.2 - 3.8 10 3/uL TBH MONOCYTES ABSOLUTE AUTO 0.7 0.3 - 0.8 10 3/uL TBH TBH EO # 0.2 0.0 - 0.7 10 3/uL TBH BASOPHILS ABSOLUTE AUTO 0.0 0.0 - 0.1 10 3/uL TBH IMMATURE GRANULOCYTES ABS AUTO 0.05(H) 0.00 - 0.03 10 3/uL TBH 09/02/2024 6:10 AM EDT 09/02/2024 6:17 AM EDT Narrative CLINISYNC - 09/02/2024 6:24 AM EDT Blanca Jones DO CLINISYNC Final Result CLINISYNC [facility] * CULTURE, GROUP B STREP WITH SUSCEPTIBLITY (08/31/2024 7:59 AM EDT) Teresa Moreno INSIDE FINISHER LAB BLOOD ORDERABLES Final Re sult EXTERNAL LAB * (ABNORMAL) [facility] CBC WITH PLATELET NO DIFFERENTIAL (08/30/2024 11:55 PM EDT) Pathologist [facility] TB WBC 7.8 4.0 - 11.0 10 3/uL TBH TBH RBC 4.37 4.20 - 5.40 10 6/uL TBH TBH HGB 11.4(L) 12.0 - 16.0 g/dL TBH TBH HCT 34.5(L) 36.0 - 48.0 % TBH TBH MCV 78.9(L) 81.0 - 99.0 fL TBH TBH MCH 26.1(L) 26.7 - 34.0 pg TBH TBH MCHC 33.0 29.9 - 35.2 g/dL TBH TBH RDW 13.3 11.0 - 15.0 % TBH TBH PLT 234 150 - 450 10 3/uL TBH TBH MPV 11.9 9.5 - 13.5 fL TBH 08/30/2024 11:5 5 PM EDT 08/31/2024 12:58 AM EDT Narrative CLINISYNC - 08/31/2024 1:00 AM EDT Blanca Karen DO CLINISYNC Final Result Performing Organization Address [facility] Co de Phone Number CLINISYNC TBH * (ABNORMAL) TBH URINE MICROSCOPIC ONLY (08/30/2024 4:20 PM EDT) TBH WBC 0-2(A) NONE SEEN #/HPF TBH TBH [...] PM EDT 08/30/2024 4:34 PM EDT Narrative HOLLIEISYNC - 08/30/2024 4:46 PM EDT [facility] Karen DO CLINISYNC Final Result Performing Organization Address [facility] de Phone Number CLINSTEPHANNC TBH * (ABNORMAL) TBH UA (CLEAN/CATCH) INNER DIAMETER GRINDER TOOL/MICRO IF IND. (08/30/2024 4:20 PM EDT) COLOR [...] Narrative CLINISYNC - 08/30/2024 4:46 PM EDT Blanca Karen DO CLINISYNC Final Result Performing Organization Address [facility]/ZIP Co de Phone Number CLINISYCA TBH * (ABNORMAL) TBH DRUG SCREEN RAPID (URINE) (08/30/2024 4:20 PM EDT) CANNABINOID SCREEN URINE POSITIVE(A) NEGATIVE TBH PHENCYCLIDINE SCREEN URINE NEGATIVE NEGATIVE TBH COCAINE SCREEN URINE NEGATIVE NEGATIVE TBH METHAMPHETAMINES SCREEN URINE NEGATIVE NEGATIVE TBH OPIATE SCREEN URINE NEGATIVE NEGATIVE TBH AMPHETAMINE SCREEN URINE NEGATIVE NEGATIVE TBH BENZODIAZEPINES SCREEN URINE NEGATIVE NEGATIVE TBH TRICYCLIC ANTIDEPRESSANT URINE NEGATIVE NEGATIVE TBH METHADONE SCREEN URINE NEGATIVE NEGATIVE TBH BARBITURATES SCREEN URINE NEGATIVE NEGATIVE TBH OXYCODONE SCREEN URINE NEGATIVE NEGATIVE TBH BUPRENORPHINE SCREEN URINE NEGATIVE NEGATIVE TBH Comment: DRUG CLASS TEST SYSTEM CUT-OFF CONCENTRATIONS ARE FOLLOWS: AMP (Amphetamine): 500 ng/mL BAR (Barbiturates): 200 ng/mL BZO (Benzodiazepines): 150 ng/mL BUP (Buprenorphine): 10 ng/mL IVA (Cocaine): 150 ng/mL mAMP (Methamphetamine): 500 ng/mL MTD (Methadone): 200 ng/mL OPI (Opiates): 100 ng/mL OXY (Oxycodone): 100 ng/mL PCP (Phencyclidine): 25 ng/mL THC (Cannabinoids): 50 ng/mL TCA (Trycyclic Antidepressants): 300 ng/mL 08/30/2024 4:20 PM EDT 08/30/2024 5:17 PM EDT Narrative CLINISYNC - 08/30/2024 5:28 PM EDT Blanca Karen DO CLINISYNC Final Result Performing Organization Address [facility]/ZIP Co de Phone Number CLINISYCA TBH * (ABNORMAL) CANNABINOID CONF, MS, UR (08/30/2024 4:20 PM EDT) CANNABINOID Positive(A ) . TBH CARBOXY THC CONF, MS, UR 19 Cutoff=10 ng/mL TBH Comment: Performed at: - [facility] [address] [place], [place] [id number] Talent Scout: Eliu Ramirez PhD, Phone: [phone] 08/30/2024 4:20 PM EDT 08/30/2024 5:28 PM EDT Narrative CLINISYNC - 09/02/2024 8:08 PM EDT us Blanca Karen DO LAB BLOOD ORDERABLES Final Resul t [facility] * (ABNORMAL) POCT urinalysis dipstick manually resulted [...] - Positive Urine 08/30/2024 1:13 PM EDT us Blanca Karen DO POINT OF CARE TEST ENTER/EDIT OR DERABLES Final Result * US OB BPP W NON-STRESS (08/25/2024 11:41 AM EDT) Anatomical Region Laterality Modality Other 08/25/2024 11:4 1 AM EDT Narrative 08/25/2024 11:44 AM EDT [address] [address] Ultrasound Report Signed Patient: GILSON [place] MR#: [id number] : 1990 Acct:[id number] Age/Sex: 34 / F ADM Date: 08/25/24 Loc: [facility] 250-[address]: Blanca Jones D.O. Ordering Physician: Blanca Jones D.O. Date of Service: 08/25/24 Procedure(s): US OB BPP w non-stress Accession Number(s): [id number] cc: Blanca Jones D.O.; Physician,Non-Staff [place] [address] Patient Name: GILSON MEDINA MRN: [facility]:[id number] date: 1990 Sex: F Assigned Patient Location: [facility] Current Patient Location: [facility] Accession/Order Number: [id number] Exam Date: 08/25/2024 11:38 Report Date: 08/25/2024 11:41 At the request of: BLANCA JONES DO Procedure: US OB BPP w non-stress BIOPHYSICAL PROFILE: CLINICAL INFORMATION: Low amniotic fluid O41.00x0 COMPARISON: 08/18/2024 There is a single live intrauterine gestation in cephalic presentation. The reported gestational age is 36 weeks 3 days. The heart rate [id number] beats per minute. FINDINGS: TONE: 1 or [...] Boothe M.D. 08/25/2024 11:41 AM Dictation Location: [place] [address] Electronically authenticated by: [id number] Y Date: 08/25/2024 11:41 Dictated By: Elisa Boothe M.D. Signed By: 08/25/24 1144 DD/ 1141 TD/TT: Movie Theater Usher: Procedure Note Radiology, Radiologist, - 08/25/2024 [place] [address] Ultrasound Report Signed Patient: GILSON MEDINA RMR#: [id number] : 1990Acct:[id number] Age/Sex: 34 / FADM Date: 08/25/24 Loc: [facility] 250-[address]: Blanca Jones D.O. Ordering Physician: Blanca Jones D.O. Date of Service: 08/25/24 Procedure(s): US OB BPP w non-stress Accession Number(s): [id number] cc: Blanca Jones D.O.; Physician,Non-Staff [place] [address] Patient Name: GILSON MEDINA MRN: [facility]:[id number] date: 1990 Sex: F Assigned Patient Location: [facility] Current Patient Location: [facility] Accession/Order Number: [id number] Exam Date: 08/25/2024 11:38 Report Date: 08/25/2024 11:41 At the request of: BLANCA JONES DO Procedure: US OB BPP w non-stress BIOPHYSICAL PROFILE: CLINICAL INFORMATION: Low amniotic fluid O41.00x0 COMPARISON: 08/18/2024 There is a single live intrauterine gestation in cephalic presentation.The reported gestational age is 36 weeks 3 days. The heart [id number] beats per minute. FINDINGS: TONE: 1 or [...] Boothe M.D. 08/25/2024 11:41 AM Dictation Location: [place] [address] Electronically authenticated by: [id number] Y Date: 1:41 Dictated By: Elisa Boothe M.D. Signed By:08/25/24 1144 DD/ 1141 TD/TT: Movie Theater Usher: Blanca Jones DO CLINISYNC IMAGING Final Result * Pap Smear (04/12/2024 12:00 AM EST) Swab Cervical swab / Unknown Karen Nurse [facility] Ob LAB CYTOLOGY ORDERABLES Final Result EXTERNAL LAB from Last 3 Months or Most Recently Relevant to Health Maintenance Additional Health Concerns Active Problems Noted Date Diagnosed Date OB Reminders 02/18/2024 Insurance [employer] [place] Care Teams Chef French Relationship Specialty Start Date End Date Blanca Jones DO [address] [place] [address] PCP - FFS State [facility] 07/05/24
--- OUTSIDE RECORDS SUMMARY | 2024-11-23 12:43 | XMS_ITS | Encounter Summary ---
Author Organization [facility] Address [address] [place] [address] Care Team Providers Care Employment Instructional Associate Name Role Phone Junior Jones DO Unavailable Encounter Details Date Type Department Care Team (Late Contact Info) Description 04/12/2024 Abstract DAFNE PISANO [address] [place] [address] Junior Jones DO [address] [place], [facility] Social History Tobacco Use Types Packs/Day [...] 11:00 AM EDT Ancillary Procedure DAFNE PISANO [address] [place] [address] [place] [address] 12/29/2024 9:30 AM EDT Office Visit DAFNE PISANO [address] [place] [address] Teresa Moreno, SIDNEY [address] [facility] [place] [address] documented as of this encounter Goals Goal Patient Goal Type Associated Problems Recent Progress Patient-Stated? Author Reminders Care Plan OB Reminders No Open Scheduling, Background documented as of this encounter Visit Diagnoses Not on filedocumented in this encounter Additional Health Concerns Active Problems Noted Date Diagnosed Date OB Reminders 02/18/2024 documented as of this encounter Care Teams Employment Instructional Associate Relationship Specialty Start Date End Date Junior Jones DO [address] [place] [address] PCP - FFS State [facility] 07/05/24 documented as of this encounter
--- OUTSIDE RECORDS SUMMARY | 2024-11-23 12:43 | XMS_ITS | Encounter Summary ---
Author Organization [facility] Address [address] [place] [address] Care Team Providers Care Chinchilla Farmer Name Role Phone Junior Jones DO Unavailable Encounter Details Date Type Department Care Team (Late Contact Info) Description 08/31/2024 Abstract DAFNE PISANO [address] [place] [address] Junior Jones DO [address] [place], [facility]11 Social History Tobacco Use Types Packs/Day Years [...] 11:00 AM EDT Ancillary Procedure DAFNE PISANO [address] [place] [address] [place] [address] 12/29/2024 9:30 AM EDT Office Visit DAFNE PISANO [address] [place] [address] Teresa Moreno, SIDNEY [address] [facility] [place] [phone] documented as of this encounter Goals Goal Patient Goal Type Associated Problems Recent Progress Patient-Stated? Author Reminders Care Plan OB Reminders No Open Scheduling, Background documented as of this encounter Visit Diagnoses Not on filedocumented in this encounter Additional Health Concerns Active Problems Noted Date Diagnosed Date OB Reminders 02/18/2024 documented as of this encounter Care Teams Chinchilla Farmer Relationship Specialty Start Date End Date Junior Jones DO [address] [place] [address] PCP - FFS State [facility] 07/05/24 documented as of this encounter
--- OUTSIDE RECORDS SUMMARY | 2024-11-23 12:43 | XMS_ITS | Encounter Summary ---
Author Organization [facility] Address [address] [place] [address] Care Team Providers Care Underwriting Operations Manager Name Role Phone Junior Jones DO Unavailable Encounter Details Date Type Department Care Team (Late Contact Info) Description 04/01/2024 Abstract DAFNE PISANO [address] [facility] [place] [address] Junior Jones DO [address] [place], [facility]11 Social History Tobacco Use [...] 11:00 AM EDT Ancillary Procedure DAFNE PISANO [address] [place] [address] [place] [address] 12/29/2024 9:30 AM EDT Office Visit DAFNE PISANO [address] [place] [address] Teresa Moreno, SIDNEY [address] [facility] [place] [phone] documented as of this encounter Goals Goal Patient Goal Type Associated Problems Recent Progress Patient-Stated? Author Reminders Care Plan OB Reminders No Open Scheduling, Background documented as of this encounter Visit Diagnoses Not on filedocumented in this encounter Additional Health Concerns Active Problems Noted Date Diagnosed Date OB Reminders 02/18/2024 documented as of this encounter Care Teams Underwriting Operations Manager Relationship Specialty Start Date End Date Junior Jones DO [address] [place] [address] PCP - FFS State [facility] 07/05/24 documented as of this encounter
--- OUTSIDE RECORDS SUMMARY | 2024-11-23 12:43 | XMS_ITS | Encounter Summary ---
Author Organization [facility] Address [address] [place] [address] Care Team Providers Care School Cafeteria Cook Name Role Phone Junior Jones DO Unavailable Encounter Details Date Type Department Care Team (Late st Contact Info) Description 05/19/2024 Abstract DAFNE PISANO [address] [facility] [place] [address] Junior Jones DO [address] [place], [facility]11 Social History Tobacco Use Types Packs/Day [...] 11:00 AM EDT Ancillary Procedure DAFNE PISANO [address] [place] [address] [place] [address] 12/29/2024 9:30 AM EDT Office Visit DAFNE PISANO [address] [place] [address] Teresa Moreno, SIDNEY [address] [facility] [place] [phone] documented as of this encounter Goals Goal Patient Goal Type Associated Problems Recent Progress Patient-Stated? Author Reminders Care Plan OB Reminders No Open Scheduling, Background documented as of this encounter Visit Diagnoses Not on filedocumented in this encounter Additional Health Concerns Active Problems Noted Date Diagnosed Date OB Reminders 02/18/2024 documented as of this encounter Care Teams School Cafeteria Cook Relationship Specialty Start Date End Date Junior Jones DO [address] [place] [address] PCP - FFS State [facility] 07/05/24 documented as of this encounter
--- OUTSIDE RECORDS SUMMARY | 2024-11-23 12:43 | XMS_ITS | Encounter Summary ---
Author Organization [facility] Address [address] [place] [address] Care Team Providers Care Staff Nurse Anesthetist Name Role Phone Junior Jones DO Unavailable Encounter Details Date Type Department Care Team (Late st Contact Info) Description 07/29/2024 Abstract DAFNE PISANO [address] [place] [address] Junior Jones DO [address] [place], [facility]11 Social History Tobacco Use Types Packs/Day [...] 11:00 AM EDT Ancillary Procedure DAFNE PISANO [address] [place] [address] [place] [address] 12/29/2024 9:30 AM EDT Office Visit DAFNE PISANO [address] [place] [address] Teresa Moreno, SIDNEY [address] [facility] [place] [phone] documented as of this encounter Goals Goal Patient Goal Type Associated Problems Recent Progress Patient-Stated? Author Reminders Care Plan OB Reminders No Open Scheduling, Background documented as of this encounter Visit Diagnoses Not on filedocumented in this encounter Additional Health Concerns Active Problems Noted Date Diagnosed Date OB Reminders 02/18/2024 documented as of this encounter Care Teams Staff Nurse Anesthetist Relationship Specialty Start Date End Date Junior Jones DO [address] [place] [address] PCP - FFS State [facility] 07/05/24 documented as of this encounter
--- OUTSIDE RECORDS SUMMARY | 2024-11-23 12:43 | XMS_ITS | Encounter Summary ---
Author Organization [facility] Address [address] [place] [address] Care Team Providers Care Step Down Specialist Name Role Phone Junior Jones DO Unavailable Encounter Details Date Type Department Care Team (Late Contact Info) Description 02/01/2024 Abstract DAFNE PISANO [address] [facility] [address] Junior Jones DO [address] [place], [facility]11 Social History Tobacco Use Types Packs/Day Years [...] 11:00 AM EDT Ancillary Procedure DAFNE PISANO [address] [place] [address] [place] [address] 12/29/2024 9:30 AM EDT Office Visit DAFNE PISANO [address] [place] [address] Teresa Moreno, SIDNEY [address] [facility] [place] [phone] documented as of this encounter Visit Diagnoses Not on filedocumented in this encounter Care Teams Step Down Specialist Relationship Specialty Start Date End Date Junior Jones DO [address] [place] [address] PCP - FFS State [facility] 07/05/24 documented as of this encounter
--- OUTSIDE RECORDS SUMMARY | 2024-11-23 12:43 | XMS_ITS | Encounter Summary ---
Author Organization [facility] Address [address] [place] [address] Care Team Providers Care Furnace Installer Helper Name Role Phone Karen Blanca Unavailable Encounter Details Date Type Department Care Team (Late st Contact Info) Description 02/19/2024 Clinisync Result Encounter [facility] External Department Unsolicited Blanca Jones DO [address] [place], [facility]11 Social History Tobacco [...] AM EDT Ancillary Procedure DAFNE PISANO [address] [place] [address] 12/29/2024 9:30 AM EDT Office Visit DAFNE PISANO [address] [place] [address] Teresa Moreno, SIDNEY [address] [place] [address] documented as of this encounter Goals [...] AM EST Narrative 02/19/2024 4:20 [place] [address] Ultrasound Report Signed Patient: GILSON MEDINA MR#: [id number] : 1990 Acct:[id number] Age/Sex: 33 / F ADM Date: 02/18/24 Loc: [facility] Attending Dr: Blanca Jones D.O. Ordering Physician: Blanca Jones D.O. Date of Service: 02/18/24 Procedure(s): US OB transvaginal Accession Number(s): [id number] cc: Blanca Jones D.O.; Physician,Non-Staff [place] [address] Patient Name: GILSON MEDINA MRN: [id number] date: 1990 Sex: F Assigned Patient Location: [facility] Current Patient Location: Accession/Order Number: [id number] Exam Date: 02/18/2024 12:35 Report Date: 02/19/2024 [...] Archie Beatty M.D. Signed By: 02/19/240 DD/ TD/TT: Thread Singer: Procedure Note Radiology, Radiologist, MD - 02/19/2024 [place] [address] Ultrasound Report Signed Patient: ANITA MEDINA#: [id number] : 1990Acct:[id number] Age/Sex: 33 FADM Date: 02/18/24 Loc: [facility] Attending Dr: Blanca Jones D.O. Ordering Physician: Blanca Jones D.O. Date of Service: 02/18/24 Procedure(s): US OB transvaginal Accession Number(s): [id number] cc: Blanca Jones D.O.; Physician,Non-Staff [place] [id number] Patient Name: GILSON MEDINA MRN: [id number] date: 1990 Sex: F Assigned Patient Location: [facility] Current Patient Location: Accession/Order Number: [id number] Exam Date: 02/18/2024 12:35 Report Date: 02/19/2024 [...] 04:17 Dictated By: Archie Beatty M.D. Signed By:02/19/240 DD/ TD/TT: Thread Singer: us Blanca Jones DO [facility] Final Result documented in this encounter Visit Diagnoses Not on filedocumented in this encounter Additional Health Concerns Active Problems Noted Date Diagnosed Date OB Reminders 02/18/2024 documented as of this encounter Care Teams Furnace Installer Helper Relationship Specialty Start Date End Date Blanca Jones DO [address] [facility] [place] [address] PCP - FFS State [facility] 07/05/24 documented as of this encounter
--- OUTSIDE RECORDS SUMMARY | 2024-11-23 12:43 | XMS_ITS | Encounter Summary ---
Author Organization [facility] Address [address] [place] [address] Care Team Providers Care First Line Production Supervisor Name Role Phone Junior Jones DO Unavailable Encounter Details Date Type Department Care Team (Late st Contact Info) Description 04/25/2024 Orders Only DAFNE PISANO [address] [facility] [place] [address] Della Ly LPN 102 [facility] [place] [facility]11 Social History Tobacco Use Types Packs/Day Years [...] AM EDT Ancillary Procedure DAFNE PISANO [address] [facility] [place] [address] 12/29/2024 9:30 AM EDT Office Visit DAFNE PISANO [address] [facility] [place] [address] Teresa Moreno, RANGE EXAMINER [address] [facility] [place] [phone] documented as of this encounter Goals Goal [...] Cervical swab / Unknown Karen Nurse [facility] CYTOLOGY ORDERABLES Final Result EXTERNAL LAB documented in this encounter Visit Diagnoses Not on filedocumented in this encounter Additional Health Concerns Active Problems Noted Date Diagnosed Date OB Reminders 02/18/2024 documented as of this encounter Care Teams First Line Production Supervisor Relationship Specialty Start Date End Date Junior Jones DO [address] [place] [address] PCP - FFS State [facility] 07/05/24 documented as of this encounter
--- OUTSIDE RECORDS SUMMARY | 2024-11-23 12:43 | XMS_ITS | Encounter Summary ---
Author Organization [facility] Address [address] [place] [address] Care Team Providers Care Search Strategist Name Role Phone Junior Jones DO Unavailable Encounter Details Date Type Department Care Team (Late st Contact Info) Description 06/23/2024 Abstract NOMKatie PISANO [address] [place] [address] Anna Carrasco LPN Social History Tobacco Use [...] AM EDT Ancillary Procedure DAFNE PISANO [address] [place] [address] 12/29/2024 9:30 AM EDT Office Visit DAFNE PISANO [address] [place] [address] Teresa Moreno, SIDNEY [address] [place] [address] documented as of this encounter Goals Goal Patient Goal Type Associated Problems Recent Progress Patient-Stated? Author Reminders Care Plan OB Reminders No Open Scheduling, Background documented as of this encounter Visit Diagnoses Not on filedocumented in this encounter Additional Health Concerns Active Problems Noted Date Diagnosed Date OB Reminders 02/18/2024 documented as of this encounter Care Teams Search Strategist Relationship Specialty Start Date End Date Junior Jones DO [address] [place] [address] PCP - FFS State [employer] [facility] 07/05/24 documented as of this encounter
--- OUTSIDE RECORDS SUMMARY | 2024-11-23 12:43 | XMS_ITS | Encounter Summary ---
Author Organization [facility] Address [address] [place] [address] Care Team Providers Care Desk Pens Assembler Name Role Phone Junior Jones DO Unavailable Encounter Details Date Type Department Care Team (Late Contact Info) Description 11/23/2024 Bamboo flowsheet DAFNE PISANO [address] [place] [address] Junior Jones DO [address] [place], [facility]11 Social History Tobacco Use Types Packs/Day [...] Ancillary Procedure DAFNE PISANO [address] [place] [address] 12/29/2024 9:30 AM EDT Office Visit DAFNE PISANO [address] [place] [address] Teresa Moreno, HOME HEALTH ATTENDANT [address] [place] [address] documented as of this encounter Goals Goal Patient Goal Type Associated Problems Recent Progress Patient-Stated? Author Reminders Care Plan OB Reminders No Open Scheduling, Background documented as of this encounter Visit Diagnoses Not on filedocumented in this encounter Additional Health Concerns Active Problems Noted Date Diagnosed Date OB Reminders 02/18/2024 documented as of this encounter Care Teams Desk Pens Assembler Relationship Specialty Start Date End Date Junior Jones DO [address] [place] [address] [place] [address] PCP - FFS State [facility] 07/05/24 documented as of this encounter
--- OUTSIDE RECORDS SUMMARY | 2024-11-23 12:43 | XMS_ITS | Encounter Summary ---
Author Organization [facility] Address [address] [place] [address] Care Team Providers Care Quality Assurance Name Role Phone Junior Jones DO Unavailable Encounter Details Date Type Department Care Team (Late Contact Info) Description 02/19/2024 Abstract DAFNE PISANO [address] [facility] [place] [address] Junior Jones DO [address] [place], [facility]11 Social History Tobacco Use Types Packs/Day [...] 11:00 AM EDT Ancillary Procedure DAFNE PISANO [address] [place] [address] [place] [address] 12/29/2024 9:30 AM EDT Office Visit DAFNE PISANO [address] [facility] [place] [address] Teresa Moreno, SIDNEY [address] [facility] [place] [phone] documented as of this encounter Goals Goal Patient Goal Type Associated Problems Recent Progress Patient-Stated? Author Reminders Care Plan OB Reminders No Open Scheduling, Background documented as of this encounter Visit Diagnoses Not on filedocumented in this encounter Additional Health Concerns Active Problems Noted Date Diagnosed Date OB Reminders 02/18/2024 documented as of this encounter Care Teams Quality Assurance Relationship Specialty Start Date End Date Junior Jones DO [address] [place] [address] PCP - FFS State [facility] 07/05/24 documented as of this encounter
--- OUTSIDE RECORDS SUMMARY | 2024-11-23 12:43 | XMS_ITS | Clinical Summary ---
Author Organization [facility] Address [address] [place] [address] Care Team Providers Care Plasterer Spray Gun Name Role Phone Unavailable Primary Care Provider [...] N ot on file 05/03/2022 Data from: [email or web address] Last address used for calculation [address] [place] [address] 05/03/2022 Comments Unknown Sex and Gender Information [...]
--- OUTSIDE RECORDS SUMMARY | 2024-11-23 12:43 | XMS_ITS | Encounter Summary ---
Author Organization [facility] Address [address] [place] [address] Care Team Providers Care Paste Up Artist Name Role Phone Junior Jones DO Unavailable Encounter Details Date Type Department Care Team (Late Contact Info) Description 02/29/2024 Abstract DAFNE PISANO [address] [place] [address] Junior Jones DO [address] [place], [facility]11 Social History Tobacco Use Types Packs/Day Years [...] 11:00 AM EDT Ancillary Procedure DAFNE PISANO [address] [place] [address] [place] [address] 12/29/2024 9:30 AM EDT Office Visit DAFNE PISANO [address] [facility] [place] [place] [address] Teresa Moreno, SIDNEY [address] [facility] [place] [phone] documented as of this encounter Goals Goal Patient Goal Type Associated Problems Recent Progress Patient-Stated? Author Reminders Care Plan OB Reminders No Open Scheduling, Background documented as of this encounter Visit Diagnoses Not on filedocumented in this encounter Additional Health Concerns Active Problems Noted Date Diagnosed Date OB Reminders 02/18/2024 documented as of this encounter Care Teams Paste Up Artist Relationship Specialty Start Date End Date Junior Jones DO [address] [place] [address] PCP - FFS State [facility] 07/05/24 documented as of this encounter
--- OUTSIDE RECORDS SUMMARY | 2024-11-23 12:43 | XMS_ITS | Encounter Summary ---
Author Organization [facility] Address [address] [place] [address] Care Team Providers Care Starter Cup Powder Mixer Name Role Phone Junior Jones DO Unavailable Encounter Details Date Type Department Care Team (Late st Contact Info) Description 04/08/2024 Abstract DAFNE PISANO [address] [facility] [place] [address] Junior Jones DO [address] [place], [facility]11 Social History [...] 11:00 AM EDT Ancillary Procedure DAFNE PISANO [address] [place] [address] [place] [address] 12/29/2024 9:30 AM EDT Office Visit DAFNE PISANO [address] [place] [address] Teresa Moreno, SIDNEY [address] [facility] [place] [phone] documented as of this encounter Goals Goal Patient Goal Type Associated Problems Recent Progress Patient-Stated? Author Reminders Care Plan OB Reminders No Open Scheduling, Background documented as of this encounter Visit Diagnoses Not on filedocumented in this encounter Additional Health Concerns Active Problems Noted Date Diagnosed Date OB Reminders 02/18/2024 documented as of this encounter Care Teams Starter Cup Powder Mixer Relationship Specialty Start Date End Date Junior Jones DO [address] [place] [address] PCP - FFS State [facility] 07/05/24 documented as of this encounter
--- OUTSIDE RECORDS SUMMARY | 2024-11-23 12:49 | XMS_ITS | CCD ---
Author Organization [facility] [place] [facility] Care Team Providers Care Prism Inspector Name Role Phone Sharon Pickett Unavailable Unavailable Sharon Pickett Unavailable Unavailable Arslan Malin Unavailable Unavailable MARY OQUENDO Attending Unavailable Sangita Penn Unavailable Unavailable Primary Care Provider UnavailJunior Box DO Unavailable JUNIOR JONES Attending Unavailable DESIREE CADET Attending Unavailable KAREN, JUNIOR Attending Unavailable KAREN, JUNIOR Attending Unavailable MARLIN MORENO Referring Unavailable JUNIOR JONES Attending Unavailable DESIREE CADET Attending Unavailable MARLIN MORENO Attending Unavailable KAREN, JUNIOR Attending Unavailable KAREN, JUNIOR Attending Unavailable KAREN, JUNIOR Attending Unavailable KAREN, JUNIOR Attending Unavailable DESIREE CADET Attending Unavailable Medications Current Medications Medication Drug Class(es) Dates Sig (Normalized) Sig (Original) [id number] 200 actuat albuterol 0.09 mg/actuat metered dose [...] directed 6 tablet 05/27/2024 06/06/2024 Discontinued (Other) desogestrel 0.15 mg / ethinyl estradiol 0.03 mg oral tablet (4 sources) Progestin, Estrogen Start: 10-18-2024 End: 10-18-2025 desogestrel-ethinyl estradiol (Apri) 0.15-30 MG-MCG tablet Indications: 6 weeks follow-up ([facility]) , control counseling Take 1 tablet by mouth Daily 28 tablet 12 10/18/2024 10/18/2025 Active dextromethorphan hydrobromide 1.5 mg/ml / pyrilamine maleate 1.5 mg/ml oral solution (1 source) Uncompetitive I-avdarz-K-asparta te Receptor Antagonist, Sigma-1 Agonist Start: 02-08-2023 take 10 mL by mouth every eight hours Eden DM 7.5-7.5 MG/5ML 10 mL Orally every 8 hours for 5 days Feb, Active 12 hr guaiFENesin 600 mg extended release oral tablet (1 source) take 1 tablet by mouth every twelve hours Mucinex 600 MG 1 tablet as needed Orally every 12 hrs Active ibuprofen 100 mg chewable tablet (4 sources) Nonsteroidal Anti-inflammatory Drug ibuprofen 100 MG chewable tablet Chew Active nitrofurantoin, macrocrystals 25 mg / nitrofurantoin, [...] Drug Class(es) Dates Sig (Normalized) Sig (Original) omeprazole 20 mg delayed release oral capsule (20 sources) Proton Pump Inhibitor End: 10-18-2024 take 1 capsule by mouth before mealtime omeprazole (PriLOSEC) [address] capsule Take 20 mg by mouth in the morning. Take before meals. Do not crush or chew.. 10/18/2024 Discontinued promethazine hydrochloride 12.5 mg oral tablet (5 [...] Onset: 02-20-2022 Episodic Contraceptive and procreative management (7 sources) Sterilization requested; Translations: [Encounter for sterilization] 03-09-2024 Episodic Hypertension complicating ; childbirth and the puerperium (2 sources) Hypertension AND/OR vomiting complicating childbirth AND/OR puerperium; Translations: [Gestational [-induced] hypertension without significant proteinuria, unspecified trimester] 08-30-2024 Episodic Immunizations and screening for infectious disease (2 sources) Exposure to sexually transmissible disorder; Translations: [Contact with and (suspected) exposure to infections with a predominantly sexual mode of transmission] 04-12-2024 Episodic Menstrual disorders (1 source) Missed period; Translations: [Irregular menstruation, unspecified] 02-18-2024 Chronic Other complications of (4 sources) History of pre-eclampsia; Translations: [Supervision of [...] [36 weeks gestation of ] 08-22-2024 Episodic Residual codes; unclassified (2 sources) Gestation period, 37 weeks; Translations: [37 weeks gestation of ] 08-30-2024 Episodic Unclassified (20 sources) OB Reminders Onset: [...] WITH AUTO DIFFon BASOPHILS ABSOLUTE AUTO 0 [facility] Basophils/100 WBC (Bld) 0.4 % 0.2 - 2.0 % [facility] Eosinophils/100 WBC (Bld) 1.7 % 0.9 - 7.0 % [facility] Erythrocyte distribution width (RBC) [Ratio] 13.6 % 11.0 - 15.0 % [facility] Hematocrit (Bld) [Volume fraction] 27.8 % Low 36.0 - 48.0 % [facility] Hemoglobin (Bld) [Mass/Vol] 9.1 g/dL Low 12.0 - 16.0 g/dL [facility] IMMATURE GRANULOCYTES ABS AUTO 0.05 High [facility] Immature granulocytes/100 WBC (Bld) 0.5 % 0.0 - 0.5 % [facility] Interpretation and review of laboratory results Abnormal [facility] LYMPHOCYTES ABSOLUTE AUTO 2.3 [facility] Lymphocytes/100 WBC (Bld) 22.3 % 20.5 - 60.0 % [facility] MCH (RBC) [Entitic mass] 26.3 pg Low 26.7 - 34.0 pg [facility] MCHC (RBC) [Mass/Vol] 32.7 g/dL 29.9 - 35.2 g/dL [facility] MCV (RBC) [Entitic vol] 80.3 fL Low 81.0 - 99.0 fL [facility] MONOCYTES ABSOLUTE AUTO 0.7 [facility] Monocytes/100 WBC (Bld) 6.5 % 1.7 - 12.0 % [facility] NEUTROPHILS ABSOLUTE AUTO 7.1 High [facility] Neutrophils/100 WBC (Bld) 68.6 % 43.0 - 75.0 % [facility] Platelet mean volume (Bld) [Entitic vol] 10.9 fL 9.5 - 13.5 [facility]L [facility] PLT 206 [facility] RBC 3.46 Low [facility] WBC 10.3 [facility] UA (CLEAN/CATCH) DIRECT MAIL COORDINATOR/DAVID RO IF IND.on 08-30-2024 BILIRUBIN URINE Negative NEGATIVE [facility] BLOOD URINE LARGE Abnormal NEGATIVE [facility] Clarity (U) CLEAR CLEAR [facility] Color (U) YELLOW YELLOW [facility] GLUCOSE URINE UA Negative NEGATIVE mg/dL [facility] Interpretation and review of laboratory results Abnormal [facility] Ketones Ql (U) TRACE Abnormal NEGATIVE mg/dL [facility] Leukocyte esterase Test strip Ql (U) Negative NEGATIVE [facility] NITRITE URINE Negative NEGATIVE [facility] pH (U) 6.0 [pH] 5.0 - 9.0 [facility] PROTEIN URINE TRACE NEG/TRACE mg/dL [facility] SPECIFIC GRAVITY URINE 1.025 1.005 - 1.025 [facility] URINE MICROSCOPIC INDICATED YES [facility] UROBILINOGEN URINE 0.2 EU/dL 0.2 - 1.0 EU/dL [facility] Urinalysis macro (dipstick) panel (U)on 08-30-2024 Bilirubin, UA Positive Negative - 4(70) +++ mg/dL [facility] Comment on above: small Blood, UA Negative Negative - 50 Jesus/mcL [facility] Clarity, UA Clear [facility] Color, UA Straw [facility] Glucose, UA Negative Negative - 2000(110) ++++ mg/dL [facility] Interpretation and review of laboratory results Abnormal [facility] Ketones, UA Positive Negative - 160(16) ++++ mg/dL [facility] Comment on above: trace Leukocytes, UA Trace Negative - 500+++ Juanita/mcL [facility] Nitrite, UA Negative Negative - Positive [facility] pH, UA 6 5 - 9 [facility] Protein, UA Positive Negative - 1999(20) ++++ mg/dL [facility] Comment on above: 100 Spec Grav, UA 1.03 1 - 1.03 [facility] Urobilinogen, UA 1.0 0.2 - 12 mg/dL [facility] Urinalysis macro (dipstick) panel (U)on 08-22-2024 Bilirubin, UA Negative Negative - 4(70) +++ mg/dL [facility] Blood, UA Negative Negative - 50 Jesus/mcL [facility] Clarity, UA Clear [facility] Color, UA Yellow [facility] Glucose, UA Negative Negative - 1999(110) ++++ mg/dL [facility] Interpretation and review of laboratory results Normal [facility] Ketones, UA Negative Negative - 160(16) ++++ mg/dL [facility] Leukocytes, UA Negative Negative - 500+++ Juanita/mcL [facility] Nitrite, UA Negative Negative - Positive [facility] pH, UA 7 5 - 9 [facility] Protein, UA Negative Negative - 1999(20) ++++ mg/dL [facility] Spec Grav, UA 1.015 1 - 1.03 [facility] Urobilinogen, UA 0.2 0.2 - 12 mg/dL [facility] US OB BPP W NON-STRESS on 08-18-2024 [place] [address] Ultrasound Report Signed Patient: SANTIAGO MEDINA MR#: [id number] : 1990 Acct:[id number] Age/Sex: 34 / F ADM Date: 08/18/24 Loc: [facility] 250-[address]: Junior Jones D.O. Ordering Physician: Junior Jones D.O. Date of Service: 08/18/24 Procedure(s): US OB BPP w non-stress Accession Number(s): [id number] cc: Junior Jones D.O.; Physician,Non-Staff MMynor The [address] [address] Patient Name: SANTIAGO MEDINA MRN: [facility]:[id number] date: 1990 Sex: F [place]igned [place] [facility] [place] [facility] Accession/Order Number: [id number] Exam Date: 08/18/2024 11:59 Report Date: 08/18/2024 12:00 At the request of: JUNIOR JONES DO Procedure: US OB BPP w non-stress BIOPHYSICAL PROFILE: CLINICAL INFORMATION: LOW AMINOTIC FLUID O41.00X0 COMPARISON: 08/11/2024 There is a single live intrauterine gestation in cephalic presentation. The reported gestational age is 35 weeks 3 days. The heart rate [id number] beats per minute. FINDINGS: TONE: 1 or [...] Boothe M.D. 08/18/2024 12:00 PM Dictation Location: [place] [address] Electronically authenticated by: [id number] Y Date: 08/18/2024 12:00 Dictated By: Elisa Boothe M.D. Signed By: 08/18/24 1203 DD/ 1200 TD/TT: Interior Decorator Painting: [facility] Radiology, Radiologi MD jessica - 08/18/2024 [place] [address] Ultrasound Report Signed Patient: SANTIAGO MEDINA MR#: [id number] : 1990 Acct:[id number] Age/Sex: 34 / F ADM Date: 08/18/24 Loc: [facility] 250-[address]: uJnior Jones D.O. Ordering Physician: Junior Jones D.O. Date of Service: 08/18/24 Procedure(s): US OB BPP w non-stress Accession Number(s): [id number] cc: Junior Jones D.O.; Physician,Non-Staff [place] [address] Patient Name: SANTIAGO MEDINA MRN: [id number] date: 1990 Sex: F Assigned Patient [place] [facility] [place] [facility] Accession/Order Number: [id number] Exam Date: 08/18/2024 11:59 Report Date: 08/18/2024 12:00 At the request of: JUNIOR JONES DO Procedure: US OB BPP w non-stress BIOPHYSICAL PROFILE: CLINICAL INFORMATION: LOW AMINOTIC FLUID O41.00X0 COMPARISON: 08/11/2024 There is a single live intrauterine gestation in cephalic presentation. The reported gestational age is 35 weeks 3 days. The heart rate [id number] beats per minute. FINDINGS: TONE: 1 or [...] Boothe M.D. 08/18/2024 12:00 PM Dictation Location: [place] [address] Electronically authenticated by: [id number] Y Date: 08/18/2024 12:00 Dictated By: Elisa Boothe M.D. Signed By: 08/18/24 1203 DD/ 1200 TD/TT: Interior Decorator Painting: [facility] Radiology Study observation (narrative) [facility] OB BPP W NON-STRESS Ordered By: Radiologist Radiology on 08-18-2024 [facility] Work Phone: US OB BPP W NON-STRESS on 08-11-2024 [place] [address] Ultrasound Report Signed Patient: SANTIAGO MEDINA MR#: [id number] : 1990 Acct:[id number] Age/Sex: 34 / F ADM Date: 08/11/24 Loc: [facility] 250-[address]: Junior Jones D.O. Ordering Physician: Junior Jones D.O. Date of Service: 08/11/24 Procedure(s): US OB BPP w non-stress Accession Number(s): [id number] cc: Junior Jones D.O.; Physician,Non-Staff [place] [address] [address] Patient Name: SANTIAGO MEDINA MRN: [facility]:[id number] date: 1990 Sex: F Assigned Patient Location: [facility] Current Patient Location: [facility] Accession/Order Number: [id number] Exam Date: 08/11/2024 11:38 Report Date: 08/11/2024 11:39 At the request of: JUNIOR JONES DO Procedure: US OB BPP w non-stress Biophysical profile. Reason for exam: Low amniotic fluid volume. COMPARISON: 08/04/2024 TECHNIQUE: Transabdominal imaging of the gravid uterus was obtained. FINDINGS: Clinical Study Manager reports the BPP is 8 out of 8. LIZETH measures 12 cm. heart rate 147 bpm. US/US OB BPP w non-stress IMPRESSION: BPP 8 out of 8. Impression dictated by: David Qureshi Jr., D.O. 08/11/2024 11:39 AM Dictation Location: [place] [address] Electronically authenticated by: [id number] Y Date: 08/11/2024 11:39 Dictated By: David Qureshi M.D. Signed By: 08/11/24 1141 DD/ 1139 TD/TT: Interior Decorator Painting: [facility] Radiology, Radiologi MD jessica - 08/11/2024 The [place] [id number] Ultrasound Report Signed Patient: SANTIAGO MEDINA MR#: [id number] : 1990 Acct:[id number] Age/Sex: 34 / F ADM Date: 08/11/24 Loc: [facility] 250-[address]: Junior Jones D.O. Ordering Physician: Junior Jones D.O. Date of Service: 08/11/24 Procedure(s): US OB BPP w non-stress Accession Number(s): [id number] cc: Junior Jones D.O.; Physician,Non-Staff Vas[place] The [place] [id number] Patient Name: SANTIAGO MEDINA MRN: [id number] date: 1990 Sex: F Assigned Patient Location: [facility] Current Patient Location: [facility] Accession/Order Number: [id number] Exam Date: 08/11/2024 11:38 Report Date: 08/11/2024 11:39 At the request of: JUNIOR JONES DO Procedure: US OB BPP w non-stress Biophysical profile. Reason for exam: Low amniotic fluid volume. COMPARISON: 08/04/2024 TECHNIQUE: Transabdominal imaging of the gravid uterus was obtained. FINDINGS: Clinical Study Manager reports the BPP is 8 out of 8. LIZETH measures 12 cm. heart rate 147 bpm. US/US OB BPP w non-stress IMPRESSION: BPP 8 out of 8. Impression dictated by: David Qureshi Jr., D.O. 08/11/2024 11:39 AM Dictation Location: [place] [address] Electronically authenticated by: [id number] Y Date: 08/11/2024 11:39 Dictated By: David Qureshi M.D. Signed By: 08/11/24 1141 DD/ 1139 TD/TT: Interior Decorator Painting: [facility] Radiology Study observation (narrative) [facility] US OB BPP W NON-STRESS Ordered By: Radiologist Radiology on 08-11-2024 [facility] Work Phone: Urinalysis macro (dipstick) panel (U)on 08-11-2024 Bilirubin, UA Negative Negative - 4(70) +++ mg/dL [facility] Blood, UA Negative Negative - 50 Jesus/mcL [facility] Clarity, UA Clear [facility] Color, UA Yellow [facility] Glucose, UA Negative Negative - 1999(110) ++++ mg/dL [facility] Interpretation and review of laboratory results Normal [facility] Ketones, UA Negative Negative - 160(16) ++++ mg/dL [facility] Leukocytes, UA Negative Negative - 500+++ Juanita/mcL [facility] Nitrite, UA Negative Negative - Positive [facility] pH, UA 5.5 5 - 9 [facility] Protein, UA Negative Negative - 1999(20) ++++ mg/dL [facility] Spec Grav, UA 1.02 1 - 1.03 [facility] Urobilinogen, UA 1.0 0.2 - 12 mg/dL [facility] US OB BPP W NON-STRESS on 08-04-2024 [place] [address] Ultrasound Report Signed Patient: SANTIAGO MEDINA MR#: [id number] : 1990 Acct:[id number] Age/Sex: 34 / F ADM Date: 08/04/24 Loc: US Attending Dr: Junior Jones D.O. Ordering Physician: Junior Jones D.O. Date of Service: 08/04/24 Procedure(s): US OB BPP w non-stress Accession Number(s): [id number] cc: Junior Jones D.O.; Physician,Non-Staff MMynor The [address] [address] Patient Name: SANTIAGO MEDINA MRN: [id number] date: 1990 Sex: F Assigned Patient Location: US Current Patient Location: Accession/Order Number: [id number] Exam Date: 08/04/2024 13:07 Report Date: 08/04/2024 13:08 At the request of: JUNIOR JONES DO Procedure: US OB BPP w non-stress Biophysical profile. Reason for exam: Low amniotic fluid volume. COMPARISON: 07/28/2024 TECHNIQUE: Transabdominal imaging of the gravid uterus was obtained. FINDINGS: Clinical Study Manager reports the BPP is 8 out of 8. LIZETH measures 9 cm. heart rate 131 bpm. US/US OB BPP w non-stress IMPRESSION: BPP 8 out of 8. Impression dictated by: David Qureshi Jr., D.O. 08/04/2024 1:08 PM Dictation Location: [place] [address] Electronically authenticated by: [id number] Y Date: 08/04/2024 13:08 Dictated By: David Qureshi M.D. Signed By: 08/04/24 1311 DD/ 1308 TD/TT: Interior Decorator Painting: [facility] Radiology, Radiologi MD jessica - 08/04/2024 [place] [address] Ultrasound Report Signed Patient: SANTIAGO MEDINA MR#: [id number] : 1990 Acct:[id number] Age/Sex: 34 / F ADM Date: 08/04/24 Loc: US Attending Dr: Junior Jones D.O. Ordering Physician: Junior Jones D.O. Date of Service: 08/04/24 Procedure(s): US OB BPP w non-stress Accession Number(s): [id number] cc: Junior Jones D.O.; Physician,Non-Staff [place] The [address] [address] Patient Name: SANTIAGO MEDINA MRN: [facility]:[id number] date: 1990 Sex: F Assigned Patient Location: US Current Patient Location: Accession/Order Number: [id number] Exam Date: 08/04/2024 13:07 Report Date: 08/04/2024 13:08 At the request of: JUNIOR JONES DO Procedure: US OB BPP w non-stress Biophysical profile. Reason for exam: Low amniotic fluid volume. COMPARISON: 07/28/2024 TECHNIQUE: Transabdominal imaging of the gravid uterus was obtained. FINDINGS: Clinical Study Manager reports the BPP is 8 out of 8. LIZETH measures 9 cm. heart rate 131 bpm. US/US OB BPP w non-stress IMPRESSION: BPP 8 out of 8. Impression dictated by: David Qureshi Jr., D.O. 08/04/2024 1:08 PM Dictation Location: [place] [address] Electronically authenticated by: [id number] Y Date: 08/04/2024 13:08 Dictated By: David Qureshi M.D. Signed By: 08/04/24 1311 DD/ 1308 TD/TT: Interior Decorator Painting: [facility] Radiology Study observation (narrative) [facility] US OB BPP W NON-STRESS Ordered By: Radiologist Radiology on 08-04-2024 [facility] Work Phone: US OB BPP W NON-STRESS on 07-28-2024 [place] [address] Ultrasound Report Signed Patient: SANTIAGO MEDINA MR#: [id number] : 1990 Acct:[id number] Age/Sex: 34 / F ADM Date: 07/28/24 Loc: [facility] Attending Dr: Junior Jones D.O. Ordering Physician: Junior Jones D.O. Date of Service: 07/28/24 Procedure(s): US OB BPP w non-stress Accession Number(s): [id number] cc: Junior Jones D.O.; Physician,Non-Staff MMynor The [address] [address] Patient Name: SANTIAGO MEDINA MRN: [id number]:[id number] date: 1990 Sex: F Assigned Patient Location: [facility] Current Patient Location: Accession/Order Number: [id number] Exam Date: 07/28/2024 13:53 Report Date: 07/28/2024 13:55 At the request of: JUNIOR JONES DO Procedure: US OB BPP w non-stress Biophysical profile. Reason for exam: Low amniotic fluid volume. COMPARISON: None. TECHNIQUE: Transabdominal imaging of the gravid uterus was obtained. FINDINGS: Clinical Study Manager reports the BPP is 8 out of 8. LIZETH measures 8.5 cm. heart rate 1 44 bpm. US/US OB BPP w non-stress IMPRESSION: BPP 8 out of 8. Impression dictated by: David Qureshi Jr., D.O.07/28/2024 1:55 PM Dictation Location: [place] [address] Electronically authenticated by: [id number] Y Date: 07/28/2024 13:55 Dictated By: David Qureshi M.D. Signed By: 07/28/24 1357 DD/ 54 TD/TT: Interior Decorator Painting: [facility] Radiology, Radiologdomingo lopez MD - 07/28/[address] [address] Ultrasound Report Signed Patient: SANTIAGO MEDINA MR#: [id number] : 1990 Acct:[id number] Age/Sex: 34 / F ADM Date: 07/28/24 Loc: [facility] Attending Dr: Junior Jones D.O. Ordering Physician: Junior Jones D.O. Date of Service: 07/28/24 Procedure(s): US OB BPP w non-stress Accession Number(s): [id number] cc: Junior Jones D.O.; Physician,Non-Staff [place] The [address] [address] Patient Name: SANTIAGO MEDINA MRN: [facility]:[id number] date: 1990 Sex: F Assigned Patient Location: [facility] Current Patient Location: Accession/Order Number: [id number] Exam Date: 07/28/2024 13:53 Report Date: 07/28/2024 13:55 At the request of: JUNIOR JONES DO Procedure: US OB BPP w non-stress Biophysical profile. Reason for exam: Low amniotic fluid volume. COMPARISON: None. TECHNIQUE: Transabdominal imaging of the gravid uterus was obtained. FINDINGS: Clinical Study Manager reports the BPP is 8 out of 8. LIZETH measures 8.5 cm. heart rate 1 44 bpm. US/US OB BPP w non-stress IMPRESSION: BPP 8 out of 8. Impression dictated by: David Qureshi Jr., D.O.07/28/2024 1:55 PM Dictation Location: [facility] Electronically authenticated by: [id number] Y Date: 07/28/2024 13:55 Dictated By: David Qureshi M.D. Signed By: 07/28/24 1357 DD/ 135 TD/TT: Interior Decorator Painting: [facility] Radiology Study observation (narrative) [facility] US OB BPP W NON-STRESS Ordered By: Radiologist Radiology on 07-28-2024 [facility] Work Phone: US OB FOLLOW [...] II, MD, PHD at 28-Jul-2024 11:20:55 PM [facility] Normal Not Available Comment on above: Order Comment: US OB SCAN FOR GROWTH Estimated Date of Delivery: 09/19/24 Gestational Age as of 07/11/2024: 30w0d Urinalysis macro (dipstick) panel (U)on 07-28-2024 Bilirubin, UA Negative Negative - 4(70) +++ mg/dL [facility] Blood, UA Negative Negative - 50 Jesus/mcL [facility] Clarity, UA Clear [facility] Color, UA Yellow [facility] Glucose, UA Negative Negative - 2000(110) ++++ mg/dL [facility] Interpretation and review of laboratory results Normal [facility] Ketones, UA Negative Negative - 160(16) ++++ mg/dL [facility] Leukocytes, UA Negative Negative - 500+++ Juanita/mcL [facility] Nitrite, UA Negative Negative - Positive [facility] pH, UA 6 5 - 9 [facility] Protein, UA Negative Negative - 2000(20) ++++ mg/dL [facility] Spec Grav, UA 1.025 1 - 1.03 [facility] Urobilinogen, UA 0.2 0.2 - 12 mg/dL [facility] US OB LIMITED 1+ FETUSESon 0 [...] II, MD, PHD at 12-Jul-2024 11:25:12 PM [facility] Normal Not Available Comment on above: Order Comment: US OB PLACENTA W US OB TRANSVAGINAL Estimated Date of Delivery: 09/19/24 Gestational Age as of 06/07/2024: 25w1d Urinalysis macro (dipstick) panel (U)on 07-11-2024 Bilirubin, UA Negative Negative - 4(70) +++ mg/dL [facility] Blood, UA Positive Negative - 50 Jesus/mcL [facility] Comment on above: trace-intact Clarity, UA Clear [facility] Color, UA Yellow [facility] Glucose, UA Negative Negative - 2000(110) ++++ mg/dL [facility] Interpretation and review of laboratory results Abnormal [facility] Ketones, UA Negative Negative - 160(16) ++++ mg/dL [facility] Leukocytes, UA Negative Negative - 500+++ Juanita/mcL [facility] Nitrite, UA Negative Negative - Positive [facility] pH, UA 6.5 5 - 9 [facility] Protein, UA Negative Negative - 2000(20) ++++ mg/dL [facility] Spec Grav, UA 1.02 1 - 1.03 [facility] Urobilinogen, UA 0.2 0.2 - 12 mg/dL [facility] ALL CBC WITH AUTO DIFFon BASOPHILS ABSOLUTE AUTO 0 [facility] Basophils/100 WBC (Bld) 0.2 % 0.2 - 2.0 % [facility] Eosinophils/100 WBC (Bld) 0.8 % Low 0.9 - 7.0 % [facility] Erythrocyte distribution width (RBC) [Ratio] 12.3 % 11.0 - 15.0 % [facility] Hematocrit (Bld) [Volume fraction] 37.1 % 36.0 - 48.0 % [facility] Hemoglobin (Bld) [Mass/Vol] 12.7 g/dL 12.0 - 16.0 g/dL [facility] IMMATURE GRANULOCYTES ABS AUTO 0.03 [facility] Immature granulocytes/100 WBC (Bld) 0.4 % 0.0 - 0.5 % [facility] Interpretation and review of laboratory results Abnormal [facility] LYMPHOCYTES ABSOLUTE AUTO 1.8 [facility] Lymphocytes/100 WBC (Bld) 22.3 % 20.5 - 60.0 % [facility] MCH (RBC) [Entitic mass] 29.3 pg 26.7 - 34.0 pg [facility] MCHC (RBC) [Mass/Vol] 34.2 g/dL 29.9 - 35.2 g/dL [facility] MCV (RBC) [Entitic vol] 85.5 fL 81.0 - 99.0 fL [facility] MONOCYTES ABSOLUTE AUTO 0.6 [facility] Monocytes/100 WBC (Bld) 7.4 % 1.7 - 12.0 % [facility] NEUTROPHILS ABSOLUTE AUTO 5.7 [facility] Neutrophils/100 WBC (Bld) 68.9 % 43.0 - 75.0 % [facility] Platelet mean volume (Bld) [Entitic vol] 10.5 fL 9.5 - 13.5 fL [facility] EO # 0.1 [facility] PLT 251 [facility] RBC 4.34 [facility] WBC 8.3 [facility] No Panel InformationOrdered By: Radiologist Radiology on 06-06-2024 [facility] Work Phone: No Panel Informationon 06-06 Radiology Study observation (narrative) [facility] US OB CERVICAL LENGTHon The [address] [address] Ultrasound Report Signed Patient: SANTIAGO MEDINA MR#: [id number] : 1990 Acct:[id number] Age/Sex: 34 / F ADM Date: 06/06/24 Loc: US Attending Dr: Junior Jones D.O. Ordering Physician: Junior Jones D.O. Date of Service: 06/06/24 Procedure(s): US OB cervical length Accession Number(s): [id number] cc: Junior Jones D.O.; Physician,Non-Staff M[employer] The [address] [address] Patient Name: SANTIAGO MEDINA MRN: [facility]:[id number] date: 1990 Sex: F Assigned Patient Location: US Current Patient Location: US Accession/Order Number: [id number] Exam Date: 06/06/2024 22:13 Report Date: 06/06/2024 [...] Elisa Boothe M.D.06/06/2024 10:21 PM Dictation Location: [place] [address] Electronically authenticated by: [id number] Y Date: 06/06/2024 22:21 Dictated By: Elisa Boothe M.D. Signed By: 06/06/242223 DD/ 20 TD/TT: Interior Decorator Painting: [facility] Radiology, Radiologi MD jessica - 06/06/2024 [place] [address] Ultrasound Report Signed Patient: SANTIAGO MEDINA MR#: [id number] : 1990 Acct:[id number] Age/Sex: 34 / F ADM Date: 06/06/24 Loc: US Attending Dr: Junior Jones D.O. Ordering Physician: Junior Jones D.O. Date of Service: 06/06/24 Procedure(s): US OB cervical length Accession Number(s): [id number] cc: Junior Jones D.O.; Physician,Non-Staff [place] [address] [id number] Patient Name: SANTIAGO MEDINA MRN: [id number] date: 1990 Sex: F Assigned Patient Location: US Current Patient Location: US Accession/Order Number: [id number] Exam Date: 06/06/2024 22:13 Report Date: 06/06/2024 [...] Elisa Boothe M.D.06/06/2024 10:21 PM Dictation Location: [place] [address] Electronically authenticated by: [id number] Y Date: 06/06/2024 22:21 Dictated By: Elisa Boothe M.D. Signed By: 06/06/242223 DD/ 20 TD/TT: Interior Decorator Painting: [facility] US OB INCOMPLETE ANATOMYon 0 06-06-[address] [address] Ultrasound Report Signed Patient: SANTIAGO MEDINA MR#: [id number] : 1990 Acct:[id number] Age/Sex: 34 / F ADM Date: 06/06/24 Loc: US Attending Dr: Junior Jones D.O. Ordering Physician: Junior Jones D.O. Date of Service: 06/06/24 Procedure(s): US OB incomplete anatomy Accession Number(s): [id number] cc: Junior Jones D.O.; Physician,Non-Staff [place] The [address] [address] Patient Name: SANTIAGO MEDINA MRN: [facility]:[id number] date: 1990 Sex: F Assigned Patient Location: US Current Patient Location: US Accession/Order Number: [id number] Exam Date: 06/06/2024 22:13 Report Date: 06/06/2024 [...] Elisa Boothe M.D.06/06/2024 10:21 PM Dictation Location: [place] [address] Electronically authenticated by: [id number] Y Date: 06/06/2024 22:21 Dictated By: Elisa Boothe M.D. Signed By: 06/06/242223 DD/ 20 TD/TT: Interior Decorator Painting: [facility] Radiology, Radiologi MD jessica - 06/06/2024 The [place] [id number] Ultrasound Report Signed Patient: SANTIAGO MEDINA MR#: [id number] : 1990 Acct:[id number] Age/Sex: 34 / F ADM Date: 06/06/24 Loc: US Attending Dr: Junior Jones D.O. Ordering Physician: Junior Jones D.O. Date of Service: 06/06/24 Procedure(s): US OB incomplete anatomy Accession Number(s): [id number] cc: Junior Jones D.O.; Physician,Non-Staff [place] [id number] Patient Name: SANTIAGO MEDINA MRN: [id number]:[id number] date: 1990 Sex: F Assigned Patient Location: US Current Patient Location: US Accession/Order Number: [id number] Exam Date: 06/06/2024 22:13 Report Date: 06/06/2024 [...] Elisa Boothe M.D.06/06/2024 10:21 PM Dictation Location: [place] [address] Electronically authenticated by: [id number] Y Date: 06/06/2024 22:21 Dictated By: Elisa Boothe M.D. Signed By: 06/06/242223 DD/ 20 TD/TT: Interior Decorator Painting: [facility] Urinalysis macro (dipstick) panel (U)on 06-06-2024 Bilirubin, UA Negative Negative - 4(70) +++ mg/dL [facility] Blood, UA Negative Negative - 50 Jesus/mcL [facility] Clarity, UA Clear [facility] Color, UA Yellow [facility] Glucose, UA Negative Negative - 2000(110) ++++ mg/dL [facility] Interpretation and review of laboratory results Abnormal [facility] Ketones, UA Negative Negative - 160(16) ++++ mg/dL [facility] Leukocytes, UA Trace Negative - 500+++ Juanita/mcL [facility] Nitrite, UA Negative Negative - Positive [facility] pH, UA 6 5 - 9 [facility] Protein, UA Negative Negative - 2000(20) ++++ mg/dL [facility] Spec Grav, UA 1.025 1 - 1.03 [facility] Urobilinogen, UA 0.2 0.2 - 12 mg/dL [facility] US OB 14+ WEEKS ANATOMY SCAN [...] report is generated using voice recognition reporting (Mobile Armor). On occasion [employer] erroneously drops words from the report or [...] GDLNon AGE GDLN ACOG TESTING Note . [facility] Comment on above: TESTS RESULT FLAG UN ITS REF RANGE LAB Clinician Provided Cytology Information Source.............Cervix No. of containers..01 ThinPrep Vial Age Algo ACOG Maria... FLAG LEGEND: L-Low Normal,H-High Normal,LL-Alert Low,HH-Alert High <-Panic Low,>-Panic High,A-Abnormal,AA-Critical Abnormal Performed at: 01 =[address] [address] Haydee Kraus MD, HPV APTIMA Negative Negative [facility] Comment on above: This nucleic acid am plification test detects fourteen high- risk HPV types (16,18,31,33,35,39,45,51,52,56,58,59,66,68) without differentiation. Performed at: =[address] [id number] [employer]: Haydee Kraus MD, Phone: [phone] Performed at: [address] [id number] [employer]: Haydee Kraus MD, Phone: [phone] IGP, APTIMA HPV, RFX 16/18,45 Note . [facility] Comment on above: TESTS RESULT FLAG UN ITS REF RANGE LAB DIAGNOSIS: 02 NEGATIVE FOR INTRAEPITHELIAL LESION OR MALIGNANCY. THIS SPECIMEN WAS RESCREENED PART OF OUR CLINIC LEAD PROGRAM. Specimen adequacy: 02 Satisfactory for evaluation. No endocervical component is identified. Performed by: Jose Cervantes Branch Mechanic (ASC) QC reviewed by: Jose Colón Branch Mechanic . 02 Note: Note 02 The [...] Low,>-Panic High,A-Abnormal,AA-Critical Abnormal Performed at: [address] [address] Haydee Kraus MD, SPATULA-ALONE CERVIX [facility] RECURRENT VAGINITIS (HTRX)on 04-13-2024 ATOPOBIUM VAGINAE 16.023 Abnormal [facility] ATOPOBIUM VAGINAE Detected Abnormal [facility] BVAB 2,3 (BACTERIAL VAGINOSIS ASSOCIATED BACTERIA 2, 3); MOBILUNCUS SPP 9.934 Abnormal [facility] BVAB 2,3 (BACTERIAL VAGINOSIS ASSOCIATED BACTERIA 2, 3); MOBILUNCUS SPP Detected Abnormal [facility] RADHA ALBICANS, PARAPSILOSIS, TROPICALIS 0 [facility] RADHA ALBICANS, PARAPSILOSIS, TROPICALIS Not detected [facility] RADHA GLABRATA 0 [facility] RADHA GLABRATA Not detected [facility] RADHA KRUSEI 0 [facility] RADHA KRUSEI Not detected [facility] CHLAMYDIA TRACHOMATIS 0 [facility] CHLAMYDIA TRACHOMATIS Not detected [facility] ERMB, C; MEFA 19.423 Abnormal [facility] ERMB, C; MEFA Detected Abnormal [facility] GARDNERELLA VAGINALIS 19.86 Abnormal [facility] GARDNERELLA VAGINALIS Detected Abnormal [facility] Interpretation and review of laboratory results Abnormal [facility] MEGASPHAERA (TYPES 1, 2) 21.115 Abnormal [facility] MEGASPHAERA (TYPES 1, 2) Detected Abnormal [facility] MYCOPLASMA GENITALIUM 0 [facility] MYCOPLASMA GENITALIUM Not detected [facility] NEISSERIA GONORRHOEAE 0 [facility] NEISSERIA GONORRHOEAE Not detected [facility] TET B, TET M 17.31 Abnormal [facility] TET B, TET M Detected Abnormal [facility] TRICHOMONAS VAGINALIS 0 [facility] TRICHOMONAS VAGINALIS Not detected [facility] Urinalysis macro (dipstick) panel (U)on 04-12-2024 Bilirubin, UA Negative Negative - 4(70) +++ mg/dL [facility] Blood, UA Negative Negative - 50 Jesus/mcL [facility] Clarity, UA Clear [facility] Color, UA Yellow [facility] Glucose, UA Negative Negative - 1999(110) ++++ mg/dL [facility] Interpretation and review of laboratory results Abnormal [facility] Ketones, UA Negative Negative - 160(16) ++++ mg/dL [facility] Leukocytes, UA Trace Negative - 500+++ Juanita/mcL [facility] Nitrite, UA Negative Negative - Positive [facility] pH, UA 5.5 5 - 9 [facility] Protein, UA Trace Negative - 1999(20) ++++ mg/dL [facility] Spec Grav, UA 1.03 1 - 1.03 [facility] Urobilinogen, UA 0.2 0.2 - 12 mg/dL [facility] Urinalysis macro (dipstick) panel (U)on 03-09-2024 Bilirubin, UA Negative Negative - 4(70) +++ mg/dL [facility] Blood, UA Negative Negative - 50 Jesus/mcL [facility] Clarity, UA Clear [facility] Color, UA Yellow [facility] Glucose, UA Negative Negative - 1999(110) ++++ mg/dL [facility] Interpretation and review of laboratory results Abnormal [facility] Ketones, UA Negative Negative - 160(16) ++++ mg/dL [facility] Leukocytes, UA Negative Negative - 500+++ Juanita/mcL [facility] Nitrite, UA Positive Negative - Positive [facility] pH, UA 6 5 - 9 [facility] Protein, UA Negative Negative - 1999(20) ++++ mg/dL [facility] Spec Grav, UA 1.025 1 - 1.03 [facility] Urobilinogen, UA 1.0 0.2 - 12 mg/dL [facility] ALL RUBELLA IGG ABon 02-22-2 024 RUBELLA ANTIBODIES, IGG 1.01 Immune >0.99 index [facility] Comment on above: Non-immune <0.90 Equivocal 0.90 - 0.99 Immune >0.99 Performed at: [address] [id number] [employer]: Celestino Goff PhD, Phone: [phone] HBSAG SCREENon 02-23-2024 HBSAG SCREEN Negative Negative [facility] Comment on above: Performed at: [address] [id number] [employer]ing: Celestino Goff PhD, Phone: [phone] HCV ANTIBODY RFX TO QUANT PC Kenan 02-23-2024 HCV AB Non-Reactive Non Reactive [facility] INTERPRETATION: Comment . [facility] Comment on above: Not infected with HC V unless early or acute infection is suspected (which may be delayed in an immunocompromised individual), or other evidence exists to indicate HCV infection. HIV AB/P24 AG WITH REFLEXon 02-23-2024 HIV AB/P24 AG SCREEN Non-Reactive Non Reactive [facility] Comment on above: HIV-1/HIV-2 antibodi es and HIV-1 p24 antigen were NOT detected. There is no laboratory evidence of HIV infection. HIV Negative Performed at: [address] [id number] [employer]: Celestino Goff PhD, Phone: [phone] No Panel Informationon 02-22 [facility] RAPID PLASMA REAGIN, QUANTon 02-23-2024 RAPID PLASMA REAGIN, QUANT Non-Reactive NonRea<1:1 titer [facility] Comment on above: Please Note: This te st does not meet current guidelines for screening and diagnosis of syphilis. This test is intended for following treatment response in patients being treated for syphilis infection. To screen for syphilis infection, a reflex cascade that includes both RPR and a treponema-specific assay should be utilized, such as Treponema pallidum (Syphilis) Screening [place] (734249) or Rapid Plasma Reagin (RPR) Test With Reflex to Quantitative RPR and Confirmatory Treponema pallidum Antibodies (057540). Performed at: [address] [id number] [employer]: Celestino Goff PhD, Phone: [phone] ALL CBC WITH AUTO DIFFon BASOPHILS ABSOLUTE AUTO 0 [facility] Basophils/100 WBC (Bld) 0.3 % 0.2 - 2.0 % [facility] Eosinophils/100 WBC (Bld) 0.5 % Low 0.9 - 7.0 % [facility] Erythrocyte distribution width (RBC) [Ratio] 11.9 % 11.0 - 15.0 % [facility] Hematocrit (Bld) [Volume fraction] 41.8 % 36.0 - 48.0 % [facility] Hemoglobin (Bld) [Mass/Vol] 14.5 g/dL 12.0 - 16.0 g/dL [facility] IMMATURE GRANULOCYTES ABS AUTO 0.03 [facility] Immature granulocytes/100 WBC (Bld) 0.3 % 0.0 - 0.5 % [facility] Interpretation and review of laboratory results Abnormal [facility] LYMPHOCYTES ABSOLUTE AUTO 1.8 [facility] Lymphocytes/100 WBC (Bld) 18.8 % Low 20.5 - 60.0 % [facility] MCH (RBC) [Entitic mass] 29.8 pg 26.7 - 34.0 pg [facility] MCHC (RBC) [Mass/Vol] 34.7 g/dL 29.9 - 35.2 g/dL [facility] MCV (RBC) [Entitic vol] 86 fL 81.0 - 99.0 fL [facility] MONOCYTES ABSOLUTE AUTO 0.5 [facility] Monocytes/100 WBC (Bld) 5.7 % 1.7 - 12.0 % [facility] NEUTROPHILS ABSOLUTE AUTO 6.9 High [facility] Neutrophils/100 WBC (Bld) 74.4 % 43.0 - 75.0 % [facility] Platelet mean volume (Bld) [Entitic vol] 10.9 fL 9.5 - 13.5 fL [facility] EO # 0.1 [facility] PLT 255 [facility] RBC 4.86 [facility] WBC 9.3 [facility] ALL TYPE AND SCREENon 2023 ABO and Rh group Nom (Bld) Blood group O Rh(D) negative [facility] , [facility] BOX TESTon 02-22-2024 BOX TEST SENT OUT [facility] BOX1 [facility]ITY [facility] BOX2 02/22/24 [facility] MLR HEMOGLOBIN A1Con 11-18-2 024 Glucose [Mass/Vol] 94 mg/dL [facility] HbA1c (Bld) [Mass fraction] 4.9 % 4.5 - 6.2 % [facility] Comment on above: ADA RECOMMENDED LIMI T 4.0 - 6.0 ADA THERAPEUTIC TARGET < 7.0 ACTION SUGGESTED > 7.0 No [facility]on 02-[facility]APID (URINE )on 02-22-2024 AMPHETAMINE SCREEN URINE Negative NEGATIVE [facility] BARBITURATES SCREEN URINE Negative NEGATIVE [facility] BENZODIAZEPINES SCREEN URINE Negative NEGATIVE [facility] BUPRENORPHINE SCREEN URINE Negative NEGATIVE [facility] Comment on above: DRUG CLASS [...] 300 ng/mL CANNABINOID SCREEN URINE Negative NEGATIVE [facility] COCAINE SCREEN URINE Negative NEGATIVE [facility] METHADONE SCREEN URINE Negative NEGATIVE [facility] METHAMPHETAMINES SCREEN URINE Negative NEGATIVE [facility] OPIATE SCREEN URINE Negative NEGATIVE [facility] OXYCODONE SCREEN URINE Negative NEGATIVE [facility] PHENCYCLIDINE SCREEN URINE Negative NEGATIVE [facility] TRICYCLIC ANTIDEPRESSANT URINE Negative NEGATIVE [facility] test[facility] Ql (U)o n 02-18-2024 Interpretation and review of laboratory results Abnormal [facility] Preg Test, Ur Positive Negative [facility] Urinalysis macro (dipstick) panel (U)on 02-18-2024 Bilirubin, UA Negative Negative - 4(70) +++ mg/dL [facility] Blood, UA Negative Negative - 50 Jesus/mcL [facility] Clarity, UA Clear [facility] Color, UA Yellow [facility] Glucose, UA Negative Negative - 2000(110) ++++ mg/dL [facility] Interpretation and review of laboratory results Normal [facility] Ketones, UA Negative Negative - 160(16) ++++ mg/dL [facility] Leukocytes, UA Negative Negative - 500+++ Juanita/mcL [facility] Nitrite, UA Negative Negative - Positive [facility] pH, UA 5.5 5 - 9 [facility] Protein, UA Negative Negative - 1999(20) ++++ mg/dL [facility] Spec Grav, UA 1.02 1 - 1.03 [facility] Urobilinogen, UA 1.0 0.2 - 12 mg/dL [facility] COVID/FLU/RSV RT-PCRon 02-08 SARS-CoV-2 (COVID-19) RNA IRA+probe Ql (Unsp spec) Negative [employer] [facility] [employer] Other COVID/FLU/RSV RT-PCR Negative [facility] Other CBC W Auto Differential pane l (Bld)on 02-20-2022 Basophils (Bld) [#/Vol] 0.03 10*3/uL Normal <0.11 [facility] Comment on above: Order Comment: Speci men Type: BLOOD SPECIMEN Ordering Facility: [facility] Address: [address] [place] [address] Performed By: #### 5 7021-8 #### [facility] CLIA [id number] [address] [place] [address] [place] Basophils/100 WBC (Bld) 0.3 % Normal [facility] Comment on above: Order Comment: Speci men Type: BLOOD SPECIMEN Ordering Facility: [facility] Address: [address] [place] [address] Performed By: #### 5 7021-8 #### [facility] CLIA [id number] [address] [place] [address] [place] Differential cell count method Nom (Bld) Auto Normal [facility] Comment on above: Order Comment: Speci men Type: BLOOD SPECIMEN Ordering Facility: [facility] Address: [address] [place] [address] Performed By: #### 5 7021-8 #### [facility] CLIA [id number] [address] [place] [address] [place] Eosinophils (Bld) [#/Vol] 10*3/uL Normal <0.46 [facility] Comment on above: Order Comment: Speci men Type: BLOOD SPECIMEN Ordering Facility: [facility] Address: [address] [place] [address] Performed By: #### 5 7021-8 #### [facility] CLIA [id number] [address] [place] [address] OF N[place] Eosinophils/100 WBC (Bld) 0.2 % Normal [facility] Comment on above: Order Comment: Speci men Type: BLOOD SPECIMEN Ordering Facility: [facility] Address: [address] [place] [address] Performed By: #### 5 7021-8 #### [facility] CLIA [id number] [address] [place] [address] Erythrocyte distribution width (RBC) [Ratio] 12.9 % Normal 11.5-15.0 [facility] Comment on above: Order Comment: Speci men Type: BLOOD SPECIMEN Ordering Facility: [facility] Address: [address] [place] [address] Performed By: #### 5 7021-8 #### [facility] CLIA [id number] [address] [place] [address] Hematocrit (Bld) [Volume fraction] 43.2 % Normal 36.0-46.0 [facility] Comment on above: Order Comment: Speci men Type: BLOOD SPECIMEN Ordering Facility: [facility] Address: [address] [place] [address] Performed By: #### 5 7021-8 #### [facility] CLIA [id number] [address] [place] [address] [place] Hemoglobin (Bld) [Mass/Vol] 14.8 g/dL Normal 11.5-15.5 [facility] Comment on above: Order Comment: Speci men Type: BLOOD SPECIMEN Ordering Facility: [facility] Address: [address] [place] [address] Performed By: #### 5 7021-8 #### [facility] CLIA [id number] [address] [place] [address] [place] Immature granulocytes (Bld) [#/Vol] 0.04 10*3/uL Normal <0.10 [facility] Comment on above: Order Comment: Speci men Type: BLOOD SPECIMEN Ordering Facility: [facility] Address: [address] [place] [address] Performed By: #### 5 7021-8 #### [facility] CLIA [id number] [address] [place] [address] N[place] Immature granulocytes/100 WBC (Bld) 0.4 % Normal [facility] Comment on above: Order Comment: Speci men Type: BLOOD SPECIMEN Ordering Facility: [facility] Address: [address] [place] [address] Performed By: #### 5 7021-8 #### [facility] CLIA [id number] [address] [place] [address] [facility] Lymphocytes (Bld) [#/Vol] 0.55 10*3/uL Low 1.00-4.00 [facility] Comment on above: Order Comment: Speci men Type: BLOOD SPECIMEN Ordering Facility: [facility] Address: [address] [place] [address] Performed By: #### 5 7021-8 #### [facility] CLIA [id number] [address] [place] [address] Lymphocytes/100 WBC (Bld) 5.3 % Normal [facility] Comment on above: Order Comment: Speci men Type: BLOOD SPECIMEN Ordering Facility: [facility] Address: [address] [place] [address] Performed By: #### 5 7021-8 #### [facility] CLIA [id number] [address] [place] [address] [place] MCH (RBC) [Entitic mass] 29.1 pg Normal 26.0-34.0 [facility] Comment on above: Order Comment: Speci men Type: BLOOD SPECIMEN Ordering Facility: [facility] Address: [address] [place] [address] Performed By: #### 5 7021-8 #### [facility] CLIA [id number] [address] [place] [address] [place] MCHC (RBC) [Mass/Vol] 34.3 g/dL Normal 30.5-36.0 [facility] Comment on above: Order Comment: Speci men Type: BLOOD SPECIMEN Ordering Facility: [facility] Address: [address] [place] [address] Performed By: #### 5 7021-8 #### [facility] CLIA [id number] [address] [place] [address] [place] MCV (RBC) [Entitic vol] 84.9 fL Normal 80.0-100.0 [facility] Comment on above: Order Comment: Speci men Type: BLOOD SPECIMEN [facility]: [facility] [facility] Address: [address] [place] [address] Performed By: #### 5 7021-8 #### [facility] CLIA [id number] [address] [place] [address] [place] Monocytes (Bld) [#/Vol] 0.19 10*3/uL Normal <0.87 [facility] Comment on above: Order Comment: Speci men Type: BLOOD SPECIMEN Ordering Facility: [facility] Address: [address] [place] [address] Performed By: #### 5 7021-8 #### [facility] CLIA [id number] [address] [place] [address] [place] Monocytes/100 WBC (Bld) 1.8 % Normal [facility] Comment on above: Order Comment: Speci men Type: BLOOD SPECIMEN Ordering Facility: [facility] Address: [address] [place] [address] Performed By: #### 5 7021-8 #### [facility] CLIA [id number] [address] [place] [address] [place] Neutrophils (Bld) [#/Vol] 9.55 10*3/uL High 1.45-7.50 [facility] Comment on above: Order Comment: Speci men Type: BLOOD SPECIMEN Ordering Facility: [facility] Address: [address] [place] [address] Performed By: #### 5 7021-8 #### [facility] CLIA [id number] [address] [place] [address] [place] Neutrophils/100 WBC (Bld) 92.0 % Normal [facility] Comment on above: Order Comment: Speci men Type: BLOOD SPECIMEN Ordering Facility: [facility] Address: [address] [place] [address] Performed By: #### 5 7021-8 #### [facility] CLIA [id number] [address] [place] [address] [place] Nucleated RBC (Bld) [#/Vol] 10*3/uL Normal <0.01 [facility] Comment on above: Order Comment: Speci men Type: BLOOD SPECIMEN Ordering Facility: [facility] Address: [address] [place] [address] Performed By: #### 5 7021-8 #### [facility] CLIA [id number] [address] [place] [address] [place] Nucleated RBC/100 WBC (Bld) [Ratio] 0.0 /100 WBC Normal [facility] Comment on above: Order Comment: Speci men Type: BLOOD SPECIMEN Ordering Facility: [facility] Address: [address] [place] [address] Performed By: #### 5 7021-8 #### [facility] CLIA [id number] [address] [place] [address] [place] Platelet mean volume (Bld) [Entitic vol] 10.9 fL Normal 9.0-12.7 [facility] Comment on above: Order Comment: Speci men Type: BLOOD SPECIMEN Ordering Facility: [facility] Address: [address] [place] [address] Performed By: #### 5 7021-8 #### [facility] CLIA [id number] [address] [place] [address] [place] Platelets (Bld) [#/Vol] 213 10*3/uL Normal 150-400 [facility] Comment on above: Order Comment: Speci men Type: BLOOD SPECIMEN Ordering Facility: [facility] Address: [address] Performed By: #### 5 7021-8 #### [facility] CLIA [id number] [address] [place] [address] [place] RBC (Bld) [#/Vol] 5.09 10*6/uL Normal 3.90-5.20 [facility] Comment on above: Order Comment: Speci men Type: BLOOD SPECIMEN Ordering Facility: [facility] Address: [address] [address] Performed By: #### 5 7021-8 #### [facility] CLIA [id number] [address] [place] [address] [place] WBC (Bld) [#/Vol] 10.38 10*3/uL Normal 3.70-11.00 [facility] Comment on above: Order Comment: Speci men Type: BLOOD SPECIMEN Ordering Facility: [facility] Address: [address] [address] Performed By: #### 5 7021-8 #### [facility] CLIA [id number] [address] [place] [address] [place] [facility] [place] Comprehensive metabolic 2000 panelon 02-20-2022 Albumin [Mass/Vol] 4.6 g/dL Normal 3.9-4.9 [facility] Comment on above: Order Comment: Speci men Type: BLOOD SPECIMEN Ordering Facility: [facility] Address: [address] [address] Performed By: #### 2 4323-8 #### [facility] CLIA [id number] [address] [place] [address] [place] ALP [Catalytic activity/Vol] 78 U/L Normal 34-123 [facility] Comment on above: Order Comment: Speci men Type: BLOOD SPECIMEN Ordering Facility: [facility] Address: [address] [address] Performed By: #### 2 4323-8 #### [facility] CLIA [id number] [address] [place] [address] [place] ALT [Catalytic activity/Vol] 27 U/L Normal 7-38 [facility] Comment on above: Order Comment: Speci men Type: BLOOD SPECIMEN Ordering Facility: [facility] Address: [address] [address] Performed By: #### 2 4323-8 #### [facility] CLIA [id number] [address] [place] [address] [place] Anion gap [Moles/Vol] 12 mmol/L Normal 9-18 [facility] Comment on above: Order Comment: Speci men Type: BLOOD SPECIMEN Ordering Facility: [facility] Address: [address] [address] Performed By: #### 2 4323-8 #### [facility] CLIA [id number] [address] [place] [address] [place] AST [Catalytic activity/Vol] 16 U/L Normal 13-35 [facility] Comment on above: Order Comment: Speci men Type: BLOOD SPECIMEN Ordering Facility: [facility] Address: [address] [place] [address] Performed By: #### 2 4323-8 #### [facility] CLIA [id number] [address] [place] [address] [place] Bilirubin [Mass/Vol] 0.9 mg/dL Normal 0.2-1.3 [facility] Comment on above: Order Comment: Speci men Type: BLOOD SPECIMEN Ordering Facility: [facility] Address: [address] [place] [address] Performed By: #### 2 4323-8 #### [facility] CLIA [id number] [address] [place] [address] [place] Calcium [Mass/Vol] 9.6 mg/dL Normal 8.5-10.2 [facility] Comment on above: Order Comment: Speci men Type: BLOOD SPECIMEN Ordering Facility: [facility] Address: [address] [place] [address] Performed By: #### 2 4323-8 #### [facility] CLIA [id number] [address] [place] [address] [place] Chloride [Moles/Vol] 100 mmol/L Normal 97-105 [facility] Comment on above: Order Comment: Speci men Type: BLOOD SPECIMEN Ordering Facility: [facility] Address: [address] [address] Performed By: #### 2 4323-8 #### [facility] CLIA [id number] [address] [place] [address] [place] CO2 [Moles/Vol] 26 mmol/L Normal 22-30 [facility] Comment on above: Order Comment: Speci men Type: BLOOD SPECIMEN Ordering Facility: [facility] Address: [address] [address] Performed By: #### 2 4323-8 #### [facility] CLIA [id number] [address] [place] [address] [place] Creatinine [Mass/Vol] 0.76 mg/dL Normal 0.58-0.96 [facility] Comment on above: Order Comment: Speci men Type: BLOOD SPECIMEN Ordering Facility: [facility] Address: [address] [address] Performed By: #### 2 4323-8 #### [facility] CLIA [id number] [address] [place] [address] [place] ESTIMATED GLOMERULAR FILTRATION RATE 109 mL/min/1.73m??? Normal >=60 [facility] Comment on above: Order Comment: Speci men Type: BLOOD SPECIMEN Ordering Facility: [facility] Address: [address] [place] [address] Result Comment: Marce mated Glomerular Filtration Rate [...] GFR. Performed By: #### 2 4323-8 #### [facility] CLIA [id number] [address] [place] [address] [place] Glucose [Mass/Vol] 98 mg/dL Normal 74-99 [facility] Comment on above: Order Comment: Speci men Type: BLOOD SPECIMEN Ordering Facility: [facility] Address: [address] [place] [address] Result Comment: The [place] [employer] (ADA) provides guidance for cutoff [...] Standards of Medical Care in Diabetes 2016, [place] [employer]. Diabetes Care. 2016.39(Suppl 1). Performed By: #### 2 4323-8 #### [facility] CLIA [id number] [address] [place] [address] [place] Potassium [Moles/Vol] 3.5 mmol/L Low 3.7-5.1 [facility] Comment on above: Order Comment: Daríoi meliton Type: BLOOD SPECIMEN Ordering Facility: [facility] Address: [address] [address] Performed By: #### 2 4323-8 #### [facility] CLIA [id number] [address] [place] [address] [place] Protein [Mass/Vol] 7.4 g/dL Normal 6.3-8.0 [facility] Comment on above: Order Comment: Speci men Type: BLOOD SPECIMEN Ordering Facility: [facility] Address: [address] [address] Performed By: #### 2 4323-8 #### [facility] CLIA [id number] [address] [place] [address] [place] Sodium [Moles/Vol] 138 mmol/L Normal 136-144 [facility] Comment on above: Order Comment: Daríoi men Type: BLOOD SPECIMEN Ordering Facility: [facility] Address: [address] [address] Performed By: #### 2 4323-8 #### [facility] CLIA [id number] [address] Urea nitrogen [Mass/Vol] 5 mg/dL Low 7-21 [facility] Comment on above: Order Comment: Speci men Type: BLOOD SPECIMEN Ordering Facility: [facility] Address: [address] [place] [address]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 02-17-2025 US Pelvis transvaginal US OB transvaginal Imaging Routine Missed menses Expected: 02/18/2024 (Approximate), Expires: 02/17/2025 [facility] Comment on above: Expected: 02/18/2024 (Approximate), Expires: 02/17/2025 Start: 12-06-2023 Influenza vaccination Influenza Vacc ine (#1) [facility] Start: 2022 Screening for malign ant neoplasm of cervix HPV/Cotest [facility] Bacteria identified in Urine by Culture Urine culture Microbiology Routine Missed menses Ordered: 02/18/2024 [facility] Comment on above: Ordered: 02/18/2024 CBC W Auto Different ial panel - Blood CBC and differential Lab Routine Missed menses , unspecified gestational age Ordered: 02/18/2024 [facility] Comment on above: Ordered: 02/18/2024 CHLAMYDIA TRACHOMATI S (GENITO/STI) CHLAMYDIA TRACHOMATIS (GENITO/STI) Lab Routine Exposure to STD Ordered: 04/12/2024 [facility] Comment on above: Ordered: 04/12/2024 Cytology Cervical or vaginal smear or scraping study Pap Smear Pathology and Cytology Routine Well woman exam with routine gynecological exam Ordered: 04/12/2024 [facility] Comment on above: Ordered: 04/12/2024 Hemoglobin A1c/Hemoglobin.total in Blood Hemoglobin A1c Lab Routine Missed menses , unspecified gestational age Ordered: 02/18/2024 [facility] Comment on above: Ordered: 02/18/2024 Hepatitis B virus surface Ag [Presence] in Serum or Plasma by Immunoassay Hepatitis B surface antigen Lab Routine Missed menses , unspecified gestational age Ordered: 02/18/2024 [facility] Comment on above: Ordered: 02/18/2024 Hepatitis C virus Ab [Presence] in Serum or Plasma by Immunoassay Hepatitis C antibody Lab Routine Missed menses , unspecified gestational age Ordered: 02/18/2024 [facility] Comment on above: Ordered: 02/18/2024 HIV-1/HIV-2 antigen/antibody combination immunoassay HIV-1 and HIV-2 antibodies Lab Routine Missed menses , unspecified gestational age Ordered: 02/18/2024 [facility] Comment on above: Ordered: 02/18/2024 Human papilloma viru s DNA [Presence] in Unspecified specimen by Probe with amplification HPV DNA probe, amplified Microbiology Routine Well woman exam with routine gynecological exam Ordered: 04/12/2024 [facility] Comment on above: Ordered: 04/12/2024 Neisseria gonorrhoea e DNA [Presence] in Unspecified specimen by IRA with probe detection Neisseria gonorrhea DNA probe, direct Lab Routine Exposure to STD Ordered: 04/12/2024 [facility] Comment on above: Ordered: 04/12/2024 Reagin Ab [Presence] in Serum by RPR RPR Lab Routine Missed menses , unspecified gestational age Ordered: 02/18/2024 [facility] Comment on above: Ordered: 02/18/2024 Rubella antibody, IgG Rubella an tibody, IgG Lab Routine Missed menses , unspecified gestational age Ordered: 02/18/2024 [facility] Comment on above: Ordered: 02/18/2024 SURESWAB(R) ADVANCED VAGINITIS PLUS, TMA SURESWAB(R) ADVANCED VAGINITIS PLUS, TMA Pathology and Cytology Routine Exposure to STD Ordered: 04/12/2024 [facility] Work Phone: Comment on above: Ordered: 04/12/2024 Payers Date Payer Category Payer Medicaid [id number] 2022 Medicaid [id number] 2016 Unknown [id number] 1992 Unknown [id number] 2.16.8 [id number] 1992 Unknown [id number] 2.16.8 40.1.907103.3.579.2.9 1992 Unknown [id number] 2.16.84 0.1.556910.3.579.2.9 1992 Unknown [id number] 2.16.84 0.1.005284.3.579.2.9 1992 Unknown [id number] 2.16.84 0.1.151048.3.579.2.9 1992 Unknown [id number] 2.16.84 0.1.793357.3.579.2.9 1992 Unknown [id number] 2.16.84 0.1.476527.3.579.2.9 1992 Unknown [id number] 2.16.84 0.1.676974.3.579.2.9 1992 Unknown [id number] 2.16.84 0.1.943458.3.579.2.1258 1992 Unknown [id number] 2.16.84 0.1.896987.3.579.2.9 1992 Unknown [id number] 2.16.84 0.1.050862.3.579.2.9 1992 Unknown [id number] 2.16.84 0.1.209477.3.579.2.9 1992 Unknown [id number] 2.16.84 0.1.800345.3.579.2.1258 1992 Unknown [id number] 2.16.84 0.1.298556.3.579.2.9 1992 Unknown [id number] 2.16.84 0.1.489583.3.579.2.9 1992 Unknown [id number] 2.16.84 0.1.884593.3.579.2.1259 Social History Date Type Detail Facility Unknown if ever smoked [facility] Other Start: 09-05-2024 Sex Assigned At N [facility] Work Phone: Tobacco smoking status [facility] Tobacco smoking consumption unknown [facility] Start: 12-28-2023 [facility] Start: 1990 Sex assigned at Not on file [facility] Start: 09-05-2024 History of Social function [facility] Work Phone: Goals Date Patient Goal Desired Activity /State Personal health goal Clinical Notes 02-20-2022 to 11-17-2024 Chichi Garsia - 11/17/2024 8:40 AM Perez Gamez LPN - 10/18/2024 10:50 AM Pricefannie Simonehuang, SECURITY TRAINER - 08/30/2024 1:00 PM Nakul Moreno, SIDNEY - 08/22/2024 9:30 AM EDT Note Date & Type Note Facility 11-17-2024 History of Presen t illness Narrative Reason for Appointment: Patient ID: Santiago [place] is a 34 y.o. female who presents for Pre-op Visit Patient presents today for Pre Op appointment. Patient is scheduled to undergo Da Wes assisted Bilateral Laparoscopic Salpingectomy on 12-16-[address] Jones at [facility]. MEDICATIONS Current Outpatient Medications Medication Instructions desogestrel-ethinyl [...] nursing note reviewed. Exam conducted with a commercial escrow officer present. Vitals: There is no height or weight on file to calculate BMI. BP: Patient's last menstrual period was 12/14/2023. ASSESSMENT & PLAN ICD-10-CM 1. Pre-op examination Z01.818 2. Request for sterilization Z30.2 Pre Op: Patient is doing well but has complaints of requesting sterilization. I have discussed conservative management vs. surgical management with the patient in detail and patient desires surgical management at this time. Patient will undergo Da Wes assisted Bilateral Laparoscopic Salpingectomy on 12-16-24. Surgical consents were signed, mmc was reviewed, and patient is to proceed to [facility] OR. Follow Up: Patient is to follow up between 1-2 weeks post operative to assess proper healing and recovery from procedure. Documented by Anna Carrasco LPN on behalf of: Junior Jones DO documented in this encounter [facility] 10-18-2024 History of Presen t illness Narrative Reason for Appointment: Patient ID: Santiago [place] is a 34 y.o. female who presents for 6wk PP Patient presents today for Post Follow Up appointment. MEDICATIONS Current Outpatient Medications Medication Instructions ibuprofen 100 MG chewable tablet Chew ALLERGIES [...] nursing note reviewed. Exam conducted with a commercial escrow officer present. Vitals: There is no height or weight on file to calculate BMI. BP: 130/86 Patient's last menstrual period was 12/14/2023. ASSESSMENT & PLAN ICD-10-CM 1. 6 weeks follow-up ([facility]) Z39.2 2. Request for sterilization Z30.2 Post Follow Up: Patient is doing well but has complaints of none, desires sterilization. Patient presents today for 6 week visit. Patient is s/p Vaginal delivery. Patient states depression but denies suicidal and homicidal ideations. All options were discussed with the patient regarding control and patient desires oral contraception and desires sterilization. Patient presents to the office today stating she has a desire for sterilization. I have discussed with the patient that a Bilateral Salpingectomy is considered to be permanent and patient has voiced verbal understanding. Patient wishes to schedule for a Da Wes assisted Bilateral Laparoscopic Salpingectomy. Patient will set up surgery with neurosurgical physician assistant and return to our office for a pre op appointment. Follow Up: Patient is to return for annual unless needed otherwise. Documented by Elisa Gamez LPN on behalf of: Junior Jones DO documented in this encounter [facility] 08-30-2024 History of Presen t illness Narrative Reason for Appointment: Patient ID: Santiago [place] is a 34 y.o. female who presents for Routine Visit Patient presents today for Return OB appointment. MEDICATIONS Current Outpatient Medications Medication Instructions omeprazole (PRILOSEC) 20 mg, Daily before breakfast ALLERGIES No Known Allergies PROBLEMS Active Ambulatory [...] appearance. She is well-developed. Genitourinary: Vulva normal. Cardiovascular: Rate and Rhythm: Normal rate and [...] nursing note reviewed. Exam conducted with a commercial escrow officer present. Vitals: There is no height or weight on file to calculate BMI. BP: 120/70 Patient's last menstrual period was 12/14/2023. ASSESSMENT & PLAN ICD-10-CM 1. 37 weeks gestation of Z3A.37 POCT urinalysis dipstick manually resulted 2. Third trimester Z34.93 POCT urinalysis dipstick manually resulted 3. H/O pre-eclampsia in prior , currently O09.299 4. Gestational hypertension, antepartum O13.9 Return OB: Patient presents today for a routine obstetrics appointment. Patient is currently 37w1d . Patient states she is doing well but has complaints of being tired due to current . Patient has verbalizes frequent movement. labor precautions was discussed/given and patient was instructed to perform kick counts three times a day. Pt to be induced on 08/31/24 pt signed induction consents faxed over. Orders Placed This Encounter Procedures POCT urinalysis dipstick manually resulted Follow Up: Patient is to return to office in 1 week for routine OB appointment. Documented by Elisa Gamez LPN on behalf of: Junior Jones DO documented in this encounter [facility] 08-22-2024 History of Presen t illness Narrative [...] nursing note reviewed. Exam conducted with a commercial escrow officer present. Vitals: There is no height or [...] Marlin Moreno NP documented in this encounter [facility] 08-11-2024 History of Presen t [...] nursing note reviewed. Exam conducted with a commercial escrow officer present. Vitals: There is no height or [...] of: MADINA Valdez documented in this encounter [facility] 07-28-2024 History of Presen t [...] nursing note reviewed. Exam conducted with a commercial escrow officer present. Vitals: There is no height or [...] Junior Jones DO documented in this encounter [facility] 07-11-2024 History of Presen t [...] nursing note reviewed. Exam conducted with a commercial escrow officer present. Vitals: There is no height or [...] Junior Jones DO documented in this encounter [facility] 06-06-2024 History of Presen t [...] of: MADINA Valdez documented in this encounter [facility] 05-09-2024 History of Presen t [...] Junior Jones DO documented in this encounter [facility] 04-12-2024 History of Presen t [...] nursing note reviewed. Exam conducted with a commercial escrow officer present. Vitals: There is no height or [...] of: MADINA Valdez documented in this encounter [facility] 03-09-2024 History of Presen t illness Narrative [...] nursing note reviewed. Exam conducted with a commercial escrow officer present. Vitals: There is no height or [...] or undercooked meat, and stay away from [facility]. Patient has been consulted regarding any further [...] Junior Jones DO documented in this encounter [facility] 02-18-2024 History of Presen t [...] or undercooked meat, and stay away from [facility]. Patient has also been advised to not [...] Brigid Taylor LPN documented in this encounter [facility] 02-08-2023 Evaluation note Encounter Date [...] fever/discomfort , cool mist humidifier. May use Eden as needed for cough, do not take any other OTCs while using [facility]. Patient to follow up with PCP in 2-3 days. Immediate eval if SOB, difficulty breathing, chest pain, dizziness, or other concerning symptoms. Patient verbalizes understanding and is agreeable to treatment plan [facility] Other 11-17-2022 NoteCOVID 19 RESULT: SARS-CoV-2 (Agent of COVID-19) Not Detected by RT-PCR or equivalent method. This test has been authorized by FDA under an Emergency Use Authorization (EUA). INFLUENZA A PCR: Negative for Influenza A by RT-PCR INFLUENZA B PCR: Negative for Influenza B by RT-PCR RSV PCR: Negative for Respiratory Syncytial Virus (RSV) by PCRFitchburg General HospitalComment on above:Performed By: #### [id number] #### [facility] [place] [id number] [address] [place] [address] [place] AMERICAEvaluation note* Diagnosis Missed [...] in this encounter [facility]* Diagnosis 37 weeks gestation of Third trimester state, incidental H/O pre-eclampsia in prior , currently Gestational hypertension, antepartum documented in [facility]* Diagnosis 6 weeks follow-up ([facility]) Request for sterilization control counseling documented in this encounter [facility]* Diagnosis Pre-op examination Request for sterilization documented in this encounter [facility] general Narrative - Reported* Type Description Date Surgical History TONSILS Hospitalization History CHILD [facility] Other Summary Purpose Family History No Family History Records FoundNo Family History Records FoundNo Family History Records Found Advance Directives No Advanced Directives Records FoundNo Advanced Directives Records FoundNo Advanced Directives Records Found Additional Source Comments INFORMATION SOURCE (unrecogn ized section and content) DATE CREATED AUTHOR 09/30/2017 [place] DATE CREATED AUTHOR AUTHOR'S ORGANIZ ATION 02/23/2022 [facility] DATE CREATED AUTHOR AUTHOR'S ORGANIZ ATION 11/19/2024 [facility] EPIC REASON FOR VISIT (unrecogniz ed section and content) Reason Comments Amenorrhea Reason Comments Routine Visit Reason Comments Routine Visit Reason Comments 6wk PP Reason Comments Pre-op Visit Care Teams (unrecognized sec tion and content) Prism Inspector Relationship Specialty Start Date End Date Junior Jones DO [address] [place] [address] PCP - FFS [facility] 07/05/24 Prism Inspector Relationship Specialty Start Date End Date Junior Jones DO [address] [place] [address] PCP - FFS [facility] 07/05/24 FOR RECORDS PERTAINING TO PATIENTS WHO ARE [...] BE BASED ON THE PRIMARY CLINICAL RECORDS. [facility]. provides no warranty or guarantee of the accuracy or completeness of information in this document.
[2024-11-23 13:06] LABS: Hematocrit 41.2 % (36.0-48.0); Hemoglobin 13.6 g/dL (12.0-16.0); Immature Granulocytes Abs Auto 0.00 10^3/uL (0.00-0.03); Immature Granulocytes Pct Auto 0.0 % (0.0-0.5); Lymphocytes Absolute Auto 2.3 10^3/uL (1.2-3.8); Mean Corpuscular HGB Conc 33.0 g/dL (29.9-35.2); Mean Corpuscular Hemoglobin 26.1 pg (26.7-34.0); Mean Corpuscular Volume 78.9 fL (81.0-99.0); Platelet Count 310 10^3/uL (150-450); Red Blood Count 5.22 10^6/uL (4.20-5.40); White Blood Count 6.0 10^3/uL (4.0-11.0)
[2024-11-23 13:40] LABS: Thyroid Stimulating Hormone 2.733 uIU/mL (0.358-3.740)
[2024-11-24 08:09] LABS: FSH 6.7 mIU/mL (.)
[2024-11-30 23:15] LABS: DHEA, Serum 238 ng/dL (31-701)
== END 2024-11-23 12:40 | disposition home or self-care (01) ==
LOC: LAB 12:39
PROVIDERS: Visit Provider Obstetrics & Gynecology
DX: N93.9 Abnormal uterine and vaginal bleeding, unspecified (principal); E28.2 Polycystic ovarian syndrome
CPT/HCPCS: 36415; 82626; 82627; 83001; 83002; 83036; 84439; 84443; 84702; 85025

== ENCOUNTER 2024-12-01 08:59 | Outpatient (OUT) | payer MEDICAID, SELFPAY ==
--- OUTSIDE RECORDS SUMMARY | 2024-11-17 08:40 | XMS_ITS | Encounter Summary ---
Author Organization [facility] Address [address] [place] [address] Care Team Providers Care Material Assistant Name Role Phone Junior Jones DO Unavailable Reason for Visit * Reason Comments Pre-op Visit Encounter Details Date Type Department Care Team (Late Contact Info) Description 11/17/2024 8:40 AM EDT Consult [facility] [place] [facility] [address] [address] Junior Jones DO [address] [facility] [address] [place], [place] [id number] Pre-op examination; Request for sterilization Social History [...] on 12-16-[address] Jones at [facility]. MEDICATIONS Current Outpatient Medications Medication Instructions [...] nursing note reviewed. Exam conducted with a registered respiratory therapist present. Vitals: There is no height or [...] reviewed, and patient is to proceed to [facility] OR. Follow Up: Patient is to follow up between 1-2 weeks post operative to assess proper healing and recovery fromprocedure. Documented by Anna Carrasco LPN on behalf of: Junior Jones DO documented in this encounter Plan of Treatment Upcoming Encounters Date Type Department Care Team (Late st Contact Info) Description 12/12/2024 11:00 AM EDT Ancillary Procedure [facility] [address] [facility] [place] [address] 12/29/2024 9:30 AM EDT Office Visit [facility] [address] [facility] [place] [address] Teresa Moreno, PSYCHIATRIC CLINICAL NURSE SPECIALIST [address] [place] [address] documented as of this encounter Goals Goal Patient Goal Type Associated Problems Recent Progress Patient-Stated? Author Reminders Care Plan OB Reminders No Open Scheduling, Background documented as of this encounter Visit Diagnoses Diagnosis Pre-op examination Request for sterilization documented in this encounter Additional Health Concerns Active Problems Noted Date Diagnosed Date OB Reminders 02/18/2024 documented as of this encounter Care Teams Material Assistant Relationship Specialty Start Date End Date Junior Jones DO [address] [place] [address] PCP - FFS State [facility] 07/05/24 documented as of this encounter
--- OUTSIDE RECORDS SUMMARY | 2024-11-23 11:20 | XMS_ITS | Encounter Summary ---
Author Organization [facility] Address [address] [place] [address] Care Team Providers Care Deputy Sheriff Lieutenant Name Role Phone Junior Jones DO Unavailable Reason for Visit * Reason Comments Irregular bleeding Encounter Details Date Type Department Care Team (Late Contact Info) Description 11/23/2024 11:20 AM EDT Office Visit [facility] [place] [facility] [address] [facility] [place] [phone] Junior Jones DO [address] [facility] [place] [address] Abnormal uterine bleeding (AUB); PCOS (polycystic ovarian syndrome) Social History Tobacco Use Types Packs/Day Years [...] Sign Reading Time Taken Comments Blood Pressure 118/72 11/23/2024 11:49 AM EDT Pulse - - Temperature - - Respiratory Rate - - Oxygen Saturation - - Inhaled Oxygen Concentration - - Weight 92.4 kg (203 lb 12.8 oz) 025 11:49 AM EDT Height - - Body Mass Index 29.24 11/17/2024 8:54 AM EDT documented in this encounter Progress Notes * Elisa Gamez LPN - 11/23/2024 11:20 AM EDT Reason for Appointment: Patient ID: Gilson [place] is a 34 y.o. female who presents for Irregular bleeding Patient presents today for Acute Visit. MEDICATIONS Current Outpatient Medications Medication Instructions desogestrel-ethinyl [...] Respiratory: Negative. Cardiovascular: Negative. Gastrointestinal: Negative. Genitourinary: Positive for menstrual problem. Musculoskeletal: Negative. Skin: Negative. Neurological: Negative. All [...] nursing note reviewed. Exam conducted with a animal damage control agent present. Vitals: Estimated body mass index is 29.24 kg/m?? as calculated from the following: Height as of 11/17/24: 5' 10 . Weight as of this encounter: 203 lb 12.8 oz. BP: 118/72 Patient's last menstrual period was 11/07/2024. ASSESSMENT & PLAN ICD-10-CM 1. Abnormal uterine bleeding (AUB) N93.9 Pt presents with complaints of abnormal heavy bleeding. Discussed all options with pt in detail. Ptis have bilateral salpingectomy with Mirena insertion. Pt given labs and ultrasound to have obtained. Pt to return for postop appt. Documented by Elisa Gamez LPN on behalf of: Junior Jones DO documented in this encounter Plan of Treatment Upcoming Encounters Date Type Department Care Team (Late st Contact Info) Description 12/12/2024 11:00 AM EDT Ancillary Procedure [facility] [address] [place] [phone] 12/29/2024 9:30 AM EDT Office Visit [facility] [address] [facility] [place] [phone] Teresa Moreno, SIDNEY [address] [place] [phone] Scheduled Orders Name Type Priority Associated Diagnoses Orde r Schedule hCG, quantitative, Lab Routine Abnormal uterine bleeding (AUB) PCOS (polycystic ovarian syndrome) Ordered: 11/23/2024 TSH Lab Routine Abnormal uterine bleeding (AUB) PCOS (polycystic ovarian syndrome) Ordered: 11/23/2024 T4, free Lab Routine Abnormal uterine bleeding (AUB) PCOS (polycystic ovarian syndrome) Ordered: 11/23/2024 CBC and differential Lab Routine Abnormal uterine bleeding (AUB) PCOS (polycystic ovarian syndrome) Ordered: 11/23/2024 Follicle stimulating hormone Lab Routine Abnormal uterine bleeding (AUB) PCOS (polycystic ovarian syndrome) Ordered: 11/23/2024 Luteinizing hormone Lab Routine Abnormal uterine bleeding (AUB) PCOS (polycystic ovarian syndrome) Ordered: 11/23/2024 Hemoglobin A1c Lab Routine Abnormal uterine bleeding (AUB) Ordered: 11/23/2024 DHEA-sulfate Lab Routine Abnormal uterine bleeding (AUB) PCOS (polycystic ovarian syndrome) Ordered: 11/23/2024 DHEA Lab Routine Abnormal uterine bleeding (AUB) PCOS (polycystic ovarian syndrome) Expected: 11/23/2024 (Approximate), Expires: 11/23/2025 US Pelvis w/ TV Imaging Routine Abnormal uterine bleeding (AUB) PCOS (polycystic ovarian syndrome) Expected: 11/23/2024, Expires: 11/23/2025 documented as of this encounter Goals Goal Patient Goal Type Associated Problems Recent Progress Patient-Stated? Author Reminders Care Plan OB Reminders No Open Scheduling, Background documented as of this encounter Visit Diagnoses Diagnosis Abnormal uterine bleeding (AUB) PCOS (polycystic ovarian syndrome) Polycystic ovaries documented in this encounter Additional Health Concerns Active Problems Noted Date Diagnosed Date OB Reminders 02/18/2024 documented as of this encounter Care Teams Deputy Sheriff Lieutenant Relationship Specialty Start Date End Date Junior Jones DO [address] [place] [address] [place] [address] PCP - FFS State [facility] 07/05/24 documented as of this encounter
--- OUTSIDE RECORDS SUMMARY | 2024-12-01 09:01 | XMS_ITS | Encounter Summary ---
Author Organization [facility] Address [address] [place] [address] Care Team Providers Care Strategy Execution Consultant Name Role Phone Junior Jones DO Unavailable Encounter Details Date Type Department Care Team (Late Contact Info) Description 02/19/2024 Abstract DAFNE PISANO [address] [facility] [address] Junior Jones DO [address] [place], [facility]11 Social History [...] 11:00 AM EDT Ancillary Procedure DAFNE PISANO [address] [place] [address] [place] [address] 12/29/2024 9:30 AM EDT Office Visit DAFNE PISANO [address] [place] [address] Teresa Moreno, SIDNEY [address] [facility] [place] [phone] documented as of this encounter Goals Goal Patient Goal Type Associated Problems Recent Progress Patient-Stated? Author Reminders Care Plan OB Reminders No Open Scheduling, Background documented as of this encounter Visit Diagnoses Not on filedocumented in this encounter Additional Health Concerns Active Problems Noted Date Diagnosed Date OB Reminders 02/18/2024 documented as of this encounter Care Teams Strategy Execution Consultant Relationship Specialty Start Date End Date Junior Jones DO [address] [place] [address] PCP - FFS State [facility] 07/05/24 documented as of this encounter
--- OUTSIDE RECORDS SUMMARY | 2024-12-01 09:01 | XMS_ITS | Encounter Summary ---
Author Organization [facility] Address [address] [place] [address] Care Team Providers Care Director Of Database Marketing Name Role Phone Junior Jones DO Unavailable Encounter Details Date Type Department Care Team (Late st Contact Info) Description 06/23/2024 Abstract NOMKatie PISANO [address] [place] [address] Anna Carrasco LPN Social History Tobacco [...] AM EDT Ancillary Procedure DAFNE PISANO [address] [facility] [place] [address] 12/29/2024 9:30 AM EDT Office Visit DAFNE PISANO [address] [place] [address] Teresa Moreno, SIDNEY [address] [place] [address] documented as of this encounter Goals Goal Patient Goal Type Associated Problems Recent Progress Patient-Stated? Author Reminders Care Plan OB Reminders No Open Scheduling, Background documented as of this encounter Visit Diagnoses Not on filedocumented in this encounter Additional Health Concerns Active Problems Noted Date Diagnosed Date OB Reminders 02/18/2024 documented as of this encounter Care Teams Director Of Database Marketing Relationship Specialty Start Date End Date Junior Jones DO [address] [place] [address] PCP - FFS State [facility] 07/05/24 documented as of this encounter
--- OUTSIDE RECORDS SUMMARY | 2024-12-01 09:01 | XMS_ITS | Clinical Summary ---
Author Organization [facility] Address [address] [place] [address] Care Team Providers Care Gate Technician Name Role Phone Unavailable Primary Care [...] ot on file 05/03/2022 Data from: [email or web address] Last address used for calculation [address] [place] [address] 05/03/2022 Comments Unknown Sex and Gender Information [...]
--- OUTSIDE RECORDS SUMMARY | 2024-12-01 09:01 | XMS_ITS | Encounter Summary ---
Author Organization [facility] Address [address] [place] [address] Care Team Providers Care Shellfish Processing Laborer Name Role Phone Karen Blanca Unavailable Encounter Details Date Type Department Care Team (Late st Contact Info) Description 02/19/2024 Clinisync Result Encounter [facility] External Department Unsolicited Blanca Jones DO [address] [place], [facility]11 Social History Tobacco Use Types Packs/Day [...] Ancillary Procedure DAFNE PISANO [address] [place] [address] 12/29/2024 9:30 AM EDT Office Visit DAFNE PISANO [address] [place] [address] Teresa Moreno, SIDNEY [address] [place] [address] documented as of this encounter Goals [...] AM EST Narrative 02/19/2024 4:20 [place] [address] Ultrasound Report Signed Patient: GILSON MEDINA MR#: [id number] : 1990 Acct:[id number] Age/Sex: 33 / F ADM Date: 02/18/24 Loc: [facility] Attending Dr: Blanca Jones D.O. Ordering Physician: Blanca Jones D.O. Date of Service: 02/18/24 Procedure(s): US OB transvaginal Accession Number(s): [id number] cc: Blanca Jones D.O.; Physician,Non-Staff [address] [address] Patient Name: GILSON MEDINA MRN: [id number] date: 1990 Sex: F Assigned Patient Location: [facility] Current Patient Location: Accession/Order Number: [id number] Exam Date: 02/18/2024 12:35 Report Date: 02/19/2024 [...] Beatty M.D. Signed By: 02/19/240 DD/ TD/TT: Cloth Shrinker: Procedure Note Radiology, Radiologist, MD - 02/19/2024 [place] [address] Ultrasound Report Signed Patient: ANITA MEDINA#: [id number] : 1990Acct:[id number] Age/Sex: 33 FADM Date: 02/18/24 Loc: [facility] Attending Dr: Blanca Jones D.O. Ordering Physician: Blanca Jones D.O. Date of Service: 02/18/24 Procedure(s): US OB transvaginal Accession Number(s): [id number] cc: Blanca Jones D.O.; Physician,Non-Staff [place] [address] [place] [id number] Patient Name: GILSON MEDINA MRN: [id number] date: 1990 Sex: F Assigned Patient [facility]: [facility] Current Patient Location: Accession/Order Number: [id number] Exam Date: 02/18/2024 12:35 Report Date: 02/19/2024 [...] Archie Beatty M.D. Signed By:02/19/240 DD/ TD/TT: Cloth Shrinker: us Blanca Jones DO [facility] Final Result documented in this encounter Visit Diagnoses Not on filedocumented in this encounter Additional Health Concerns Active Problems Noted Date Diagnosed Date OB Reminders 02/18/2024 documented as of this encounter Care Teams Shellfish Processing Laborer Relationship Specialty Start Date End Date Blanca Jones DO [address] [facility] [place] [address] PCP - FFS State [facility] 07/05/24 documented as of this encounter
--- OUTSIDE RECORDS SUMMARY | 2024-12-01 09:01 | XMS_ITS | Encounter Summary ---
Author Organization [facility] Address [address] [place] [address] Care Team Providers Care Clarity Specialists Name Role Phone Junior Jones DO Unavailable Encounter Details Date Type Department Care Team (Late Contact Info) Description 02/29/2024 Abstract DAFNE PISANO [address] [facility] [place] [address] Junior Jones DO [address] [place], [facility]11 Social History Tobacco Use Types Packs/Day [...] AM EDT Ancillary Procedure DAFNE PISANO [address] [place] [address] [place] [address] 12/29/2024 9:30 AM EDT Office Visit DAFNE PISANO [address] [place] [address] Teresa Moreno, SIDNEY [address] [facility] [place] [phone] documented as of this encounter Goals Goal Patient Goal Type Associated Problems Recent Progress Patient-Stated? Author Reminders Care Plan OB Reminders No Open Scheduling, Background documented as of this encounter Visit Diagnoses Not on filedocumented in this encounter Additional Health Concerns Active Problems Noted Date Diagnosed Date OB Reminders 02/18/2024 documented as of this encounter Care Teams Clarity Specialists Relationship Specialty Start Date End Date Junior Jones DO [address] [place] [address] PCP - FFS State [facility] 07/05/24 documented as of this encounter
--- OUTSIDE RECORDS SUMMARY | 2024-12-01 09:01 | XMS_ITS | Encounter Summary ---
Author Organization [facility] Address [address] [place] [address] Care Team Providers Care Biology Intern Name Role Phone Junior Jones DO Unavailable Encounter Details Date Type Department Care Team (Late Contact Info) Description 08/31/2024 Abstract DAFNE PISANO [address] [facility] [address] Junior Jones DO [address] [place] [place], [facility]11 Social History Tobacco Use Types Packs/Day Years [...] AM EDT Ancillary Procedure DAFNE PISANO [address] [place] [address] [place] [address] 12/29/2024 9:30 AM EDT Office Visit DAFNE PISANO [address] [place] [address] Teresa Moreno, SIDNEY [address] [facility] [place] [phone] documented as of this encounter Goals Goal Patient Goal Type Associated Problems Recent Progress Patient-Stated? Author Reminders Care Plan OB Reminders No Open Scheduling, Background documented as of this encounter Visit Diagnoses Not on filedocumented in this encounter Additional Health Concerns Active Problems Noted Date Diagnosed Date OB Reminders 02/18/2024 documented as of this encounter Care Teams Biology Intern Relationship Specialty Start Date End Date Junior Jones DO [address] [place] [address] PCP - FFS State [facility] 07/05/24 documented as of this encounter
--- OUTSIDE RECORDS SUMMARY | 2024-12-01 09:01 | XMS_ITS | Encounter Summary ---
Author Organization [facility] Address [address] [place] [address] Care Team Providers Care Substance Abuse Clinician Name Role Phone Junior Jones DO Unavailable Encounter Details Date Type Department Care Team (Late Contact Info) Description 11/23/2024 Bamboo flowsheet DAFNE PISANO [address] [place] [address] Junior Jones DO [address] [place], [facility]11 Social History Tobacco Use Types [...] Ancillary Procedure DAFNE PISANO [address] [place] [address] 12/29/2024 9:30 AM EDT Office Visit DAFNE PISANO [address] [place] [address] Teresa Moreno, HVAC DESIGN MECHANICAL ENGINEER [address] [place] [address] documented as of this encounter Goals Goal Patient Goal Type Associated Problems Recent Progress Patient-Stated? Author Reminders Care Plan OB Reminders No Open Scheduling, Background documented as of this encounter Visit Diagnoses Not on filedocumented in this encounter Additional Health Concerns Active Problems Noted Date Diagnosed Date OB Reminders 02/18/2024 documented as of this encounter Care Teams Substance Abuse Clinician Relationship Specialty Start Date End Date Junior Jones DO [address] [place] [address] [place] [address] PCP - FFS State [facility] 07/05/24 documented as of this encounter
--- OUTSIDE RECORDS SUMMARY | 2024-12-01 09:01 | XMS_ITS | Encounter Summary ---
Author Organization [facility] Address [address] [place] [address] Care Team Providers Care Document Improvement Specialist Name Role Phone Junior Jones DO Unavailable Encounter Details Date Type Department Care Team (Late st Contact Info) Description 05/19/2024 Abstract DAFNE PISANO [address] [facility] [place] [address] Junior Jones DO [address] [place], [facility]11 Social History Tobacco Use Types Packs/Day [...] 11:00 AM EDT Ancillary Procedure DAFNE PISANO [address] [place] [address] [place] [address] 12/29/2024 9:30 AM EDT Office Visit DAFNE PISANO [address] [place] [address] Teresa Moreno, SIDNEY [address] [facility] [place] [phone] documented as of this encounter Goals Goal Patient Goal Type Associated Problems Recent Progress Patient-Stated? Author Reminders Care Plan OB Reminders No Open Scheduling, Background documented as of this encounter Visit Diagnoses Not on filedocumented in this encounter Additional Health Concerns Active Problems Noted Date Diagnosed Date OB Reminders 02/18/2024 documented as of this encounter Care Teams Document Improvement Specialist Relationship Specialty Start Date End Date Junior Jones DO [address] [place] [address] PCP - FFS State [facility] 07/05/24 documented as of this encounter
--- OUTSIDE RECORDS SUMMARY | 2024-12-01 09:02 | XMS_ITS | Encounter Summary ---
Author Organization [facility] Address [address] [place] [address] Care Team Providers Care Beef Ribber Name Role Phone Junior Jones DO Unavailable Encounter Details Date Type Department Care Team (Late st Contact Info) Description 07/29/2024 Abstract DAFNE PISANO [address] [facility] [address] Junior Jones DO [address] [place], [facility]11 Social History Tobacco Use Types [...] 11:00 AM EDT Ancillary Procedure DAFNE PISANO [address] [place] [address] [place] [address] 12/29/2024 9:30 AM EDT Office Visit DAFNE PISANO [address] [place] [address] Teresa Moreno, SIDNEY [address] [facility] [place] [phone] documented as of this encounter Goals Goal Patient Goal Type Associated Problems Recent Progress Patient-Stated? Author Reminders Care Plan OB Reminders No Open Scheduling, Background documented as of this encounter Visit Diagnoses Not on filedocumented in this encounter Additional Health Concerns Active Problems Noted Date Diagnosed Date OB Reminders 02/18/2024 documented as of this encounter Care Teams Beef Ribber Relationship Specialty Start Date End Date Junior Jones DO [address] [place] [address] PCP - FFS State [facility] 07/05/24 documented as of this encounter
--- OUTSIDE RECORDS SUMMARY | 2024-12-01 09:02 | XMS_ITS | Encounter Summary ---
Author Organization [facility] Address [address] [place] [address] Care Team Providers Care Air Lift Operator Name Role Phone Junior Jones DO Unavailable Encounter Details Date Type Department Care Team (Late Contact Info) Description 04/12/2024 Abstract DAFNE PISANO [address] [facility] [place] [address] Junior Jones DO [address] [place], [facility]11 Social History Tobacco Use Types Packs/Day Years [...] 11:00 AM EDT Ancillary Procedure DAFNE PISANO [address] [place] [address] [place] [address] 12/29/2024 9:30 AM EDT Office Visit DAFNE PISANO [address] [place] [address] Teresa Moreno, SIDNEY [address] [facility] [place] [address] documented as of this encounter Goals Goal Patient Goal Type Associated Problems Recent Progress Patient-Stated? Author Reminders Care Plan OB Reminders No Open Scheduling, Background documented as of this encounter Visit Diagnoses Not on filedocumented in this encounter Additional Health Concerns Active Problems Noted Date Diagnosed Date OB Reminders 02/18/2024 documented as of this encounter Care Teams Air Lift Operator Relationship Specialty Start Date End Date Junior Jones DO [address] [place] [place] [address] PCP - FFS State [facility] 07/05/24 documented as of this encounter
--- OUTSIDE RECORDS SUMMARY | 2024-12-01 09:02 | XMS_ITS | Encounter Summary ---
Author Organization [facility] Address [address] [place] [address] Care Team Providers Care Sack Lifter Name Role Phone Karen Junior Unavailable Encounter Details Date Type Department Care Team (Late st Contact Info) Description 11/23/2024 Clinisync Result Encounter [facility] External Department Unsolicited Junior Jones, [address] [place], [facility]11 Social History Tobacco Use Types [...] AM EDT Ancillary Procedure DAFNE PISANO [address] [facility] [address] 12/29/2024 9:30 AM EDT Office Visit DAFNE PISANO [address] [place] [address] Teresa Moreno, HAND REAMER [address] [place] [address] documented as of this encounter Goals Goal Patient Goal Type Associated Problems Recent Progress Patient-Stated? Author Reminders Care Plan OB Reminders No Open Scheduling, Background documented as of this encounter Procedures Procedure Name Priority Date/Time Associated Diagnosis Comments TBH PREG QUANT HCG Routine 11/23/2024 12:53 PM EDT MLR HEMOGLOBIN A1C Routine 11/23/2024 12:53 PM EDT ALL THYROXINE (T4) FREE Routine 11/24/19 12:53 PM EDT ALL THYROID STIM HORMONE Routine 025 12:53 PM EDT ALL LUTEINIZING HORMONE Routine 11/24/19 12:53 PM EDT ALL FOLLICLE STIMULATING HORMONE Routine 11/23/2024 12:53 PM EDT ALL DHEA SULFATE Routine 11/23/2024 12:53 PM EDT ALL DEHYDROEPIANDROSTERONE Routine 11/23 12:53 PM EDT ALL CBC WITH AUTO DIFF Routine 12:53 PM EDT documented in this encounter Results * ALL DEHYDROEPIANDROSTERONE (11/23/2024 12:53 PM EDT) DHEA, SERUM 238 31 - 701 ng/dL [facility] Comment: This test was developed and its performance characteristics determined by [facility]. It has not been cleared or approved by the Food and Drug Administration. Performed at: - [address] [id number] Sales Operations Specialist: Bernice Dewitt MD, Phone: [phone] 11/23/2024 12:5 3 PM EDT 11/23/2024 12:54 PM EDT Narrative CLINISYNC - 11/30/2024 11:15 PM EDT Junior Karen DO CLINISYNC Final Result [facility] * ALL FOLLICLE STIMULATING HORMONE (11/23/2024 12:53 PM EDT) FSH 6.7 . mIU/mL TBH Comment: Adult Female Range Follicular phase 3.5 - 12.5 Ovulation phase 4.7 - 21.5 Luteal phase 1.7 - 7.7 Postmenopausal 25.8 - 134.8 Performed at: [address] [id number] Sales Operations Specialist: Celestino Goff PhD, Phone: [phone] 11/23/2024 12:5 3 PM EDT 11/23/2024 12:54 PM EDT Narrative CLINISYNC - 11/24/2024 8:09 AM EDT Junior Karen DO CLINISYNC Final Result Performing Organization Address [facility] Phone Number [facility] * ALL LUTEINIZING HORMONE (11/23/2024 12:53 PM EDT) LUTEINIZING HORMONE(LH) 5.0 . mIU/mL TBH Comment: Adult Female Range Follicular phase 2.4 - 12.6 Ovulation phase 14.0 - 95.6 Luteal phase 1.0 - 11.4 Postmenopausal 7.7 - 58.5 11/23/2024 12:5 3 PM EDT 11/23/2024 12:54 PM EDT Narrative CLINISYNC - 11/24/2024 8:09 AM EDT us Junior Karen DO CLINISYNC Final Result Performing Organization Address [facility] Co de Phone Number [facility] * ALL DHEA SULFATE (11/23/2024 12:53 PM EDT) DHEA-SULFATE 174.0 84.8 - 378.0 ug/dL TBH 11/23/2024 12:5 3 PM EDT 11/23/2024 12:54 PM EDT Narrative CLINISYNC - 11/24/2024 8:09 AM EDT Junior Karen DO CLINISYNC Final Result [facility] * ALL THYROXINE (T4) FREE (11/23/2024 12:53 PM EDT) FREE T4 1.12 0.76 - 1.46 ng/dL TBH 11/23/2024 12:5 3 PM EDT 11/23/2024 12:54 PM EDT Narrative CLINISYNC - 11/23/2024 2:01 PM EDT Junior Karen DO CLINISYNC Final Result Performing Organization Address [facility] Co de Phone Number [facility] TB * TBH PREG QUANT HCG (11/23/2024 12:53 PM EDT) HCG QUANTITATIVE <1 mIU/mL TBH Comment: 5-50 0.2-1 WEEK 50-500 1-2 WEEKS 100-5,000 2-3 WEEKS 500-10,000 3-4 WEEKS 1,000-50,000 4-5 WEEKS 10,000-100,000 5-6 WEEKS 15,000-200,000 6-8 WEEKS 10,000-100,000 2-3 MONTHS 11/23/2024 12:5 3 PM EDT 11/23/2024 12:54 PM EDT Narrative CLINISYNC - 11/23/2024 1:41 PM EDT Junior Karen DO CLINISYNC Final Result [facility] TB * ALL THYROID STIM HORMONE (11/23/2024 12:53 PM EDT) THYROID STIMULATING HORMONE 2.733 0.358 - 3.740 uIU/mL TBH 11/23/2024 12:5 3 PM EDT 11/23/2024 12:54 PM EDT Narrative CLINISYNC - 11/23/2024 1:41 PM EDT Junior Karen DO CLINISYNE Final Result Performing Organization Address City/[facility]/ZIP Co de Phone Number [facility] * MLR HEMOGLOBIN A1C (11/23/2024 12:53 PM EDT) Pathologist [facility] GLYCOHEMOGLOBIN A1C 4.9 4.5 - 6.2 % TB Comment: ADA RECOMMENDED LIMIT 4.0 - 6.0 ADA THERAPEUTIC TARGET < 7.0 ACTION SUGGESTED > 7.0 ESTIMATED AVERAGE GLUCOSE 94 mg/dL TB 11/23/2024 12:5 3 PM EDT 11/23/2024 12:54 PM EDT Narrative CLINISYNC - 11/23/2024 1:32 PM EDT [facility] Final Result Performing Organization Address [facility] de Phone Number [facility] * (ABNORMAL) ALL CBC WITH AUTO DIFF (11/23/2024 12:53 PM EDT) [facility] TB WBC 6.0 4.0 - 11.0 10 3/uL TBH TB RBC 5.22 4.20 - 5.40 10 6/uL TBH TBH HGB 13.6 12.0 - 16.0 g/dL TB TB HCT 41.2 36.0 - 48.0 % TB TB MCV 78.9(L) 81.0 - 99.0 fL TBH TBH MCH 26.1(L) 26.7 - 34.0 pg TBH TBH MCHC 33.0 29.9 - 35.2 g/dL TB TB RDW 15.4(H) 11.0 - 15.0 % TBH TBH PLT 310 150 - 450 10 3/uL TBH TBH MPV 10.9 9.5 - 13.5 fL TBH NEUTROPHILS PERCENT AUTO 51.4 43.0 - 75.0 % TBH LYMPHOCYTES PERCENT AUTO 38.1 20.5 - 60.0 % TBH MONOCYTES PERCENT AUTO 7.0 1.7 - 12.0 % TBH TBH EO % 2.8 0.9 - 7.0 % TBH BASOPHILS PERCENT AUTO 0.7 0.2 - 2.0 % TBH IMMATURE GRANULOCYTES PCT AUTO 0.0 0.0 - 0.5 % TBH NEUTROPHILS ABSOLUTE AUTO 3.1 1.4 - 6.5 10 3/uL TBH LYMPHOCYTES ABSOLUTE AUTO 2.3 1.2 - 3.8 10 3/uL TBH MONOCYTES ABSOLUTE AUTO 0.4 0.3 - 0.8 10 3/uL TBH TBH EO # 0.2 0.0 - 0.7 10 3/uL TBH BASOPHILS ABSOLUTE AUTO 0.0 0.0 - 0.1 10 3/uL TBH IMMATURE GRANULOCYTES ABS AUTO 0.00 0.00 - 0.03 10 3/uL TBH 11/23/2024 12:5 3 PM EDT 11/23/2024 12:54 PM EDT Narrative CLINISYNC - 11/23/2024 1:08 PM EDT Junior Jones DO CLINISYNC Final Result [facility] TB documented in this encounter Visit Diagnoses Not on filedocumented in this encounter Additional Health Concerns Active Problems Noted Date Diagnosed Date OB Reminders 02/18/2024 documented as of this encounter Care Teams Sack Lifter Relationship Specialty Start Date End Date Junior Jones DO [address] [place], [place] [address] [address] PCP - FFS State [facility] 07/05/24 documented as of this encounter
--- OUTSIDE RECORDS SUMMARY | 2024-12-01 09:02 | XMS_ITS | Encounter Summary ---
Author Organization [facility] Address [address] [place] [address] Care Team Providers Care Family Law Attorney Name Role Phone Junior Jones DO Unavailable Encounter Details Date Type Department Care Team (Late st Contact Info) Description 04/25/2024 Orders Only DAFNE PISANO [address] [facility] [place] [address] Della Ly LPN [address] [facility] [place] [facility]11 Social History Tobacco Use Types Packs/Day [...] AM EDT Ancillary Procedure DAFNE PISANO [address] [facility] [place] [address] 12/29/2024 9:30 AM EDT Office Visit DAFNE PISANO [address] [facility] [place] [address] Teresa Moreno, POWER STATION OPERATOR [address] [facility] [place] [phone] documented as of this encounter Goals Goal [...] Cervical swab / Unknown Karen Nurse [facility] Ob LAB CYTOLOGY ORDERABLES Final Result EXTERNAL LAB documented in this encounter Visit Diagnoses Not on filedocumented in this encounter Additional Health Concerns Active Problems Noted Date Diagnosed Date OB Reminders 02/18/2024 documented as of this encounter Care Teams Family Law Attorney Relationship Specialty Start Date End Date Junior Jones DO [address] [place] [address] PCP - FFS State [employer] 07/05/24 documented as of this encounter
--- OUTSIDE RECORDS SUMMARY | 2024-12-01 09:02 | XMS_ITS | Encounter Summary ---
Author Organization [facility] Address [address] [place] [address] Care Team Providers Care Compliance Project Manager Name Role Phone Junior Jones DO Unavailable Encounter Details Date Type Department Care Team (Late Contact Info) Description 02/01/2024 Abstract DAFNE PISANO [address] [place] [address] Junior Jones DO [address] [place], [facility]11 Social History Tobacco Use Types [...] 11:00 AM EDT Ancillary Procedure DAFNE PISANO [address] [place] [address] [place] [address] 12/29/2024 9:30 AM EDT Office Visit DAFNE PISANO [address] [place] [address] Teresa Moreno, SIDNEY [address] [facility] [place] [phone] documented as of this encounter Visit Diagnoses Not on filedocumented in this encounter Care Teams Compliance Project Manager Relationship Specialty Start Date End Date Junior Jones DO [address] [place] [address] PCP - FFS State [facility] 07/05/24 documented as of this encounter
--- OUTSIDE RECORDS SUMMARY | 2024-12-01 09:02 | XMS_ITS | Encounter Summary ---
Author Organization [facility] Address [address] [place] [address] Care Team Providers Care Black Ash Worker Name Role Phone Junior Jones DO Unavailable Encounter Details Date Type Department Care Team (Late st Contact Info) Description 04/08/2024 Abstract DAFNE PISANO [address] [facility] [place] [address] Junior Jones DO [address] [place], [facility]11 Social History Tobacco Use Types Packs/Day [...] 11:00 AM EDT Ancillary Procedure DAFNE PISANO [address] [place] [address] [place] [address] 12/29/2024 9:30 AM EDT Office Visit DAFNE PISANO [address] [place] [address] Teresa Moreno, SIDNEY [address] [facility] [place] [phone] documented as of this encounter Goals Goal Patient Goal Type Associated Problems Recent Progress Patient-Stated? Author Reminders Care Plan OB Reminders No Open Scheduling, Background documented as of this encounter Visit Diagnoses Not on filedocumented in this encounter Additional Health Concerns Active Problems Noted Date Diagnosed Date OB Reminders 02/18/2024 documented as of this encounter Care Teams Black Ash Worker Relationship Specialty Start Date End Date Junior Jones DO [address] [place] [address] PCP - FFS State [facility] 07/05/24 documented as of this encounter
--- OUTSIDE RECORDS SUMMARY | 2024-12-01 09:02 | XMS_ITS | Encounter Summary ---
Author Organization [facility] Address [address] [place] [address] Care Team Providers Care Zone Manager Name Role Phone Junior Jones DO Unavailable Encounter Details Date Type Department Care Team (Late Contact Info) Description 08/17/2024 Abstract DAFNE PISANO [address] [facility] [place] [address] Junior Jones DO [address] [place], [facility]11 Social History Tobacco Use Types Packs/Day [...] 11:00 AM EDT Ancillary Procedure DAFNE PISANO [address] [place] [address] [place] [address] 12/29/2024 9:30 AM EDT Office Visit DAFNE PISANO [address] [place] [address] Teresa Moreno, SIDNEY [address] [facility] [place] [phone] documented as of this encounter Goals Goal Patient Goal Type Associated Problems Recent Progress Patient-Stated? Author Reminders Care Plan OB Reminders No Open Scheduling, Background documented as of this encounter Visit Diagnoses Not on filedocumented in this encounter Additional Health Concerns Active Problems Noted Date Diagnosed Date OB Reminders 02/18/2024 documented as of this encounter Care Teams Zone Manager Relationship Specialty Start Date End Date Junior Jones DO [address] [address] PCP - FFS State [facility] 07/05/24 documented as of this encounter
--- OUTSIDE RECORDS SUMMARY | 2024-12-01 09:02 | XMS_ITS | Encounter Summary ---
Author Organization [facility] Address [address] [place] [address] Care Team Providers Care Supervisor Body Assembly Name Role Phone Junior Jones DO Unavailable Encounter Details Date Type Department Care Team (Late Contact Info) Description 11/29/2024 Telephone NOMKatie PISANO [facility] [place] [address] Elisa Gamez LPN Social History Tobacco Use Types Packs/Day Years Used Date Smoking Tobacco: Never Assessed PHQ-2 Answer Date Recorded Patient Health Questionnaire-2 Score 0 09/05/2024 Comments No Sex and Gender Information Value Date Recorded Sex Assigned at Not on file Legal Sex Female 9:19 AM EDT Gender Identity Not on file Sexual Orientation Not on file documented as of this encounter Miscellaneous Notes * Telephone Encounter - Elisa Gamez LPN - 11/29/2024 1:55 PM EDT Per Karen randhawa BID for 30 days faxed to pharmacy documented in this encounter Plan of Treatment Upcoming Encounters Date Type Department Care Team (Late Contact Info) Description 12/12/2024 11:00 AM EDT Ancillary Procedure DAFNE PISANO [address] [place] [address] 12/29/2024 9:30 AM EDT [place] [address] Teresa Moreno, SIDNEY [address] [place] [address] documented as of this encounter Goals Goal Patient Goal Type Associated Problems Recent Progress Patient-Stated? Author Reminders Care Plan OB Reminders No Open Scheduling, Background documented as of this encounter Visit Diagnoses Diagnosis Dysfunctional uterine bleeding Other disorder of menstruation and other abnormal bleeding from female genital tract documented in this encounter Additional Health Concerns Active Problems Noted Date Diagnosed Date OB Reminders 02/18/2024 documented as of this encounter Care Teams Supervisor Body Assembly Relationship Specialty Start Date End Date Junior Jones DO [address] [place] [address] PCP - FFS State [facility] 07/05/24 documented as of this encounter
--- OUTSIDE RECORDS SUMMARY | 2024-12-01 09:02 | XMS_ITS | Encounter Summary ---
Author Organization [facility] Address [address] [place] [address] Care Team Providers Care Bunghole Borer Name Role Phone Junior Jones DO Unavailable Encounter Details Date Type Department Care Team (Late Contact Info) Description 04/01/2024 Abstract DAFNE PISANO [address] [facility] [address] Junior Jones DO [address] [place], [facility]11 Social History [...] 11:00 AM EDT Ancillary Procedure DAFNE PISANO [address] [place] [address] [place] [address] 12/29/2024 9:30 AM EDT Office Visit DAFNE PISANO [address] [place] [address] Teresa Moreno, SIDNEY [address] [facility] [place] [phone] documented as of this encounter Goals Goal Patient Goal Type Associated Problems Recent Progress Patient-Stated? Author Reminders Care Plan OB Reminders No Open Scheduling, Background documented as of this encounter Visit Diagnoses Not on filedocumented in this encounter Additional Health Concerns Active Problems Noted Date Diagnosed Date OB Reminders 02/18/2024 documented as of this encounter Care Teams Bunghole Borer Relationship Specialty Start Date End Date Junior Jones DO [address] [place] [address] PCP - FFS State [facility] 07/05/24 documented as of this encounter
--- OUTSIDE RECORDS SUMMARY | 2024-12-01 09:06 | XMS_ITS | CCD ---
Author Organization [facility] Care Team Providers Care Carroting Machine Offbearer Name Role Phone Sharon Pickett Unavailable Unavailable Sharon Pickett Unavailable Unavailable Arslan Malin Unavailable Unavailable MARY OQUENDO Attending Unavailable Sangita Penn Unavailable Unavailable Primary Care Provider UnavailJunior Box DO Unavailable KARENJUNIOR SHARMA Attending Unavailable DESIREE CADET Attending Unavailable KAREN, [...] Drug Class(es) Dates Sig (Normalized) Sig (Original) [id number] actuat albuterol 0.09 mg/actuat metered dose [...] / ethinyl estradiol 0.03 mg oral tablet (7 sources) Progestin, Estrogen Start: 10-18-2024 End: 10-18-2025 desogestrel-ethinyl estradiol (Apri) 0.15-30 MG-MCG tablet Indications: 6 weeks [facility]up [facility]) , control counseling Take 1 tablet by mouth Daily 28 tablet 12 10/18/2024 10/18/2025 Active dextromethorphan hydrobromide 1.5 mg/ml / pyrilamine maleate 1.5 mg/ml oral solution (1 source) Uncompetitive T-svlxvx-S-asparta te Receptor Antagonist, Sigma-1 Agonist Start: 02-08-2023 take 10 mL by mouth every eight hours [place] DM 7.5-7.5 MG/5ML 10 mL Orally every 8 hours for 5 days Feb, Active 12 hr guaiFENesin 600 mg extended release oral tablet (1 source) take 1 tablet by mouth every twelve hours Mucinex 600 MG 1 tablet as needed Orally every 12 hrs Active ibuprofen 100 mg chewable tablet (7 sources) Nonsteroidal Anti-inflammatory Drug ibuprofen 100 MG [...] MG 1 tablet Orally BID for 5 05 Feb, 2023 Active pseudoephedrine hydrochloride 30 mg oral tablet [...] size-date discrepancy, unspecified trimester] 07-11-2024 Episodic Other endocrine disorders (2 sources) Polycystic ovary syndrome; Translations: [Polycystic ovarian syndrome] 11-23-2024 Chronic Other female genital disorders (2 sources) Abnormal uterine bleeding; Translations: [Abnormal uterine and vaginal bleeding, unspecified] 11-23-2024 Chronic Other and delivery including normal (20 sources) [...] WITH AUTO DIFFon BASOPHILS ABSOLUTE AUTO 0 [facility] Basophils/100 WBC (Bld) 0.7 % 0.2 - 2.0 % [facility] Eosinophils/100 WBC (Bld) 2.8 % 0.9 - 7.0 % [facility] Erythrocyte distribution width (RBC) [Ratio] 15.4 % High 11.0 - 15.0 % [facility] Hematocrit (Bld) [Volume fraction] 41.2 % 36.0 - 48.0 % [facility] Hemoglobin (Bld) [Mass/Vol] 13.6 g/dL 12.0 - 16.0 g/dL [facility] IMMATURE GRANULOCYTES ABS AUTO 0 [facility] Immature granulocytes/100 WBC (Bld) 0 % 0.0 - 0.5 % [facility] Interpretation and review of laboratory results Abnormal [facility] LYMPHOCYTES ABSOLUTE AUTO 2.3 [facility] Lymphocytes/100 WBC (Bld) 38.1 % 20.5 - 60.0 % [facility] MCH (RBC) [Entitic mass] 26.1 pg Low 26.7 - 34.0 pg [facility] MCHC (RBC) [Mass/Vol] 33 g/dL 29.9 - 35.2 g/dL [facility] MCV (RBC) [Entitic vol] 78.9 fL Low 81.0 - 99.0 fL [facility] MONOCYTES ABSOLUTE AUTO 0.4 [facility] Monocytes/100 WBC (Bld) 7 % 1.7 - 12.0 % [facility] NEUTROPHILS ABSOLUTE AUTO 3.1 [facility] Neutrophils/100 WBC (Bld) 51.4 % 43.0 - 75.0 % [facility] Platelet mean volume (Bld) [Entitic vol] 10.9 fL 9.5 - 13.5 fL [facility] TBH EO # 0.2 [facility] PLT 310 [facility] RBC 5.22 [facility] WBC 6 [facility] ALL CBC WITH AUTO DIFFon BASOPHILS ABSOLUTE AUTO 0 [facility] Basophils/100 WBC (Bld) 0.4 % 0.2 - 2.0 % [facility] Eosinophils/100 WBC (Bld) 1.7 % 0.9 - 7.0 % [facility] Erythrocyte distribution width (RBC) [Ratio] 13.6 % 11.0 - 15.0 % [facility] Hematocrit (Bld) [Volume fraction] 27.8 % Low 36.0 - 48.0 % [facility] Hemoglobin (Bld) [Mass/Vol] 9.1 g/dL Low 12.0 - 16.0 g/dL [facility] IMMATURE GRANULOCYTES ABS AUTO 0.05 High [facility] Immature granulocytes/100 WBC (Bld) 0.5 % 0.0 - 0.5 % [facility] Interpretation and review of laboratory results Abnormal [facility] LYMPHOCYTES ABSOLUTE AUTO 2.3 [facility] Lymphocytes/100 WBC (Bld) 22.3 % 20.5 - 60.0 % [facility] MCH (RBC) [Entitic mass] 26.3 pg Low 26.7 - 34.0 pg [facility] MCHC (RBC) [Mass/Vol] 32.7 g/dL 29.9 - 35.2 g/dL [facility] MCV (RBC) [Entitic vol] 80.3 fL Low 81.0 - 99.0 fL [facility] MONOCYTES ABSOLUTE AUTO 0.7 [facility] Monocytes/100 WBC (Bld) 6.5 % 1.7 - 12.0 % [facility] NEUTROPHILS ABSOLUTE AUTO 7.1 High [facility] Neutrophils/100 WBC (Bld) 68.6 % 43.0 - 75.0 % [facility] Platelet mean volume (Bld) [Entitic vol] 10.9 fL 9.5 - 13.5 fL [facility] EO # 0.2 [facility] PLT 206 [facility] RBC 3.46 Low [facility] WBC 10.3 [facility] UA (CLEAN/CATCH) [employer] CREW MEMBER/DAVID RO IF IND.on 08-30-2024 BILIRUBIN URINE Negative NEGATIVE [facility] BLOOD URINE LARGE Abnormal NEGATIVE [facility] Clarity (U) CLEAR CLEAR [facility] Color (U) YELLOW YELLOW [facility] GLUCOSE URINE UA Negative NEGATIVE mg/dL [facility] Interpretation and review of laboratory results Abnormal [facility] Ketones Ql (U) TRACE Abnormal NEGATIVE mg/dL [facility] Leukocyte esterase Test strip Ql (U) Negative NEGATIVE [facility] NITRITE URINE Negative NEGATIVE [facility] pH (U) 6.0 [pH] 5.0 - 9.0 [facility] PROTEIN URINE TRACE NEG/TRACE mg/dL [facility] SPECIFIC GRAVITY URINE 1.025 1.005 - 1.025 [facility] URINE MICROSCOPIC INDICATED YES [facility] UROBILINOGEN URINE 0.2 EU/dL 0.2 - 1.0 EU/dL [facility] macro (dipstick) panel (U)on 08-30-2024 Bilirubin, UA Positive Negative - 4(70) +++ mg/dL [facility] Comment on above: small Blood, UA Negative Negative - 50 Jesus/mcL [facility] Clarity, UA Clear [facility] Color, UA Straw [facility] Glucose, UA Negative Negative - 1999(110) ++++ mg/dL [facility] Interpretation and review of laboratory results Abnormal [facility] Ketones, UA Positive Negative - 160(16) ++++ mg/dL [facility] Comment on above: trace Leukocytes, UA Trace Negative - 500+++ Juanita/mcL [facility] Nitrite, UA Negative Negative - Positive [facility] pH, UA 6 5 - 9 [facility] Protein, UA Positive Negative - 1999(20) ++++ mg/dL [facility] Comment on above: 100 Spec Grav, UA 1.03 1 - 1.03 [facility] Urobilinogen, UA 1.0 0.2 - 12 mg/dL [facility] Urinalysis macro (dipstick) panel (U)on 08-22-2024 Bilirubin, UA Negative Negative - 4(70) +++ mg/dL [facility] Blood, UA Negative Negative - 50 Jesus/mcL [facility] Clarity, UA Clear [facility] Color, UA Yellow [facility] Glucose, UA Negative Negative - 1999(110) ++++ mg/dL [facility] Interpretation and review of laboratory results Normal [facility] Ketones, UA Negative Negative - 160(16) ++++ mg/dL [facility] Leukocytes, UA Negative Negative - 500+++ Juanita/mcL [facility] Nitrite, UA Negative Negative - Positive [facility] pH, UA 7 5 - 9 [facility] Protein, UA Negative Negative - 1999(20) ++++ mg/dL [facility] Spec Grav, UA 1.015 1 - 1.03 [facility] Urobilinogen, UA 0.2 0.2 - 12 mg/dL [facility] US OB BPP W NON-STRESS on 08-18-2024 [place] [address] Ultrasound Report Signed Patient: SANTIAGO MEDINA MR#: [id number] : 1990 Acct:[id number] Age/Sex: 34 / F ADM Date: 08/18/24 Loc: [facility] 250-[address]: Junior Jones D.O. Ordering Physician: Junior Jones D.O. Date of Service: 08/18/24 Procedure(s): US OB BPP w non-stress Accession Number(s): [id number] cc: Junior Jones D.O.; Physician,Non-Staff MMynor The [address] [address] Patient Name: SANTIAGO MEDINA MRN: [id number] date: 1990 Sex: F Assigned Patient Location: [facility] Current Patient Location: [facility] Accession/Order Number: [id number] Exam Date: 08/18/2024 11:59 Report Date: 08/18/2024 12:00 At the request of: JUNIOR JONES DO Procedure: US OB BPP w non-stress BIOPHYSICAL PROFILE: CLINICAL INFORMATION: LOW AMINOTIC FLUID O41.00X0 COMPARISON: 08/11/2024 There is a single live intrauterine gestation in cephalic presentation. The reported gestational age is 35 weeks 3 days. The heart rate [id number] beats per minute. FINDINGS: TONE: 1 or [...] This is in normal range. Total score: 8/ US/US OB BPP w non-stress IMPRESSION: NORMAL BIOPHYSICAL PROFILE. Impression dictated by: Elisa Boothe M.D. 08/18/2024 12:00 PM Dictation Location: [place] [address] Electronically authenticated by: [id number] Y Date: 08/18/2024 12:00 Dictated By: Elisa Boothe M.D. Signed By: 08/18/24 1203 DD/ 1200 TD/TT: Clerk Operator: [facility] Radiology, Radiologi MD jessica - 08/18/2024 [place] [address] Ultrasound Report Signed Patient: SANTIAGO MEDINA MR#: [id number] : 1990 Acct:[id number] Age/Sex: 34 / F ADM Date: 08/18/24 Loc: [facility] 250-[address]: Junior Jones D.O. Ordering Physician: Junior Jones D.O. Date of Service: 08/18/24 Procedure(s): US OB BPP w non-stress Accession Number(s): [id number] cc: Junior Jones D.O.; Physician,Non-Staff [place] [id number] Patient Name: SANTIAGO MEDINA MRN: [id number] date: 1990 Sex: F Assigned Patient Location: [facility] Current Patient Location: [facility] Accession/Order Number: [id number] Exam Date: 08/18/2024 11:59 Report Date: 08/18/2024 12:00 At the request of: JUNIOR JONES DO Procedure: US OB BPP w non-stress BIOPHYSICAL PROFILE: CLINICAL INFORMATION: LOW AMINOTIC FLUID O41.00X0 COMPARISON: 08/11/2024 There is a single live intrauterine gestation in cephalic presentation. The reported gestational age is 35 weeks 3 days. The heart rate [id number] beats per minute. FINDINGS: TONE: 1 or [...] Boothe M.D. 08/18/2024 12:00 PM Dictation Location: [place] [address] Electronically authenticated by: [id number] Y Date: 08/18/2024 12:00 Dictated By: Elisa Boothe M.D. Signed By: 08/18/24 1203 DD/ 1200 TD/TT: Clerk Operator: [facility] Radiology Study observation (narrative) [facility] US OB BPP W NON-STRESS Ordered By: Radiologist Radiology on 08-18-2024 [facility] Work Phone: US OB BPP W NON-STRESS on 08-11-[address] [address] Ultrasound Report Signed Patient: SANTIAGO MEDINA MR#: [id number] : 1990 Acct:[id number] Age/Sex: 34 / F ADM Date: 08/11/24 Loc: [facility] 250-[address]: Junior Jones D.O. Ordering Physician: Junior Jones D.O. Date of Service: 08/11/24 Procedure(s): US OB BPP w non-stress Accession Number(s): [id number] cc: Junior Jones D.O.; Physician,Non-Staff [facility] The [place] [id number] Patient Name: SANTIAGO MEDINA MRN: [facility]:[id number] date: 1990 Sex: F Assigned Patient Location: [facility] Current Patient Location: [facility] Accession/Order Number: [id number] Exam Date: 08/11/2024 11:38 Report Date: 08/11/2024 11:39 At the request of: JUNIOR JONES DO Procedure: US OB BPP w non-stress Biophysical profile. Reason for exam: Low amniotic fluid volume. COMPARISON: 08/04/2024 TECHNIQUE: Transabdominal imaging of the gravid uterus was obtained. FINDINGS: Diesel Powerplant Mechanic reports the BPP is 8 out of 8. LIZETH measures 12 cm. heart rate 147 bpm. US/US OB BPP w non-stress IMPRESSION: BPP 8 out of 8. Impression dictated by: David Qureshi Jr., D.O. 08/11/2024 11:39 AM Dictation Location: [place] [address] Electronically authenticated by: [id number] Y Date: 08/11/2024 11:39 Dictated By: David Qureshi M.D. Signed By: 08/11/24 1141 DD/ 1139 TD/TT: Clerk Operator: [facility] Radiology, Radiologi MD jessica - 08/11/2024 The [place] [id number] Ultrasound Report Signed Patient: SANTIAGO MEDINA MR#: [id number] : 1990 Acct:[id number] Age/Sex: 34 / F ADM Date: 08/11/24 Loc: [facility] 250-[address]: Junior Jones D.O. Ordering Physician: Junior Jones D.O. Date of Service: 08/11/24 Procedure(s): US OB BPP w non-stress Accession Number(s): [id number] cc: Junior Jones D.O.; Physician,Non-Staff [place] The [place] [id number] Patient Name: SANTIAGO MEDINA MRN: [id number] date: 1990 Sex: F Assigned Patient Location: [facility] Current Patient Location: [facility] Accession/Order Number: [id number] Exam Date: 08/11/2024 11:38 Report Date: 08/11/2024 11:39 At the request of: JUNIOR JONES DO Procedure: US OB BPP w non-stress Biophysical profile. Reason for exam: Low amniotic fluid volume. COMPARISON: 08/04/2024 TECHNIQUE: Transabdominal imaging of the gravid uterus was obtained. FINDINGS: Diesel Powerplant Mechanic reports the BPP is 8 out of 8. LIZETH measures 12 cm. heart rate 147 bpm. US/US OB BPP w non-stress IMPRESSION: BPP 8 out of 8. Impression dictated by: David Qureshi Jr., D.O. 08/11/2024 11:39 AM Dictation Location: [place] [address] Electronically authenticated by: [id number] Y Date: 08/11/2024 11:39 Dictated By: David Qureshi M.D. Signed By: 08/11/24 1141 DD/ 1139 TD/TT: Clerk Operator: [facility] Radiology Study observation (narrative) [facility] US OB BPP W NON-STRESS Ordered By: Radiologist Radiology on 08-11-2024 [facility] Work Phone: Urinalysis macro (dipstick) panel (U)on 08-11-2024 Bilirubin, UA Negative Negative - 4(70) +++ mg/dL [facility] Blood, UA Negative Negative - 50 Jesus/mcL [facility] Clarity, UA Clear [facility] Color, UA Yellow [facility] Glucose, UA Negative Negative - 2000(110) ++++ mg/dL [facility] Interpretation and review of laboratory results Normal [facility] Ketones, UA Negative Negative - 160(16) ++++ mg/dL [facility] Leukocytes, UA Negative Negative - 500+++ Juanita/mcL [facility] Nitrite, UA Negative Negative - Positive [facility] pH, UA 5.5 5 - 9 [facility] Protein, UA Negative Negative - 2000(20) ++++ mg/dL [facility] Spec Grav, UA 1.02 1 - 1.03 [facility] Urobilinogen, UA 1.0 0.2 - 12 mg/dL [facility] US OB BPP W NON-STRESS on 08-04-2024 [place] [address] Ultrasound Report Signed Patient: SANTIAGO MEDINA MR#: [id number] : 1990 Acct:[id number] Age/Sex: 34 / F ADM Date: 08/04/24 Loc: US Attending Dr: Junior Jones D.O. Ordering Physician: Junior Jones D.O. Date of Service: 08/04/24 Procedure(s): US OB BPP w non-stress Accession Number(s): [id number] cc: Junior Jones D.O.; Physician,Non-Staff M.DPatricia The [address] [address] Patient Name: SANTIAGO MEDINA MRN: [id number] date: 1990 Sex: F Assigned Patient Location: US Current Patient Location: Accession/Order Number: [id number] Exam Date: 08/04/2024 13:07 Report Date: 08/04/2024 13:08 At the request of: JUNIOR JONES DO Procedure: US OB BPP w non-stress Biophysical profile. Reason for exam: Low amniotic fluid volume. COMPARISON: 07/28/2024 TECHNIQUE: Transabdominal imaging of the gravid uterus was obtained. FINDINGS: Diesel Powerplant Mechanic reports the BPP is 8 out of 8. LIZETH measures 9 cm. heart rate 131 bpm. US/US OB BPP w non-stress IMPRESSION: BPP 8 out of 8. Impression dictated by: David Qureshi Jr., D.O. 08/04/2024 1:08 PM Dictation Location: [place] [address] Electronically authenticated by: [id number] Y Date: 08/04/2024 13:08 Dictated By: David Qureshi M.D. Signed By: 08/04/24 1311 DD/ 1308 TD/TT: Clerk Operator: [facility] Radiology, Radiologi MD jessica - 08/04/2024 [place] [address] Ultrasound Report Signed Patient: SANTIAGO MEDINA MR#: [id number] : 1990 Acct:[id number] Age/Sex: 34 / F ADM Date: 08/04/24 Loc: US Attending Dr: Junior Jones D.O. Ordering Physician: Junior Jones D.O. Date of Service: 08/04/24 Procedure(s): US OB BPP w non-stress Accession Number(s): [id number] cc: Junior Jones D.O.; Physician,Non-Staff [place] The [address] [address] Patient Name: SANTIAGO MEDINA MRN: [facility]:[id number] date: 1990 Sex: F Assigned Patient Location: US Current Patient Location: Accession/Order Number: [id number] Exam Date: 08/04/2024 13:07 Report Date: 08/04/2024 13:08 At the request of: JUNIOR KAREN DO Procedure: US OB BPP w non-stress Biophysical profile. Reason for exam: Low amniotic fluid volume. COMPARISON: 07/28/2024 TECHNIQUE: Transabdominal imaging of the gravid uterus was obtained. FINDINGS: Diesel Powerplant Mechanic reports the BPP is 8 out of 8. LIZETH measures 9 cm. heart rate 131 bpm. US/US OB BPP w non-stress IMPRESSION: BPP 8 out of 8. Impression dictated by: David Qureshi Jr., D.O. 08/04/2024 1:08 PM Dictation Location: [facility] Electronically authenticated by: [id number] Y Date: 08/04/2024 13:08 Dictated By: David Qureshi M.D. Signed By: 08/04/24 1311 DD/ 1308 TD/TT: Clerk Operator: [facility] Radiology Study observation (narrative) [facility] US OB BPP W NON-STRESS Ordered By: Radiologist Radiology on 08-04-2024 [facility] Work Phone: US OB BPP W NON-STRESS on 07-28-2024 [place] [address] Ultrasound Report Signed Patient: SANTIAGO MEDINA MR#: [id number] : 1990 Acct:[id number] Age/Sex: 34 / F ADM Date: 07/28/24 Loc: [facility] Attending Dr: Junior Jones D.O. Ordering Physician: Junior Jones D.O. Date of Service: 07/28/24 Procedure(s): US OB BPP w non-stress Accession Number(s): [id number] cc: Junior Jones D.O.; Physician,Non-Staff [place] The [address] [address] Patient Name: SANTIAGO MEDINA MRN: [id number] date: 1990 Sex: F Assigned Patient Location: [facility] Current Patient Location: Accession/Order Number: [id number] Exam Date: 07/28/2024 13:53 Report Date: 07/28/2024 13:55 At the request of: JUNIOR JONES DO Procedure: US OB BPP w non-stress Biophysical profile. Reason for exam: Low amniotic fluid volume. COMPARISON: None. TECHNIQUE: Transabdominal imaging of the gravid uterus was obtained. FINDINGS: Diesel Powerplant Mechanic reports the BPP is 8 out of 8. LIZETH measures 8.5 cm. heart rate 1 44 bpm. US/US OB BPP w non-stress IMPRESSION: BPP 8 out of 8. Impression dictated by: David Qureshi Jr., D.O.07/28/2024 1:55 PM Dictation Location: [place] [address] Electronically authenticated by: [id number] Y Date: 07/28/2024 13:55 Dictated By: David Qureshi M.D. Signed By: 07/28/24 1357 DD/ 1355 TD/TT: Clerk Operator: [facility] Radiology, Radiologi MD jessica - 07/28/2024 [place] [address] Ultrasound Report Signed Patient: SANTIAGO MEDINA MR#: [id number] : 1990 Acct:[id number] Age/Sex: 34 / F ADM Date: 07/28/24 Loc: [facility] Attending Dr: Junior Jones D.O. Ordering Physician: Junior oJnes D.O. Date of Service: 07/28/24 Procedure(s): US OB BPP w non-stress Accession Number(s): [id number] cc: Junior Jones D.O.; Physician,Non-Staff [place] The [address] [address] Patient Name: SANTIAGO MEDINA MRN: [facility]:[id number] date: 1990 Sex: F Assigned Patient Location: [facility] Current Patient Location: Accession/Order Number: [id number] Exam Date: 07/28/2024 13:53 Report Date: 07/28/2024 13:55 At the request of: JUNIOR JONES DO Procedure: US OB BPP w non-stress Biophysical profile. Reason for exam: Low amniotic fluid volume. COMPARISON: None. TECHNIQUE: Transabdominal imaging of the gravid uterus was obtained. FINDINGS: Diesel Powerplant Mechanic reports the BPP is 8 out of 8. LIZETH measures 8.5 cm. heart rate 1 44 bpm. US/US OB BPP w non-stress IMPRESSION: BPP 8 out of 8. Impression dictated by: David Qureshi Jr., D.O.07/28/2024 1:55 PM Dictation Location: [place] [address] Electronically authenticated by: [id number] Y Date: 07/28/2024 13:55 Dictated By: David Qureshi M.D. Signed By: 07/28/24 1357 DD/ 54 TD/TT: Clerk Operator: [facility] Radiology Study observation (narrative) [facility] US OB BPP W NON-STRESS Ordered By: Radiologist Radiology on 07-28-2024 [facility] Work Phone: US OB FOLLOW UP TRANSABDOMIN [...] II, MD, PHD at 28-Jul-2024 11:20:55 PM [facility] Normal Not Available Comment on above: Order Comment: US OB SCAN FOR GROWTH Estimated Date of Delivery: 09/19/24 Gestational Age as of 07/11/2024: 30w0d Urinalysis macro (dipstick) panel (U)on 07-28-2024 Bilirubin, UA Negative Negative - 4(70) +++ mg/dL [facility] Blood, UA Negative Negative - 50 Jesus/mcL [facility] Clarity, UA Clear [facility] Color, UA Yellow [facility] Glucose, UA Negative Negative - 2000(110) ++++ mg/dL [facility] Interpretation and review of laboratory results Normal [facility] Ketones, UA Negative Negative - 160(16) ++++ mg/dL [facility] Leukocytes, UA Negative Negative - 500+++ Juanita/mcL [facility] Nitrite, UA Negative Negative - Positive [facility] pH, UA 6 5 - 9 [facility] Protein, UA Negative Negative - 2000(20) ++++ mg/dL [facility] Spec Grav, UA 1.025 1 - 1.03 [facility] Urobilinogen, UA 0.2 0.2 - 12 mg/dL [facility] US OB LIMITED 1+ FETUSESon 0 07-11-2024 [...] II, MD, PHD at 12-Jul-2024 11:25:12 PM [facility] Normal Not Available Comment on above: Order Comment: US OB PLACENTA W US OB TRANSVAGINAL Estimated Date of Delivery: 09/19/24 Gestational Age as of 06/07/2024: 25w1d Urinalysis macro (dipstick) panel (U)on 07-11-2024 Bilirubin, UA Negative Negative - 4(70) +++ mg/dL [facility] Blood, UA Positive Negative - 50 Jesus/mcL [facility] Comment on above: trace-intact Clarity, UA Clear [facility] Color, UA Yellow [facility] Glucose, UA Negative Negative - 2000(110) ++++ mg/dL [facility] Interpretation and review of laboratory results Abnormal [facility] Ketones, UA Negative Negative - 160(16) ++++ mg/dL [facility] Leukocytes, UA Negative Negative - 500+++ Juanita/mcL [facility] Nitrite, UA Negative Negative - Positive [facility] pH, UA 6.5 5 - 9 [facility] Protein, UA Negative Negative - 2000(20) ++++ mg/dL [facility] Spec Grav, UA 1.02 1 - 1.03 [facility] [facility] Urobilinogen, UA 0.2 0.2 - 12 mg/dL [facility] ALL CBC WITH AUTO DIFFon BASOPHILS ABSOLUTE AUTO 0 [facility] Basophils/100 WBC (Bld) 0.2 % 0.2 - 2.0 % [facility] Eosinophils/100 WBC (Bld) 0.8 % Low 0.9 - 7.0 % [facility] Erythrocyte distribution width (RBC) [Ratio] 12.3 % 11.0 - 15.0 % [facility] Hematocrit (Bld) [Volume fraction] 37.1 % 36.0 - 48.0 % [facility] Hemoglobin (Bld) [Mass/Vol] 12.7 g/dL 12.0 - 16.0 g/dL [facility] IMMATURE GRANULOCYTES ABS AUTO 0.03 [facility] Immature granulocytes/100 WBC (Bld) 0.4 % 0.0 - 0.5 % [facility] Interpretation and review of laboratory results Abnormal [facility] LYMPHOCYTES ABSOLUTE AUTO 1.8 [facility] Lymphocytes/100 WBC (Bld) 22.3 % 20.5 - 60.0 % [facility] MCH (RBC) [Entitic mass] 29.3 pg 26.7 - 34.0 pg [facility] MCHC (RBC) [Mass/Vol] 34.2 g/dL 29.9 - 35.2 g/dL [facility] MCV (RBC) [Entitic vol] 85.5 fL 81.0 - 99.0 fL [facility] MONOCYTES ABSOLUTE AUTO 0.6 [facility] Monocytes/100 WBC (Bld) 7.4 % 1.7 - 12.0 % [facility] NEUTROPHILS ABSOLUTE AUTO 5.7 [facility] Neutrophils/100 WBC (Bld) 68.9 % 43.0 - 75.0 % [facility] Platelet mean volume (Bld) [Entitic vol] 10.5 fL 9.5 - 13.5 fL [facility] TBH EO # 0.1 [facility] TBH PLT 251 [facility] RBC 4.34 [facility] WBC 8.3 [facility] No Panel InformationOrdered By: Radiologist Radiology on 06-06-2024 [facility] Work Phone: No Panel Informationon 06-06 Radiology Study observation (narrative) [facility] US [place] [address] Ultrasound Report Signed Patient: SANTIAGO MEDINA MR#: [id number] : 1990 Acct:[id number] Age/Sex: 34 / F ADM Date: 06/06/24 Loc: US Attending Dr: Junior Jones D.O. Ordering Physician: Junior Jones D.O. Date of Service: 06/06/24 Procedure(s): US OB cervical length Accession Number(s): [id number] cc: Junoir Jones D.O.; Physician,Non-Staff MMynor The [address] [address] Patient Name: SANTIAGO MEDINA MRN: [facility]:[id number] date: 1990 Sex: F Assigned Patient Location: Current Patient Location: US Accession/Order Number: [id number] Exam Date: 06/06/2024 22:13 Report Date: 06/06/2024 [...] Elisa Boothe M.D.06/06/2024 10:21 PM Dictation Location: [place] [address] Electronically authenticated by: [id number] Y Date: 06/06/2024 22:21 Dictated By: Elisa Boothe M.D. Signed By: 06/06/242223 DD/ 20 TD/TT: Clerk Operator: [facility] Radiology, Radiologi MD jessica - 06/06/2024 [place] [address] Ultrasound Report Signed Patient: SANTIAGO MEDINA MR#: [id number] : 1990 Acct:[id number] Age/Sex: 34 / F ADM Date: 06/06/24 Loc: US Attending Dr: Junior Jones D.O. Ordering Physician: Junior Jones D.O. Date of Service: 06/06/24 Procedure(s): US OB cervical length Accession Number(s): [id number] cc: Junior Jones D.O.; Physician,Non-Staff Vasquez The [place] [id number] Patient Name: SANTIAGO MEDINA MRN: [facility]:[id number] date: 1990 Sex: F Assigned Patient Location: US Current Patient Location: Accession/Order Number: [id number] Exam Date: 06/06/2024 22:13 Report Date: 06/06/2024 [...] Elisa Boothe M.D.06/06/2024 10:21 PM Dictation Location: [place] [address] Electronically authenticated by: [id number] Y Date: 06/06/2024 22:21 Dictated By: Elisa Boothe M.D. Signed By: 06/06/242223 DD/ 20 TD/TT: Clerk Operator: [facility] US OB INCOMPLETE ANATOMYon 0 06-06-[address] [address] Ultrasound Report Signed Patient: SANTIAGO MEDINA MR#: [id number] : 1990 Acct:[id number] Age/Sex: 34 / F ADM Date: 06/06/24 Loc: US Attending Dr: Junior Jones D.O. Ordering Physician: Junior Jones D.O. Date of Service: 06/06/24 Procedure(s): US OB incomplete anatomy Accession Number(s): [id number] cc: Junior Jones D.O.; Physician,Non-Staff Vasquez The [place] [id number] Patient Name: SANTIAGO MEDINA MRN: [facility]:[id number] date: 1990 Sex: F Assigned Patient Location: US Current Patient Location: US Accession/Order Number: [id number] Exam Date: 06/06/2024 22:13 Report Date: 06/06/2024 [...] Elisa Boothe M.D.06/06/2024 10:21 PM Dictation Location: [place] [address] Electronically authenticated by: [id number] Y Date: 06/06/2024 22:21 Dictated By: Elisa Boothe M.D. Signed By: 06/06/242223 DD/ 20 TD/TT: Clerk Operator: [facility] Radiology, Radiologi MD jessica - 06/06/[address] [address] Ultrasound Report Signed Patient: SANTIAGO MEDINA MR#: [id number] : 1990 Acct:[id number] Age/Sex: 34 / F ADM Date: 06/06/24 Loc: US Attending Dr: Junior Jones D.O. Ordering Physician: Junior Jones D.O. Date of Service: 06/06/24 Procedure(s): US OB incomplete anatomy Accession Number(s): [id number] cc: Junior Jones D.O.; Physician,Non-Staff [place] [address] Patient Name: SANTIAGO MEDINA MRN: [id number] date: 1990 Sex: F Assigned Patient Location: US Current Patient Location: US Accession/Order Number: [id number] Exam Date: 06/06/2024 22:13 Report Date: 06/06/2024 [...] Elisa Boothe M.D.06/06/2024 10:21 PM Dictation [facility] Electronically authenticated by: [id number] Y Date: 06/06/2024 22:21 Dictated By: Elisa Boothe M.D. Signed By: 06/06/242223 DD/ 20 TD/TT: Clerk Operator: [facility] Urinalysis macro (dipstick) panel (U)on 06-06-2024 Bilirubin, UA Negative Negative - 4(70) +++ mg/dL [facility] Blood, UA Negative Negative - 50 Jesus/mcL [facility] Clarity, UA Clear [facility] Color, UA Yellow [facility] Glucose, UA Negative Negative - 1999(110) ++++ mg/dL [facility] Interpretation and review of laboratory results Abnormal [facility] Ketones, UA Negative Negative - 160(16) ++++ mg/dL [facility] Leukocytes, UA Trace Negative - 500+++ Juanita/mcL [facility] Nitrite, UA Negative Negative - Positive [facility] pH, UA 6 5 - 9 [facility] Protein, UA Negative Negative - 1999(20) ++++ mg/dL [facility] Spec Grav, UA 1.025 1 - 1.03 [facility] Urobilinogen, UA 0.2 0.2 - 12 mg/dL [facility] US OB 14+ WEEKS ANATOMY SCAN on [...] report is generated using voice recognition reporting (Nanosolar). On occasion [employer]osolar erroneously drops words from the report or [...] GDLNon AGE GDLN ACOG TESTING Note . [facility] Comment on above: TESTS RESULT FLAG UN ITS REF RANGE LAB Clinician Provided Cytology Information Source.............Cervix No. of containers..01 ThinPrep Vial Age Algo ACOG Maria... FLAG LEGEND: L-Low Normal,H-High Normal,LL-Alert Low,HH-Alert High <-Panic Low,>-Panic High,A-Abnormal,AA-Critical Abnormal Performed at: 01 =[address] [place] [address] Haydee Kraus MD, HPV APTIMA Negative Negative [facility] Comment on above: This nucleic acid am plification test detects fourteen high- risk HPV types (16,18,31,33,35,39,45,51,52,56,58,59,66,68) without differentiation. Performed at: =[address] [id number] Surfacing Technician: Haydee rKaus MD, Phone: [phone] Performed at: [address] [id number] Surfacing Technician: Haydee Kraus MD, Phone: [phone] IGP, APTIMA HPV, RFX 16/18,45 Note . [facility] Comment on above: TESTS RESULT FLAG UN ITS REF RANGE LAB DIAGNOSIS: 02 NEGATIVE FOR INTRAEPITHELIAL LESION OR MALIGNANCY. THIS SPECIMEN WAS RESCREENED PART OF OUR BRUSH CLEARING LABORER PROGRAM. Specimen adequacy: 02 Satisfactory for evaluation. No endocervical component is identified. Performed by: 02 Sav Cervantes Shrimp Peeling Machine Operator (ASCP) QC reviewed by: Jose Colón Shrimp Peeling Machine Operator . 02 Note: Note 02 The Pap [...] Low,>-Panic High,A-Abnormal,AA-Critical Abnormal Performed at: 02 [address] [facility] [address] [address] Haydee Kraus MD, SPATULA-ALONE CERVIX [facility] RECURRENT VAGINITIS (HTRX)on 04-13-2024 ATOPOBIUM VAGINAE 16.023 Abnormal [facility] ATOPOBIUM VAGINAE Detected Abnormal [facility] BVAB 2,3 (BACTERIAL VAGINOSIS ASSOCIATED BACTERIA 2, 3); MOBILUNCUS SPP 9.934 Abnormal [facility] BVAB 2,3 (BACTERIAL VAGINOSIS ASSOCIATED BACTERIA 2, 3); MOBILUNCUS SPP Detected Abnormal [facility] RADHA ALBICANS, PARAPSILOSIS, TROPICALIS 0 [facility] RADHA ALBICANS, PARAPSILOSIS, TROPICALIS Not detected [facility] RADHA GLABRATA 0 [facility] RADHA GLABRATA Not detected [facility] RADHA KRUSEI 0 [facility] RADHA KRUSEI Not detected [facility] CHLAMYDIA TRACHOMATIS 0 [facility] CHLAMYDIA TRACHOMATIS Not detected [facility] ERMB, C; MEFA 19.423 Abnormal [facility] ERMB, C; MEFA Detected Abnormal [facility] GARDNERELLA VAGINALIS 19.86 Abnormal [facility] GARDNERELLA VAGINALIS Detected Abnormal [facility] Interpretation and review of laboratory results Abnormal [facility] MEGASPHAERA (TYPES 1, 2) 21.115 Abnormal [facility] MEGASPHAERA (TYPES 1, 2) Detected Abnormal [facility] MYCOPLASMA GENITALIUM 0 [facility] MYCOPLASMA GENITALIUM Not detected [facility] NEISSERIA GONORRHOEAE 0 [facility] NEISSERIA GONORRHOEAE Not detected [facility] TET B, TET M 17.31 Abnormal [facility] TET B, TET M Detected Abnormal [facility] TRICHOMONAS VAGINALIS 0 [facility] TRICHOMONAS VAGINALIS Not detected [facility] Urinalysis macro (dipstick) panel (U)on 04-12-2024 Bilirubin, UA Negative Negative - 4(70) +++ mg/dL [facility] Blood, UA Negative Negative - 50 Jesus/mcL [facility] Clarity, UA Clear [facility] Color, UA Yellow [facility] Glucose, UA Negative Negative - 1999(110) ++++ mg/dL [facility] Interpretation and review of laboratory results Abnormal [facility] Ketones, UA Negative Negative - 160(16) ++++ mg/dL [facility] Leukocytes, UA Trace Negative - 500+++ Juanita/mcL [facility] Nitrite, UA Negative Negative - Positive [facility] pH, UA 5.5 5 - 9 [facility] Protein, UA Trace Negative - 1999(20) ++++ mg/dL [facility] Spec Grav, UA 1.03 1 - 1.03 [facility] Urobilinogen, UA 0.2 0.2 - 12 mg/dL [facility] Urinalysis macro (dipstick) panel (U)on 03-09-2024 Bilirubin, UA Negative Negative - 4(70) +++ mg/dL [facility] Blood, UA Negative Negative - 50 Jesus/mcL [facility] Clarity, UA Clear [facility] Color, UA Yellow [facility] Glucose, UA Negative Negative - 1999(110) ++++ mg/dL [facility] Interpretation and review of laboratory results Abnormal [facility] Ketones, UA Negative Negative - 160(16) ++++ mg/dL [facility] Leukocytes, UA Negative Negative - 500+++ Juanita/mcL [facility] Nitrite, UA Positive Negative - Positive [facility] pH, UA 6 5 - 9 [facility] Protein, UA Negative Negative - 1999(20) ++++ mg/dL [facility] Spec Grav, UA 1.025 1 - 1.03 [facility] Urobilinogen, UA 1.0 0.2 - 12 mg/dL [facility] ALL RUBELLA IGG ABon 024 RUBELLA ANTIBODIES, IGG 1.01 Immune >0.99 index [facility] Comment on above: Non-immune <0.90 Equivocal 0.90 - 0.99 Immune >0.99 Performed at: [address], [place] [id number] Surfacing Technician: Celetsino Goff PhD, Phone: [phone] HBSAG SCREENon 02-23-2024 HBSAG SCREEN Negative Negative [facility] Comment on above: Performed at: [address] [id number] Surfacing Technician: Celestino Goff PhD, Phone: [phone] HCV ANTIBODY RFX TO QUANT PC Kenan 02-23-2024 HCV AB Non-Reactive Non Reactive [facility] INTERPRETATION: Comment . [facility] Comment on above: Not infected with HC V unless early or acute infection is suspected (which may be delayed in an immunocompromised individual), or other evidence exists to indicate HCV infection. HIV AB/P24 AG WITH REFLEXon 02-23-2024 HIV AB/P24 AG SCREEN Non-Reactive Non Reactive [facility] Comment on above: HIV-1/HIV-2 antibodi es and HIV-1 p24 antigen were NOT detected. There is no laboratory evidence of HIV infection. HIV Negative Performed at: [address] [id number] Surfacing Technician: Celestino Goff PhD, Phone: [phone] No Panel Informationon 02-22 [facility] RAPID PLASMA REAGIN, QUANTon 02-23-2024 RAPID PLASMA REAGIN, QUANT Non-Reactive NonRea<1:1 titer [facility] Comment on above: Please Note: This te st does not meet current guidelines for screening and diagnosis of syphilis. This test is intended for following treatment response in patients being treated for syphilis infection. To screen for syphilis infection, a reflex cascade that includes both RPR and a treponema-specific assay should be utilized, such as Treponema pallidum (Syphilis) Screening [place] (072877) or Rapid Plasma Reagin (RPR) Test With Reflex to Quantitative RPR and Confirmatory Treponema pallidum Antibodies (828883). Performed at: [facility] [address] [id number] Surfacing Technician: Celestino Goff PhD, Phone: [phone] ALL CBC WITH AUTO DIFFon BASOPHILS ABSOLUTE AUTO 0 [facility] Basophils/100 WBC (Bld) 0.3 % 0.2 - 2.0 % [facility] Eosinophils/100 WBC (Bld) 0.5 % Low 0.9 - 7.0 % [facility] Erythrocyte distribution width (RBC) [Ratio] 11.9 % 11.0 - 15.0 % [facility] Hematocrit (Bld) [Volume fraction] 41.8 % 36.0 - 48.0 % [facility] Hemoglobin (Bld) [Mass/Vol] 14.5 g/dL 12.0 - 16.0 g/dL [facility] IMMATURE GRANULOCYTES ABS AUTO 0.03 [facility] Immature granulocytes/100 WBC (Bld) 0.3 % 0.0 - 0.5 % [facility] Interpretation and review of laboratory results Abnormal [facility] LYMPHOCYTES ABSOLUTE AUTO 1.8 [facility] Lymphocytes/100 WBC (Bld) 18.8 % Low 20.5 - 60.0 % [facility] MCH (RBC) [Entitic mass] 29.8 pg 26.7 - 34.0 pg [facility] MCHC (RBC) [Mass/Vol] 34.7 g/dL 29.9 - 35.2 g/dL [facility] MCV (RBC) [Entitic vol] 86 fL 81.0 - 99.0 fL [facility] MONOCYTES ABSOLUTE AUTO 0.5 [facility] Monocytes/100 WBC (Bld) 5.7 % 1.7 - 12.0 % [facility] NEUTROPHILS ABSOLUTE AUTO 6.9 High [facility] Neutrophils/100 WBC (Bld) 74.4 % 43.0 - 75.0 % [facility] Platelet mean volume (Bld) [Entitic vol] 10.9 fL 9.5 - 13.5 [facility]L [facility] RBC 4.86 [facility] WBC 9.3 [facility] ALL TYPE AND SCREENon 2023 ABO and Rh group Nom (Bld) Blood group O Rh(D) negative [facility] , [facility] BOX TESTon 02-22-2024 BOX TEST SENT OUT [facility] BOX1 [facility] BOX2 02/22/24 [facility] MLR HEMOGLOBIN A1Con 024 Glucose [Mass/Vol] 94 mg/dL [facility] HbA1c (Bld) [Mass fraction] 4.9 % 4.5 - 6.2 % [facility] Comment on above: ADA RECOMMENDED LIMI T 4.0 - 6.0 ADA THERAPEUTIC TARGET < 7.0 ACTION SUGGESTED > 7.0 No Panel [facility]URINE )on 02-22-2024 AMPHETAMINE SCREEN URINE Negative NEGATIVE [facility] BARBITURATES SCREEN URINE Negative NEGATIVE [facility] BENZODIAZEPINES SCREEN URINE Negative NEGATIVE [facility] BUPRENORPHINE SCREEN URINE Negative NEGATIVE [facility] Comment on above: DRUG [...] 300 ng/mL CANNABINOID SCREEN URINE Negative NEGATIVE [facility] COCAINE SCREEN URINE Negative NEGATIVE [facility] METHADONE SCREEN URINE Negative NEGATIVE [facility] METHAMPHETAMINES SCREEN URINE Negative NEGATIVE [facility] OPIATE SCREEN URINE Negative NEGATIVE [facility] OXYCODONE SCREEN URINE Negative NEGATIVE [facility] PHENCYCLIDINE SCREEN URINE Negative NEGATIVE [facility] TRICYCLIC ANTIDEPRESSANT URINE Negative NEGATIVE [facility] test[facility] Ql (U)o n 02-18-2024 Interpretation and review of laboratory results Abnormal [facility] Preg Test, Ur Positive Negative [facility] Urinalysis macro (dipstick) panel (U)on 02-18-2024 Bilirubin, UA Negative Negative - 4(70) +++ mg/dL [facility] Blood, UA Negative Negative - 50 Jesus/mcL [facility] Clarity, UA Clear [facility] Color, UA Yellow [facility] Glucose, UA Negative Negative - 2000(110) ++++ mg/dL [facility] Interpretation and review of laboratory results Normal [facility] Ketones, UA Negative Negative - 160(16) ++++ mg/dL [facility] Leukocytes, UA Negative Negative - 500+++ Juanita/mcL [facility] Nitrite, UA Negative Negative - Positive [facility] pH, UA 5.5 5 - 9 [facility] Protein, UA Negative Negative - 1999(20) ++++ mg/dL [facility] Spec Grav, UA 1.02 1 - 1.03 [facility] Urobilinogen, UA 1.0 0.2 - 12 mg/dL [facility] COVID/FLU/RSV RT-PCRon 02-08 SARS-CoV-2 (COVID-19) RNA IRA+probe Ql (Unsp spec) Negative [employer] [facility] [employer] Other COVID/FLU/RSV RT-PCR Negative [email or web address] Other CBC W Auto Differential pane l (Bld)on 02-20-2022 Basophils (Bld) [#/Vol] 0.03 10*3/uL Normal <0.11 [facility] Comment on above: Order Comment: Speci men Type: BLOOD SPECIMEN Ordering Facility: [facility] Address: [address] [place] [address] Performed By: #### 5 7021-8 #### [facility] CLIA [id number] [address] [place] [address] [place] Basophils/100 WBC (Bld) 0.3 % Normal [facility] Comment on above: Order Comment: Speci men Type: BLOOD SPECIMEN Ordering Facility: [facility] Address: [address] [place] [address] Performed By: #### 5 7021-8 #### [facility] CLIA [id number] [address] [place] [address] [place] Differential cell count method Nom (Bld) Auto Normal [facility] Comment on above: Order Comment: Speci men Type: BLOOD SPECIMEN Ordering Facility: [facility] Address: [address] [place] [address] Performed By: #### 5 7021-8 #### [facility] CLIA [id number] [address] [place] [address] [place] Eosinophils (Bld) [#/Vol] 10*3/uL Normal <0.46 [facility] Comment on above: Order Comment: Speci men Type: BLOOD SPECIMEN Ordering Facility: [facility] Address: [address] [place] [address] Performed By: #### 5 7021-8 #### [facility] CLIA [id number] [address] [place] [address] [place] Eosinophils/100 WBC (Bld) 0.2 % Normal [facility] Comment on above: Order Comment: Speci men Type: BLOOD SPECIMEN Ordering Facility: [facility] Address: [address] [place] [address] Performed By: #### 5 7021-8 #### [facility] CLIA [id number] [address] [place] [address] [place] Erythrocyte distribution width (RBC) [Ratio] 12.9 % Normal 11.5-15.0 [facility] Comment on above: Order Comment: Speci men Type: BLOOD SPECIMEN Ordering Facility: [facility] Address: [address] [place] [address] Performed By: #### 5 7021-8 #### [facility] CLIA [id number] [address] [place] [address] [place] Hematocrit (Bld) [Volume fraction] 43.2 % Normal 36.0-46.0 [facility] Comment on above: Order Comment: Speci men Type: BLOOD SPECIMEN Ordering Facility: [facility] Address: [address] [place] [address] Performed By: #### 5 7021-8 #### [facility] CLIA [id number] [address] [place] [address] [place] Hemoglobin (Bld) [Mass/Vol] 14.8 g/dL Normal 11.5-15.5 [facility] Comment on above: Order Comment: Speci men Type: BLOOD SPECIMEN Ordering Facility: [facility] Address: [address] [place] [address] Performed By: #### 5 7021-8 #### [facility] CLIA [id number] [address] [place] [address] [place] Immature granulocytes (Bld) [#/Vol] 0.04 10*3/uL Normal <0.10 [facility] Comment on above: Order Comment: Speci men Type: BLOOD SPECIMEN Ordering Facility: [facility] Address: [address] [place] [address] Performed By: #### 5 7021-8 #### [facility] CLIA [id number] [address] [place] [address] Immature granulocytes/100 WBC (Bld) 0.4 % Normal [facility] Comment on above: Order Comment: Speci men Type: BLOOD SPECIMEN Ordering Facility: [facility] Address: [address] [place] [address] Performed By: #### 5 7021-8 #### [facility] CLIA [id number] [address] [place] [address] Lymphocytes (Bld) [#/Vol] 0.55 10*3/uL Low 1.00-4.00 [facility] Comment on above: Order Comment: Speci men Type: BLOOD SPECIMEN Ordering Facility: [facility] Address: [address] [place] [address] Performed By: #### 5 7021-8 #### [facility] CLIA [id number] [address] [place] [address] Lymphocytes/100 WBC (Bld) 5.3 % Normal [facility] Comment on above: Order Comment: Speci men Type: BLOOD SPECIMEN Ordering Facility: [facility] Address: [address] [place] [address] Performed By: #### 5 7021-8 #### [facility] CLIA [id number] [address] [place] [address] [facility] MCH (RBC) [Entitic mass] 29.1 pg Normal 26.0-34.0 [facility] Comment on above: Order Comment: Speci men Type: BLOOD SPECIMEN Ordering Facility: [facility] Address: [address] [place] [address] Performed By: #### 5 7021-8 #### [facility] CLIA [id number] [address] [place] [address] [place] MCHC (RBC) [Mass/Vol] 34.3 g/dL Normal 30.5-36.0 [facility] Comment on above: Order Comment: Speci men Type: BLOOD SPECIMEN Ordering Facility: [facility] Address: [address] [place] [address] Performed By: #### 5 7021-8 #### [facility] CLIA [id number] [address] [place] [address] [place] MCV (RBC) [Entitic vol] 84.9 fL Normal 80.0-100.0 [facility] Comment on above: Order Comment: Speci men Type: BLOOD SPECIMEN Ordering Facility: [facility] Address: [address] [address] Performed By: #### 5 7021-8 #### [facility] CLIA [id number] [address] [place] [address] [place] Monocytes (Bld) [#/Vol] 0.19 10*3/uL Normal <0.87 [facility] Comment on above: Order Comment: Speci men Type: BLOOD SPECIMEN Ordering Facility: [facility] Address: [address] [address] Performed By: #### 5 7021-8 #### [facility] CLIA [id number] [address] [place] [address] [place] Monocytes/100 WBC (Bld) 1.8 % Normal [facility] Comment on above: Order Comment: Speci men Type: BLOOD SPECIMEN Ordering Facility: [facility] Address: [address] [address] Performed By: #### 5 7021-8 #### [facility] CLIA [id number] [address] [place] [address] [place] Neutrophils (Bld) [#/Vol] 9.55 10*3/uL High 1.45-7.50 [facility] Comment on above: Order Comment: Speci men Type: BLOOD SPECIMEN Ordering Facility: [facility] Address: [address] [address] Performed By: #### 5 7021-8 #### [facility] CLIA [id number] [address] [place] [address] [place] Neutrophils/100 WBC (Bld) 92.0 % Normal [facility] Comment on above: Order Comment: Speci men Type: BLOOD SPECIMEN Ordering Facility: [facility] Address: [address] [address] Performed By: #### 5 7021-8 #### [facility] CLIA [id number] [address] [place] [address] [place] Nucleated RBC (Bld) [#/Vol] 10*3/uL Normal <0.01 [facility] Comment on above: Order Comment: Speci men Type: BLOOD SPECIMEN Ordering Facility: [facility] Address: [address] [address] Performed By: #### 5 7021-8 #### [facility] CLIA [id number] [address] [place] [address] [place] Nucleated RBC/100 WBC (Bld) [Ratio] 0.0 /100 WBC Normal [facility] Comment on above: Order Comment: Speci men Type: BLOOD SPECIMEN Ordering Facility: [facility] Address: [address] [address] Performed By: #### 5 7021-8 #### [facility] CLIA [id number] [address] [place] [address] [place] Platelet mean volume (Bld) [Entitic vol] 10.9 fL Normal 9.0-12.7 [facility] Comment on above: Order Comment: Speci men Type: BLOOD SPECIMEN Ordering Facility: [facility] Address: [address] [address] Performed By: #### 5 7021-8 #### [facility] CLIA [id number] [address] [place] [address] [place] Platelets (Bld) [#/Vol] 213 10*3/uL Normal 150-400 [facility] Comment on above: Order Comment: Speci men Type: BLOOD SPECIMEN Ordering Facility: [facility] Address: [address] [address] Performed By: #### 5 7021-8 #### [facility] CLIA [id number] [address] [place] [address] [place] RBC (Bld) [#/Vol] 5.09 10*6/uL Normal 3.90-5.20 [facility] Comment on above: Order Comment: Speci men Type: BLOOD SPECIMEN Ordering Facility: [facility] Address: [address] [place] [address] Performed By: #### 5 7021-8 #### [facility] CLIA [id number] [address] [place] [address] [place] WBC (Bld) [#/Vol] 10.38 10*3/uL Normal 3.70-11.00 [facility] Comment on above: Order Comment: Speci men Type: BLOOD SPECIMEN Ordering Facility: [facility] Address: [address] [place] [address] Performed By: #### 5 7021-8 #### [facility] CLIA [id number] [address] [place] [address] [place] Comprehensive metabolic 2000 panelon 02-20-2022 Albumin [Mass/Vol] 4.6 g/dL Normal 3.9-4.9 [facility] Comment on above: Order Comment: Speci men Type: BLOOD SPECIMEN Ordering Facility: [facility] Address: [address] [place] [address] Performed By: #### 2 4323-8 #### [facility] CLIA [id number] [address] [place] [address] [place] ALP [Catalytic activity/Vol] 78 U/L Normal 34-123 [facility] Comment on above: Order Comment: Speci men Type: BLOOD SPECIMEN Ordering Facility: [facility] Address: [address] [place] [address] Performed By: #### 2 4323-8 #### [facility] CLIA [id number] [address] [place] [address] OF N[place] ALT [Catalytic activity/Vol] 27 U/L Normal 7-38 [facility] Comment on above: Order Comment: Speci men Type: BLOOD SPECIMEN Ordering Facility: [facility] Address: [address] [address] Performed By: #### 2 4323-8 #### [facility] CLIA [id number] [address] [place] [address] [place] Anion gap [Moles/Vol] 12 mmol/L Normal 9-18 [facility] Comment on above: Order Comment: Speci men Type: BLOOD SPECIMEN Ordering Facility: [facility] Address: [address] [address] Performed By: #### 2 4323-8 #### [facility] CLIA [id number] [address] [place] [address] [place] AST [Catalytic activity/Vol] 16 U/L Normal 13-35 [facility] Comment on above: Order Comment: Speci men Type: BLOOD SPECIMEN Ordering Facility: [facility] Address: [address] [place] [address] Performed By: #### 2 4323-8 #### [facility] CLIA [id number] [address] [place] [address] [place] Bilirubin [Mass/Vol] 0.9 mg/dL Normal 0.2-1.3 [facility] Comment on above: Order Comment: Speci men Type: BLOOD SPECIMEN Ordering Facility: [facility] Address: [address] [place] [address] Performed By: #### 2 4323-8 #### [facility] CLIA [id number] [address] [place] [address] [place] Calcium [Mass/Vol] 9.6 mg/dL Normal 8.5-10.2 [facility] Comment on above: Order Comment: Speci men Type: BLOOD SPECIMEN Ordering Facility: [facility] Address: [address] [place] [address] Performed By: #### 2 4323-8 #### [facility] CLIA [id number] [address] [place] [address] [place] Chloride [Moles/Vol] 100 mmol/L Normal 97-105 [facility] Comment on above: Order Comment: Speci men Type: BLOOD SPECIMEN Ordering Facility: [facility] Address: [address] [address] Performed By: #### 2 4323-8 #### [facility] CLIA [id number] [address] [place] [address] [place] CO2 [Moles/Vol] 26 mmol/L Normal 22-30 [facility] Comment on above: Order Comment: Speci men Type: BLOOD SPECIMEN Ordering Facility: [facility] Address: [address] [place] [address] Performed By: #### 2 4323-8 #### [facility] CLIA [id number] [address] [place] [address] [place] Creatinine [Mass/Vol] 0.76 mg/dL Normal 0.58-0.96 [facility] Comment on above: Order Comment: Speci men Type: BLOOD SPECIMEN Ordering Facility: [facility] Address: [address] [place] [address] Performed By: #### 2 4323-8 #### [facility] CLIA [id number] [address] [place] [address] [place] ESTIMATED GLOMERULAR FILTRATION RATE 109 mL/min/1.73m??? Normal >=60 [facility] Comment on above: Order Comment: Speci men Type: BLOOD SPECIMEN Ordering Facility: [facility] Address: [address] [place] [address] Result Comment: Marce mated Glomerular Filtration Rate [...] GFR. Performed By: #### 2 4323-8 #### [facility] CLIA [id number] [place] [address] [place] Glucose [Mass/Vol] 98 mg/dL Normal 74-99 [facility] Comment on above: Order Comment: Speci men Type: BLOOD SPECIMEN Ordering Facility: [facility] Address: [address] [address] Result Comment: The [place] Diabetes Association (ADA) provides guidance for cutoff [...] Standards of Medical Care in Diabetes 2016, [place] [employer]. Diabetes Care. 2016.39(Suppl 1). Performed By: #### 2 4323-8 #### [facility] CLIA [id number] [address] [place] [address] [place] Potassium [Moles/Vol] 3.5 mmol/L Low 3.7-5.1 [facility] Comment on above: Order Comment: Speci men Type: BLOOD SPECIMEN Ordering Facility: [facility] Address: [address] [address] Performed By: #### 2 4323-8 #### [facility] CLIA [id number] [address] [place] [address] [place] Protein [Mass/Vol] 7.4 g/dL Normal 6.3-8.0 [facility] Comment on above: Order Comment: Speci men Type: BLOOD SPECIMEN Ordering Facility: [facility] Address: [address] [address] Performed By: #### 2 4323-8 #### [facility] CLIA [id number] [address] [place] [address] [place] Sodium [Moles/Vol] 138 mmol/L Normal 136-144 [facility] Comment on above: Order Comment: Speci men Type: BLOOD SPECIMEN Ordering Facility: [facility] Address: [address] [address] Performed By: #### 2 4323-8 #### [facility] CLIA [id number] [address] Urea nitrogen [Mass/Vol] 5 mg/dL Low 7-21 [facility] Comment on above: Order Comment: Speci men Type: BLOOD SPECIMEN Ordering Facility: [facility] Address: [place] [address] Performed By: #### 2 4323-8 #### [facility] CLIA [id number] [address] [id number] [facility] ED NOTEon 02-20-2022 ED NOTE HNO ID: [id number] Author: Amelia Henson PA-C Service: ? Author Type: Physician Ux Engineer Type: ED Notes Filed: 02/22/2022 9:58 AM [...] reasons to return to the ED. Normal [facility] ED NOTE HNO ID: [id number]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 Routine Need for maternal serum alpha-protein (MSAFP) screening Expected: 04/12/2024 (Approximate), Expires: 05/13/2024 [facility] Comment on above: Expected: 04/12/2024 (Approximate), Expires: 05/13/2024 Start: 04-12-2024 End: 04-12-2025 US for US OB 14+ weeks anatomy scan Imaging Routine Screening, , for anatomic survey Expected: 04/12/2024, Expires: 04/12/2025 [facility] Comment on above: Expected: 04/12/2024 , Expires: 04/12/2025 Start: 04-12-2024 End: 04-12-2024 Patient encounter procedure [facility] Comment on above: Arrived Start: 03-09-2024 End: 03-09-2024 Patient encounter procedure [facility] Comment on above: Arrived Start: 02-18-2024 End: 02-17-2025 ABO/Rh ABO/Rh Lab Routine Missed menses , unspecified gestational age Expected: 02/18/2024 (Approximate), Expires: 02/17/2025 [facility] Comment on above: Expected: 02/18/2024 (Approximate), Expires: 02/17/2025 Start: 02-18-2024 End: 02-17-2025 Blood type and Indirect antibody screen panel - Blood Type and screen Lab Routine Missed menses , unspecified gestational age Expected: 02/18/2024 (Approximate), Expires: 02/17/2025 [facility] Work Phone: Comment on above: Expected: 02/18/2024 (Approximate), Expires: 02/17/2025 Start: 02-18-2024 End: 02-17-2025 Drugs of abuse panel - Urine by Screen method Rapid drug screen, urine Lab Routine , unspecified gestational age Encounter for supervision of normal first in first trimester Expected: 02/18/2024 (Approximate), Expires: 02/17/2025 [facility] Comment on above: Expected: 02/18/2024 (Approximate), Expires: 02/17/2025 Start: 02-18-2024 End: 02-17-2025 US Pelvis transvaginal US OB transvaginal Imaging Routine Missed menses Expected: 02/18/2024 (Approximate), Expires: 02/17/2025 [facility] Comment on above: Expected: 02/18/2024 (Approximate), Expires: 02/17/2025 Start: 12-06-2023 Influenza vaccination Influenza Vacc ine (#1) [facility] Start: 2022 Screening for malign ant neoplasm of cervix HPV/Cotest [facility] Bacteria identified in Urine by Culture Urine culture Microbiology Routine Missed menses Ordered: 02/18/2024 [facility] Comment on above: Ordered: 02/18/2024 CBC W Auto Different ial panel - Blood CBC and differential Lab Routine Missed menses , unspecified gestational age Ordered: 02/18/2024 [facility] Comment on above: Ordered: 02/18/2024 CBC W Auto Different ial panel - Blood CBC and differential Lab Routine Abnormal uterine bleeding (AUB) PCOS (polycystic ovarian syndrome) Ordered: 11/23/2024 [facility] Comment on above: Ordered: 11/23/2024 CHLAMYDIA TRACHOMATI S (GENITO/STI) CHLAMYDIA TRACHOMATIS (GENITO/STI) Lab Routine Exposure to STD Ordered: 04/12/2024 [facility] Comment on above: Ordered: 04/12/2024 Cytology Cervical or vaginal smear or scraping study Pap Smear Pathology and Cytology Routine Well woman exam with routine gynecological exam Ordered: 04/12/2024 [facility] Comment on above: Ordered: 04/12/2024 DHEA-sulfate DHEA-sulfate Lab Routine Abnormal uterine bleeding (AUB) PCOS (polycystic ovarian syndrome) Ordered: 11/23/2024 [facility] Comment on above: Ordered: 11/23/2024 Follicle stimulating hormone Follicle stimulating hormone Lab Routine Abnormal uterine bleeding (AUB) PCOS (polycystic ovarian syndrome) Ordered: 11/23/2024 [facility] Comment on above: Ordered: 11/23/2024 hCG, quantitative, hCG, quantitative, Lab Routine Abnormal uterine bleeding (AUB) PCOS (polycystic ovarian syndrome) Ordered: 11/23/2024 [facility] Work Phone: Comment on above: Ordered: 11/23/2024 Hemoglobin A1c/Hemoglobin.total in Blood Hemoglobin A1c Lab Routine Missed menses , unspecified gestational age Ordered: 02/18/2024 [facility] Comment on above: Ordered: 02/18/2024 Hemoglobin A1c/Hemoglobin.total in Blood Hemoglobin A1c Lab Routine Abnormal uterine bleeding (AUB) Ordered: 11/23/2024 [facility] Comment on above: Ordered: 11/23/2024 Hepatitis B virus surface Ag [Presence] in Serum or Plasma by Immunoassay Hepatitis B surface antigen Lab Routine Missed menses , unspecified gestational age Ordered: 02/18/2024 [facility] Comment on above: Ordered: 02/18/2024 Hepatitis C virus Ab [Presence] in Serum or Plasma by Immunoassay Hepatitis C antibody Lab Routine Missed menses , unspecified gestational age Ordered: 02/18/2024 [facility] Comment on above: Ordered: 02/18/2024 HIV-1/HIV-2 antigen/antibody combination immunoassay HIV-1 and HIV-2 antibodies Lab Routine Missed menses , unspecified gestational age Ordered: 02/18/2024 [facility] Comment on above: Ordered: 02/18/2024 Human papilloma viru s DNA [Presence] in Unspecified specimen by Probe with amplification HPV DNA probe, amplified Microbiology Routine Well woman exam with routine gynecological exam Ordered: 04/12/2024 [facility] Comment on above: Ordered: 04/12/2024 Luteinizing hormone Luteinizing hormone Lab Routine Abnormal uterine bleeding (AUB) PCOS (polycystic ovarian syndrome) Ordered: 11/23/2024 [facility] Comment on above: Ordered: 11/23/2024 Neisseria gonorrhoea e DNA [Presence] in Unspecified specimen by IRA with probe detection Neisseria gonorrhea DNA probe, direct Lab Routine Exposure to STD Ordered: 04/12/2024 [facility] Comment on above: Ordered: 04/12/2024 Reagin Ab [Presence] in Serum by RPR RPR Lab Routine Missed menses , unspecified gestational age Ordered: 02/18/2024 [facility] Comment on above: Ordered: 02/18/2024 Rubella antibody, IgG Rubella an tibody, IgG Lab Routine Missed menses , unspecified gestational age Ordered: 02/18/2024 [facility] Comment on above: Ordered: 02/18/2024 SURESWAB(R) ADVANCED VAGINITIS PLUS, TMA SURESWAB(R) ADVANCED VAGINITIS PLUS, TMA Pathology and Cytology Routine Exposure to STD Ordered: 04/12/2024 [facility] Work Phone: Comment on above: Ordered: 04/12/2024 Thyrotropin [Units/volume] in Serum or Plasma TSH Lab Routine Abnormal uterine bleeding (AUB) PCOS (polycystic ovarian syndrome) Ordered: 11/23/2024 [facility] Comment on above: Ordered: 11/23/2024 Thyroxine (T4) free [Mass/volume] in Serum or Plasma T4, free Lab Routine Abnormal uterine bleeding (AUB) PCOS (polycystic ovarian syndrome) Ordered: 11/23/2024 [facility] Comment on above: Ordered: 11/23/2024 Payers Date Payer Category Payer Medicaid [id number] 2022 Medicaid [id number] 2016 Unknown [id number] 1992 Unknown [id number] 2.16.8 [id number] 1992 Unknown [id number] 2.16.8 40.1.790893.3.579.2.9 1992 Unknown [id number] 2.16.8 40.1.536246.3.579.2.9 1992 Unknown [id number] 2.16.84 0.1.026873.3.579.2.9 1992 Unknown [id number] 2.16.84 0.1.233832.3.579.2.1259 1992 Unknown [id number] 2.16.84 0.1.997573.3.579.2.9 1992 Unknown [id number] 2.16.84 0.1.966568.3.579.2.9 1992 Unknown [id number] 2.16.84 0.1.708363.3.579.2.1259 1992 Unknown [id number] 2.16.84 0.1.506309.3.579.2.9 1992 Unknown [id number] 2.16.84 0.1.734512.3.579.2.9 1992 Unknown [id number] 2.16.84 0.1.829680.3.579.2.9 1992 Unknown [id number] 2.16.84 0.1.995316.3.579.2.9 1992 Unknown [id number] 2.16.84 0.1.154730.3.579.2.9 1992 Unknown [id number] 2.16.84 0.1.107112.3.579.2.9 1992 Unknown [id number] 2.16.84 0.1.561310.3.579.2.9 1992 Unknown [id number] 2.16.84 0.1.373252.3.579.2.9 1992 Unknown [id number] 2.16.84 0.1.976664.3.579.2.9 Social History Date Type Detail Facility Unknown if ever smoked [email or web address] Other Start: 09-05-2024 Sex Assigned At N [facility] Work Phone: Tobacco smoking status [facility] Tobacco smoking consumption unknown [facility] Start: 12-28-2023 [facility] Start: 1990 Sex assigned at Not on file N [facility] Start: 09-05-2024 History of Social function [facility] Work Phone: Goals Date Patient Goal Desired Activity /State Personal health goal Clinical Notes 02-20-2022 to 11-23-2024 Elisa Gamez LPN - 11/23/2024 11:20 AM Tresa Garsia - 11/17/2024 8:40 AM Perez Gamez LPN - 10/18/2024 10:50 AM Perez Gamez LPN - 08/30/2024 1:00 PM EDT Note Date & Type Note Facility 11-23-2024 History of Presen t illness Narrative Reason [...] nursing note reviewed. Exam conducted with a butt sawyer present. Vitals: Estimated body mass index is 29.24 kg/m as calculated from the following: Height as of 11/17/24: 5' 10 . Weight as of this encounter: 203 lb 12.8 oz. BP: 118/72 Patient's last menstrual period was 11/07/2024. ASSESSMENT & PLAN ICD-10-CM 1. Abnormal uterine bleeding (AUB) N93.9 Pt presents with complaints of abnormal heavy bleeding. Discussed all options with pt in detail. Pt is have bilateral salpingectomy with Mirena insertion. Pt given labs and ultrasound to have obtained. Pt to return for postop appt. Documented by Elisa Gamez LPN on behalf of: Junior Jones DO documented in this encounter [facility] 11-17-2024 History of Presen t illness Narrative Reason for Appointment: Patient ID: Santiago [place] is a 34 y.o. female who presents for Pre-op Visit Patient presents today for Pre Op appointment. Patient is scheduled to undergo Da Wes assisted Bilateral Laparoscopic Salpingectomy on 12-16-[address] Jones at [facility]. MEDICATIONS Current Outpatient Medications Medication Instructions [...] nursing note reviewed. Exam conducted with a butt sawyer present. Vitals: There is no height or [...] reviewed, and patient is to proceed to [facility] OR. Follow Up: Patient is to follow up between 1-2 weeks post operative to assess proper healing and recovery from procedure. Documented by Anna Carrasco LPN on behalf of: Junior Jones DO documented in this encounter [facility] 10-18-2024 History of Presen t illness Narrative [...] nursing note reviewed. Exam conducted with a butt sawyer present. Vitals: There is no height or weight on file to calculate BMI. BP: 130/86 Patient's last menstrual period was 12/14/2023. ASSESSMENT & PLAN ICD-10-CM 1. 6 weeks follow-up ([facility]) Z39.2 2. Request for sterilization [...] Salpingectomy. Patient will set up surgery with assembler surgical garment and return to our office for a pre op appointment. Follow Up: Patient is to return for annual unless needed otherwise. Documented by Elisa Gamez LPN on behalf of: Junior Jones DO documented in this encounter [facility] 08-30-2024 History of Presen t illness Narrative [...] nursing note reviewed. Exam conducted with a butt sawyer present. Vitals: There is no height or [...] Junior Jones DO documented in this encounter [facility] 08-22-2024 History of Presen t illness Narrative [...] nursing note reviewed. Exam conducted with a butt sawyer present. Vitals: There is no height or [...] Marlin Moreno NP documented in this encounter [facility] 08-11-2024 History of Presen t illness Narrative [...] nursing note reviewed. Exam conducted with a butt sawyer present. Vitals: There is no height or [...] of: MADINA Valdez documented in this encounter [facility] 07-28-2024 History of Presen t illness [...] nursing note reviewed. Exam conducted with a butt sawyer present. Vitals: There is no height or [...] Junior Jones DO documented in this encounter [facility] 07-11-2024 History of Presen t illness [...] nursing note reviewed. Exam conducted with a butt sawyer present. Vitals: There is no height or [...] Junior Jones DO documented in this encounter [facility] 06-06-2024 History of Presen t illness [...] of: MADINA Valdez documented in this encounter [facility] 05-09-2024 History of Presen t illness [...] Junior Jones DO documented in this encounter [facility] 04-12-2024 History of Presen [...] nursing note reviewed. Exam conducted with a butt sawyer present. Vitals: There is no height or [...] of: MADINA Valdez documented in this encounter [facility] 03-09-2024 History of Presen [...] nursing note reviewed. Exam conducted with a butt sawyer present. Vitals: There is no height or [...] undercooked meat, and stay away from [facility]. Patient has been consulted regarding any [...] Junior Jones DO documented in this encounter [facility] 02-18-2024 History of Presen [...] undercooked meat, and stay away from [facility]. Patient has also been advised to [...] Brigid Taylor LPN documented in this encounter [facility] 02-08-2023 Evaluation note Encounter [...] fever/discomfort , cool mist humidifier. May use [place] as needed for cough, do not take any other OTCs while using [place]. Patient to follow up with PCP in 2-3 days. Immediate eval if SOB, difficulty breathing, chest pain, dizziness, or other concerning symptoms. Patient verbalizes understanding and is agreeable to treatment plan [email or web address] Other 11-17-2022 NoteCOVID 19 RESULT: SARS-CoV-2 (Agent of COVID-19) Not Detected by RT-PCR or equivalent method. This test has been authorized by FDA under an Emergency Use Authorization (EUA). INFLUENZA A PCR: Negative for Influenza A by RT-PCR INFLUENZA B PCR: Negative for Influenza B by RT-PCR RSV PCR: Negative for Respiratory Syncytial Virus (RSV) by PCRMonson Developmental CenterComment on above:Performed By: #### [id number] #### [facility] [place] [id number] [address] [place] [address] [place] AMER[place]AEvaluation note* Diagnosis Missed menses , unspecified gestational age Encounter for supervision of normal first in first trimester documented in this encounter [facility]* Diagnosis Second trimester state, incidental 12 weeks gestation of Request for sterilization H/O pre-eclampsia in prior , currently documented in this encounter [facility]Evaluation note* Diagnosis Well woman exam with [...] [facility]* Diagnosis 6 weeks [facility] Request for sterilization control counseling documented [facility]* Diagnosis Pre-op examination Request for sterilization documented [facility]* Diagnosis Abnormal uterine bleeding (AUB) PCOS (polycystic ovarian syndrome) Polycystic ovaries documented [facility] Healthcare[facility] general Narrative - Reported* Type Description Date Surgical History TONSILS Hospitalization History CHILD [email or web address] Other Summary Purpose Family History No Family History Records FoundNo Family History Records FoundNo Family History Records Found Advance Directives No Advanced Directives Records FoundNo Advanced Directives Records FoundNo Advanced Directives Records Found Additional Source Comments INFORMATION SOURCE (unrecogn ized section and content) DATE CREATED AUTHOR 09/30/2017 [employer] [facility] DATE CREATED AUTHOR AUTHOR'S ORGANIZ ATION 02/23/2022 [facility] DATE CREATED AUTHOR AUTHOR'S ORGANIZ ATION 11/25/2024 [facility] EPIC REASON FOR VISIT (unrecogniz ed section and content) Reason Comments Amenorrhea Reason Comments Routine Visit Reason Comments Routine Visit Reason Comments 6wk PP Reason Comments Pre-op Visit Reason Comments Irregular bleeding Care Teams (unrecognized sec tion and content) Carroting Machine Offbearer Relationship Specialty Start Date End Date Junior Jones DO [address] [place] [address] [facility] 07/05/24 [employer] Offbearer Relationship Specialty Start Date End Date Junior Jones DO [address] [place] [address] [facility] 07/05/24 [employer]ting Machine Offbearer Relationship Specialty Start Date End Date Junior Jones DO [address] [place] [address] [facility] 07/05/24 FOR RECORDS PERTAINING TO PATIENTS WHO [...] BE BASED ON THE PRIMARY CLINICAL RECORDS. [facility]. provides no warranty or guarantee of the accuracy or completeness of information in this document.
== END 2024-12-01 09:00 | disposition home or self-care (01) ==
LOC: PST 09:00
PROVIDERS: PCP Family Medicine; Visit Provider Obstetrics & Gynecology
DX: Z01.818 Encounter for other preprocedural examination (principal); N92.0 Excessive and frequent menstruation with regular cycle; N93.9 Abnormal uterine and vaginal bleeding, unspecified

== ENCOUNTER 2024-12-16 07:30 | Day surgery (SDC) | payer MEDICAID, SELFPAY ==
[2024-12-01 09:31] VITALS: BP 130/87; PULSE 61; TEMP 36.3; O2SAT 98; BMI 29.6
[2024-12-16] VITALS (15 sets, daily range): BP systolic 125–156; BP diastolic 66–104; PULSE 79–122; TEMP 36.2–36.3; O2SAT 94–99; BMI 29.1
--- OUTSIDE RECORDS SUMMARY | 2024-12-16 07:33 | XMS_ITS | CCD ---
Author Organization [facility] Care Team Providers Care Lead Dental Assistant Name Role Phone PickettSharon parnell Unavailable Unavailable Sharon Pickett Unavailable Unavailable Arslan Malin Unavailable Unavailable MARY OQUENDO Attending Unavailable Sangita Penn Unavailable Unavailable Primary Care Provider UnavailJunior Box DO Unavailable KAREN, JUNIOR Attending Unavailable DESIREE CADET Attending Unavailable KAREN, JUNIOR Attending Unavailable KAREN, JUNIOR Attending Unavailable MARLIN MORENO Referring Unavailable KAREN, JUNIOR Attending Unavailable DESIREE CADET Attending Unavailable MARLIN MORENO Attending Unavailable KAREN, JUNIOR Attending Unavailable KAREN, JUNIOR Attending Unavailable KAREN, JUNIOR Attending Unavailable KAREN, JUNIOR Attending Unavailable KAREN, JUNIOR Attending Unavailable DESIREE CADET Attending Unavailable NO FAMILY, PHYSICIAN Primary Care Provider Unava ilable Ruben Whaley PA-C Emergency Provider Ruben Whaley Attending Unavailable Ruben Whaley Admitting Unavailable NO FAMILY, PHYSICIAN Primary Care Unavailable Medications Current Medications Medication Drug Class(es) Dates Sig (Normalized) Sig (Original) [id number] 200 actuat albuterol 0.09 mg/actuat metered dose inhaler (1 source) beta2-Adrenergic Agonist Start: 3 take 2 puff(s) by inhalation every four to six hours as needed Albuterol Sulfate HFA 108 (90 Base) MCG/ACT 2 puffs as needed Inhalation every 4-6 hours for 14 days Feb, Active azithromycin 250 mg oral tablet (3 sources) Macrolide Antimicrobial Start: 5 End: 5 azithromycin (Zithromax Z-Filemon) 250 MG tablet Indications: URI, acute As directed 6 tablet 05/27/2024 06/06/2024 Discontinued (Other) desogestrel 0.15 mg / ethinyl estradiol 0.03 mg oral tablet (7 sources) Progestin, Estrogen Start: 5 End: 6 desogestrel-ethiny l estradiol (Apri) 0.15-30 MG-MCG tablet Indications: 6 weeks follow-up ([facility]) , control counseling Take 1 tablet by mouth Daily 28 tablet 10/18/2024 10/18/2025 Active dextromethorphan hydrobromide 1.5 mg/ml / pyrilamine maleate 1.5 mg/ml oral solution (1 source) Uncompetitive Z-jlxntv-A-aspartate Receptor Antagonist, Sigma-1 Agonist Start: 3 take 10 mL by mouth every eight hours [place] DM 7.5-7.5 MG/5ML 10 mL Orally every 8 hours for 5 days Feb, Active 12 hr guaiFENesin 600 mg extended release oral tablet (1 source) take 1 tablet by mouth every twelve hours Mucinex 600 MG 1 tablet as needed Orally every 12 hrs Active ibuprofen 100 mg chewable tablet (7 sources) Nonsteroidal Anti-inflammatory Drug ibuprofen 100 MG chewable tablet Chew Active naproxen 500 mg oral tablet (1 source) Nonsteroidal Anti-inflammatory Drug Start: 5 take 1 tablet by mouth twice daily as needed for pain nitrofurantoin, macrocrystals 25 mg / nitrofurantoin, monohydrate 75 mg oral capsule (2 sources) Nitrofuran Antibacterial Start: 4 End: 4 take 1 capsule by mouth once in the morning nitrofurantoin, macrocrystal-monoh ydrate, (Macrobid) 100 MG capsule Indications: Second trimester , 12 weeks gestation of Take 1 capsule (100 mg) by mouth in the morning and 1 capsule (100 mg) before bedtime. Do all this for 7 days. 14 capsule 03/09/2024 03/16/2024 Active ondansetron 4 mg disintegrating oral tablet (2 sources) Serotonin-3 Receptor Antagonist Start: 4 End: 4 take 1 tablet by mouth every six hours for nausea ondansetron ODT (Zofran-ODT) 4 MG disintegrating tablet Indications: Nausea and vomiting, unspecified vomiting type Take 1 tablet (4 mg) by mouth every 6 (six) hours if needed for nausea or vomiting 30 tablet 2 02/01/2024 03/02/2024 Active predniSONE 20 mg oral tablet (1 source) Start: 3 take 1 tablet by mouth every twelve hours prednisone 20 MG 1 tablet Orally BID for 5 Feb, Active pseudoephedrine hydrochloride 30 mg oral tablet (1 source) alpha-Adrenergic Agonist take 2 tablets by mouth every six hours as needed Sudafed 30 MG 2 tablets as needed Orally every 6 hrs Active tranexamic acid 650 mg oral tablet (1 source) Antifibrinolytic Agent Start: 5 take 1 tablet by mouth twice daily Completed/Discontinued Medications Medication Drug Class(es) Dates Sig [...] syndrome] 11-23-2024 Chronic Other female genital disorders (3 sources) Abnormal uterine bleeding; Translations: [Abnormal uterine [...] Test Name Value Interpretation Reference Range Facility Alanine aminotransferase [En zymatic activity/volume] in Serum or PlasmaOrdered By: Ruben Whaley on 12-07-2024 ALT [Catalytic activity/Vol] 12 U/L Normal 7-52 [facility] Comment on above: Performed By: #### C MP, CBC, PT, PTT #### [facility] [address] Albumin [Mass/volume] in Ser um or Plasma by Bromocresol green (BCG) dye binding methoOrdered By: Ruben Whaley on 12-07-2024 Albumin BCG dye [Mass/Vol] 3.8 g/dL 3.5-5.7 [facility] Alkaline phosphatase [Enzyma tic activity/volume] in Serum or PlasmaOrdered By: Ruben Whaley on 12-07-2024 ALP [Catalytic activity/Vol] 70 U/L Normal 34-104 [facility] Comment on above: Performed By: #### C MP, CBC, PT, PTT #### [facility] [address] [place] [address] Appearance of UrineOrdered B y: Ruben Whaley on 12-07-2024 Appearance (U) Cloudy Critically abnormal Clear [facility] Comment on above: Order Comment: Name Collection Type:: Clean-Voided Midstream Performed By: #### C UU, UHCG, ADDONUAPLUS #### [facility] [address] [place] [address] [place] Aspartate aminotransferase [ Enzymatic activity/volume] in Serum or PlasmaOrdered By: Ruben Whaley on 12-07-2024 AST [Catalytic activity/Vol] 12 U/L Low 13-39 [facility] Comment on above: Performed By: #### C MP, CBC, PT, PTT #### [facility] [address] [place] [address] [place] Bacteria [Presence] in Urine by AutomatedOrdered By: Ruben Whaley on 12-07-2024 Bacteria Auto Ql (U) Rare [HPF] None Seen [facility] Basophils [#/volume] in Bloo d by Automated countOrdered By: Ruben Whaley on 12-07-2024 Basophils (Bld) [#/Vol] 0.1 10*3/uL Normal 0.0-0.2 [facility] Comment on above: Result Comment: PERF ORMED BY: [place] [address] PATHOLOGIST TRAVELER CHANGER MARY LOU KAUFMAN M.D. Performed By: #### C MP, CBC, PT, PTT #### [facility] [address] [place] [address] [place] Basophils/100 leukocytes in Blood by Automated countOrdered By: Ruben Whaley on 12-07-2024 Basophils/100 WBC (Bld) 1.0 % Normal . [facility] Comment on above: Performed By: #### C MP, CBC, PT, PTT #### [facility] [address] Bilirubin Test strip Ql (U)O rdered By: Ruben Whaley on 12-07-2024 Bilirubin Ql (U) Negative Negative [facility] Bilirubin.total [Mass/volume ] in Serum or PlasmaOrdered By: Ruben Whaley on 12-07-2024 Bilirubin [Mass/Vol] 0.2 mg/dL Low 0.3-1.0 [facility] Comment on above: Performed By: #### C MP, CBC, PT, PTT #### [place] [address] [place] Calcium [Mass/volume] in Ser um or PlasmaOrdered By: Ruben Whaley on 12-07-2024 Calcium [Mass/Vol] 8.7 mg/dL Normal 8.6-10.3 [facility] Comment on above: Performed By: #### C MP, CBC, PT, PTT #### [facility] [address] [place] [address] [place] Carbon dioxide, total [Moles /volume] in Serum or PlasmaOrdered By: Ruben Whaley on 12-07-2024 CO2 [Moles/Vol] 27.4 mmol/L Normal 21.0-31.0 [facility] Comment on above: Performed By: #### C MP, CBC, PT, PTT #### [facility] [address] [place] [address] [place] Chloride [Moles/volume] in S frieda or PlasmaOrdered By: Ruben Whaley on 12-07-2024 Chloride [Moles/Vol] 106 mmol/L Normal 98-107 [facility] Comment on above: Performed By: #### C MP, CBC, PT, PTT #### [place] [address] [place] Color of Urine by AutoOrdere d By: Ruben Whaley on 12-07-2024 Color (U) Yellow Normal Yellow [facility] Comment on above: Order Comment: Name Collection Type:: Clean-Voided Midstream Performed By: #### C UU, UHCG, ADDONUAPLUS #### [address] Complete Blood Count Auto Di ffon 12-07-2024 Mean Corpuscular HGB Conc 33.0 g/dL Normal 32.0-35.0 [facility] Comment on above: Performed By: #### C MP, CBC, PT, PTT #### [address] Monocytes/100 WBC (Bld) 17.53 % Normal 0.00-20.00 [facility] Comment on above: Performed By: #### C MP, CBC, PT, PTT #### [address] NRBC% 0.2 /100{WBC} Normal 0-0.[address] [facility] Comment on above: Performed By: #### C MP, CBC, PT, PTT #### [address] White Blood Count 5.2 [CFU]/mL Normal 3.8-11.6 [facility] Comment on above: Performed By: #### C MP, CBC, PT, PTT #### [address] Comprehensive Metabolic Pane caryl 12-07-2024 Albumin [Mass/Vol] 3.8 g/dL Normal 3.5-5.7 [facility] Comment on above: Performed By: #### C MP, CBC, PT, PTT #### [address] Creatinine Clr Calc Pharmacy 153.19 Normal [facility] Comment on above: Result Comment: PERF ORMED BY: [place] [address] PATHOLOGIST TRAVELER CHANGER MARY LOU KAUFMAN M.D. Performed By: #### C MP, CBC, PT, PTT #### [place] [address] [place] GFR/1.73 sq M.predicted MDRD (S/P/Bld) [Vol rate/Area] mL/min/{1.73_m2} Normal [facility] Comment on above: Performed By: #### C MP, CBC, PT, PTT #### [facility] [address] Creatinine [Mass/volume] in Serum or PlasmaOrdered By: Ruben Whaley on 12-07-2024 Creatinine [Mass/Vol] 0.66 mg/dL Normal 0.60-1.20 [facility] Comment on above: Performed By: #### C MP, CBC, PT, PTT #### [facility] [address] Dipstick and Microscopicon 0 12-07-2024 Bacteria,Urine Rare Normal None Seen [facility] Comment on above: Order Comment: Name Collection Type:: Clean-Voided Midstream Performed By: #### C UU, UHCG, ADDONUAPLUS #### [place] [address] [place] Bilirubin,Urine Negative Normal Negative [facility] Comment on above: Order Comment: Name Collection Type:: Clean-Voided Midstream Performed By: #### C UU, UHCG, ADDONUAPLUS #### [facility] [address] [place] [address] [place] Glucose Ql (U) Normal Normal Normal [facility] Comment on above: Order Comment: Name Collection Type:: Clean-Voided Midstream Performed By: #### C UU, UHCG, ADDONUAPLUS #### [facility] [address] [place] [id number] [place] Hyaline Casts,Urine None Normal 0-8 [facility] Comment on above: Order Comment: Name Collection Type:: Clean-Voided Midstream Performed By: #### C UU, UHCG, ADDONUAPLUS #### [facility] [address] [place] [address] [place] Mucus,Urine Rare Normal [facility] Comment on above: Order Comment: Name Collection Type:: Clean-Voided Midstream Performed By: #### C UU, UHCG, ADDONUAPLUS #### [place] [address] [place] Nitrite,Urine Negative Normal Negative [facility] Comment on above: Order Comment: Name Collection Type:: Clean-Voided Midstream Performed By: #### C UU, UHCG, ADDONUAPLUS #### [address] Occult Blood,Urine 3+ Normal Negative [facility] Comment on above: Order Comment: Name Collection Type:: Clean-Voided Midstream Performed By: #### C UU, UHCG, ADDONUAPLUS #### [address] RBC,Urine Innumerable Normal 0-4 [facility] Comment on above: Order Comment: Name Collection Type:: Clean-Voided Midstream Performed By: #### C UU, UHCG, ADDONUAPLUS #### [address] Specificy [place],Urine 1.038 High 1.001-1.03 0 [facility] Comment on above: Order Comment: Name Collection Type:: Clean-Voided Midstream Performed By: #### C UU, UHCG, ADDONUAPLUS #### [address] Squamous Epithelial Cell,Urine 3-4 Normal 0-2 [facility] Comment on above: Order Comment: Name Collection Type:: Clean-Voided Midstream Performed By: #### C UU, UHCG, ADDONUAPLUS #### [place] [address] [place] Urobilinogen,Urine Normal Normal Normal [facility] Comment on above: Order Comment: Name Collection Type:: Clean-Voided Midstream Performed By: #### C UU, UHCG, ADDONUAPLUS #### [place] [address] [place] WBC,Urine 20-49 Normal 0-4 [facility] Comment on above: Order Comment: Name Collection Type:: Clean-Voided Midstream Performed By: #### C UU, UHCG, ADDONUAPLUS #### [facility] [address] [place] [address] ECG 12 lead ECGon 12-07-2024 ECG 12 lead ECG [facility] [place] [address] [place] [address] Electrocardiograph Report Signed Patient: Santiago Medina MR#: [id number] : 1990 Acct:[id number] Age/Sex: 34 / F ADM Date: 12/07/24 Loc: ER Room: Type: [facility] ER Attending Dr: Ordering Provider: Ruben Whaley PA-C Date of Service: 12/07/2406/28/1400 ECG/ECG 12 lead ECG: Abdominal Pain Copies to: Test Reason : Blood Pressure : */* mmHG Vent. Rate : 95 BPM Atrial Rate : 95 BPM P-R Int : 134 ms QRS Dur : 80 ms QT Int : 356 ms P-R-T Axes : 62 87 20 degrees QTcB Int : 447 ms Normal sinus rhythm Confirmed by Lyle MULLER DO ([id number]) on 12/07/2024 3:18:52 PM Referred By: Electronically Signed By: Lyle MULLER DO Transcribed By: MUS Signed By Lyle Muller DO 0 12/07/24 1518 Normal [facility] Eosinophils [#/volume] in Bl ood by Automated countOrdered By: Ruben Whaley on 12-07-2024 Eosinophils (Bld) [#/Vol] 0.2 10*3/uL Normal 0.0-0.45 [facility] Comment on above: Performed By: #### C MP, CBC, PT, PTT #### [facility] [address] [place] [address] [place] Eosinophils/100 leukocytes i n Blood by Automated countOrdered By: Ruben Whaley on 12-07-2024 Eosinophils/100 WBC (Bld) 4.4 % Normal . [facility] Comment on above: Performed By: #### C MP, CBC, PT, PTT #### [facility] [address] Epithelial cells.squamous [# /area] in Urine sediment by Automated countOrdered By: Ruben Whaley on 12-07-2024 Epithelial cells.squamous Auto (Urine sed) [#/Area] 3-4 [HPF] High 0-2 [facility] Erythrocyte distribution wid th [Ratio] by Automated countOrdered By: Ruben Whaley on 12-07-2024 Erythrocyte distribution width (RBC) [Ratio] 16.4 % High 11.9-15.3 [facility] Comment on above: Performed By: #### C MP, CBC, PT, PTT #### [facility] [address] Erythrocytes [#/area] in Uri ne sediment by Automated countOrdered By: Ruben Whaley on 12-07-2024 RBC Auto (Urine sed) [#/Area] Innumerable [HPF] High 0-4 [facility] Erythrocytes [#/volume] in B lood by Automated countOrdered By: Ruben Whaley on 12-07-2024 RBC (Bld) [#/Vol] 4.79 10*6/uL Normal 3.60-5.00 [facility] Comment on above: Performed By: #### C MP, CBC, PT, PTT #### [facility] [address] Glomerular filtration rate [ Volume Rate/Area] in Serum, Plasma or Blood by CreatinineOrdered By: Ruben Whaley on 12-07-2024 Glomerular filtration rate [Volume Rate/Area] in Serum, Plasma or Blood by Creatinine > 60.0 mL/Min [facility] Glucose [Mass/volume] in Ser um or PlasmaOrdered By: Ruben Whaley on 12-07-2024 Glucose [Mass/Vol] 93 mg/dL Normal 70-100 [facility] Comment on above: ADA recommended refe rence rangeRandom Glucose Reference Range is dependent on time and content of last meal. Glucose of more than 200 mg/dL in a nonstressed, ambulatory subject supports the diagnosis of Diabetes Mellitus. Result Comment: [place] om Glucose Reference Range is dependent on time and content of last meal. Glucose of more than 200 mg/dL in a nonstressed, ambulatory subject supports the diagnosis of Diabetes Mellitus. ADA recommended reference range Performed By: #### C MP, CBC, PT, PTT #### [facility] [address] Glucose [Mass/volume] in Uri ne by Test stripOrdered By: Ruben Whaley on 12-07-2024 Glucose Test strip (U) [Mass/Vol] Normal mg/dL Normal [facility] HCG ( test) IA.rapi d Ql (U)Ordered By: Ruben Whaley on 12-07-2024 HCG ( test) Ql (U) Negative [facility] HCG,Urineon 12-07-2024 Beta HCG ( test) Ql (U) Negative Normal [facility] Comment on above: Order Comment: Name Collection Type:: Clean-Voided Midstream Result Comment: PERF ORMED BY: [place] [address] PATHOLOGIST TRAVELER CHANGER MARY LOU KAUFMAN M.D. Performed By: #### C UU, UHCG, ADDONUAPLUS #### [address] Hematocrit [Volume Fraction] of Blood by Automated countOrdered By: Ruben Whaley on 12-07-2024 Hematocrit (Bld) [Volume fraction] 36.9 % Normal 34.0-46.4 [facility] Comment on above: Performed By: #### C MP, CBC, PT, PTT #### [address] Hemoglobin Test strip Ql (U) Ordered By: Ruben Whaley on 12-07-2024 Hemoglobin Ql (U) 3+ High Negative [facility] Hemoglobin [Mass/volume] in BloodOrdered By: Ruben Whaley on 12-07-2024 Hemoglobin (Bld) [Mass/Vol] 12.2 g/dL Normal 11.8-15.4 [facility] Comment on above: Performed By: #### C MP, CBC, PT, PTT #### [place] [address] [place] Hyaline casts [#/area] in Ur ine sediment by Automated countOrdered By: Ruben Whaley on 12-07-2024 Hyaline casts Auto (Urine sed) [#/Area] None [LPF] 0-8 [facility] INR in Platelet poor plasma by Coagulation assayOrdered By: Ruben Whaley on 12-07-2024 INR Coag (PPP) [Relative time] 1.0 {INR} Normal [facility] Comment on above: INR Therapeutic Rang e A) Pre- and Peroperative OAT started two weeks before surgery. NOT HIP SURGERY: 1.5 - 2.5 HIP SURGERY: 2 - 3B) Primary and secondary prevention of venous THROMBOSIS: 2 - 3C) Active venous thrombosis, pulmonary embolismand prevention of recurrent venous thrombosis: 2 - 3D) Prevention of arterial thromboembolismincluding patients with mechanical heart valves: 3 - 4.5 Result Comment: INR Therapeutic Range A) Pre- and Peroperative OAT started two weeks before surgery. NOT HIP SURGERY: 1.5 - 2.5 HIP SURGERY: 2 - 3 B) Primary and secondary prevention of venous THROMBOSIS: 2 - 3 C) Active venous thrombosis, pulmonary embolism and prevention of recurrent venous thrombosis: 2 - 3 D) Prevention of arterial thromboembolism including patients with mechanical heart valves: 3 - 4.5 Performed By: #### C MP, CBC, PT, PTT #### [facility] [address] [place] [address] [place] Ketones [Presence] in Urine by Test stripOrdered By: Ruben Whaley on 12-07-2024 Ketones Ql (U) Trace Normal Negative [facility] Comment on above: Order Comment: Name Collection Type:: Clean-Voided Midstream Performed By: #### C UU, UHCG, ADDONUAPLUS #### [facility] [address] [place] [id number] [place] Leukocyte esterase [Presence ] in Urine by Test stripOrdered By: Ruben Whaley on 12-07-2024 Leukocyte esterase Test strip Ql (U) 2+ Normal Negative [facility] Comment on above: Order Comment: Name Collection Type:: Clean-Voided Midstream Performed By: #### C UU, UHCG, ADDONUAPLUS #### [facility] [address] [place], [place] [id number] [place] Leukocytes [#/area] in Urine sediment by Automated countOrdered By: Ruben Whaley on 12-07-2024 WBC Auto (Urine sed) [#/Area] 20-49 [HPF] High 0-4 [facility] Leukocytes [#/volume] correc saumya for nucleated erythrocytes in Blood by Automated counOrdered By: Ruben Whaley on 12-07-2024 WBC corrected for nucl RBC Auto (Bld) [#/Vol] 5.2 10*3/uL 3.8-11.6 [facility] Leukocytes [#/volume] in Blo od by Automated countOrdered By: Ruben Whaley on 12-07-2024 WBC (Bld) [#/Vol] 5.2 10*3/uL Normal 3.8-11.6 [facility] Comment on above: Performed By: #### C MP, CBC, PT, PTT #### [facility] [address] [place] [address] [place] Lymphocytes [#/volume] in Bl ood by Automated countOrdered By: Ruben Whaley on 12-07-2024 Lymphocytes (Bld) [#/Vol] 1.5 10*3/uL Normal 1.00-4.8 [facility] Comment on above: Performed By: #### C MP, CBC, PT, PTT #### [facility] [address] [place] [address] [place] Lymphocytes/100 leukocytes i n Blood by Automated countOrdered By: Ruben Whaley on 12-07-2024 Lymphocytes/100 WBC (Bld) 29.9 % Normal . [facility] Comment on above: Performed By: #### C MP, CBC, PT, PTT #### [facility] [address] [place] [address] [place] MCH [Entitic mass] by Automa saumya countOrdered By: Ruben Whaley on 12-07-2024 MCH (RBC) [Entitic mass] 25.4 pg Normal 24.7-34.3 [facility] Comment on above: Performed By: #### C MP, CBC, PT, PTT #### [facility] [address] [place] [address] [place] MCHC Auto (RBC) [Mass/Vol]Or dered By: Ruben Whaley on 12-07-2024 MCHC (RBC) [Mass/Vol] 33.0 g/dL 32.0-35.0 [facility] MCV [Entitic volume] by Auto mated countOrdered By: Ruben Whaley on 12-07-2024 MCV (RBC) [Entitic vol] 77.1 fL Low 80-100 [facility] Comment on above: Performed By: #### C MP, CBC, PT, PTT #### [address] Monocyte distribution width [Entitic volume] in Blood by AutomatedOrdered By: Ruben Whaley on 12-07-2024 Monocyte distribution width Auto (Bld) [Entitic vol] 17.53 % 0.00-20.00 [facility] Monocytes [#/volume] in Bloo d by Automated countOrdered By: Ruben Whaley on 12-07-2024 Monocytes (Bld) [#/Vol] 0.5 10*3/uL Normal 0.0-0.8 [facility] Comment on above: Performed By: #### C MP, CBC, PT, PTT #### [place] [address] [place] Monocytes/100 leukocytes in Blood by Automated countOrdered By: Ruben Whaley on 12-07-2024 Monocytes/100 WBC (Bld) 10.2 % Normal . [facility] Comment on above: Performed By: #### C MP, CBC, PT, PTT #### [facility] [address] [place] [address] [place] Mucus [Presence] in Urine by AutomatedOrdered By: Ruben Whaley on 12-07-2024 Mucus Auto Ql (U) Rare [LPF] [facility] Neutrophils [#/volume] in Bl ood by Automated countOrdered By: Ruben Whaley on 12-07-2024 Neutrophils (Bld) [#/Vol] 2.8 10*3/uL Normal 1.8-7.7 [facility] Comment on above: Performed By: #### C MP, CBC, PT, PTT #### [place] [address] [place] Neutrophils/100 leukocytes i n Blood by Automated countOrdered By: Ruben Whaley on 12-07-2024 Neutrophils/100 WBC (Bld) 54.5 % Normal . [facility] Comment on above: Performed By: #### C MP, CBC, PT, PTT #### [facility] [address] [place] [address] Nitrite Test strip Ql (U)Ord ered By: Ruben Whaley on 12-07-2024 Nitrite Ql (U) Negative Negative [facility] No Panel InformationOrdered By: Ruben Whaley on 12-07-2024 Pharmacy Creatinine Clearance (Chem 153.19 [facility] Nucleated erythrocytes [Pres ence] in Blood by Automated countOrdered By: Ruben Whaley on 12-07-2024 Nucleated RBC Auto Ql (Bld) 0.2 /100{WBC} 0-0.5 [facility] Partial Thromboplastin Timeo n 12-07-2024 aPTT Coag (Bld) [Time] 31.1 s Normal 25.1-36.5 [facility] Comment on above: Result Comment: A he matocrit value greater than 55% may lead to inaccurate results in coagulation testing. Patients having hematocrit values >55% require a special collection tube for coagulation studies. Please contact the laboratory at [phone] for redraw instructions. PERFORMED BY: [place] [address] PATHOLOGIST TRAVELER CHANGER MARY LOU KAUFMAN M.D. Performed By: #### C MP, CBC, PT, PTT #### [facility] [address] [place] [address] [place] Platelet mean volume [Entiti c volume] in Blood by Automated countOrdered By: Ruebn Whaley on 12-07-2024 Platelet mean volume (Bld) [Entitic vol] 8.6 fL Normal 6.3-10.7 [facility] Comment on above: Performed By: #### C MP, CBC, PT, PTT #### [facility] [address] [place] [address] [place] Platelets [#/volume] in Bloo d by Automated countOrdered By: Ruben Whaley on 12-07-2024 Platelets (Bld) [#/Vol] 272 10*3/uL Normal 150-450 [facility] Comment on above: Performed By: #### C MP, CBC, PT, PTT #### [facility] [address] [place] [address] [place] Potassium [Moles/volume] in Serum or PlasmaOrdered By: Ruben Whaley on 12-07-2024 Potassium [Moles/Vol] 3.8 mmol/L Normal 3.5-5.1 [facility] Comment on above: Performed By: #### C MP, CBC, PT, PTT #### [facility] [address] [place] [address] [place] Protein [Mass/volume] in Ser um or PlasmaOrdered By: Ruben Whaley on 12-07-2024 Protein [Mass/Vol] 6.9 g/dL Normal 6.4-8.9 [facility] Comment on above: Performed By: #### C MP, CBC, PT, PTT #### [facility] [address] [place] [address] [place] Protein [Mass/volume] in Uri ne by Test stripOrdered By: Ruben Whaley on 12-07-2024 Protein (U) [Mass/Vol] 30 mg/dL Normal Negative [facility] Comment on above: Order Comment: Name Collection Type:: Clean-Voided Midstream Performed By: #### C UU, UHCG, ADDONUAPLUS #### [facility] [address] [place] [id number] [facility] Prothrombin time (PT)Ordered By: Ruben Whaley on 12-07-2024 PT Coag (PPP) [Time] 11.9 s Normal 9.0-12.9 [facility] Comment on above: A hematocrit value g reater than 55% may lead to inaccurate results in coagulation testing. Patients having hematocrit values >55% require a special collection tube for coagulation studies. Please contact the laboratory at [phone] for redraw instructions. Result Comment: A he matocrit value greater than 55% may lead to inaccurate results in coagulation testing. Patients having hematocrit values >55% require a special collection tube for coagulation studies. Please contact the laboratory at [phone] for redraw instructions. Performed By: #### C MP, CBC, PT, PTT #### [facility] [address] [place] [address] Serum globulin measurement b y calculation (mass/volume)Ordered By: Ruben Whaley on 12-07-2024 Globulin (S) [Mass/Vol] 3.1 g/dL [facility] Comment on above: Performed By: #### C MP, CBC, PT, PTT #### [address] Serum or plasma albumin/glob ulin mass ratioOrdered By: Ruben Whaley on 12-07-2024 Albumin/Globulin [Mass ratio] 1.2 {ratio} [facility] Comment on above: Performed By: #### C MP, CBC, PT, PTT #### [address] Serum or plasma anion gap de terminationOrdered By: Ruben Whaley on 12-07-2024 Anion gap [Moles/Vol] 9.4 mmol/L Normal 6.0-15.0 [facility] Comment on above: Performed By: #### C MP, CBC, PT, PTT #### [address] Sodium [Moles/volume] in Ser um or PlasmaOrdered By: Ruben Whaley on 12-07-2024 Sodium [Moles/Vol] 139 mmol/L Normal 136-145 [facility] Comment on above: Performed By: #### C MP, CBC, PT, PTT #### [address] Specific gravity Test strip (U) [Rel density]Ordered By: Ruben Whaley on 12-07-2024 Specific gravity (U) [Rel density] 1.038 High 1.001-1.03 0 [facility] US transvaginalon 12-07-2024 US transvaginal [facility] [place] [address] [place] [address] Ultrasound Report Signed Patient: Santiago Medina MR#: [id number] : 1990 Acct:[id number] Age/Sex: 34 / F ADM Date: 12/07/24 Loc: ER Room: Type: [facility] ER Attending Dr: Ordering Provider: Ruben Whaley PA-C Date of Service: 12/07/24 US/US pelvic complete: vag bleeding after 3 months ago ([id number]) US/US transvaginal: VAGINAL BLEEDING Copies to: Ruben Whaley PA-C TRANSABDOMINAL AND TRANSVAGINAL PELVIC ULTRASOUND HISTORY: Vaginal bleeding after . Abdominal pain FINDINGS: The uterus measures 8.2 x 5.1 x 5.3 cm. Heterogeneous uterine parenchyma. Multiple hypoechoic structures uterus measuring up to 6 mm. Potential small fibroids. The endometrium has a total combined thickness of 12mm. The RIGHT ovary measures 2.3 x 2.2 x 2.6 cm. LEFT ovary measures 2.5 x 1.2 x 2.3 cm. Bilateral ovarian blood flow identified. Anechoic free fluid adjacent to the ovaries. No adnexal mass. Prominent vessels lateral to the uterus. US/US pelvic complete IMPRESSION: Fibroid uterus. 12 mm endometrial complex. Anechoic free fluid in cul-de-sac and adjacent ovaries. Likely physiologic. Pelvic congestion. Adequate flow of ovaries. Bilateral ovarian follicles. Impression dictated by: Kade Butts M.D. 12/07/2024 7:55 PM Dictation Location: [place] [address] Tech: [facility] Transcribed By: [facility] 12/07/241954 Dictated By: Kade Butts DO 12/07/241949 Signed By: 12/07/241954 Normal [facility] Urea nitrogen [Mass/volume] in Serum or PlasmaOrdered By: Ruben Whaley on 12-07-2024 Urea nitrogen [Mass/Vol] 11 mg/dL Normal 10-28 [facility] Comment on above: Performed By: #### C MP, CBC, PT, PTT #### [address] Urine Cultureon 12-07-2024 Bacteria identified Cx Nom (U) ORGANISM: Escherichia coli (O:ESCCOL) Irving Count 50,000 Aerobic DAVID Charge ([id number]) SUSCEPTIBILITY ORGANISM: O:ESCCOL ANTIBIOTIC INTERPRETATION DAVID Amikacin S <16 Amoxacillin/K Clavulanate S <8 Ampicillin S <8 Ampicillin/Sulbactam S <4 Aztreonam S <4 Cefazolin S <2 Cefepime S <2 Ceftazidime S <1 Ceftazidime/Avibactam S <4 Ceftolozane/Tazobactam S <2 Ceftriaxone S <1 Cefuroxime S <4 Ciprofloxacin S <0.25 Ertapenem S <0.5 Gentamicin S <2 Levofloxacin S <0.5 Meropenem S <1 Meropenem/Vaborbactam S <2 Nitrofurantoin S <32 Piperacillin/Tazobactam S <8 Tetracycline R >8 Tigecycline S <2 Tobramycin S <2 Trimethoprim/Sulfamethoxaz ole S <0.5 S = SUSCEPTIBLE I = INTERMEDIATE R = RESISTANT BLANK = DATA NOT AVAILABLE, OR DRUG NOT ADVISABLE OR TESTED R* = RESISTANCE DUE TO EXTENDED SPECTRUM BETA-LACTAMASES ESBL = EXTENDED SPECTRUM BETA-LACTAMASE TFG = THYMIDINE-DEPENDENT STRAIN ARAVIND = BETA-LACTAMASE POSITIVE IB = INDUCIBLE BETA-LACTAMASE. APPEARS IN PLACE OF 'S' WITH SPECIES KNOWN TO POSSESS INDUCIBLE BETA-LACTAMASES. POTENTIALLY THEY MAY BECOME RESISTANT TO ALL B-LACTAM DRUGS. PERFORMED BY: [facility] [address] [place] [address] PATHOLOGIST TRAVELER CHANGER MAYR LOU KAUFMAN M.D. Normal [facility] Comment on above: Performed By: #### C UU, UHCG, ADDONUAPLUS #### [facility] [address] Urobilinogen Test strip (U) [Mass/Vol]Ordered By: Ruben Whaley on 12-07-2024 Urobilinogen (U) [Mass/Vol] Normal mg/dL Normal [facility] aPTT in Platelet poor plasma by Coagulation assayOrdered By: Ruben Whaley on 12-07-2024 aPTT Coag (PPP) [Time] 31.1 s 25.1-36.5 [facility] Comment on above: A hematocrit value g reater than 55% may lead to inaccurate results in coagulation testing. Patients having hematocrit values >55% require a special collection tube for coagulation studies. Please contact the laboratory at [phone] for redraw instructions. pH of Urine by Test stripOrd ered By: Ruben Whaley on 12-07-2024 pH (U) 5.5 [pH] Normal 5.0-9.0 [facility] Comment on above: Order Comment: Name Collection Type:: Clean-Voided Midstream Performed By: #### C UU, UHCG, ADDONUAPLUS #### [facility] [address] ALL CBC WITH AUTO DIFFon BASOPHILS ABSOLUTE AUTO 0 [facility] Basophils/100 WBC (Bld) 0.7 % 0.2 - 2.0 % [facility] Eosinophils/100 WBC (Bld) 2.8 % 0.9 - 7.0 % [facility] Erythrocyte distribution width (RBC) [Ratio] 15.4 % High 11.0 - 15.0 % [facility] Hematocrit (Bld) [Volume fraction] 41.2 % 36.0 - 48.0 % [facility] Hemoglobin (Bld) [Mass/Vol] 13.6 g/dL 12.0 - 16.0 g/dL [facility] IMMATURE GRANULOCYTES ABS AUTO 0 [facility] Immature granulocytes/100 WBC (Bld) 0 % 0.0 - 0.5 % [facility] Interpretation and review of laboratory results Abnormal [facility] LYMPHOCYTES ABSOLUTE AUTO 2.3 [facility] Lymphocytes/100 WBC (Bld) 38.1 % 20.5 - 60.0 % [facility] MCH (RBC) [Entitic mass] 26.1 pg Low 26.7 - 34.0 pg [facility] MCHC (RBC) [Mass/Vol] 33 g/dL 29.9 - 35.2 g/dL [facility] MCV (RBC) [Entitic vol] 78.9 fL Low 81.0 - 99.0 fL [facility] MONOCYTES ABSOLUTE AUTO 0.4 [facility] Monocytes/100 WBC (Bld) 7 % 1.7 - 12.0 % [facility] NEUTROPHILS ABSOLUTE AUTO 3.1 [facility] Neutrophils/100 WBC (Bld) 51.4 % 43.0 - 75.0 % [facility] Platelet mean volume (Bld) [Entitic vol] 10.9 fL 9.5 - 13.5 fL [facility] EO # 0.2 [facility] PLT 310 [facility] RBC 5.22 [facility] WBC 6 [facility] ALL CBC WITH AUTO DIFFon BASOPHILS ABSOLUTE AUTO 0 [facility] Basophils/100 WBC (Bld) 0.4 % 0.2 - 2.0 % [facility] Eosinophils/100 WBC (Bld) 1.7 % 0.9 - 7.0 % [facility] Erythrocyte distribution width (RBC) [Ratio] 13.6 % 11.0 - 15.0 % [facility] Hematocrit (Bld) [Volume fraction] 27.8 % Low 36.0 - 48.0 % [facility] Hemoglobin (Bld) [Mass/Vol] 9.1 g/dL Low 12.0 - 16.0 g/dL [facility] IMMATURE GRANULOCYTES ABS AUTO 0.05 High [facility] Immature granulocytes/100 WBC (Bld) 0.5 % 0.0 - 0.5 % [facility] Interpretation and review of laboratory results Abnormal [facility] LYMPHOCYTES ABSOLUTE AUTO 2.3 [facility] Lymphocytes/100 WBC (Bld) 22.3 % 20.5 - 60.0 % [facility] MCH (RBC) [Entitic mass] 26.3 pg Low 26.7 - 34.0 pg [facility] MCHC (RBC) [Mass/Vol] 32.7 g/dL 29.9 - 35.2 g/dL [facility] MCV (RBC) [Entitic vol] 80.3 fL Low 81.0 - 99.0 fL [facility] MONOCYTES ABSOLUTE AUTO 0.7 [facility] Monocytes/100 WBC (Bld) 6.5 % 1.7 - 12.0 % [facility] NEUTROPHILS ABSOLUTE AUTO 7.1 High [facility] Neutrophils/100 WBC (Bld) 68.6 % 43.0 - 75.0 % [facility] Platelet mean volume (Bld) [Entitic vol] 10.9 fL 9.5 - 13.5 fL [facility] EO # 0.2 [facility] PLT 206 [facility] RBC 3.46 Low [facility] WBC 10.3 [facility] UA (CLEAN/CATCH) 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/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 RO IF IND.on 08-30-2024 BILIRUBIN URINE Negative NEGATIVE [facility] BLOOD URINE LARGE Abnormal NEGATIVE [facility] Clarity (U) CLEAR CLEAR [facility] Color (U) YELLOW YELLOW [facility] GLUCOSE URINE UA Negative NEGATIVE mg/dL [facility] Interpretation and review of laboratory results Abnormal [facility] Ketones Ql (U) TRACE Abnormal NEGATIVE mg/dL [facility] Leukocyte esterase Test strip Ql (U) Negative NEGATIVE [facility] NITRITE URINE Negative NEGATIVE [facility] pH (U) 6.0 [pH] 5.0 - 9.0 [facility] PROTEIN URINE TRACE NEG/TRACE mg/dL [facility] SPECIFIC GRAVITY URINE 1.025 1.005 - 1.025 [facility] URINE MICROSCOPIC INDICATED YES [facility] UROBILINOGEN URINE 0.2 EU/dL 0.2 - 1.0 EU/dL [facility] Urinalysis macro (dipstick) panel (U)on 08-30-2024 Bilirubin, UA Positive Negative - 4(70) +++ mg/dL [facility] Comment on above: small Blood, UA Negative Negative - 50 Jesus/mcL [facility] Clarity, UA Clear [facility] Color, UA Straw [facility] Glucose, UA Negative Negative - 1999(110) ++++ mg/dL [facility] Interpretation and review of laboratory results Abnormal [facility] Ketones, UA Positive Negative - 160(16) ++++ mg/dL [facility] Comment on above: trace Leukocytes, UA Trace Negative - 500+++ Juanita/mcL [facility] Nitrite, UA Negative Negative - Positive [facility] pH, UA 6 5 - 9 [facility] Protein, UA Positive Negative - 1999(20) ++++ mg/dL [facility] Comment on above: 100 Spec Grav, UA 1.03 1 - 1.03 [facility] Urobilinogen, UA 1.0 0.2 - 12 mg/dL [facility] Urinalysis macro (dipstick) panel (U)on 08-22-2024 Bilirubin, UA Negative Negative - 4(70) +++ mg/dL [facility] Blood, UA Negative Negative - 50 Jesus/mcL [facility] Clarity, UA Clear [facility] Color, UA Yellow [facility] Glucose, UA Negative Negative - 1999(110) ++++ mg/dL [facility] Interpretation and review of laboratory results Normal [facility] Ketones, UA Negative Negative - 160(16) ++++ mg/dL [facility] Leukocytes, UA Negative Negative - 500+++ Juanita/mcL [facility] Nitrite, UA Negative Negative - Positive [facility] pH, UA 7 5 - 9 [facility] Protein, UA Negative Negative - 1999(20) ++++ mg/dL [facility] Spec Grav, UA 1.015 1 - 1.03 [facility] Urobilinogen, UA 0.2 0.2 - 12 mg/dL [facility] US OB BPP W NON-STRESS on 08-18-2024 [place] [address] Ultrasound Report Signed Patient: SANTIAGO MEDINA MR#: [id number] : 1990 Acct:[id number] Age/Sex: 34 / F ADM Date: 08/18/24 Loc: [facility] 250-[address]: Junior Jones D.O. Ordering Physician: Junior Jones D.O. Date of Service: 08/18/24 Procedure(s): US OB BPP w non-stress Accession Number(s): [id number] cc: Junior Jones D.O.; Physician,Non-Staff M.DPatricia The [place] [id number] Patient Name: SANTIAGO MEDINA MRN: [id number] date: 1990 Sex: F Assigned Patient Location: [facility] Current Patient Location: [facility] Accession/Order Number: [id number] Exam Date: 08/18/2024 11:59 Report Date: 08/18/2024 12:00 At the request of: JUNIOR JONES DO Procedure: US OB BPP w non-stress BIOPHYSICAL PROFILE: CLINICAL INFORMATION: LOW AMINOTIC FLUID O41.00X0 COMPARISON: 08/11/2024 There is a single live intrauterine gestation in cephalic presentation. The reported gestational age is 35 weeks 3 days. The heart rate [id number] beats per minute. FINDINGS: TONE: 1 or [...] Boothe M.D. 08/18/2024 12:00 PM Dictation Location: [place] [address] Electronically authenticated by: [id number] Y Date: 08/18/2024 12:00 Dictated By: Elisa Boothe M.D. Signed By: 08/18/24 1203 DD/ 1200 TD/TT: Radio Talk Show Host: [facility] Radiology, Radiologi MD jessica - 08/18/2024 [place] [address] Ultrasound Report Signed Patient: SANTIAGO MEDINA MR#: [id number] : 1990 Acct:[id number] Age/Sex: 34 / F ADM Date: 08/18/24 Loc: [facility] 250-[address]: Junior Jones D.O. Ordering Physician: Junior Jones D.O. Date of Service: 08/18/24 Procedure(s): US OB BPP w non-stress Accession Number(s): [id number] cc: Junior Jones D.O.; Physician,Non-Staff [place] The [address] [address] Patient Name: SANTIAGO MEDINA MRN: [facility]:[id number] date: 1990 Sex: F Assigned Patient Location: [facility] Current Patient Location: [facility] Accession/Order Number: [id number] Exam Date: 08/18/2024 11:59 Report Date: 08/18/2024 12:00 At the request of: JUNIOR JONES DO Procedure: US OB BPP w non-stress BIOPHYSICAL PROFILE: CLINICAL INFORMATION: LOW AMINOTIC FLUID O41.00X0 COMPARISON: 08/11/2024 There is a single live intrauterine gestation in cephalic presentation. The reported gestational age is 35 weeks 3 days. The heart rate [id number] beats per minute. FINDINGS: TONE: 1 or [...] Boothe M.D. 08/18/2024 12:00 PM Dictation Location: [place] [address] Electronically authenticated by: [id number] Y Date: 08/18/2024 12:00 Dictated By: Elisa Boothe M.D. Signed By: 08/18/24 1205 DD/ 1200 TD/TT: Radio Talk Show Host: [facility] Radiology Study observation (narrative) [facility] US OB BPP W NON-STRESS Ordered By: Radiologist Radiology on 08-18-2024 [facility] Work Phone: US OB BPP W NON-STRESS on 08-11-2024 [place] [address] Ultrasound Report Signed Patient: SANTIAGO MEDINA MR#: [id number] : 1990 Acct:[id number] Age/Sex: 34 / F ADM Date: 08/11/24 Loc: [facility] 250-[address]: Junior Jones D.O. Ordering Physician: Junior Jones D.O. Date of Service: 08/11/24 Procedure(s): US OB BPP w non-stress Accession Number(s): [id number] cc: Junior Jones D.O.; Physician,Non-Staff [place] The [address] [address] Patient Name: SANTIAGO MEDINA MRN: [facility]:[id number] date: 1990 Sex: F Assigned Patient Location: [facility] Current Patient Location: [facility] Accession/Order Number: [id number] Exam Date: 08/11/2024 11:38 Report Date: 08/11/2024 11:39 At the request of: JUNIOR JONES DO Procedure: US OB BPP w non-stress Biophysical profile. Reason for exam: Low amniotic fluid volume. COMPARISON: 08/04/2024 TECHNIQUE: Transabdominal imaging of the gravid uterus was obtained. 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 LIZETH measures 12 cm. heart rate 147 bpm. US/US OB BPP w non-stress IMPRESSION: BPP 8 out of 8. Impression dictated by: David Qureshi Jr., D.O. 08/11/2024 11:39 AM Dictation Location: [place] [address] Electronically authenticated by: [id number] Y Date: 08/11/2024 11:39 Dictated By: David Qureshi M.D. Signed By: 08/11/24 1141 DD/ 1139 TD/TT: Radio Talk Show Host: [facility] Radiology Radiologdomingo lopez MD - 08/11/[address] [address] Ultrasound Report Signed Patient: SANTIAGO MEDINA MR#: [id number] : 1990 Acct:[id number] Age/Sex: 34 / F ADM Date: 08/11/24 Loc: [facility] 250-[address]: Junior Jones D.O. Ordering Physician: Junior Jones D.O. Date of Service: 08/11/24 Procedure(s): US OB BPP w non-stress Accession Number(s): [id number] cc: Junior Jones D.O.; Physician,Non-Staff [place] [address] Patient Name: SANTIAGO MEDINA MRN: [facility]:[id number] date: 1990 Sex: F Assigned Patient Location: [facility] Current Patient Location: [facility] Accession/Order Number: [id number] Exam Date: 08/11/2024 11:38 Report Date: 08/11/2024 11:39 At the request of: JUNIOR JONES DO Procedure: US OB BPP w non-stress Biophysical profile. Reason for exam: Low amniotic fluid volume. COMPARISON: 08/04/2024 TECHNIQUE: Transabdominal imaging of the gravid uterus was obtained. 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 LIZETH measures 12 cm. heart rate 147 bpm. US/US OB BPP w non-stress IMPRESSION: BPP 8 out of 8. Impression dictated by: David Qureshi Jr., D.O. 08/11/2024 11:39 AM Dictation Location: [place] [address] Electronically authenticated by: [id number] Y Date: 08/11/2024 11:39 Dictated By: David Qureshi M.D. Signed By: 08/11/24 1141 DD/ 1139 TD/TT: Radio Talk Show Host: [facility] Radiology Study observation (narrative) [facility] US OB BPP W NON-STRESS Ordered By: Radiologist Radiology on 08-11-2024 [facility] Work Phone: Urinalysis macro (dipstick) panel (U)on 08-11-2024 Bilirubin, UA Negative Negative - 4(70) +++ mg/dL [facility] Blood, UA Negative Negative - 50 Jesus/mcL [facility] Clarity, UA Clear [facility] Color, UA Yellow [facility] Glucose, UA Negative Negative - 2000(110) ++++ mg/dL [facility] Interpretation and review of laboratory results Normal [facility] Ketones, UA Negative Negative - 160(16) ++++ mg/dL [facility] Leukocytes, UA Negative Negative - 500+++ Juanita/mcL [facility] Nitrite, UA Negative Negative - Positive [facility] pH, UA 5.5 5 - 9 [facility] Protein, UA Negative Negative - 2000(20) ++++ mg/dL [facility] Spec Grav, UA 1.02 1 - 1.03 [facility] Urobilinogen, UA 1.0 0.2 - 12 mg/dL [facility] US OB BPP W NON-STRESS on 08-04-2024 [place] [address] Ultrasound Report Signed Patient: SANTIAGO MEDINA MR#: [id number] : 1990 Acct:[id number] Age/Sex: 34 / F ADM Date: 08/04/24 Loc: US Attending Dr: Junior Jones D.O. Ordering Physician: Junior Jones D.O. Date of Service: 08/04/24 Procedure(s): US OB BPP w non-stress Accession Number(s): [id number] cc: Junior Jones D.O.; Physician,Non-Staff [employer] [address] [address] Patient Name: SANTIAGO MEDINA MRN: [facility]:[id number] date: 1990 Sex: F Assigned Patient Location: US Current Patient Location: Accession/Order Number: [id number] Exam Date: 08/04/2024 13:07 Report Date: 08/04/2024 13:08 At the request of: JUNOIR JONES DO Procedure: US OB BPP w non-stress Biophysical profile. Reason for exam: Low amniotic fluid volume. COMPARISON: 07/28/2024 TECHNIQUE: Transabdominal imaging of the gravid uterus was obtained. 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 LIZETH measures 9 cm. heart rate 131 bpm. US/US OB BPP w non-stress IMPRESSION: BPP 8 out of 8. Impression dictated by: David Qureshi Jr., D.O. 08/04/2024 1:08 PM Dictation Location: [place] [address] Electronically authenticated by: [id number] Y Date: 08/04/2024 13:08 Dictated By: David Qureshi M.D. Signed By: 08/04/24 1311 DD/ 1308 TD/TT: Radio Talk Show Host: [facility] Radiology Radiologdomingo lopez MD - 08/04/2024 [place] [address] Ultrasound Report Signed Patient: SANTIAGO MEDINA MR#: [id number] : 1990 Acct:[id number] Age/Sex: 34 / F ADM Date: 08/04/24 Loc: US Attending Dr: Junior Jones D.O. Ordering Physician: Junior Jones D.O. Date of Service: 08/04/24 Procedure(s): US OB BPP w non-stress Accession Number(s): [id number] cc: Junior Jones D.O.; Physician,Non-Staff Vas[place] [id number] Patient Name: SANTIAGO MEDINA MRN: [facility]:[id number] date: 1990 Sex: F Assigned Patient Location: US Current Patient Location: Accession/Order Number: [id number] Exam Date: 08/04/2024 13:07 Report Date: 08/04/2024 13:08 At the request of: JUNIOR JONES DO Procedure: US OB BPP w non-stress Biophysical profile. Reason for exam: Low amniotic fluid volume. COMPARISON: 07/28/2024 TECHNIQUE: Transabdominal imaging of the gravid uterus was obtained. 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 LIZETH measures 9 cm. heart rate 131 bpm. US/US OB BPP w non-stress IMPRESSION: BPP 8 out of 8. Impression dictated by: David Qureshi Jr., D.O. 08/04/2024 1:08 PM Dictation Location: [place] [address] Electronically authenticated by: [id number] Y Date: 08/04/2024 13:08 Dictated By: David Qureshi M.D. Signed By: 08/04/24 1311 DD/ 1308 TD/TT: Radio Talk Show Host: [facility] Radiology Study observation (narrative) [facility] US OB BPP W NON-STRESS Ordered By: Radiologist Radiology on 08-04-2024 [facility] Work Phone: US OB BPP W NON-STRESS on 07-28-2024 [place] [address] Ultrasound Report Signed Patient: SANTIAGO MEDINA MR#: [id number] : 1990 Acct:[id number] Age/Sex: 34 / F ADM Date: 07/28/24 Loc: [facility] Attending Dr: Junior Jones D.O. Ordering Physician: Junior Jones D.O. Date of Service: 07/28/24 Procedure(s): US OB BPP w non-stress Accession Number(s): [id number] cc: Junior Jones D.O.; Physician,Non-Staff [place] [address] Patient Name: SANTIAGO MEDINA MRN: [facility]:[id number] date: 1990 Sex: F Assigned Patient Location: [facility] Current Patient Location: Accession/Order Number: [id number] Exam Date: 07/28/2024 13:53 Report Date: 07/28/2024 13:55 At the request of: JUNIOR JONES DO Procedure: US OB BPP w non-stress Biophysical profile. Reason for exam: Low amniotic fluid volume. COMPARISON: None. TECHNIQUE: Transabdominal imaging of the gravid uterus was obtained. 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 LIZETH measures 8.5 cm. heart rate 1 44 bpm. US/US OB BPP w non-stress IMPRESSION: BPP 8 out of 8. Impression dictated by: David Qureshi Jr., D.O.07/28/2024 1:55 PM Dictation Location: [place] [address] Electronically authenticated by: [id number] Y Date: 07/28/2024 13:55 Dictated By: David Qureshi M.D. Signed By: 07/28/24 1357 DD/ 1355 TD/TT: Radio Talk Show Host: [facility] Radiology, Radiologi MD jessica - 07/28/2024 [place] [address] Ultrasound Report Signed Patient: SANTIAGO MEDINA MR#: [id number] : 1990 Acct:[id number] Age/Sex: 34 / F ADM Date: 07/28/24 Loc: FBCO Attending Dr: Junior Jones D.O. Ordering Physician: Junior Jones D.O. Date of Service: 07/28/24 Procedure(s): US OB BPP w non-stress Accession Number(s): [id number] cc: Junior Jones D.O.; Physician,Non-Staff [place] [facility] [place] [id number] Patient Name: SANTIAGO MEDINA MRN: [facility]:[id number] date: 1990 Sex: F Assigned Patient Location: [facility] Current Patient Location: Accession/Order Number: [id number] Exam Date: 07/28/2024 13:53 Report Date: 07/28/2024 13:55 At the request of: JUNIOR JONES DO Procedure: US OB BPP w non-stress Biophysical profile. Reason for exam: Low amniotic fluid volume. COMPARISON: None. TECHNIQUE: Transabdominal imaging of the gravid uterus was obtained. 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 LIZETH measures 8.5 cm. heart rate 1 44 bpm. US/US OB BPP w non-stress IMPRESSION: BPP 8 out of 8. Impression dictated by: David Qureshi Jr., D.O.07/28/2024 1:55 PM Dictation Location: [place] [address] Electronically authenticated by: [id number] Y Date: 07/28/2024 13:55 Dictated By: David Qureshi M.D. Signed By: 07/28/24 1357 DD/ 54 TD/TT: Radio Talk Show Host: [facility] Radiology Study observation (narrative) [facility] US OB BPP W NON-STRESS Ordered By: Radiologist Radiology on 07-28-2024 [facility] Work Phone: US OB FOLLOW UP TRANSABDOMIN [...] II, MD, PHD at 28-Jul-2024 11:20:[address] [facility] Normal Not Available Comment on above: Order Comment: US OB SCAN FOR GROWTH Estimated Date of Delivery: 09/19/24 Gestational Age as of 07/11/2024: 30w0d Urinalysis macro (dipstick) panel (U)on 07-28-2024 Bilirubin, UA Negative Negative - 4(70) +++ mg/dL [facility] Blood, UA Negative Negative - 50 Jesus/mcL [facility] Clarity, UA Clear [facility] Color, UA Yellow [facility] Glucose, UA Negative Negative - 2000(110) ++++ mg/dL [facility] Interpretation and review of laboratory results Normal [facility] Ketones, UA Negative Negative - 160(16) ++++ mg/dL [facility] Leukocytes, UA Negative Negative - 500+++ Juanita/mcL [facility] Nitrite, UA Negative Negative - Positive [facility] pH, UA 6 5 - 9 [facility] Protein, UA Negative Negative - 2000(20) ++++ mg/dL [facility] Spec Grav, UA 1.025 1 - 1.03 [facility] Urobilinogen, UA 0.2 0.2 - 12 mg/dL [facility] US OB LIMITED 1+ FETUSESon 0 [...] PHD at 12-Jul-2024 11:25:12 PM [facility] Normal Not Available Comment on above: Order Comment: US OB PLACENTA W US OB TRANSVAGINAL Estimated Date of Delivery: 09/19/24 Gestational Age as of 06/07/2024: 25w1d Urinalysis macro (dipstick) panel (U)on 07-11-2024 Bilirubin, UA Negative Negative - 4(70) +++ mg/dL [facility] Blood, UA Positive Negative - 50 Jesus/mcL [facility] Comment on above: trace-intact Clarity, UA Clear [facility] Color, UA Yellow [facility] Glucose, UA Negative Negative - 1999(110) ++++ mg/dL [facility] Interpretation and review of laboratory results Abnormal [facility] Ketones, UA Negative Negative - 160(16) ++++ mg/dL [facility] Leukocytes, UA Negative Negative - 500+++ Juanita/mcL [facility] Nitrite, UA Negative Negative - Positive [facility] pH, UA 6.5 5 - 9 [facility] Protein, UA Negative Negative - 1999(20) ++++ mg/dL [facility] Spec Grav, UA 1.02 1 - 1.03 [facility] Urobilinogen, UA 0.2 0.2 - 12 mg/dL [facility] ALL CBC WITH AUTO DIFFon BASOPHILS ABSOLUTE AUTO 0 [facility] Basophils/100 WBC (Bld) 0.2 % 0.2 - 2.0 % [facility] Eosinophils/100 WBC (Bld) 0.8 % Low 0.9 - 7.0 % [facility] Erythrocyte distribution width (RBC) [Ratio] 12.3 % 11.0 - 15.0 % [facility] Hematocrit (Bld) [Volume fraction] 37.1 % 36.0 - 48.0 % [facility] Hemoglobin (Bld) [Mass/Vol] 12.7 g/dL 12.0 - 16.0 g/dL [facility] IMMATURE GRANULOCYTES ABS AUTO 0.03 [facility] Immature granulocytes/100 WBC (Bld) 0.4 % 0.0 - 0.5 % [facility] Interpretation and review of laboratory results Abnormal [facility] LYMPHOCYTES ABSOLUTE AUTO 1.8 [facility] Lymphocytes/100 WBC (Bld) 22.3 % 20.5 - 60.0 % [facility] MCH (RBC) [Entitic mass] 29.3 pg 26.7 - 34.0 pg [facility] MCHC (RBC) [Mass/Vol] 34.2 g/dL 29.9 - 35.2 g/dL [facility] MCV (RBC) [Entitic vol] 85.5 fL 81.0 - 99.0 fL [facility] MONOCYTES ABSOLUTE AUTO 0.6 [facility] Monocytes/100 WBC (Bld) 7.4 % 1.7 - 12.0 % [facility] NEUTROPHILS ABSOLUTE AUTO 5.7 [facility] Neutrophils/100 WBC (Bld) 68.9 % 43.0 - 75.0 % [facility] Platelet mean volume (Bld) [Entitic vol] 10.5 fL 9.5 - 13.5 fL [facility] EO # 0.1 [facility] PLT 251 [facility] RBC 4.34 [facility] WBC 8.3 [facility] No Panel InformationOrdered By: Radiologist Radiology on 06-06-2024 [facility] Work Phone: No Panel Informationon 06-06 Radiology Study observation (narrative) [facility] [place] [address] Ultrasound Report Signed Patient: SANTIAGO MEDINA MR#: [id number] : 1990 Acct:[id number] Age/Sex: 34 / F ADM Date: 06/06/24 Loc: US Attending Dr: Junior Jones D.O. Ordering Physician: Junior Jones D.O. Date of Service: 06/06/24 Procedure(s): US OB cervical length Accession Number(s): [id number] cc: Junior Jones D.O.; Physician,Non-Staff M.DPatricia [place] [id number] Patient Name: SANTIAGO MEDINA MRN: [id number] date: 1990 Sex: F Assigned Patient Location: US Current Patient Location: US Accession/Order Number: [id number] Exam Date: 06/06/2024 22:13 Report Date: 06/06/2024 [...] Elisa Boothe M.D.06/06/2024 10:21 PM Dictation Location: [place] [address] Electronically authenticated by: [id number] Y Date: 06/06/2024 22:21 Dictated By: Elisa Boothe M.D. Signed By: 06/06/242223 DD/ 20 TD/TT: Radio Talk Show Host: [facility] Radiology, Radiologi MD jessica - 06/06/2024 [place] [address] Ultrasound Report Signed Patient: SANTIAGO MEDINA MR#: [id number] : 1990 Acct:[id number] Age/Sex: 34 / F ADM Date: 06/06/24 Loc: US Attending Dr: Junior Jones D.O. Ordering Physician: Junior Jones D.O. Date of Service: 06/06/24 Procedure(s): US OB cervical length Accession Number(s): [id number] cc: Junior Jones D.O.; Physician,Non-Staff Vasquez The [address] [address] Patient Name: SANTIAGO MEDINA MRN: [facility]:[id number] date: 1990 Sex: F Assigned Patient Location: US Current Patient Location: US Accession/Order Number: [id number] Exam Date: 06/06/2024 22:13 Report Date: 06/06/2024 [...] Elisa Boothe M.D.06/06/2024 10:21 PM Dictation Location: [place] [address] Electronically authenticated by: [id number] Y Date: 06/06/2024 22:21 Dictated By: Elisa Boothe M.D. Signed By: 06/06/242223 DD/ 20 TD/TT: Radio Talk Show Host: [facility] US OB INCOMPLETE ANATOMYon 0 06-06-2024 [place] [address] Ultrasound Report Signed Patient: SANTIAGO MEDINA MR#: [id number] : 1990 Acct:[id number] Age/Sex: 34 / F ADM Date: 06/06/24 Loc: US Attending Dr: Junior Jones D.O. Ordering Physician: Junior Jones D.O. Date of Service: 06/06/24 Procedure(s): US OB incomplete anatomy Accession Number(s): [id number] cc: Junior Jones D.O.; Physician,Non-Staff Vasquez The [address] [address] Patient Name: SANTIAGO MEDINA MRN: [facility]:[id number] date: 1990 Sex: F Assigned Patient Location: US Current Patient Location: US Accession/Order Number: [id number] Exam Date: 06/06/2024 22:13 Report Date: 06/06/2024 [...] Elisa Boothe M.D.06/06/2024 10:21 PM Dictation Location: [place] [address] Electronically authenticated by: [id number] Y Date: 06/06/2024 22:21 Dictated By: Elisa Boothe M.D. Signed By: 06/06/242223 DD/ 20 TD/TT: Radio Talk Show Host: [facility] Radiology, Radiologi MD jessica - 06/06/2024 [place] [address] Ultrasound Report Signed Patient: SANTIAGO MEDINA MR#: [id number] : 1990 Acct:[id number] Age/Sex: 34 / F ADM Date: 06/06/24 Loc: US Attending Dr: Junior Jones D.O. Ordering Physician: Junior Jones D.O. Date of Service: 06/06/24 Procedure(s): US OB incomplete anatomy Accession Number(s): [id number] cc: Junior Jones D.O.; Physician,Non-Staff Vasquez [address] [address] Patient Name: SANTIAGO MEDINA MRN: [id number] date: 1990 Sex: F Assigned Patient Location: US Current Patient Location: US Accession/Order Number: [id number] Exam Date: 06/06/2024 22:13 Report Date: 06/06/2024 [...] Elisa Boothe M.D.06/06/2024 10:21 PM Dictation Location: [place] [address] Electronically authenticated by: [id number] Y Date: 06/06/2024 22:21 Dictated By: Elisa Boothe M.D. Signed By: 06/06/242223 DD/ 20 TD/TT: Radio Talk Show Host: [facility] Urinalysis macro (dipstick) panel (U)on 06-06-2024 Bilirubin, UA Negative Negative - 4(70) +++ mg/dL [facility] Blood, UA Negative Negative - 50 Jesus/mcL [facility] Clarity, UA Clear [facility] Color, UA Yellow [facility] Glucose, UA Negative Negative - 2000(110) ++++ mg/dL [facility] Interpretation and review of laboratory results Abnormal [facility] Ketones, UA Negative Negative - 160(16) ++++ mg/dL [facility] Leukocytes, UA Trace Negative - 500+++ Juanita/mcL [facility] Nitrite, UA Negative Negative - Positive [facility] pH, UA 6 5 - 9 [facility] Protein, UA Negative Negative - 2000(20) ++++ mg/dL [facility] Spec Grav, UA 1.025 1 - 1.03 [facility] Urobilinogen, UA 0.2 0.2 - 12 mg/dL [...] report is generated using voice recognition reporting ([employer]). On occasion [employer] erroneously drops words from the report or replaces the spoken word with similar sounding words. Please call with any questions/concerns regarding this report.* Dictated and transcribed 05/10/24/dproger This report has been electronically signed and approved by the interpreting radiologist. Normal Not Available Comment on above: Order Comment: US OB ANATOMY SINGLE W US OB CERVICAL LENGTH Estimated Date of Delivery: 09/19/24 Gestational Age as of 04/12/2024: 17w1d IGP,APTIMA HPV,AGE GDLNon AGE GDLN ACOG TESTING Note . [facility] Comment on above: TESTS RESULT FLAG UN ITS REF RANGE LAB Clinician Provided Cytology Information Source.............Cervix No. of containers..01 ThinPrep Vial Age Algo ACOG Maria... 30-65 01 FLAG LEGEND: L-Low Normal,H-High Normal,LL-Alert Low,HH-Alert High <-Panic Low,>-Panic High,A-Abnormal,AA-Critical Abnormal Performed at: 01 =G [address] [address] Haydee Kraus MD, HPV APTIMA Negative Negative [facility] Comment on above: This nucleic acid am plification test detects fourteen high- risk HPV types (16,18,31,33,35,39,45,51,52,56,58,59,66,68) without differentiation. Performed at: =G - [facility] [address], [place] [id number] [employer] Pilot: Haydee Kraus MD, Phone: [phone] Performed at: WB - [facility] [address] [id number] [employer] Pilot: Haydee Kraus MD, Phone: [phone] IGP, APTIMA HPV, RFX 16/18,45 Note . [facility] Comment on above: TESTS RESULT FLAG UN ITS REF RANGE LAB DIAGNOSIS: 02 NEGATIVE FOR INTRAEPITHELIAL LESION OR MALIGNANCY. 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 Specimen adequacy: 02 Satisfactory for evaluation. No endocervical component is identified. Performed by: Jose Cervantes, Environmental Educator ([facility]) QC reviewed by: Jose Colón, Environmental Educator . 02 Note: Note 02 The Pap [...] <-Panic Low,>-Panic High,A-Abnormal,AA-Critical Abnormal Performed at: [address] [address] Haydee Kraus MD, SPATULA-ALONE CERVIX [facility] RECURRENT VAGINITIS (HTRX)on 04-13-2024 ATOPOBIUM VAGINAE 16.023 Abnormal [facility] Healthcare ATOPOBIUM VAGINAE Detected Abnormal [facility] Healthcare BVAB 2,3 (BACTERIAL VAGINOSIS ASSOCIATED BACTERIA 2, 3); MOBILUNCUS SPP 9.934 Abnormal [facility] Healthcare BVAB 2,3 (BACTERIAL VAGINOSIS ASSOCIATED BACTERIA 2, 3); MOBILUNCUS SPP Detected Abnormal [facility] Healthcare RADHA ALBICANS, PARAPSILOSIS, TROPICALIS 0 [facility] Healthcare RADHA ALBICANS, PARAPSILOSIS, TROPICALIS Not detected [facility] RADHA GLABRATA 0 [facility] RADHA GLABRATA Not detected [facility] RADHA KRUSEI 0 [facility] RADHA KRUSEI Not detected [facility] CHLAMYDIA TRACHOMATIS 0 [facility] CHLAMYDIA TRACHOMATIS Not detected [facility] ERMB, C; MEFA 19.423 Abnormal [facility] Healthcare ERMB, C; MEFA Detected Abnormal [facility] Healthcare GARDNERELLA VAGINALIS 19.86 Abnormal [facility] Healthcare GARDNERELLA VAGINALIS Detected Abnormal [facility] Healthcare Interpretation and review of laboratory results Abnormal [facility] Healthcare MEGASPHAERA (TYPES 1, 2) 21.115 Abnormal [facility] Healthcare MEGASPHAERA (TYPES 1, 2) Detected Abnormal [facility] MYCOPLASMA GENITALIUM 0 [facility] MYCOPLASMA GENITALIUM Not detected [facility] NEISSERIA GONORRHOEAE 0 [facility] NEISSERIA GONORRHOEAE Not detected N S [facility] TET B, TET M 17.31 Abnormal [facility] TET B, TET M Detected Abnormal [facility] Healthcare TRICHOMONAS VAGINALIS 0 [facility] TRICHOMONAS VAGINALIS Not detected [facility] Urinalysis macro (dipstick) panel (U)on 04-12-2024 Bilirubin, UA Negative Negative - 4(70) +++ mg/dL [facility] Blood, UA Negative Negative - 50 Jesus/mcL [facility] Clarity, UA Clear [facility] Healthcare Color, UA Yellow [facility] Glucose, UA Negative Negative - 2000(110) ++++ mg/dL [facility] Interpretation and review of laboratory results Abnormal [facility] Ketones, UA Negative Negative - 160(16) ++++ mg/dL [facility] Leukocytes, UA Trace Negative - 500+++ Juanita/mcL [facility] Nitrite, UA Negative Negative - Positive [facility] pH, UA 5.5 5 - 9 [facility] Protein, UA Trace Negative - 1999(20) ++++ mg/dL [facility] Spec Grav, UA 1.03 1 - 1.03 [facility] Urobilinogen, UA 0.2 0.2 - 12 mg/dL [facility] Urinalysis macro (dipstick) panel (U)on 03-09-2024 Bilirubin, UA Negative Negative - 4(70) +++ mg/dL [facility] Blood, UA Negative Negative - 50 Jesus/mcL [facility] Clarity, UA Clear [facility] Color, UA Yellow [facility] Glucose, UA Negative Negative - 1999(110) ++++ mg/dL [facility] Interpretation and review of laboratory results Abnormal [facility] Ketones, UA Negative Negative - 160(16) ++++ mg/dL [facility] Leukocytes, UA Negative Negative - 500+++ Juanita/mcL [facility] Nitrite, UA Positive Negative - Positive [facility] pH, UA 6 5 - 9 [facility] Protein, UA Negative Negative - 1999(20) ++++ mg/dL [facility] Spec Grav, UA 1.025 1 - 1.03 [facility] Urobilinogen, UA 1.0 0.2 - 12 mg/dL [facility] ALL RUBELLA IGG ABon 024 RUBELLA ANTIBODIES, IGG 1.01 Immune >0.99 index [facility] Comment on above: Non-immune <0.90 Equivocal 0.90 - 0.99 Immune >0.99 Performed at: - [facility] [address] [id number] [employer] Pilot: Celestino Goff PhD, Phone: [phone] HBSAG SCREENon 02-23-2024 HBSAG SCREEN Negative Negative [facility] Comment on above: Performed at: CB - [facility] [address] [id number] [employer] Pilot: Celestino Goff PhD, Phone: [phone] HCV ANTIBODY RFX TO QUANT PC Kenan 02-23-2024 HCV AB Non-Reactive Non Reactive [facility] INTERPRETATION: Comment . [facility] Comment on above: Not infected with HC V unless early or acute infection is suspected (which may be delayed in an immunocompromised individual), or other evidence exists to indicate HCV infection. HIV AB/P24 AG WITH REFLEXon 02-23-2024 HIV AB/P24 AG SCREEN Non-Reactive Non Reactive [facility] Comment on above: HIV-1/HIV-2 antibodi es and HIV-1 p24 antigen were NOT detected. There is no laboratory evidence of HIV infection. HIV Negative Performed at: [address] [id number] [employer] Pilot: Celestino Goff PhD, Phone: [phone] No Panel Informationon 02-22 [facility] RAPID PLASMA REAGIN, QUANTon 02-23-2024 RAPID PLASMA REAGIN, QUANT Non-Reactive NonRea<1:1 titer [facility] Comment on above: Please Note: This te st does not meet current guidelines for screening and diagnosis of syphilis. This test is intended for following treatment response in patients being treated for syphilis infection. To screen for syphilis infection, a reflex cascade that includes both RPR and a treponema-specific assay should be utilized, such as Treponema pallidum (Syphilis) Screening [place] (894446) or Rapid Plasma Reagin (RPR) Test With Reflex to Quantitative RPR and Confirmatory Treponema pallidum Antibodies (489868). Performed at: [address] [id number] [employer] Pilot: Celestino Goff PhD, Phone: [phone] ALL CBC WITH AUTO DIFFon BASOPHILS ABSOLUTE AUTO 0 [facility] Basophils/100 WBC (Bld) 0.3 % 0.2 - 2.0 % [facility] Eosinophils/100 WBC (Bld) 0.5 % Low 0.9 - 7.0 % [facility] Erythrocyte distribution width (RBC) [Ratio] 11.9 % 11.0 - 15.0 % [facility] Hematocrit (Bld) [Volume fraction] 41.8 % 36.0 - 48.0 % [facility] Hemoglobin (Bld) [Mass/Vol] 14.5 g/dL 12.0 - 16.0 g/dL [facility] IMMATURE GRANULOCYTES ABS AUTO 0.03 [facility] Immature granulocytes/100 WBC (Bld) 0.3 % 0.0 - 0.5 % [facility] Interpretation and review of laboratory results Abnormal [facility] LYMPHOCYTES ABSOLUTE AUTO 1.8 [facility] Lymphocytes/100 WBC (Bld) 18.8 % Low 20.5 - 60.0 % [facility] MCH (RBC) [Entitic mass] 29.8 pg 26.7 - 34.0 pg [facility] MCHC (RBC) [Mass/Vol] 34.7 g/dL 29.9 - 35.2 g/dL [facility] MCV (RBC) [Entitic vol] 86 fL 81.0 - 99.0 fL [facility] MONOCYTES ABSOLUTE AUTO 0.5 [facility] Monocytes/100 WBC (Bld) 5.7 % 1.7 - 12.0 % [facility] NEUTROPHILS ABSOLUTE AUTO 6.9 High [facility] Neutrophils/100 WBC (Bld) 74.4 % 43.0 - 75.0 % [facility] Platelet mean volume (Bld) [Entitic vol] 10.9 fL 9.5 - 13.5 fL [facility] EO # 0.1 [facility] PLT 255 [facility] RBC 4.86 [facility] WBC 9.3 [facility] ALL TYPE AND SCREENon 2023 ABO and Rh group Nom (Bld) Blood group O Rh(D) negative [facility] BOX TESTon 02-22-2024 BOX TEST SENT OUT [facility] BOX1 [facility] BOX2 02/22/24 [facility] MLR HEMOGLOBIN A1Con 024 Glucose [Mass/Vol] 94 mg/dL [facility] HbA1c (Bld) [Mass fraction] 4.9 % 4.5 - 6.2 % [facility] Comment on above: ADA RECOMMENDED LIMI T 4.0 - 6.0 ADA THERAPEUTIC TARGET < 7.0 ACTION SUGGESTED > 7.0 No [facility]URINE )on 02-22-2024 AMPHETAMINE SCREEN URINE Negative NEGATIVE [facility] BARBITURATES SCREEN URINE Negative NEGATIVE [facility] BENZODIAZEPINES SCREEN URINE Negative NEGATIVE [facility] BUPRENORPHINE SCREEN URINE Negative NEGATIVE [facility] Comment on above: DRUG CLASS TEST SYST [...] 300 ng/mL CANNABINOID SCREEN URINE Negative NEGATIVE [facility] COCAINE SCREEN URINE Negative NEGATIVE [facility] METHADONE SCREEN URINE Negative NEGATIVE [facility] METHAMPHETAMINES SCREEN URINE Negative NEGATIVE [facility] OPIATE SCREEN URINE Negative NEGATIVE [facility] OXYCODONE SCREEN URINE Negative NEGATIVE [facility] PHENCYCLIDINE SCREEN URINE Negative NEGATIVE [facility] TRICYCLIC ANTIDEPRESSANT URINE Negative NEGATIVE [facility] HCG ( test) Ql (U)o n 02-18-2024 Interpretation and review of laboratory results Abnormal [facility] Preg Test, Ur Positive Negative [facility] Urinalysis macro (dipstick) panel (U)on 02-18-2024 Bilirubin, UA Negative Negative - 4(70) +++ mg/dL [facility] Blood, UA Negative Negative - 50 Jesus/mcL [facility] Clarity, UA Clear [facility] Color, UA Yellow [facility] Glucose, UA Negative Negative - 1999(110) ++++ mg/dL [facility] Interpretation and review of laboratory results Normal [facility] Ketones, UA Negative Negative - 160(16) ++++ mg/dL [facility] Leukocytes, UA Negative Negative - 500+++ Juanita/mcL [facility] Nitrite, UA Negative Negative - Positive [facility] pH, UA 5.5 5 - 9 [facility] Protein, UA Negative Negative - 1999(20) ++++ mg/dL [facility] Spec Grav, UA 1.02 1 - 1.03 [facility] Urobilinogen, UA 1.0 0.2 - 12 mg/dL [facility] COVID/FLU/RSV RT-PCRon 02-08 SARS-CoV-2 (COVID-19) RNA IRA+probe Ql (Unsp spec) Negative [facility] [employer] Other COVID/FLU/RSV RT-PCR Negative [facility] [employer] Other CBC W Auto Differential pane l (Bld)on 02-20-2022 Basophils (Bld) [#/Vol] 0.03 10*3/uL Normal <0.11 [facility] [place] Comment on above: Order Comment: Speci men Type: BLOOD SPECIMEN Ordering Facility: [facility] Address: [address] [place] [address] Performed By: #### 5 7021-8 #### [facility] CLIA [id number] [address] [place] [address] [place] Basophils/100 WBC (Bld) 0.3 % Normal [facility] [place] Comment on above: Order Comment: Speci men Type: BLOOD SPECIMEN Ordering Facility: [facility] Address: [address] [place] [address] Performed By: #### 5 7021-8 #### [facility] CLIA [id number] [address] [place] [address] [place] Differential cell count method Nom (Bld) Auto Normal [facility] [place] Comment on above: Order Comment: Speci men Type: BLOOD SPECIMEN Ordering Facility: [facility] Address: [address] [place] [address] Performed By: #### 5 7021-8 #### [facility] CLIA [id number] [address] [place] [address] [place] Eosinophils (Bld) [#/Vol] 10*3/uL Normal <0.46 [facility] [place] Comment on above: Order Comment: Speci men Type: BLOOD SPECIMEN Ordering Facility: [facility] Address: [address] [place] [address] Performed By: #### 5 7021-8 #### [facility] CLIA [id number] [address] [place] [address] [place] Eosinophils/100 WBC (Bld) 0.2 % Normal [facility] [place] Comment on above: Order Comment: Speci men Type: BLOOD SPECIMEN Ordering Facility: [facility] Address: [address] [address] Performed By: #### 5 7021-8 #### [facility] CLIA [id number] [address] [place] [address] [place] Erythrocyte distribution width (RBC) [Ratio] 12.9 % Normal 11.5-15.0 [facility] [place] Comment on above: Order Comment: Speci men Type: BLOOD SPECIMEN Ordering Facility: [facility] Address: [address] [address] Performed By: #### 5 7021-8 #### [facility] CLIA [id number] [address] [place] [address] [place] Hematocrit (Bld) [Volume fraction] 43.2 % Normal 36.0-46.0 [facility] [place] Comment on above: Order Comment: Speci men Type: BLOOD SPECIMEN Ordering Facility: [facility] Address: [address] [address] Performed By: #### 5 7021-8 #### [facility] CLIA [id number] [address] [place] [address] [place] Hemoglobin (Bld) [Mass/Vol] 14.8 g/dL Normal 11.5-15.5 [facility] [place] Comment on above: Order Comment: Speci men Type: BLOOD SPECIMEN Ordering Facility: [facility] Address: [address] [address] Performed By: #### 5 7021-8 #### [facility] CLIA [id number] [address] [place] [address] [place] Immature granulocytes (Bld) [#/Vol] 0.04 10*3/uL Normal <0.10 [facility] [place] Comment on above: Order Comment: Speci men Type: BLOOD SPECIMEN Ordering Facility: [facility] Address: [address] [place] [address] Performed By: #### 5 7021-8 #### [facility] CLIA [id number] [address] [place] [address] [place] Immature granulocytes/100 WBC (Bld) 0.4 % Normal [facility] [place] Comment on above: Order Comment: Speci men Type: BLOOD SPECIMEN Ordering Facility: [facility] Address: [address] [address] Performed By: #### 5 7021-8 #### [facility] CLIA [id number] [address] [place] [address] [place] Lymphocytes (Bld) [#/Vol] 0.55 10*3/uL Low 1.00-4.00 [facility] [place] Comment on above: Order Comment: Speci men Type: BLOOD SPECIMEN Ordering Facility: [facility] Address: [address] [address] Performed By: #### 5 7021-8 #### [facility] CLIA [id number] [address] [place] [address] [place] Lymphocytes/100 WBC (Bld) 5.3 % Normal [facility] [place] Comment on above: Order Comment: Speci men Type: BLOOD SPECIMEN Ordering Facility: [facility] Address: [address] [address] Performed By: #### 5 7021-8 #### [facility] CLIA [id number] [address] [place] [address] [place] MCH (RBC) [Entitic mass] 29.1 pg Normal 26.0-34.0 [facility] [place] Comment on above: Order Comment: Speci men Type: BLOOD SPECIMEN Ordering Facility: [facility] Address: [address] [address] Performed By: #### 5 7021-8 #### [facility] CLIA [id number] [address] [place] [address] [place] MCHC (RBC) [Mass/Vol] 34.3 g/dL Normal 30.5-36.0 [facility] Comment on above: Order Comment: Speci men Type: BLOOD SPECIMEN Ordering Facility: [facility] Address: [address] [place] [address] Performed By: #### 5 7021-8 #### [facility] CLIA [id number] [address] [place] [address] [place] MCV (RBC) [Entitic vol] 84.9 fL Normal 80.0-100.0 [facility] [place] Comment on above: Order Comment: Speci men Type: BLOOD SPECIMEN Ordering Facility: [facility] Address: [address] [place] [address] Performed By: #### 5 7021-8 #### [facility] CLIA [id number] [address] [place] [address] [place] Monocytes (Bld) [#/Vol] 0.19 10*3/uL Normal <0.87 [facility] [place] Comment on above: Order Comment: Speci men Type: BLOOD SPECIMEN Ordering Facility: [facility] Address: [address] [place] [address] Performed By: #### 5 7021-8 #### [facility] CLIA [id number] [address] [place] [address] [place] Monocytes/100 WBC (Bld) 1.8 % Normal [facility] [place] Comment on above: Order Comment: Speci men Type: BLOOD SPECIMEN Ordering Facility: [facility] Address: [address] [place] [address] Performed By: #### 5 7021-8 #### [facility] CLIA [id number] [address] [place] [address] [place] Neutrophils (Bld) [#/Vol] 9.55 10*3/uL High 1.45-7.50 [facility] [place] Comment on above: Order Comment: Speci men Type: BLOOD SPECIMEN Ordering Facility: [facility] Address: [address] [address] Performed By: #### 5 7021-8 #### [facility] CLIA [id number] [address] [place] [address] [place] Neutrophils/100 WBC (Bld) 92.0 % Normal [facility] [place] Comment on above: Order Comment: Speci men Type: BLOOD SPECIMEN Ordering Facility: [facility] Address: [address] [place] [address] Performed By: #### 5 7021-8 #### [facility] CLIA [id number] [place] [address] [place] Nucleated RBC (Bld) [#/Vol] 10*3/uL Normal <0.01 [facility] [place] Comment on above: Order Comment: Speci men Type: BLOOD SPECIMEN Ordering Facility: [facility] Address: [address] [address] Performed By: #### 5 7021-8 #### [facility] CLIA [id number] [place] [address] [place] Nucleated RBC/100 WBC (Bld) [Ratio] 0.0 /100 WBC Normal [facility] [place] Comment on above: Order Comment: Speci men Type: BLOOD SPECIMEN Ordering Facility: [facility] Address: [address] [place] [address] Performed By: #### 5 7021-8 #### [facility] CLIA [id number] [address] [place] [address] [place] Platelet mean volume (Bld) [Entitic vol] 10.9 fL Normal 9.0-12.7 [facility] [place] Comment on above: Order Comment: Speci men Type: BLOOD SPECIMEN Ordering Facility: [facility] Address: [address] [place] [address] Performed By: #### 5 7021-8 #### [facility] CLIA [id number] [address] [place] [address] [place] Platelets (Bld) [#/Vol] 213 10*3/uL Normal 150-400 [facility] [place] Comment on above: Order Comment: Speci men Type: BLOOD SPECIMEN Ordering Facility: [facility] Address: [address] [address] Performed By: #### 5 7021-8 #### [facility] CLIA [id number] [address] [place] [address] [place] RBC (Bld) [#/Vol] 5.09 10*6/uL Normal 3.90-5.20 [facility] Comment on above: Order Comment: Speci men Type: BLOOD SPECIMEN Ordering Facility: [facility] Address: [address] [place], [place] [id number] Performed By: #### 5 7021-8 #### [facility] CLIA [id number] [place] [address] [place] WBC (Bld) [#/Vol] 10.38 10*3/uL Normal 3.70-11.00 [facility] Comment on above: Order Comment: Speci men Type: BLOOD SPECIMEN Ordering Facility: [facility] Address: [address] [address] Performed By: #### 5 7021-8 #### [facility] CLIA [id number] [address] [place] [address] [place] Comprehensive metabolic 2000 panelon 02-20-2022 Albumin [Mass/Vol] 4.6 g/dL Normal 3.9-4.9 [facility] Comment on above: Order Comment: Speci men Type: BLOOD SPECIMEN Ordering Facility: [facility] Address: [address] [address] Performed By: #### 2 4323-8 #### [facility] CLIA [id number] [address] [place] [address] [place] ALP [Catalytic activity/Vol] 78 U/L Normal 34-123 [facility] [place] Comment on above: Order Comment: Speci men Type: BLOOD SPECIMEN Ordering Facility: [facility] Address: [address] [address] Performed By: #### 2 4323-8 #### [facility] CLIA [id number] [address] [place] [address] [place] ALT [Catalytic activity/Vol] 27 U/L Normal 7-38 [facility] [place] Comment on above: Order Comment: Speci men Type: BLOOD SPECIMEN Ordering Facility: [facility] Address: [address] [place] [address] Performed By: #### 2 4323-8 #### [facility] CLIA [id number] [address] [place] [address] [place] Anion gap [Moles/Vol] 12 mmol/L Normal 9-18 [facility] Comment on above: Order Comment: Speci men Type: BLOOD SPECIMEN Ordering Facility: [facility] Address: [address] [place] [address] Performed By: #### 2 4323-8 #### [facility] CLIA [id number] [address] [place] [address] [place] AST [Catalytic activity/Vol] 16 U/L Normal 13-35 [facility] [place] Comment on above: Order Comment: Speci men Type: BLOOD SPECIMEN Ordering Facility: [facility] Address: [address] [place] [address] Performed By: #### 2 4323-8 #### [facility] CLIA [id number] [address] [place] [address] [place] Bilirubin [Mass/Vol] 0.9 mg/dL Normal 0.2-1.3 [facility] Comment on above: Order Comment: Speci men Type: BLOOD SPECIMEN Ordering Facility: [facility] Address: [address] [place] [address] Performed By: #### 2 4323-8 #### [facility] CLIA [id number] [address] [place] [address] [place] Calcium [Mass/Vol] 9.6 mg/dL Normal 8.5-10.2 [facility] Comment on above: Order Comment: Speci men Type: BLOOD SPECIMEN Ordering Facility: [facility] Address: [address] [place]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 21 weeks gestation of Start: 05-09-2024 End: 05-09-2024 ambulatory JUNIOR KAREN Not Available Start: 05-09-2024 End: 05-09-2024 ambulatory JUNIOR KAREN Not Available Start: 04-12-2024 End: 04-12-2024 Bamboo flowsheet Desiree PAINTER Work Phone: [facility] Start: 04-12-2024 End: 04-17-2024 Bamboo flowsheet Desiree PAINTER Work Phone: [facility] Start: 04-12-2024 End: 04-17-2024 Clinisync Result Encounter Desiree PAINTER Work Phone: [facility] Unsolicited Start: 04-12-2024 End: 04-13-2024 External Result Encounter Desiree PAINTER Work Phone: [facility] Unsolicited Start: 04-12-2024 End: 04-12-2024 Patient encounter procedure Desiree PAINTER Work Phone: [facility] Healthcare Start: 04-12-2024 End: 04-12-2024 Periodic preventive med est patient 18-39 yrs Desiree PAINTER Work Phone: [facility] Comment on above: Well [...] 02-08-2023 End: 02-08-2023 ambulatory Sangita Penn Other [employer] Other Start: 02-08-2023 Office outpatient ne w 30 minutes Sangita Penn [facility] Start: 02-20-2022 End: 02-20-2022 Emergency department patient visit MARY OQUENDO Facility:[facility] Start: 10-21-2016 End: 10-21-2016 Emergency department patient visit Sharon Yates Piyush Facility[place] Procedures Date Procedure Procedure Detail Performing Clinician Start: 12-07-2024 Pelvic echography PHYSI KATHIE NO [facility] Start: 12-07-2024 Transvaginal echography PHYSICIAN NO [facility] Start: 11-23-2024 ALL CBC WITH AUTO DIFF Junior Karen DO Work Phone: Start: 09-02-2024 ALL CBC WITH AUTO DIFF Junior Karen DO Work Phone: Start: 08-30-2024 [facility] UA (CLEAN/CATCH) 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 Junior Karen DO Work Phone: Start: 08-30-2024 Urnls dip stick/tabl et rgnt non-auto w/o micrscp Junior Karen DO Work Phone: Start: 08-22-2024 Urnls dip stick/tabl et rgnt non-auto w/o micrscp Marlin Moreno HARPOONER Work Phone: Start: 08-18-2024 US OB BPP [...] [facility] Start: 12-29-2024 End: 12-29-2024 Patient encounter procedure 12/29/2024 9:30 AM EDT Office Visit DAFNE PISANO [address] [facility] [place] [address] Marlin Moreno, HARPOONER [address] [place] [address] DAFNE PISANO Start: 12-12-2024 End: 12-12-2024 Professional / ancillary services management 12/12/2024 11:00 AM EDT Ancillary Procedure DAFNE PISANO [address] [place] [phone] [place] OB[facility] Start: 12-07-2024 Urine culture [facility] Start: 12-07-2024 Bacteria identified in Urine by Culture Urine Culture [facility] Start: 12-05-2024 Influenza vaccination [facility] Start: 11-23-2024 End: 11-23-2025 DHEA DHEA Lab Routine Abnormal uterine bleeding (AUB) PCOS (polycystic ovarian syndrome) Expected: 11/23/2024 (Approximate), Expires: 11/23/2025 [facility] Comment on above: Expected: 11/23/2024 (Approximate), Expires: 11/23/2025 Start: 11-23-2024 End: 11-23-2025 US Pelvis US Pelvis w/ TV Imaging Routine Abnormal uterine bleeding (AUB) PCOS (polycystic ovarian syndrome) Expected: 11/23/2024, Expires: 11/23/2025 [facility] Comment on above: Expected: 11/23/2024 , Expires: 11/23/2025 Start: 11-23-2024 End: 11-23-2024 Patient encounter procedure 11/23/2024 11:20 AM EDT Office Visit DAFNE PISANO [address] [place] [address] Junior Jones, DO [address] [place] [address] Arrived DAFNE [place] OBJULI[facility] Comment on above: Arrived Start: 11-17-2024 End: 11-17-2024 Patient encounter procedure 11/17/2024 8:40 AM EDT Consult [facility] [address] [place] [phone] Junior Jones, DO [address] [place] [address] [facility] Start: 08-30-2024 End: 08-30-2024 Patient encounter procedure 08/30/2024 1:00 PM EDT Routine [facility] [address] [place] [phone] Junior Jones DO [address] [place] [address] [facility] Start: 08-22-2024 End: 08-22-2025 CULTURE, GROUP B STREP WITH SUSCEPTIBLITY CULTURE, GROUP B STREP WITH SUSCEPTIBLITY Lab Routine Third trimester Expected: 08/22/2024, Expires: 08/22/2025 [facility] Work Phone: Comment on above: Expected: 08/22/2024 , Expires: 08/22/2025 Start: 08-22-2024 End: 08-22-2024 Patient encounter procedure 08/22/2024 9:30 AM EDT Routine [facility] [address] [facility] [place] [phone] Marlin Moreno, HARPOONER [address] [facility] [place] [phone] [facility] Start: 08-11-2024 End: 08-11-2024 [...] amniotic fluid volume Expected: 07/28/2024, Expires: 10/27/2024 [facility] Healthcare Comment on above: Expected: 07/28/2024 , Expires: 10/27/2024 Start: 07-28-2024 End: 07-28-2024 Patient encounter procedure 07/28/2024 9:40 AM EDT Routine [facility] [address] [facility] [place] [address] Junior Jones, DO [address] [place] [address] [facility] Start: 07-28-2024 End: 07-28-2024 Professional / ancillary services management 07/28/2024 9:00 AM EDT Ancillary Procedure [facility] [address] [facility] [place] [address] [facility] Start: 07-25-2024 End: 11-10-2024 US for US OB follow up transabdominal approach Imaging Routine size inconsistent with dates Expected: 07/25/2024, Expires: 11/10/2024 [facility] Work Phone: Comment on above: Expected: 07/25/2024 , Expires: 11/10/2024 Start: 06-27-2024 End: 06-27-2024 Patient encounter procedure 06/27/2024 11:10 AM EDT Routine [facility] [address] [facility] [place] [phone] Junior Jones, DO [address] [place] [address] [facility] Start: 06-06-2024 End: 06-06-2025 CBC panel - Blood by Automated count CBC Lab Routine Diabetes mellitus screening Expected: 06/06/2024 (Approximate), Expires: 06/06/2025 [facility] Work Phone: Comment on [...] PM EST Routine [facility] [address] [facility] [place] [phone] Junior Jones, [address] [place] [address] [facility] Start: 05-09-2024 End: 05-09-2024 Professional / ancillary services management 05/09/2024 1:00 PM EST Ancillary Procedure [facility] [address] [facility] [place] [phone] [facility] Start: 04-12-2024 End: 05-13-2024 [...] gestational age Expected: 02/18/2024 (Approximate), Expires: 02/17/2025 [facility] Comment on above: Expected: 02/18/2024 (Approximate), Expires: 02/17/2025 Start: 02-18-2024 End: 02-17-2025 Blood type and Indirect antibody screen panel - Blood Type and screen Lab Routine Missed menses , unspecified gestational age Expected: 02/18/2024 (Approximate), Expires: 02/17/2025 [facility] Work Phone: Comment on above: Expected: 02/18/2024 (Approximate), Expires: 02/17/2025 Start: 02-18-2024 End: 02-17-2025 Drugs of abuse panel - Urine by Screen method Rapid drug screen, urine Lab Routine , unspecified gestational age Encounter for supervision of normal first in first trimester Expected: 02/18/2024 (Approximate), Expires: 02/17/2025 [facility] Comment on above: Expected: 02/18/2024 (Approximate), Expires: 02/17/2025 Start: 02-18-2024 End: 02-17-2025 US Pelvis transvaginal US OB transvaginal Imaging Routine Missed menses Expected: 02/18/2024 (Approximate), Expires: 02/17/2025 [facility] Comment on above: Expected: 02/18/2024 (Approximate), Expires: 02/17/2025 Start: 12-06-2023 Influenza vaccination Influenza Vacc ine (#1) [facility] Start: 2022 Screening for malign ant neoplasm of cervix HPV/Cotest [facility] Bacteria identified in Urine by Culture Urine culture Microbiology Routine Missed menses Ordered: 02/18/2024 [facility] Comment on above: Ordered: 02/18/2024 CBC W Auto Different ial panel - Blood CBC and differential Lab Routine Missed menses , unspecified gestational age Ordered: 02/18/2024 [facility] Comment on above: Ordered: 02/18/2024 CBC W Auto Different ial panel - Blood CBC and differential Lab Routine Abnormal uterine bleeding (AUB) PCOS (polycystic ovarian syndrome) Ordered: 11/23/2024 [facility] Comment on above: Ordered: 11/23/2024 CHLAMYDIA TRACHOMATI S (GENITO/STI) CHLAMYDIA TRACHOMATIS (GENITO/STI) Lab Routine Exposure to STD Ordered: 04/12/2024 [facility] Comment on above: Ordered: 04/12/2024 Cytology Cervical or vaginal smear or scraping study Pap Smear Pathology and Cytology Routine Well woman exam with routine gynecological exam Ordered: 04/12/2024 [facility] Comment on above: Ordered: 04/12/2024 DHEA-sulfate DHEA-sulfate Lab Routine Abnormal uterine bleeding (AUB) PCOS (polycystic ovarian syndrome) Ordered: 11/23/2024 [facility] Comment on above: Ordered: 11/23/2024 Follicle stimulating hormone Follicle stimulating hormone Lab Routine Abnormal uterine bleeding (AUB) PCOS (polycystic ovarian syndrome) Ordered: 11/23/2024 [facility] Comment on above: Ordered: 11/23/2024 hCG, quantitative, hCG, quantitative, Lab Routine Abnormal uterine bleeding (AUB) PCOS (polycystic ovarian syndrome) Ordered: 11/23/2024 [facility] Work Phone: Comment on above: Ordered: 11/23/2024 Hemoglobin A1c/Hemoglobin.total in Blood Hemoglobin A1c Lab Routine Missed menses , unspecified gestational age Ordered: 02/18/2024 [facility] Comment on above: Ordered: 02/18/2024 Hemoglobin A1c/Hemoglobin.total in Blood Hemoglobin A1c Lab Routine Abnormal uterine bleeding (AUB) Ordered: 11/23/2024 [facility] Comment on above: Ordered: 11/23/2024 Hepatitis B virus surface Ag [Presence] in Serum or Plasma by Immunoassay Hepatitis B surface antigen Lab Routine Missed menses , unspecified gestational age Ordered: 02/18/2024 [facility] Comment on above: Ordered: 02/18/2024 Hepatitis C virus Ab [Presence] in Serum or Plasma by Immunoassay Hepatitis C antibody Lab Routine Missed menses , unspecified gestational age Ordered: 02/18/2024 [facility] Comment on above: Ordered: 02/18/2024 HIV-1/HIV-2 antigen/antibody combination immunoassay HIV-1 and HIV-2 antibodies Lab Routine Missed menses , unspecified gestational age Ordered: 02/18/2024 [facility] Comment on above: Ordered: 02/18/2024 Human papilloma viru s DNA [Presence] in Unspecified specimen by Probe with amplification HPV DNA probe, amplified Microbiology Routine Well woman exam with routine gynecological exam Ordered: 04/12/2024 [facility] Comment on above: Ordered: 04/12/2024 Luteinizing hormone Luteinizing hormone Lab Routine Abnormal uterine bleeding (AUB) PCOS (polycystic ovarian syndrome) Ordered: 11/23/2024 [facility] Comment on above: Ordered: 11/23/2024 Neisseria gonorrhoea e DNA [Presence] in Unspecified specimen by IRA with probe detection Neisseria gonorrhea DNA probe, direct Lab Routine Exposure to STD Ordered: 04/12/2024 [facility] Comment on above: Ordered: 04/12/2024 Patient Education Heavy Periods ED [facility] Work Phone: Patient referral [facility] Work Phone: Reagin Ab [Presence] in Serum by RPR RPR Lab Routine Missed menses , unspecified gestational age Ordered: 02/18/2024 [facility] Comment on above: Ordered: 02/18/2024 Rubella antibody, IgG Rubella an tibody, IgG Lab Routine Missed menses , unspecified gestational age Ordered: 02/18/2024 [facility] Comment on above: Ordered: 02/18/2024 SURESWAB(R) ADVANCED VAGINITIS PLUS, TMA SURESWAB(R) ADVANCED VAGINITIS PLUS, TMA Pathology and Cytology Routine Exposure to STD Ordered: 04/12/2024 [facility] Work Phone: Comment on above: Ordered: 04/12/2024 Thyrotropin [Units/volume] in Serum or Plasma TSH Lab Routine Abnormal uterine bleeding (AUB) PCOS (polycystic ovarian syndrome) Ordered: 11/23/2024 [facility] Comment on above: Ordered: 11/23/2024 Thyroxine (T4) free [Mass/volume] in Serum or Plasma T4, free Lab Routine Abnormal uterine bleeding (AUB) PCOS (polycystic ovarian syndrome) Ordered: 11/23/2024 [facility] Comment on above: Ordered: 11/23/2024 Payers Date Payer Category Payer Self-pay 2023 Medicaid [id number] 2022 Medicaid [id number] 2016 Unknown [id number] 1992 Unknown [id number] 2.16.8 40.1.032588.3.579.2.9 1992 Unknown [id number] 2.16.8 40.1.276393.3.579.2.9 1992 Unknown [id number] 2.16.8 40.1.671494.3.579.2.9 1992 Unknown [id number] 2.16.84 0.1.840010.3.579.2.9 1992 Unknown [id number] 2.16.84 0.1.681382.3.579.2.9 1992 Unknown [id number] 2.16.84 0.1.562541.3.579.2.9 1992 Unknown [id number] 2.16.84 0.1.333103.3.579.2.9 1992 Unknown [id number] 2.16.84 0.1.927487.3.579.2.9 1992 Unknown [id number] 2.16.84 0.1.382369.3.579.2.9 1992 Unknown [id number] 2.16.84 0.1.858058.3.579.2.9 1992 Unknown [id number] 2.16.84 0.1.569891.3.579.2.9 1992 Unknown [id number] 2.16.84 0.1.660509.3.579.2.9 1992 Unknown [id number] 2.16.84 0.1.192345.3.579.2.9 1992 Unknown [id number] 2.16.84 0.1.592330.3.579.2.1259 1992 Unknown [id number] 2.16.84 0.1.548154.3.579.2.1259 1992 Unknown [id number] 2.16.84 0.1.006574.3.579.2.1259 1992 Unknown [id number] 2.16.84 0.1.236146.3.579.2.1259 Unknown [id number] 2.16.8 40.1.673848.3.579.2.531 Social History Date Type Detail Facility Unknown if ever smoked [employer] Other Start: 09-05-2024 Sex Assigned At [facility] Work Phone: Tobacco smoking status MTIS Tobacco smoking consumption unknown [facility] Start: 12-28-2023 [facility] Start: 1990 Sex assigned at Not on file [facility] Start: 09-05-2024 History of Social function [facility] Work Phone: Start: 12-07-2024 Tobacco smoking status NHIS Never smoked tobacco (finding) [facility] Sex Female (finding) [facility] Start: 1990 Sex Assigned At Female [facility] NEGATED: Highlighted row N [facility] Goals Date Patient Goal Desired Activity /State Personal health goal Clinical Notes 02-20-2022 to 12-07-2024 Elisa Gamez LPN - 11/23/2024 11:20 AM Tresa Garsia - 11/17/2024 8:40 AM Perez Gamez LPN - 10/18/2024 10:50 AM Perez Gamez LPN - 08/30/2024 1:00 PM EDT Note Date & Type Note Facility 12-07-2024 Radiology Diagnostic study note [facility] Main [address] [address] Ultrasound Report Signed Patient: Santiago [place] MR#: [id number] : 1990 Acct:[id number] Age/Sex: 34 / F ADM Date: 5 Loc: ER Room: Type: [facility] ER Attending Dr: Ordering Provider: Ruben Whaley PA-C Date of Service: 12/07/24 US/US pelvic complete: vag bleeding after 3months ago ([id number]) US/US transvaginal: VAGINAL BLEEDING Copies to: Ruben Whaley PA-C~ TRANSABDOMINAL AND TRANSVAGINAL PELVIC ULTRASOUND HISTORY: Vaginal bleeding after . Abdominal pain FINDINGS: The uterus measures 8.2 x 5.1 x 5.3 cm. Heterogeneous uterine parenchyma. Multiple hypoechoic structures uterus measuring up to 6 mm. Potential small fibroids. The endometrium has a total combined thickness of 12mm. The RIGHT ovary measures 2.3 x 2.2 x 2.6 cm. LEFT ovary measures 2.5 x 1.2 x 2.3 cm. Bilateral ovarian blood flow identified. Anechoic free fluid adjacent to the ovaries. No adnexal mass. Prominent vessels lateral to the uterus. US/US pelvic complete IMPRESSION: Fibroid uterus. 12 mm endometrial complex. Anechoic free fluid [id number] and adjacent ovaries. Likely physiologic. Pelvic congestion. Adequate flow of ovaries. Bilateral ovarian follicles. Impression dictated by: Kade Butts M.D. 12/07/2024 7:55 PM Dictation Location[facility] Tech: Nyla Serrano Transcribed By: TERE 12/07/241954 Dictated By: Kade Butts DO 12/07/241949 Signed By: 12/07/241954 [facility] 11-23-2024 History of Present illness Narrative Reason for Appointment: Patient ID: [...] nursing note reviewed. Exam conducted with a study lead present. Vitals: Estimated body mass index is 29.24 kg/m as calculated from the following: Height as of 25: 5' 10 . Weight as of this [...] Junior Jones DO documented in this encounter [facility] 11-17-2024 History of Present illness Narrative Reason for Appointment: Patient ID: Santiago [place] is a 34 y.o. female who presents for Pre-op Visit Patient presents today for Pre Op appointment. Patient is scheduled to undergo Da Wes assisted Bilateral Laparoscopic Salpingectomy on 12-16-[address] Jones at [facility]. MEDICATIONS Current Outpatient Medications Medication Instructions [...] nursing note reviewed. Exam conducted with a study lead present. Vitals: There is no height or [...] reviewed, and patient is to proceed to [facility] OR. Follow Up: Patient is to follow up between 1-2 weeks post operative to assess proper healing and recovery from procedure. Documented by Anna Carrasco LPN on behalf of: Junior Jones DO documented in this encounter [facility] 10-18-2024 History of Present illness Narrative Reason for Appointment: Patient ID: [...] nursing note reviewed. Exam conducted with a study lead present. Vitals: There is no height or weight on file to calculate BMI. BP: 130/86 Patient's last menstrual period was 12/14/2023. ASSESSMENT & PLAN ICD-10-CM 1. 6 weeks follow-up ([facility]) Z39.2 2. Request for sterilization Z30.2 Post [...] Salpingectomy. Patient will set up surgery with surgical endoscopist and return to our office for a pre op appointment. Follow Up: Patient is to return for annual unless needed otherwise. Documented by Elisa Gamez LPN on behalf of: Junior Jones DO documented in this encounter [facility] 08-30-2024 History of Present illness Narrative Reason for Appointment: Patient ID: [...] nursing note reviewed. Exam conducted with a study lead present. Vitals: There is no height or [...] Junior Jones DO documented in this encounter [facility] 08-22-2024 History of Present illness Narrative Reason for Appointment: Patient ID: [...] nursing note reviewed. Exam conducted with a study lead present. Vitals: There is no height or [...] Marlin Moreno NP documented in this encounter [facility] 08-11-2024 History of Present illness Narrative Reason for Appointment: Patient ID: [...] nursing note reviewed. Exam conducted with a study lead present. Vitals: There is no height or [...] by Anna Carrasco LPN on behalf of: MADIAN Valdez documented in this encounter [facility] 07-28-2024 History of Present illness Narrative Reason for Appointment: Patient ID: [...] nursing note reviewed. Exam conducted with a study lead present. Vitals: There is no height or [...] Junior Jones DO documented in this encounter [facility] 07-11-2024 History of Present illness Narrative Reason for Appointment: Patient ID: [...] nursing note reviewed. Exam conducted with a study lead present. Vitals: There is no height or [...] Junior Jones DO documented in this encounter [facility] 06-06-2024 History of Present illness Narrative Reason for Appointment: Patient ID: [...] of: MADINA Valdez documented in this encounter [facility] 05-09-2024 History of Present illness Narrative Reason for Appointment: Patient ID: [...] Junior Jones DO documented in this encounter [facility] 04-12-2024 History of Present illness Narrative Reason for Appointment: Patient ID: [...] nursing note reviewed. Exam conducted with a study lead present. Vitals: There is no height or [...] of: MADINA Valdez documented in this encounter [facility] 03-09-2024 History of Present illness Narrative Reason for Appointment: Patient ID: [...] nursing note reviewed. Exam conducted with a study lead present. Vitals: There is no height or [...] or undercooked meat, and stay away from [facility]. Patient has been consulted regarding any [...] Junior Jones DO documented in this encounter [facility] 02-18-2024 History of Present illness Narrative Reason for Appointment: Patient ID: [...] or undercooked meat, and stay away from [facility]. Patient has also been advised to [...] Brigid Taylor LPN documented in this encounter [facility] 02-08-2023 Evaluation note Encounter Date Diagnosis Assessment [...] fever/discomfort , cool mist humidifier. May use [place] as needed for cough, do not take any other OTCs while using [place]. Patient to follow up with PCP in 2-3 days. Immediate eval if SOB, difficulty breathing, chest pain, dizziness, or other concerning symptoms. Patient verbalizes understanding and is agreeable to treatment plan [employer] Other 11-17-2022 NoteCOVID 19 RESULT: SARS-CoV-2 (Agent of COVID-19) Not Detected by RT-PCR or equivalent method. This test has been authorized by FDA under an Emergency Use Authorization (EUA). INFLUENZA A PCR: Negative for Influenza A by RT-PCR INFLUENZA B PCR: Negative for Influenza B by RT-PCR RSV PCR: Negative for Respiratory Syncytial Virus (RSV) by PCRLahey Medical Center, PeabodyComment on above:Performed By: #### [id number] #### [facility] CLIA [id number] [address] [place] [address] [place] AMERICAEvaluation note* Diagnosis Missed [...] weeks gestation of documented in this encounter [facility] HealthcareEvaluation note* Diagnosis 37 weeks gestation of Third trimester state, incidental H/O pre-eclampsia in prior , currently Gestational hypertension, antepartum documented in this encounter [facility] HealthcareEvaluation note* Diagnosis 6 weeks follow-up ([facility]) Request for sterilization control counseling documented in this encounter [facility] HealthcareEvaluation note* Diagnosis Pre-op examination Request for sterilization documented in this encounter [facility] HealthcareEvaluation note* Diagnosis Abnormal uterine bleeding (AUB) PCOS (polycystic ovarian syndrome) Polycystic ovaries documented in this encounter [facility] HealthcareEvaluation noteNo assessment information availablePremier Health [facility] Work Phone: History general Narrative - Reported* Type Description Date Surgical History TONSILS Hospitalization History CHILD [facility] [employer] Other Reason for referral (narrative)No reason for referral information availablePremier Health [facility] Hospital Work Phone: Summary Purpose Family History No Family History Records Found Relationship Condition Age at Onset Recorded Date/T kurt mother Unknown sister Family history of kidney disease Unknown Advance Directives No Advanced Directives Records Found Advance Directive Response Recorded Date/ Time Advance Directives No December 3:02pm Chief Complaint and Reason for Visit Chief Complaint Admit Date vag bleeding December 07, 2024 1:40pm Additional Source Comments INFORMATION SOURCE (unrecogn ized section and content) DATE CREATED AUTHOR 09/30/2017 [facility] DATE CREATED AUTHOR AUTHOR'S ORGANIZ ATION 02/23/2022 [facility] DATE CREATED AUTHOR AUTHOR'S ORGANIZ ATION 11/25/2024 [facility] EPIC DATE CREATED AUTHOR AUTHOR'S ORGANIZ ATION 12/09/2024 [facility] REASON FOR VISIT (unrecogniz ed section and content) Reason Comments Amenorrhea Reason Comments Routine Visit Reason Comments Routine Visit Reason Comments 6wk PP Reason Comments Pre-op Visit Reason Comments Irregular bleeding Care Teams (unrecognized sec tion and content) Lead Dental Assistant Relationship Specialty Start Date End Date Junior Jones DO [address] [place], [place] [address] [address] PCP [facility] 07/05/24 Lead Dental Assistant Relationship Specialty Start Date End Date Junior Jones, DO [address] [place] [address] [facility] 07/05/24 Lead Dental Assistant Relationship Specialty Start Date End Date Junior Jones DO [address] [place] [address] [facility] 07/05/24 Team Status: Active Member Role Status Dates PHYSICIAN NO FAMILY Primary Care Provider Active Team Status: Inactive Member Role Status Dates PHYSICIAN NO FAMILY Primary Care Provider Active Start: December 07, 2024 End: December 07, 2024 Ruben Whaley PA-C Emergency Provider Active Start: December 07, 2024 End: December 07, 2024 Goals (unrecognized section and content) Goals may be documented in a n alternate section FOR RECORDS PERTAINING TO PATIENTS WHO ARE [...] BE BASED ON THE PRIMARY CLINICAL RECORDS. [employer] provides no warranty or guarantee of the accuracy or completeness of information in this document.
[2024-12-16 07:42] LABS: Hematocrit 38.9 % (36.0-48.0); Hemoglobin 12.6 g/dL (12.0-16.0); Immature Granulocytes Abs Auto 0.01 10^3/uL (0.00-0.03); Immature Granulocytes Pct Auto 0.2 % (0.0-0.5); Lymphocytes Absolute Auto 2.1 10^3/uL (1.2-3.8); Mean Corpuscular HGB Conc 32.4 g/dL (29.9-35.2); Mean Corpuscular Hemoglobin 25.4 pg (26.7-34.0); Mean Corpuscular Volume 78.3 fL (81.0-99.0); Platelet Count 301 10^3/uL (150-450); Red Blood Count 4.97 10^6/uL (4.20-5.40); White Blood Count 5.8 10^3/uL (4.0-11.0)
--- NOTE | 2024-12-16 10:10 | PM.ONB ---
Brief Operative Note Date of procedure: 12/16/24 Pre-op diagnosis general: desires permanent sterilization, menorrhagia Post-op diagnosis: same as pre-op Procedure: NAME OF PROCEDURE: robotic assisted bilateral laparoscopic salpingectomy, iud placement PROCEDURE: The patient was taken back to the Operating Room where she was given general anesthesia without difficulty. She was then prepped and draped in the normal sterile fashion after being placed in a dorsal lithotomy position. Please note the iud was placed without difficulty prior to salpingectomy. A wet sponge stick was placed into the patient's vagina. Attention was then turned to the patient's abdomen, where a scalpel was used to make a small infraumbilical incision. The S retractors were then used to dissect the underlying layers until the fascia could be seen. The fascia was then grasped with Ildefonso clamps and tented up. A knife was then used to make a small incision to the fascia. The muscle was identified, at that time two sutures of #0 Vicryl on a GI needle was then used and placed through the fascia. the peritoneum was then identified and entered bluntly. The 10-4 Porsha was then placed into the patient's abdomen. This was confirmed with direct visualization of the bowel, using the laparoscope. The patient's abdomen was then insufflated using approximately 4 liters of CO2 gas. Survey of the patient's abdomen demonstrated ovaries were normal in appearance as well as both tubes and uterus. A second and third rt and lt lateral robotic ports which were 8 mm in size, was then placed after the skin incision was made under direct visualization . the robotic arms were engaged. The patient's tube on the patient's right side was identified and tented up using a grasper, the ligasure apparatus was then used to come across the mesosalpingx from the fimbriated end to the insertion site at the uterus, the tube was then amputated and removed in its entirety. This was done on the contralateral side. The tubes were the removed from the patients abdomen. Excellent hemostasis was noted. The lateral ports were then moved under direct visualization with excellent hemostasis. All instruments were removed from the patient's abdomen. The fascia was closed using the #0 Vicryl on GI needle. The skin was closed using 4-0 Vicryl subcuticularly. All instruments were removed from the patient's vagina as well. The patient was taken out of the dorsal lithotomy position and placed in the supine position and taken to recovery in stable condition. Sponge, lap and needle counts were correct x2. Anesthesia: ALEKSANDRA Surgeon: Junior Jones Estimated blood loss (mL): 5 Pathology: other (tubes) Condition: stable Disposition: PACU
[2024-12-16] MEDS: HYDROMORPHONE HCL 0.5 MG/0.5 ML SYRINGE IV ×2 (10:58→11:11)
[2024-12-16] MEDS: HYDROCODONE/ACET 5-325 MG TABLET 1 TAB PO (11:31)
== END 2024-12-16 13:25 | disposition home or self-care (01) ==
PROVIDERS: PCP Family Medicine; Visit Provider Obstetrics & Gynecology
PROC: (CPT 840; principal; 2024-12-16 08:40)
DX: Z30.2 Encounter for sterilization (principal); N92.0 Excessive and frequent menstruation with regular cycle; N93.9 Abnormal uterine and vaginal bleeding, unspecified
CPT/HCPCS: 58300; 58661; 36415; 84702; 85025; J0360; J1100; J1171; J2175; J2250; J2405; J2704; J3010